=== PATIENT | male | born 1945 | race Caucasian/White ===

== ENCOUNTER → 2020-01-02 | Outpatient (CLI) | payer BC ==
[2016-06-13 18:33] VITALS: BP 171/88
[~2020-01-02] MED LIST: HYDR-3164 PO; OXYC1TAB19 PO; TAMS0.4C97 PO
== END | disposition home or self-care (01) ==
LOC: LAB 17:01
PROVIDERS: ATTEND Ophthalmology
DX: Z01.818 Encounter for other preprocedural examination (principal); Z11.59 Encounter for screening for other viral diseases
CPT/HCPCS: U0003-CS

== ENCOUNTER 2020-01-06 10:02 | Day surgery (SDC) | payer BC ==
[~2020-01-06] VITALS: Ht 177.8 cm; Wt 79.8 kg
[~2020-01-06 10:02] MED LIST changes: +HYDROmorphone 2 MG/ML VIAL IV PRN; +IV RINGERS,LACTATED 1000ML 1,000 ML IV SCH; +LIDOCAINE 1% PF 2 ML VIAL. ID PRN; +MORPHINE SULFATE 2 MG/ML VIAL. IV PRN; +ONDANSETRON PF 4 MG/2 ML VIAL. IV PRN; +PROCHLORPERAZINE 10 MG/2 ML VIAL. IV PRN; +fentaNYL PF VIAL 100 MCG/2 ML VIAL IV PRN
[2020-01-06] MEDS ORDERED: NEO/POLYMYX/DEXAMETH OPHTH OINTMENT 3.5GM TUBE. ONE (10:15)
[2020-01-06] MEDS ORDERED: CHONDROIT-SOD-HYALURONATE KIT. ONE (10:15)
[2020-01-06] MEDS ORDERED: CHONDROITIN-SOD-HYALURONATE 0.5 ML DISP.SYRIN. ONE (10:15)
[2020-01-06] MEDS ORDERED: LIDOCAINE 2% JELLY 6ML IN APPLICATOR. ONE (10:15)
[2020-01-06] MEDS ORDERED: LIDOCAINE 1%/PHENYLEPH 1.5% PF OPHTH 1 ML VIAL. ONE (10:16)
[2020-01-06] MEDS ORDERED: MIDAZOLAM HCL/PF 2 MG/2 ML VIAL. ONE (10:48)
[2020-01-06] MEDS: CYCLOPENTOLATE 1% OPHTH SOLUTION 2ML BOTTLE. OD SCH ×3 (11:00→11:10)
[2020-01-06] MEDS: PHENYLEPHRINE 10% OPHTH SOLUTION 5ML BOTTLE. OD SCH ×3 (11:00→11:10)
[2020-01-06] MEDS ORDERED: LIDOCAINE 2% JELLY 6ML IN APPLICATOR. OD ONE (12:00)
[2020-01-06] MEDS ORDERED: CIPROFLOXACIN 0.3% OPHTH SOLUTION 5ML BOTTLE. OD ONE (12:00)
[2020-01-06] MEDS ORDERED: PROPARACAINE 0.5% OPHTH SOLUTION 15ML BOTTLE. OD ONE (12:00)
[2020-01-06] MEDS ORDERED: BALANCED SALT IRRIG OPHTH SOLN 15 ML BOTTLE. IO ONE (12:25)
[2020-01-06 12:44] VITALS: BP 179/88
--- NOTE | 2020-01-06 12:55 | OP ---
DATE OF SURGERY: 01/06/2020 PREOPERATIVE DIAGNOSIS: Cataract of the right eye. PROCEDURE: Phacoemulsification with posterior chamber intraocular lens implantation of the right eye. SURGEON: Armida Hernandez MD ANESTHESIA: Topical with monitored anesthesia care. DESCRIPTION OF PROCEDURE: The right eye was prepped with Betadine in the usual sterile fashion and draped. A paracentesis was performed followed by instillation of preservative-free phenylephrine admixed with lidocaine. A temporal clear corneal incision was made followed by instillation of viscoelastic. A capsulorrhexis was performed followed by hydrodissection. The phacoemulsification handpiece was used to remove the nucleus in a modified stop and chop fashion. The I/A handpiece was used to remove the cortex. Viscoelastic was injected in the capsular bag and an [place] model [id number] with a power of 18.5 diopters was placed into the capsular bag. Balanced salt solution was used to hydrate the corneal wounds and the viscoelastic evacuated with the I/A handpiece. Once no leak was noted, Maxitrol was placed on the eye and the eye shielded and the patient is sent to the recovery room uneventfully. He was asked to follow the instructions given to him with the medications on a calendar and call the office for any questions or concerns. Otherwise, he was asked to follow up due to his work schedule the following week, on 01/11/2020, at 3:00 p.m. ARMIDA HERNANDEZ MD DR: EDIN/nts JOB#: [id number] / [id number]
== END 2020-01-06 13:36 | disposition home or self-care (01) ==
LOC: SURG 10:02
PROVIDERS: ATTEND Ophthalmology
DX: H26.8 Other specified cataract (principal)
CPT/HCPCS: 66984; C1780; J0171; J0690; J1580; J2250; J3490

== ENCOUNTER → 2020-01-24 | Outpatient (CLI) | payer BC ==
[2020-01-06 12:44] VITALS: BP 179/88
[~2020-01-24] MED LIST changes: -HYDROmorphone 2 MG/ML VIAL IV PRN; -IV RINGERS,LACTATED 1000ML 1,000 ML IV SCH; -LIDOCAINE 1% PF 2 ML VIAL. ID PRN; -MORPHINE SULFATE 2 MG/ML VIAL. IV PRN; -ONDANSETRON PF 4 MG/2 ML VIAL. IV PRN; -PROCHLORPERAZINE 10 MG/2 ML VIAL. IV PRN; -fentaNYL PF VIAL 100 MCG/2 ML VIAL IV PRN
== END | disposition home or self-care (01) ==
LOC: LAB 15:51
PROVIDERS: ATTEND Ophthalmology
DX: Z01.818 Encounter for other preprocedural examination (principal); Z11.59 Encounter for screening for other viral diseases
CPT/HCPCS: U0003-CS

== ENCOUNTER 2020-01-27 10:57 | Day surgery (SDC) | payer BC ==
[~2020-01-27] VITALS: Ht 177.8 cm; Wt 79.8 kg
[~2020-01-27 10:57] MED LIST changes: +CHONDROIT-SOD-HYALURONATE KIT. ONE; +CHONDROITIN-SOD-HYALURONATE 0.5 ML DISP.SYRIN. ONE; +HYDROmorphone 2 MG/ML VIAL IV PRN; +IV RINGERS,LACTATED 1000ML 1,000 ML IV SCH; +LIDOCAINE 1% PF 2 ML VIAL. ID PRN; +LIDOCAINE 1%/PHENYLEPH 1.5% PF OPHTH 1 ML VIAL. ONE; +LIDOCAINE 2% JELLY 6ML IN APPLICATOR. ONE; +MORPHINE SULFATE 2 MG/ML VIAL. IV PRN; +NEO/POLYMYX/DEXAMETH OPHTH OINTMENT 3.5GM TUBE. ONE; +ONDANSETRON PF 4 MG/2 ML VIAL. IV PRN; +PROCHLORPERAZINE 10 MG/2 ML VIAL. IV PRN; +fentaNYL PF VIAL 100 MCG/2 ML VIAL IV PRN
[2020-01-27] MEDS: PHENYLEPHRINE 10% OPHTH SOLUTION 5ML BOTTLE. OS SCH ×3 (11:27→11:40)
[2020-01-27] MEDS: CYCLOPENTOLATE 1% OPHTH SOLUTION 2ML BOTTLE. OS SCH ×3 (11:28→11:40)
[2020-01-27] MEDS ORDERED: PROPARACAINE 0.5% OPHTH SOLUTION 15ML BOTTLE. OS ONE (12:00)
[2020-01-27] MEDS ORDERED: LIDOCAINE 2% JELLY 6ML IN APPLICATOR. OS ONE (12:00)
[2020-01-27] MEDS ORDERED: CIPROFLOXACIN 0.3% OPHTH SOLUTION 5ML BOTTLE. OS ONE (12:00)
[2020-01-27] MEDS ORDERED: hydrALAZINE 20 MG/ML VIAL. ONE (12:23)
[2020-01-27] MEDS ORDERED: BALANCED SALT IRRIG OPHTH SOLN 15 ML BOTTLE. IO ONE (13:11)
--- NOTE | 2020-01-27 13:32 | OP ---
DATE OF SURGERY: 01/27/2020 PREOPERATIVE DIAGNOSIS: Cataract of the left eye. PROCEDURE: Phacoemulsification with posterior chamber intraocular lens implantation of the left eye. INDICATION: Painless progressive visual loss and visually significant cataract and difficulty reading. SURGEON: Armida Hernandez MD ANESTHESIA: Topical with monitored anesthesia care. DESCRIPTION OF PROCEDURE: The left eye was prepped with Betadine in the usual sterile fashion and draped. A paracentesis was performed followed by instillation of preservative-free phenylephrine and lidocaine. A temporal clear corneal incision was made followed by instillation of viscoelastic. A capsulorrhexis was performed followed by hydrodissection. The phacoemulsification handpiece was used to remove the nucleus in a modified stop and chop fashion followed by the I/A handpiece to remove the cortex. Viscoelastic was injected into the capsular bag and an [place], model [id number] with a power of 18.0 diopters was placed into the capsular bag. Balanced salt solution was used to hydrate the corneal wounds and the viscoelastic evacuated with the I/A handpiece. Once no leak was noted, Maxitrol was placed on the eye and the eye shielded and the patient was sent to the recovery room uneventfully. ARMIDA HERNANDEZ MD DR: EDIN/william JOB#: [id number] / [id number]
[2020-01-27] MEDS ORDERED: acetaZOLAMIDE 250 MG TABLET. PO ONE (14:00)
[2020-01-27 14:02] VITALS: BP 150/74
== END 2020-01-27 14:15 | disposition home or self-care (01) ==
LOC: SURG 10:57
PROVIDERS: ATTEND Ophthalmology
DX: H26.8 Other specified cataract (principal)
CPT/HCPCS: 66984; C1780; J0171; J0360; J0690; J1580; J3490

== ENCOUNTER 2021-10-09 16:03 | Inpatient (IN) | payer BC, MEDICARE ==
[~2021-10-09] VITALS: Ht 177.8 cm; Wt 96.9 kg
[~2021-10-09 16:03] MED LIST changes: -CHONDROIT-SOD-HYALURONATE KIT. ONE; -CHONDROITIN-SOD-HYALURONATE 0.5 ML DISP.SYRIN. ONE; -HYDROmorphone 2 MG/ML VIAL IV PRN; -IV RINGERS,LACTATED 1000ML 1,000 ML IV SCH; -LIDOCAINE 1% PF 2 ML VIAL. ID PRN; -LIDOCAINE 1%/PHENYLEPH 1.5% PF OPHTH 1 ML VIAL. ONE; -LIDOCAINE 2% JELLY 6ML IN APPLICATOR. ONE; -MORPHINE SULFATE 2 MG/ML VIAL. IV PRN; -NEO/POLYMYX/DEXAMETH OPHTH OINTMENT 3.5GM TUBE. ONE; -ONDANSETRON PF 4 MG/2 ML VIAL. IV PRN; -PROCHLORPERAZINE 10 MG/2 ML VIAL. IV PRN; -fentaNYL PF VIAL 100 MCG/2 ML VIAL IV PRN
--- NOTE | 2021-10-09 16:13 | PHYS DOC ---
Past Medical History Past Medical History: No Pertinent History Past Surgical History: Tonsillectomy, Other Additional Past Surgical Histo: VASECTOMY Smoking Status: Current Every Day Smoker Alcohol Use: Heavy Drug Use: None Adult General [facility] HPI Patient is a 76 year old male who presents with rapid heart rate. Mr. 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 He does not often seek health care and was last seen by PCP in 2019. He presented there today for routine surveillance as well as complaints of some lower extremity edema and dyspnea. He was noted to be in atrial fibrillation with RVR. Was referred to the emergency department for evaluation. Additional history is that patient has had chronic constipation. He had been seen previously by urologist and was told he had an irregular shaped and mildly enlarged prostate. He does have chronic difficulties with both bowel movements as well as voiding and endorses frequent urination and weak stream and difficulty beginning stream. He underwent occult stool screening in the PCP office earlier today and this test was positive. It is not reordered during the ER visit. His primary complaint today is that he has had shortness of breath over the last 3 weeks. During the same time, he has noted lower extremity edema that extends up into the abdomen. His dyspnea is not worse when he lays down to sleep. He normally lays on his side and does not have a problem. He does have dyspnea that is much worse with exertion and he reports activity intolerance which has been worsening. Denies chest pain or palpitations. Has not had nausea or vomiting. He has not perceived any bloody stools but he has noted some intermittent episodes of dark stool. He denies abdominal pain but complains of swelling over the abdomen for the last 3 weeks. Does not have a history of atrial fibrillation. Does not take anticoagulation medications. He does drink 1-3 Conner Dorantes drinks daily and has an extensive history of tobacco use. Review of Systems Review of Systems Constitutional: Denies fever or chills Eyes: Denies change in visual acuity, redness, or eye pain HENT: Denies nasal congestion or sore throat Respiratory: As documented in HPI Cardiovascular: New onset A. fib. No chest pain. GI: Diffuse abdominal swelling, chronic diarrhea : As documented in HPI. Has known prostate hypertrophy Musculoskeletal: Denies back pain or Integument: Denies rash Neurologic: Denies headache Endocrine: Denies All other systems were reviewed and found to be within normal limits, except as documented in this note. Current Medications Current Medications Current Medications Medications (Trade) Dose Ordered Sig/Alicja Start Time Stop Time Status Last Admin Dose Admin Ceftriaxone Sodium (Rocephin) 1 gm 1X ONCE 10/09/21 18:00 10/09/21 18:01 UNV Diltiazem HCl (Cardizem Iv Push) 10 mg 1X ONCE 10/09/21 16:30 10/09/21 16:31 DC 10/09/21 17:02 10 MG Allergies Allergies Allergies Coded Allergies Type Severity Reaction Last Updated Verified No Known Drug Allergies 01/24/20 No Physical Exam Physical Exam Constitutional: Well developed, well nourished, no acute distress, non-toxic appearance HENT: Moist mucous membranes, nares patent, ears grossly normal Eyes: PERRLA, EOMI, conjunctiva normal Neck: Normal range of motion, no JVD Cardiovascular: Irregular heart rate that is in the 130s. No murmur. Lungs & Thorax: Good air movement in all pritch[place]. Crackles in the bases bilaterally that are subtle. No increased work of breathing. Abdomen: Abdomen is mildly distended but nontender to palpate. Normal bowel sounds. Skin: Warm, dry, no petechiae Back: Normal appearing. Normal ROM Extremities: Equal pulses in all extremities. 2-3+ edema bilateral lower extremities. Neurologic: Alert and oriented X 3 Psychologic: Affect normal Guaiac stool documented by PCP in office prior to presentation to be positive but no gross blood. Current Patient Data Vital Signs Vital Signs Date Time Temp Pulse Resp B/P (MAP) Pulse Ox O2 Delivery O2 Flow Rate FiO2 10/09/21 17:02 132 162/83 10/09/21 16:10 98.1 20 94 Room Air 98.1 Lab Values Laboratory Tests Test 10/09/21 16:20 White Blood Count 4.7 x10^3/uL (4.0-11.0) Red Blood Count 4.37 x10^6/uL (4.30-5.70) Hemoglobin 14.3 g/dL (13.0-17.5) Hematocrit 43.0 % (39.0-53.0) Mean Corpuscular Volume 98 fL (79-100) Mean Corpuscular Hemoglobin 33 pg (25-35) Mean Corpuscular Hemoglobin Concent 33 g/dL (31-37) Red Cell Distribution Width 15.5 % (11.5-14.5) H Platelet Count 128 x10^3/uL (140-400) L Neutrophils (%) (Auto) 71 % (31-73) Lymphocytes (%) (Auto) 14 % (24-48) L Monocytes (%) (Auto) 13 % (0-9) H Eosinophils (%) (Auto) 1 % (0-3) Basophils (%) (Auto) 1 % (0-3) Neutrophils # (Auto) 3.4 x10^3/uL (1.8-7.7) Lymphocytes # (Auto) 0.7 x10^3/uL (1.0-4.8) L Monocytes # (Auto) 0.6 x10^3/uL (0.0-1.1) Eosinophils # (Auto) 0.0 x10^3/uL (0.0-0.7) Basophils # (Auto) 0.0 x10^3/uL (0.0-0.2) Prothrombin Time 15.2 SEC (11.7-14.0) H Prothrombin Time INR 1.2 (0.8-1.1) H Activated Partial Thromboplast Time 31 SEC (24-38) Laboratory Tests 10/09/21 16:20 EKG EKG 16:20: Atrial fibrillation with RVR. Rate of 133. Radiology/Procedures Radiology/Procedures [] Course & Med Decision Making Course & Med Decision Making Pertinent Labs and Imaging studies reviewed. (See chart for details) Mr. Marley is evaluated on arrival to room 13. Denies chest pain or shortness of breath but does have A. fib with RVR. Has findings on physical exam concerning for fluid overload although he has no acute distress and no hypoxia. Extensive work-up is ordered. Per his PCP has not had routine labs and these are also added to his ER work-up. We will give initially a bolus of Cardizem for his A. fib with RVR. Anticoagulation is initially held as he was reported to have positive guaiac for occult blood in stool. Does not report diana bleeding. Also has history of alcohol use daily and LFTs and coags are added to his work-up. 17:20: Reevaluated. Resting comfortably. Heart rate now 101 and continues to be in atrial fibrillation. Has few PVCs on the monitor. Blood pressure dropped to 94/54. Asymptomatic. Will observe and hold IV fluids until some labs are returned. 17:50: Discussed with Dr. Paez who is agreeable to admit the patient. Work-up still pending. Continues to be in A. fib. No chest pain. Imaging is pending. Noted to have findings on plain film chest x-ray which could represent pulmonary edema versus pneumonia. He does not give review of systems of cough or fever but he is empirically treated with Rocephin. Blood culture sent and procalcitonin is ordered. 18:00: Transfer of care to Dr. Tripathi. Please follow-up on imaging and labs and respond to any critical results. Otherwise, Dr. Paez is aware of the admission. Dragon Disclaimer Dragon Disclaimer This electronic medical record was generated, in whole or in part, using a voice recognition dictation system. Departure Departure Impression: Primary Impression: Atrial fibrillation with rapid ventricular response Disposition: ADMITTED INPATIENT Referrals: MARTÍN NICOLE (PCP) CAROLINA MON DO Oct 09, 2021 16:13
[2021-10-09 17:05] LABS: BASO % 1 % (0-3); EOS % 1 % (0-3); HEMOGLOBIN 14.3 g/dL (13.0-17.5); LYMPH # 0.7 x10^3/uL (1.0-4.8); LYMPH % 14 % (24-48); MEAN CORPUSCULAR HEMOGLOBIN 33 pg (25-35); MEAN CORPUSCULAR HGB CONC 33 g/dL (31-37); MEAN CORPUSCULAR VOLUME 98 fL (79-100); MONO # 0.6 x10^3/uL (0.0-1.1); MONO % 13 % (0-9); NEUT # 3.4 x10^3/uL (1.8-7.7); NEUT % 71 % (31-73); PLATELET COUNT 128 x10^3/uL (140-400); RED BLOOD COUNT 4.37 x10^6/uL (4.30-5.70); RED CELL DISTRIBUTION WIDTH 15.5 % (11.5-14.5); WHITE BLOOD COUNT 4.7 x10^3/uL (4.0-11.0)
[2021-10-09 17:13] LABS: PROTHROMBIN TIME PATIENT 15.2 SEC (11.7-14.0)
--- NOTE | 2021-10-09 17:24 | RAD ---
EXAMINATION: Chest radiograph. VIEWS: Single AP view of the chest COMPARISON: None INDICATION:76 years, Male, dyspnea, CHF. FINDINGS: Enlarged partially obscured cardiac silhouette. Increased central pulmonary vasculature patchy and co nfluent bilateral airspace opacities with complete opacification of the left perihilar and basilar re gion. No pneumothorax. No acute osseous process. IMPRESSION: Multifocal airspace disease with left perihilar and basilar confluent opacities. This could represent a moderate pleural effusion on the left. These findings could be from moderate interstitial pulmonar y edema and/or multifocal pneumonia. Electronically signed by: Nathanael Redding DO (10/09/2021 5:22 PM) [facility]
[2021-10-09 17:58] LABS: CALCIUM 8.8 mg/dL (8.5-10.1); CREATININE 1.4 mg/dL (0.7-1.3); GFR 49.4
[2021-10-09] MEDS ORDERED: ONDANSETRON PF 4 MG/2 ML VIAL. IVP PRN ×2 (18:00→20:00)
[2021-10-09] MEDS ORDERED: cefTRIAXone IV Push 1 GM VIAL. IVP ONE (18:00)
[2021-10-09 18:05] LABS: ALBUMIN 3.2 g/dL (3.4-5.0); DIRECT BILIRUBIN 0.9 mg/dL (0.0-0.2); TOTAL BILIRUBIN 1.6 mg/dL (0.2-1.0)
[2021-10-09] MEDS ORDERED: CONTRAST GIVEN. MC PRN (19:00)
[2021-10-09] MEDS ORDERED: IOHEXOL 300 MG/ML 100ML VIAL. IV ONE (19:00)
[2021-10-09 19:40] VITALS: BP 116/91
--- NOTE | 2021-10-09 19:46 | PDOC1 ---
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 Patient is a heavy smoker and drinker. He drinks about 1-3 Conner Dorantes daily. Patient was at his PCPs office earlier today and he was actually tested positive on occult stool screening. Patient came to the ED today for elevated heart rate from PCPs office.. He was found to be in A. fib RVR with heart rates in the 130s and was given Cardizem x1 and his heart rate improved to 100s. He remained in atrial fibrillation. Denies any history of atrial fibrillation or bloody stools. His primary complaint today is that he has had shortness of breath over the last 3 weeks. During the same time, he has noted lower extremity edema that extends up into the abdomen. His dyspnea is not worse when he lays down to sleep. He normally lays on his side and does not have a problem. He does have dyspnea that is much worse with exertion and he reports activity intolerance which has been worsening. Denies chest pain or palpitations. Has not had nausea or vomiting. He has not perceived any bloody stools but he has noted some intermittent episodes of dark stool. He denies abdominal pain but complains of swelling over the abdomen for the last 3 weeks. Past Medical/Surgical History: PMH/PSH: Past Medical History: No Pertinent History Past Surgical History: Tonsillectomy, VASECTOMY Allergies: Allergies: Coded Allergies: No Known Drug Allergies (Unverified , 01/24/20) Family History: Family History: Reviewed with no relative findings in the chart Social History: Social History: Smoking Status: Current Every Day Smoker Alcohol Use: Heavy Drug Use: None Current Medications: Current Medications Current Medications Diltiazem HCl (Cardizem Iv Push) 10 mg 1X ONCE IVP Last administered on 10/09/21at 17:02; Start 10/09/21 at 16:30; Stop 10/09/21 at 16:31; Status DC Ceftriaxone Sodium (Rocephin) 1 gm 1X ONCE IVP Last administered on 10/09/21at 18:28; Start 10/09/21 at 18:00; Stop 10/09/21 at 18:01; Status DC Ondansetron HCl (Zofran) 4 mg PRN Q8HRS PRN IVP NAUSEA/VOMITING; Start 10/09/21 at 18:00; Stop 10/10/21 at 17:59 Iohexol (Omnipaque 300 Mg/ml) 60 ml 1X ONCE IV Last administered on 10/09/21at 19:29; Start 10/09/21 at 19:00; Stop 10/09/21 at 19:01; Status DC Info (CONTRAST GIVEN -- Rx MONITORING) 1 each PRN DAILY PRN MC SEE COMMENTS; Start 10/09/21 at 19:00; Stop 10/11/21 at 18:59 Active Scripts Active Reported Flomax (Tamsulosin Hcl) 0.4 Mg Cap.er.24h 0.4 Mg PO DAILY ROS: Review of Systems Review of System REVIEW OF SYSTEMS: GENERAL: Denies weakness SKIN: No bruising, hair changes or rashes. EYES: No blurred, double or loss of vision. NOSE AND THROAT: No history of nosebleeds, hoarseness or sore throat. HEART: No history of palpitations, chest pain or shortness of breath on exertion. LUNGS: Positive shortness of breath GASTROINTESTINAL: Denies changes in appetite, nausea, vomiting, diarrhea or constipation. GENITOURINARY: No history of frequency, urgency, hesitancy or nocturia. NEUROLOGIC: Denies history of numbness, tingling, or tremor. PSYCHIATRIC: No history of panic, anxiety or depression. ENDOCRINE: No history of heat or cold intolerance, polyuria or polydipsia. EXTREMITIES: Denies joint pain, pain on walking or stiffness. Physical Exam: Vital Signs: Vital Signs Date Time Temp Pulse Resp B/P (MAP) Pulse Ox O2 Delivery O2 Flow Rate FiO2 10/09/21 18:28 102 18 99/81 (87) 95 Room Air 10/09/21 16:10 98.1 98.1 Physcial Exam: General: Well developed, well nourished, no acute distress, well appearing HEENT: Pupils equally round and reactive to light, EOMI, no discharge, normal conjunctiva Neck: Supple, no nuchal rigidity, no JVD, trachea midline, no tenderness Cardiac: Irregular irregular, no murmurs, no gallops, no rubs Chest/Lungs: Diminished to auscultation in the left lung field, no wheeze, no rhonchi, no crackles Abdomen: soft, non-distended, no guarding, no peritoneal signs, non-tender Back: No tenderness Extremities: no edema, pulses intact, non-tender,capillary refill <3 sec bilateral upper and lower extremities, Neuro: Alert and oriented x 4, no focal deficits, normal speech Labs: Labs: Laboratory Tests Test 10/09/21 16:20 White Blood Count 4.7 x10^3/uL (4.0-11.0) Red Blood Count 4.37 x10^6/uL (4.30-5.70) Hemoglobin 14.3 g/dL (13.0-17.5) Hematocrit 43.0 % (39.0-53.0) Mean Corpuscular Volume 98 fL (79-100) Mean Corpuscular Hemoglobin 33 pg (25-35) Mean Corpuscular Hemoglobin Concent 33 g/dL (31-37) Red Cell Distribution Width 15.5 % (11.5-14.5) Platelet Count 128 x10^3/uL (140-400) Neutrophils (%) (Auto) 71 % (31-73) Lymphocytes (%) (Auto) 14 % (24-48) Monocytes (%) (Auto) 13 % (0-9) Eosinophils (%) (Auto) 1 % (0-3) Basophils (%) (Auto) 1 % (0-3) Neutrophils # (Auto) 3.4 x10^3/uL (1.8-7.7) Lymphocytes # (Auto) 0.7 x10^3/uL (1.0-4.8) Monocytes # (Auto) 0.6 x10^3/uL (0.0-1.1) Eosinophils # (Auto) 0.0 x10^3/uL (0.0-0.7) Basophils # (Auto) 0.0 x10^3/uL (0.0-0.2) Prothrombin Time 15.2 SEC (11.7-14.0) Prothromb Time International Ratio 1.2 (0.8-1.1) Activated Partial Thromboplast Time 31 SEC (24-38) Sodium Level 138 mmol/L (136-145) Potassium Level 4.0 mmol/L (3.5-5.1) Chloride Level 99 mmol/L (98-107) Carbon Dioxide Level 25 mmol/L (21-32) Anion Gap 14 (6-14) Blood Urea Nitrogen 27 mg/dL (8-26) Creatinine 1.4 mg/dL (0.7-1.3) Estimated GFR (Cockcroft-Gault) 49.4 Glucose Level 103 mg/dL (70-99) Lactic Acid Level 1.7 mmol/L (0.4-2.0) Calcium Level 8.8 mg/dL (8.5-10.1) Magnesium Level 1.4 mg/dL (1.8-2.4) Total Bilirubin 1.6 mg/dL (0.2-1.0) Direct Bilirubin 0.9 mg/dL (0.0-0.2) Aspartate Amino Transf (AST/SGOT) 29 U/L (15-37) Alanine Aminotransferase (ALT/SGPT) 28 U/L (16-63) Alkaline Phosphatase 164 U/L (46-116) Troponin I High Sensitivity 36 ng/L (4-75) CA-Ahg-G-Type Natriuretic Peptide 7211 pg/mL (0-449) Total Protein 7.0 g/dL (6.4-8.2) Albumin 3.2 g/dL (3.4-5.0) Triglycerides Level 79 mg/dL (0-150) Cholesterol Level 127 mg/dL (0-200) LDL Cholesterol, Calculated 49 mg/dL (0-100) VLDL Cholesterol, Calculated 16 mg/dL (0-40) Non-HDL Cholesterol Calculated 65 mg/dL (0-129) HDL Cholesterol 62 mg/dL (40-60) Cholesterol/HDL Ratio 2.0 Prostate Specific Antigen 0.54 ng/mL (0.00-4.00) Thyroid Stimulating Hormone (TSH) 2.105 uIU/mL (0.358-3.74) Laboratory Tests Test 10/09/21 16:20 White Blood Count 4.7 x10^3/uL (4.0-11.0) Red Blood Count 4.37 x10^6/uL (4.30-5.70) Hemoglobin 14.3 g/dL (13.0-17.5) Hematocrit 43.0 % (39.0-53.0) Mean Corpuscular Volume 98 fL (79-100) Mean Corpuscular Hemoglobin 33 pg (25-35) Mean Corpuscular Hemoglobin Concent 33 g/dL (31-37) Red Cell Distribution Width 15.5 % (11.5-14.5) Platelet Count 128 x10^3/uL (140-400) Neutrophils (%) (Auto) 71 % (31-73) Lymphocytes (%) (Auto) 14 % (24-48) Monocytes (%) (Auto) 13 % (0-9) Eosinophils (%) (Auto) 1 % (0-3) Basophils (%) (Auto) 1 % (0-3) Neutrophils # (Auto) 3.4 x10^3/uL (1.8-7.7) Lymphocytes # (Auto) 0.7 x10^3/uL (1.0-4.8) Monocytes # (Auto) 0.6 x10^3/uL (0.0-1.1) Eosinophils # (Auto) 0.0 x10^3/uL (0.0-0.7) Basophils # (Auto) 0.0 x10^3/uL (0.0-0.2) Prothrombin Time 15.2 SEC (11.7-14.0) Prothromb Time International Ratio 1.2 (0.8-1.1) Activated Partial Thromboplast Time 31 SEC (24-38) Sodium Level 138 mmol/L (136-145) Potassium Level 4.0 mmol/L (3.5-5.1) Chloride Level 99 mmol/L (98-107) Carbon Dioxide Level 25 mmol/L (21-32) Anion Gap 14 (6-14) Blood Urea Nitrogen 27 mg/dL (8-26) Creatinine 1.4 mg/dL (0.7-1.3) Estimated GFR (Cockcroft-Gault) 49.4 Glucose Level 103 mg/dL (70-99) Lactic Acid Level 1.7 mmol/L (0.4-2.0) Calcium Level 8.8 mg/dL (8.5-10.1) Magnesium Level 1.4 mg/dL (1.8-2.4) Total Bilirubin 1.6 mg/dL (0.2-1.0) Direct Bilirubin 0.9 mg/dL (0.0-0.2) Aspartate Amino Transf (AST/SGOT) 29 U/L (15-37) Alanine Aminotransferase (ALT/SGPT) 28 U/L (16-63) Alkaline Phosphatase 164 U/L (46-116) Troponin I High Sensitivity 36 ng/L (4-75) CE-Qmh-X-Type Natriuretic Peptide 7211 pg/mL (0-449) Total Protein 7.0 g/dL (6.4-8.2) Albumin 3.2 g/dL (3.4-5.0) Triglycerides Level 79 mg/dL (0-150) Cholesterol Level 127 mg/dL (0-200) LDL Cholesterol, Calculated 49 mg/dL (0-100) VLDL Cholesterol, Calculated 16 mg/dL (0-40) Non-HDL Cholesterol Calculated 65 mg/dL (0-129) HDL Cholesterol 62 mg/dL (40-60) Cholesterol/HDL Ratio 2.0 Prostate Specific Antigen 0.54 ng/mL (0.00-4.00) Thyroid Stimulating Hormone (TSH) 2.105 uIU/mL (0.358-3.74) Images: Images PROCEDURE: CT ABD PELV W/ IV CONTRST ONLY CT OF THE ABDOMEN AND PELVIS WITH IV CONTRAST. History: Reason: abdomen distension, constipation : Comparison:None. Procedure: Contiguous axial images of the abdomen and pelvis were performed after the administration of 60 cc of Omnipaque 300 IV contrast. Oral contrast: No. Findings: The heart is moderately dilated. There is a large left effusion with consolidation of the left lower lobe. There is mild fluid around the liver and s pleen and fluid along the paracolic gutters and in the pelvis. There is diffuse soft tissue edema. Liver: Unremarkable Spleen: Unremarkable Pancreas: Unremarkable Adrenal Glands: Unremarkable Kidneys: Unremarkable There is no mass or lymphadenopathy. There is no free air. There is no free fluid. The urinary bladder is partially collapsed and not well evaluated. The appendix is normal. The gallbladder is normal.. Impression: 1. Dilated cardiomegaly. 2. Large left pleural effusion with consolidation of the left lower lobe. 3. Mild ascites. 4. Diffuse soft tissue edema. Could be sepsis or anasarca. Assessment/Plan Assessment/Plan A. fib RVR Large left pleural effusion MIGUEL due to vasomotor nephropathy, unknown baseline Elevated BNP suggestive of acute volume overload versus chronic hypoxia no history of COPD but chronic tobacco smoker Thrombocytopenia Hemoccult stool positive History of tobacco and alcohol misuse Obesity class I Admit to hospitalist service for further management Continue telemetry monitoring Cardiology consulted for atrial fibrillation management Pulmonology consulted for pleural effusion to consider possible thoracentesis GI consulted for FOBT positive Strict I's/O and monitor urine output Avoid nephrotoxic agents Pending TTE Heparin for DVT prophylaxis Protonix GI prophylaxis ADA diet CODE STATUS full Discussed with RN and SW Disposition inpatient management as above DPOA: Justifications for Admission Other Justification AARON HARDIN MD Oct 09, 2021 19:46
[2021-10-09] MEDS ORDERED: diphenhydrAMINE 50 MG/ML VIAL IVP PRN (20:00)
[2021-10-09] MEDS ORDERED: DEXTROSE 50% 25 GM / 50ML DISP.SYRIN. IV PRN (20:00)
[2021-10-09] MEDS ORDERED: diphenhydrAMINE HCL 25 MG CAPSULE PO PRN ×2 (20:00)
[2021-10-09] MEDS ORDERED: SENNOSIDES 8.6 MG TABLET PO PRN (20:00)
[2021-10-09] MEDS ORDERED: DOCUSATE SODIUM 100 MG CAPSULE. PO PRN (20:00)
[2021-10-09] MEDS ORDERED: ZOLPIDEM 5 MG TABLET. PO PRN (20:00)
[2021-10-09] MEDS ORDERED: ACETAMINOPHEN 325 MG TABLET. PO PRN (20:00)
[2021-10-09] MEDS ORDERED: LORazepam 0.5 MG TABLET PO PRN (20:00)
[2021-10-09] MEDS ORDERED: PROCHLORPERAZINE 10 MG/2 ML VIAL. IV PRN (20:00)
--- NOTE | 2021-10-09 20:00 | NUR ---
The patient, KEREN BARRAGAN, 76 y/o, M admitted by AARON HARDIN MD, was given written information regarding hospital policies, unit procedures and contact persons. Valuables were checked and documented will cont to monitor pt status and safety. pmrn .
--- NOTE | 2021-10-09 20:21 | RAD ---
CT OF THE ABDOMEN AND PELVIS WITH IV CONTRAST. History: Reason: abdomen distension, constipation : Comparison:None. Procedure: Contiguous axial images of the abdomen and pelvis were performed after the administration of 60 cc o f Omnipaque 300 IV contrast. Oral contrast: No. Findings: The heart is moderately dilated. There is a large left effusion with consolidation of the left lower lobe. There is mild fluid around the liver and spleen and fluid along the paracolic gutters and in th e pelvis. There is diffuse soft tissue edema. Liver: Unremarkable Spleen: Unremarkable Pancreas: Unremarkable Adrenal Glands: Unremarkable Kidneys: Unremarkable There is no mass or lymphadenopathy. There is no free air. There is no free fluid. The urinary bladder is partially collapsed and not well evaluated. The appendix is normal. The gallbladder is normal.. Impression: 1. Dilated cardiomegaly. 2. Large left pleural effusion with consolidation of the left lower lobe. 3. Mild ascites. 4. Diffuse soft tissue edema. Could be sepsis or anasarca. End Impression PQRS Compliance Statement: One or more of the following individualized dose reduction techniques were utilized for this examinat ion: 1. Automated exposure control 2. Adjustment of the mA and/or kV according to patient size 3. Use of iterative reconstruction technique Electronically signed by: Jayden Chopra III, MD (10/09/2021 8:18 PM) [facility]
[2021-10-09] MEDS ORDERED: MAGNESIUM SULFATE 2GM 50 ML IV ONE ×2 (21:00→21:30)
[2021-10-09] MEDS ORDERED: METOPROLOL IV PUSH 5 MG/5 ML VIAL. IVP PRN (21:15)
[2021-10-09] MEDS ORDERED: FUROSEMIDE 40 MG/4 ML VIAL. IVP ONE (21:30)
[2021-10-09] MEDS: DOXYCYCLINE HYCLATE 100 MG TABLET PO SCH ×2 (22:43→22:48)
[2021-10-09 23:00] VITALS: BP 99/88
[2021-10-10 02:10] LABS: HEMOGLOBIN A1C 5.7 % (4.8-5.6)
[2021-10-10 02:28] VITALS: BP 92/71
[2021-10-10 03:32] LABS: BASO # 0.1 x10^3/uL (0.0-0.2); BASO % 1 % (0-3); EOS # 0.1 x10^3/uL (0.0-0.7); EOS % 1 % (0-3); HEMATOCRIT 39.9 % (39.0-53.0); HEMOGLOBIN 13.2 g/dL (13.0-17.5); LYMPH # 0.9 x10^3/uL (1.0-4.8); LYMPH % 20 % (24-48); MEAN CORPUSCULAR HEMOGLOBIN 33 pg (25-35); MEAN CORPUSCULAR HGB CONC 33 g/dL (31-37); MEAN CORPUSCULAR VOLUME 99 fL (79-100); MONO # 0.7 x10^3/uL (0.0-1.1); MONO % 15 % (0-9); NEUT # 2.8 x10^3/uL (1.8-7.7); NEUT % 63 % (31-73); PLATELET COUNT 117 x10^3/uL (140-400); RED BLOOD COUNT 4.04 x10^6/uL (4.30-5.70); RED CELL DISTRIBUTION WIDTH 15.7 % (11.5-14.5); WHITE BLOOD COUNT 4.5 x10^3/uL (4.0-11.0)
[2021-10-10 03:48] LABS: CALCIUM 8.7 mg/dL (8.5-10.1); CREATININE 1.5 mg/dL (0.7-1.3); GFR 45.6; MAGNESIUM 1.5 mg/dL (1.8-2.4); PHOSPHORUS 4.1 mg/dL (2.6-4.7); POTASSIUM 3.7 mmol/L (3.5-5.1)
[2021-10-10] MEDS: MAGNESIUM SULFATE 2GM 50 ML IV SCH ×2 (05:51→10:33)
[2021-10-10 07:00] VITALS: BP 93/58
--- NOTE | 2021-10-10 08:21 | EKG ---
[facility] [address] [place] [address] Test Date: 2021-10-09 Test Time: 16:16:54 Pat Name: KEREN BARRAGAN Department: Room: [facility] Gender: M [employer]: : 1945 Requested By: CAROLINA MON Order Number: [id number] Reading MD: Joseph Dempsey Measurements Intervals [place] Rate: 133 P: AL: QRS: -24 QRSD: 84 T: 45 QT: 316 QTc: 472 Interpretive Statements ATRIAL FIBRILLATION VENTRICULAR PREMATURE COMPLEX(ES) LEFTWARD AXIS LOW LIMB LEAD VOLTAGE Q WAVE LEAD III Electronically Signed On 10-11-2021 18:20:53 CDT by Joseph Dempsey
[2021-10-10] MEDS ORDERED: PERFLUTREN PROTEIN-A MICROSPHR 0.22 MG/ML 3 ML VIAL. IVP ONE ×2 (08:43→09:00)
--- NOTE | 2021-10-10 09:29 | PDOC2 ---
GI CONSULT Date of Service: DATE: 10/10/21 TIME: 09:29 Reason For Consult: ascites, +FOBT HPI: HPI: 76 y/o male sent to ER from doctor's office for A Fib. Recently has noted weight gain of 1 pound per day along w/ LE swelling and abdominal distention. Additionally has had change in bowel habits for several weeks. No precipitating events. Previously had once formed stool daily in the morning after drinking coffee. Now has several watery/chunky stools throughout the day - occurs when urinating - sometimes has to strain. Associated w/ decreased appetite but ate well this morning. No chronic GI issues. Denies reflux/heartburn (does belch a little more than used to), dysphagia, n/v, abd pain, constipation, hematochezia, or melena. Hasn't had much of an appetite for several years - usually only eats dinner and follows low-carb diet. Used to take a prescription prostate medication but now takes something OTC (but stopped last week). No previous EGD or colonoscopy. No GB, liver, pancreas, or PUD history. PMH: PMH: BPH tonsillectomy, vasectomy, left wrist/shoulder/arm repair, cataract removal FH: Family History: No pertinent hx Social History: Smoke: 1 pack per day ALCOHOL: other (3-4 drinks daily) Drugs: None ROS: GEN: Denies fevers, chills, sweats HEENT: Denies blurred vision, sore throat CV: Denies chest pain RESP: +SOA GI: Per HPI : +urinary hesitancy ENDO: +weight gain NEURO: Denies confusion, dizziness MSK: +swelling SKIN: Denies jaundice, pruritus Vitals: Vitals: Vital Signs Date Time Temp Pulse Resp B/P (MAP) Pulse Ox O2 Delivery O2 Flow Rate FiO2 10/10/21 07:00 96.4 97 17 93/58 (70) 91 Room Air 96.4 Labs: Labs: Laboratory Tests Test 10/09/21 16:20 10/10/21 03:10 10/10/21 07:25 White Blood Count 4.7 x10^3/uL (4.0-11.0) 4.5 x10^3/uL (4.0-11.0) Red Blood Count 4.37 x10^6/uL (4.30-5.70) 4.04 x10^6/uL (4.30-5.70) Hemoglobin 14.3 g/dL (13.0-17.5) 13.2 g/dL (13.0-17.5) Hematocrit 43.0 % (39.0-53.0) 39.9 % (39.0-53.0) Mean Corpuscular Volume 98 fL (79-100) 99 fL (79-100) Mean Corpuscular Hemoglobin 33 pg (25-35) 33 pg (25-35) Mean Corpuscular Hemoglobin Concent 33 g/dL (31-37) 33 g/dL (31-37) Red Cell Distribution Width 15.5 % (11.5-14.5) 15.7 % (11.5-14.5) Platelet Count 128 x10^3/uL (140-400) 117 x10^3/uL (140-400) Neutrophils (%) (Auto) 71 % (31-73) 63 % (31-73) Lymphocytes (%) (Auto) 14 % (24-48) 20 % (24-48) Monocytes (%) (Auto) 13 % (0-9) 15 % (0-9) Eosinophils (%) (Auto) 1 % (0-3) 1 % (0-3) Basophils (%) (Auto) 1 % (0-3) 1 % (0-3) Neutrophils # (Auto) 3.4 x10^3/uL (1.8-7.7) 2.8 x10^3/uL (1.8-7.7) Lymphocytes # (Auto) 0.7 x10^3/uL (1.0-4.8) 0.9 x10^3/uL (1.0-4.8) Monocytes # (Auto) 0.6 x10^3/uL (0.0-1.1) 0.7 x10^3/uL (0.0-1.1) Eosinophils # (Auto) 0.0 x10^3/uL (0.0-0.7) 0.1 x10^3/uL (0.0-0.7) Basophils # (Auto) 0.0 x10^3/uL (0.0-0.2) 0.1 x10^3/uL (0.0-0.2) Prothrombin Time 15.2 SEC (11.7-14.0) Prothromb Time International Ratio 1.2 (0.8-1.1) Activated Partial Thromboplast Time 31 SEC (24-38) Sodium Level 138 mmol/L (136-145) 138 mmol/L (136-145) Potassium Level 4.0 mmol/L (3.5-5.1) 3.7 mmol/L (3.5-5.1) Chloride Level 99 mmol/L (98-107) 99 mmol/L (98-107) Carbon Dioxide Level 25 mmol/L (21-32) 29 mmol/L (21-32) Anion Gap 14 (6-14) 10 (6-14) Blood Urea Nitrogen 27 mg/dL (8-26) 27 mg/dL (8-26) Creatinine 1.4 mg/dL (0.7-1.3) 1.5 mg/dL (0.7-1.3) Estimated GFR (Cockcroft-Gault) 49.4 45.6 Glucose Level 103 mg/dL (70-99) 94 mg/dL (70-99) Hemoglobin A1c 5.7 % (4.8-5.6) Lactic Acid Level 1.7 mmol/L (0.4-2.0) Calcium Level 8.8 mg/dL (8.5-10.1) 8.7 mg/dL (8.5-10.1) Magnesium Level 1.4 mg/dL (1.8-2.4) 1.5 mg/dL (1.8-2.4) Total Bilirubin 1.6 mg/dL (0.2-1.0) Direct Bilirubin 0.9 mg/dL (0.0-0.2) Aspartate Amino Transf (AST/SGOT) 29 U/L (15-37) Alanine Aminotransferase (ALT/SGPT) 28 U/L (16-63) Alkaline Phosphatase 164 U/L (46-116) Troponin I High Sensitivity 36 ng/L (4-75) TO-Klu-S-Type Natriuretic Peptide 7211 pg/mL (0-449) Total Protein 7.0 g/dL (6.4-8.2) Albumin 3.2 g/dL (3.4-5.0) Triglycerides Level 79 mg/dL (0-150) Cholesterol Level 127 mg/dL (0-200) LDL Cholesterol, Calculated 49 mg/dL (0-100) VLDL Cholesterol, Calculated 16 mg/dL (0-40) Non-HDL Cholesterol Calculated 65 mg/dL (0-129) HDL Cholesterol 62 mg/dL (40-60) Cholesterol/HDL Ratio 2.0 Prostate Specific Antigen 0.54 ng/mL (0.00-4.00) Procalcitonin < 0.10 ng/mL (0.00-0.10) Thyroid Stimulating Hormone (TSH) 2.075 uIU/mL (0.358-3.74) Phosphorus Level 4.1 mg/dL (2.6-4.7) Glucose (Fingerstick) 91 mg/dL (70-99) Allergies: Coded Allergies: No Known Drug Allergies (Unverified , 01/24/20) Medications: Current Medications Medications (Trade) Dose Ordered Sig/Alicja Route PRN Reason Start Time Stop Time Status Last Admin Dose Admin Diltiazem HCl (Cardizem Iv Push) 10 mg 1X ONCE IVP 10/09/21 16:30 10/09/21 16:31 DC 10/09/21 17:02 Ceftriaxone Sodium (Rocephin) 1 gm 1X ONCE IVP 10/09/21 18:00 10/09/21 18:01 DC 10/09/21 18:28 Iohexol (Omnipaque 300 Mg/ml) 60 ml 1X ONCE IV 10/09/21 19:00 10/09/21 19:01 DC 10/09/21 19:29 Doxycycline Hyclate (Vibra-Tab) 100 mg BID PO 10/09/21 21:00 10/09/21 22:48 Magnesium Sulfate 50 ml @ 25 mls/hr 1X ONCE IV 10/09/21 21:00 10/09/21 22:59 DC 10/09/21 22:43 Furosemide (Lasix) 40 mg 1X ONCE IVP 10/09/21 21:30 10/09/21 21:31 DC 10/09/21 22:41 Magnesium Sulfate 50 ml @ 25 mls/hr Q24H IV 10/10/21 05:30 10/12/21 07:29 10/10/21 05:51 Imaging: Imaging: CT A/P Impression: 1. Dilated cardiomegaly. 2. Large left pleural effusion with consolidation of the left lower lobe. 3. Mild ascites. 4. Diffuse soft tissue edema. Could be sepsis or anasarca. CXR IMPRESSION: Multifocal airspace disease with left perihilar and basilar confluent opacities. This could represent a moderate pleural effusion on the left. These findings could be from moderate interstitial pulmonary edema and/or multifocal pneumonia. PE: GEN: NAD HEENT: Atraumatic, PERRL LUNGS: diminished anteriorly HEART: irregular ABD: NABS, distended, non-tender EXTREMITY: BLE edema SKIN: No rashes, no jaundice NEURO/PSYCH: A & O 3 A/P: A/P: A Fib, CHF, MIGUEL Thrombocytopenia, elevated bilirubin and Alk Phos, daily alcohol use - unremarkable liver on CT +hemoccult as outpt Abnormal CT - dilated cardiomegaly, large left pleural effusion, mild ascites, diffuse soft tissue edema Change in bowel habits, decreased appetite CRC screen - none -- Continue per cardiology and pulmonology. Echo pending. Not clear edema/anasarca related to liver disease - only mild ascites on CT - will review any additional inpatient testing recs w/ Dr. Taylor. Plan for outpt EGD and colonoscopy after cardiac issues addressed. Check iron profile for completeness. ?diarrhea - consider stool studies. Consider empiric acid-roll out manager. MICHAEL SPEAR Oct 10, 2021 09:29
[2021-10-10] MEDS ORDERED: METOPROLOL SUCC 24HR ER 25 MG TAB.ER.24H. PO ONE (09:45)
[2021-10-10] MEDS ORDERED: HEPARIN 25,000UTS/250ML PREMIX 250 ML IV PRN (09:45)
[2021-10-10] MEDS ORDERED: HEPARIN for IV BOLUS 10,000 UNIT/10 ML VIAL. IV PRN (09:45)
--- NOTE | 2021-10-10 09:58 | PDOC2 ---
JUSTEN CORNEJO [employer] 10/10/21 0958: CARDIAC CONSULT DATE OF CONSULT Date of Consult DATE: 10/10/21 TIME: 09:20 REASON FOR CONSULT Reason for Consult: AFIB RVR REFERRING PHYSICIAN Referring Physician: Ajay SOURCE Source: Chart review, Patient HISTORY OF PRESENT ILLNESS HISTORY OF PRESENT ILLNESS This is a 76 yo male admitted for complains of leg swelling and SOA. Reports that in the last 3 weeks he has gained at least 20 pounds. He went to his PCP yesterday due to multiple complains. Reported frequent urination mostly at night, constipation alteranating with loose stools but denies black or red stool s. Also SOA mainly with exertion and significnat leg swelling. No chest pain or palpitations. At his PCPs office he was noted with AFIB RVR. No known cardiac workup in the past. Presently he is not feeling SOA and no chest pain. He has AFIB and currently rate controlled. No known hx of CAD, VTE or arrhythmia or CVA. PAST MEDICAL HISTORY GI: Constipation Musculoskeletal: Other (dupuytrens contracture) ENT: Other (ceruminal impaction) Renal/: Benign prostatic enlarg. PAST SURGICAL HISTORY Past Surgical History: Tonsillectomy, Other (ORIF left wrist and left humerus; vasectomy) FAMILY HISTORY Family History noncontributory SOCIAL HISTORY Smoke: 1 pack per day (>60 yrs) ALCOHOL: heavy (4 glasses of litzy chester daily and with margaruita) Lives: with Family CURRENT MEDICATIONS CURRENT MEDICATIONS Current Medications Medications (Trade) Dose Ordered Sig/Alicja Route PRN Reason Start Time Stop Time Status Last Admin Dose Admin Diltiazem HCl (Cardizem Iv Push) 10 mg 1X ONCE IVP 10/09/21 16:30 10/09/21 16:31 DC 10/09/21 17:02 Ceftriaxone Sodium (Rocephin) 1 gm 1X ONCE IVP 10/09/21 18:00 10/09/21 18:01 DC 10/09/21 18:28 Iohexol (Omnipaque 300 Mg/ml) 60 ml 1X ONCE IV 10/09/21 19:00 10/09/21 19:01 DC 10/09/21 19:29 Doxycycline Hyclate (Vibra-Tab) 100 mg BID PO 10/09/21 21:00 10/09/21 22:48 Magnesium Sulfate 50 ml @ 25 mls/hr 1X ONCE IV 10/09/21 21:00 10/09/21 22:59 DC 10/09/21 22:43 Furosemide (Lasix) 40 mg 1X ONCE IVP 10/09/21 21:30 10/09/21 21:31 DC 10/09/21 22:41 Magnesium Sulfate 50 ml @ 25 mls/hr Q24H IV 10/10/21 05:30 10/12/21 07:29 10/10/21 05:51 ALLERGIES ALLERGIES: Coded Allergies: No Known Drug Allergies (Unverified , 01/24/20) ROS Review of System 14 point ROS evaluated with pertinent positives noted per HPI PHYSICAL EXAM General: Alert, Oriented X3, Cooperative, No acute distress HEENT: Atraumatic, Mucous membr. moist/pink Lungs: Other (basilar crackles) Heart: Other (AFIB, distnat heart sounds) Abdomen: Soft, Other (protuberant. Ascites per CT) Extremities: No cyanosis, Other (4+ bilateral LA pitting edema) Skin: No breakdown Neuro: Normal speech, Sensation intact Psych/Mental Status: Mental status NL, Mood NL MUSCULOSKELETAL: Osteoarthritic changes both hands VITALS/I&O VITALS/I&O: Vital Signs Date Time Temp Pulse Resp B/P (MAP) Pulse Ox O2 Delivery O2 Flow Rate FiO2 10/10/21 07:00 96.4 97 17 93/58 (70) 91 Room Air 96.4 l I & O 10/09/21 10/09/21 10/10/21 15:00 23:00 07:00 Intake Total 700 ml Output Total 550 ml Balance 150 ml LABS Lab: Laboratory Tests Test 10/09/21 16:20 10/10/21 03:10 10/10/21 07:25 White Blood Count 4.7 x10^3/uL (4.0-11.0) 4.5 x10^3/uL (4.0-11.0) Red Blood Count 4.37 x10^6/uL (4.30-5.70) 4.04 x10^6/uL (4.30-5.70) L Hemoglobin 14.3 g/dL (13.0-17.5) 13.2 g/dL (13.0-17.5) Hematocrit 43.0 % (39.0-53.0) 39.9 % (39.0-53.0) Mean Corpuscular Volume 98 fL (79-100) 99 fL (79-100) Mean Corpuscular Hemoglobin 33 pg (25-35) 33 pg (25-35) Mean Corpuscular Hemoglobin Concent 33 g/dL (31-37) 33 g/dL (31-37) Red Cell Distribution Width 15.5 % (11.5-14.5) H 15.7 % (11.5-14.5) H Platelet Count 128 x10^3/uL (140-400) L 117 x10^3/uL (140-400) L Neutrophils (%) (Auto) 71 % (31-73) 63 % (31-73) Lymphocytes (%) (Auto) 14 % (24-48) L 20 % (24-48) L Monocytes (%) (Auto) 13 % (0-9) H 15 % (0-9) H Eosinophils (%) (Auto) 1 % (0-3) 1 % (0-3) Basophils (%) (Auto) 1 % (0-3) 1 % (0-3) Neutrophils # (Auto) 3.4 x10^3/uL (1.8-7.7) 2.8 x10^3/uL (1.8-7.7) Lymphocytes # (Auto) 0.7 x10^3/uL (1.0-4.8) L 0.9 x10^3/uL (1.0-4.8) L Monocytes # (Auto) 0.6 x10^3/uL (0.0-1.1) 0.7 x10^3/uL (0.0-1.1) Eosinophils # (Auto) 0.0 x10^3/uL (0.0-0.7) 0.1 x10^3/uL (0.0-0.7) Basophils # (Auto) 0.0 x10^3/uL (0.0-0.2) 0.1 x10^3/uL (0.0-0.2) Prothrombin Time 15.2 SEC (11.7-14.0) H Prothrombin Time INR 1.2 (0.8-1.1) H Activated Partial Thromboplast Time 31 SEC (24-38) Sodium Level 138 mmol/L (136-145) 138 mmol/L (136-145) Potassium Level 4.0 mmol/L (3.5-5.1) 3.7 mmol/L (3.5-5.1) Chloride Level 99 mmol/L (98-107) 99 mmol/L (98-107) Carbon Dioxide Level 25 mmol/L (21-32) 29 mmol/L (21-32) Anion Gap 14 (6-14) 10 (6-14) Blood Urea Nitrogen 27 mg/dL (8-26) H 27 mg/dL (8-26) H Creatinine 1.4 mg/dL (0.7-1.3) H 1.5 mg/dL (0.7-1.3) H Estimated GFR (Cockcroft-Gault) 49.4 45.6 Glucose Level 103 mg/dL (70-99) H 94 mg/dL (70-99) Hemoglobin A1c 5.7 % (4.8-5.6) H Lactic Acid Level 1.7 mmol/L (0.4-2.0) Calcium Level 8.8 mg/dL (8.5-10.1) 8.7 mg/dL (8.5-10.1) Magnesium Level 1.4 mg/dL (1.8-2.4) L 1.5 mg/dL (1.8-2.4) L Total Bilirubin 1.6 mg/dL (0.2-1.0) H Direct Bilirubin 0.9 mg/dL (0.0-0.2) H Aspartate Amino Transferase (AST) 29 U/L (15-37) Alanine Aminotransferase (ALT) 28 U/L (16-63) Alkaline Phosphatase 164 U/L (46-116) H Troponin I High Sensitivity 36 ng/L (4-75) EP-Dqm-C-Type Natriuretic Peptide 7211 pg/mL (0-449) H Total Protein 7.0 g/dL (6.4-8.2) Albumin 3.2 g/dL (3.4-5.0) L Triglycerides Level 79 mg/dL (0-150) Cholesterol Level 127 mg/dL (0-200) LDL Cholesterol, Calculated 49 mg/dL (0-100) VLDL Cholesterol, Calculated 16 mg/dL (0-40) Non-HDL Cholesterol Calculated 65 mg/dL (0-129) HDL Cholesterol 62 mg/dL (40-60) H Cholesterol/HDL Ratio 2.0 Prostate Specific Antigen 0.54 ng/mL (0.00-4.00) Procalcitonin < 0.10 ng/mL (0.00-0.10) Thyroid Stimulating Hormone (TSH) 2.075 uIU/mL (0.358-3.74) Phosphorus Level 4.1 mg/dL (2.6-4.7) Glucose (Fingerstick) 91 mg/dL (70-99) Laboratory Tests 10/09/21 16:20 10/10/21 03:10 Laboratory Tests 10/09/21 16:20 10/10/21 03:10 ASSESSMENT/PLAN ASSESSMENT/PLAN 1. AFIB RVR: rate now controlled 2. Suspected cardiomyopathy 3. Acute CHF with possible systolic dysfunction 4. Left pleural effusion 5. Anasarca 6. MIGUEL 7. Hypomagnesemia 8. ETOH misuse: heavy consumption 9. Tobacco abuse with likely COPD 10. Possible urinary retention with BPH 11. Mild thrombocytopenia Recommendations 1. Obtain PVR, May need Quintero if he is retaining 2. Continue lasix therapy. Start on heparin drip for now then will consider for NOAC prior to DC. Replace Mg. 3. Toprol for rate control 4. Consult GI for ascites and +FOBT 5. CIWA protocol per PCP 6. TTE pending 7. He will need ischemic workup pending tests 8. Will consider for outpt CVN after sufficient anticoagulation ODALYS STRONG MD 10/10/21 2979: CARDIAC CONSULT ASSESSMENT/PLAN ASSESSMENT/PLAN Patient seen and examined. Agree with DOOR PULLER's assessment and plan. Atrial fibrillation rate better controlled. Continue heparin infusion for now and start Eliquis prior to DC Continue diuresis for acute on chronic systolic heart failure 2D echo showed severe left ventricular systolic dysfunction, LVEF 20 to 25% Plan outpatient cardioversion and possibly cardiac catheterization Thank you for your consultation JUSTEN CORNEJO [employer] Oct 10, 2021 09:58 ODALYS STRONG MD Oct 10, 2021 15:49
[2021-10-10] MEDS ORDERED: FUROSEMIDE 40 MG/4 ML VIAL. IVP ONE (10:00)
[2021-10-10] MEDS: METOPROLOL SUCC 24HR ER 25 MG TAB.ER.24H. PO SCH (10:33)
[2021-10-10 11:00] VITALS: BP 95/62
--- NOTE | 2021-10-10 11:29 | NUR ---
Report called to Marilyn BAXTER at [facility]. Addendum: 10/10/21 at 1602 by MARITZA MANCERA RN error Wrong patient
--- NOTE | 2021-10-10 12:00 | CONS ---
DATE OF CONSULTATION: 10/10/2021 ATTENDING PHYSICIAN: Dr. Paez. REASON FOR CONSULTATION: COPD, pleural effusion. HISTORY OF PRESENT ILLNESS: The patient is a 76-year-old male who has been a smoker for 60 years and continues to smoke cigarettes. He was brought into the hospital with complaint of bloating and abdominal distention. The patient denies any shortness of breath. Although in the ER and Cardiology note, it is reported to have some dyspnea. The patient was noted to be in atrial fibrillation with rapid ventricular response. The patient was seen by Cardiology. He also underwent occult stool screening by the PCP and was positive. The patient has a history of heavy alcoholism, 1 to 3 Conner Zion's drinks daily and has been smoking for 60 years. I have reviewed the patient's imaging study including CT abdomen and pelvis and a chest x-ray. The CT abdomen and pelvis shows a small to moderate left pleural effusion. There is some associated compressive atelectasis. A consultation requested for further evaluation and management. PAST MEDICAL HISTORY: Significant for history of suspected COPD, could be severe. History of heavy alcoholism. Constipation. BPH. PAST SURGICAL HISTORY: Tonsillectomy. SOCIAL HISTORY: Smoker for 60 years, 1 pack per day and history of heavy alcohol use, up to 2-4 glasses of Conner Zion's daily and omar. REVIEW OF SYSTEMS: Twelve-point review of system obtained. Pertinent positives discussed in my history of present illness, otherwise noncontributory. All systems that were negative were reviewed as well. ALLERGIES: None. CURRENT MEDICATIONS: Reviewed as listed in the MRAD including Lasix. He is also on empiric antibiotics and heparin. PHYSICAL EXAMINATION: VITAL SIGNS: Reviewed. Afebrile, pulse ox is 91% on room air. NECK: Supple. LUNGS: With slightly diminished breath sounds, left base. CARDIOVASCULAR: Within regular rate. ABDOMEN: Soft, distended. EXTREMITIES: With no pitting edema. LABORATORY DATA: Labs are reviewed. White cell count 4.5, hemoglobin 13.2 and platelets are 117. BUN 27, creatinine 1.5. INR is 1.2. IMPRESSION: 1. A 60 years of tobaccoism, likely underlying chronic obstructive pulmonary disease with ongoing tobaccoism. No desire to quit cigarettes. 2. Atrial fibrillation with rapid ventricular response. Being managed by Cardiology. 3. Abnormal CT abdomen and pelvis with mild to moderate left pleural effusion. Likely related to low oncotic pressure from hypoalbuminemia. He has chronic heavy alcoholism history. He should have further Gastroenterology evaluation regarding Hemoccult stool and bloating with constipation. Need to rule out any occult gastrointestinal malignancy. 4. Mild acute kidney injury. 5. Likely alcoholic liver disease. His bilirubin is mildly elevated. 6. Hypomagnesemia. RECOMMENDATIONS: 1. Discussed with RN and patient's daughter along with Cardiology. 2. We will continue to monitor his effusion. We will repeat chest x-ray in next 24 hours and assess the need for thoracentesis. 3. PFTs as an outpatient. 4. Follow GI recommendation. 5. Follow Cardiology recommendations. 6. Replace magnesium. 7. Watch for alcohol withdrawal. 8. We will follow along with you. GEORGETTE/JUAN CARLOS/PREETI DR: Kayode TID: [id number]
[2021-10-10 15:00] VITALS: BP 140/105
--- NOTE | 2021-10-10 15:16 | PDOC ---
[employer] PROGRESS NOTE Date of Service DOS: DATE: 10/10/21 TIME: 15:07 Chief Complaint Chief Complaint A. fib RVR Large left pleural effusion MIGUEL due to vasomotor nephropathy, unknown baseline Elevated BNP suggestive of acute volume overload versus chronic hypoxia no history of COPD but chronic tobacco smoker Thrombocytopenia Hemoccult stool positive History of tobacco and alcohol misuse Obesity class I History of Present Illness History of Present Illness 10/10: Patient seen and evaluated with at bedside. He denies any shortness of breath at rest or laying on his back, but does admit to some dyspnea on exertion. Answered and 's questions to the best of my abilities. Echocardiogram pending, and nurse initiating heparin drip. Will order abdominal ultrasound to evaluate likely cirrhosis. Will order CRP to rule out any pneumonia; if not elevated will discontinue empiric antibiotics. For his likely history of BPH we will initiate Flomax daily. Patient also concerned about bilateral earwax impaction. Will schedule daily Debrox in hopes that impacted earwax will express its way out. Discussed with RN. Vitals/I&O Vitals/I&O: Vital Signs Date Time Temp Pulse Resp B/P (MAP) Pulse Ox O2 Delivery O2 Flow Rate FiO2 10/10/21 11:00 97.8 102 17 95/62 (73) 93 Room Air 97.8 I & O 10/09/21 10/09/21 10/10/21 15:00 23:00 07:00 Intake Total 700 ml Output Total 550 ml Balance 150 ml Physical Exam General: Alert, Oriented X3, Cooperative, No acute distress Heart: Other (AFIB, distnat heart sounds) Lungs: Clear Abdomen: Soft, Other (Distended abdomen with +fluid wave) Extremities: No cyanosis, Other (4+ bilateral LA pitting edema) Skin: No breakdown Labs Labs: Laboratory Tests Test 10/09/21 16:20 10/10/21 03:10 10/10/21 07:25 10/10/21 11:34 White Blood Count 4.7 x10^3/uL (4.0-11.0) 4.5 x10^3/uL (4.0-11.0) Red Blood Count 4.37 x10^6/uL (4.30-5.70) 4.04 x10^6/uL (4.30-5.70) Hemoglobin 14.3 g/dL (13.0-17.5) 13.2 g/dL (13.0-17.5) Hematocrit 43.0 % (39.0-53.0) 39.9 % (39.0-53.0) Mean Corpuscular Volume 98 fL (79-100) 99 fL (79-100) Mean Corpuscular Hemoglobin 33 pg (25-35) 33 pg (25-35) Mean Corpuscular Hemoglobin Concent 33 g/dL (31-37) 33 g/dL (31-37) Red Cell Distribution Width 15.5 % (11.5-14.5) 15.7 % (11.5-14.5) Platelet Count 128 x10^3/uL (140-400) 117 x10^3/uL (140-400) Neutrophils (%) (Auto) 71 % (31-73) 63 % (31-73) Lymphocytes (%) (Auto) 14 % (24-48) 20 % (24-48) Monocytes (%) (Auto) 13 % (0-9) 15 % (0-9) Eosinophils (%) (Auto) 1 % (0-3) 1 % (0-3) Basophils (%) (Auto) 1 % (0-3) 1 % (0-3) Neutrophils # (Auto) 3.4 x10^3/uL (1.8-7.7) 2.8 x10^3/uL (1.8-7.7) Lymphocytes # (Auto) 0.7 x10^3/uL (1.0-4.8) 0.9 x10^3/uL (1.0-4.8) Monocytes # (Auto) 0.6 x10^3/uL (0.0-1.1) 0.7 x10^3/uL (0.0-1.1) Eosinophils # (Auto) 0.0 x10^3/uL (0.0-0.7) 0.1 x10^3/uL (0.0-0.7) Basophils # (Auto) 0.0 x10^3/uL (0.0-0.2) 0.1 x10^3/uL (0.0-0.2) Prothrombin Time 15.2 SEC (11.7-14.0) Prothromb Time International Ratio 1.2 (0.8-1.1) Activated Partial Thromboplast Time 31 SEC (24-38) Sodium Level 138 mmol/L (136-145) 138 mmol/L (136-145) Potassium Level 4.0 mmol/L (3.5-5.1) 3.7 mmol/L (3.5-5.1) Chloride Level 99 mmol/L (98-107) 99 mmol/L (98-107) Carbon Dioxide Level 25 mmol/L (21-32) 29 mmol/L (21-32) Anion Gap 14 (6-14) 10 (6-14) Blood Urea Nitrogen 27 mg/dL (8-26) 27 mg/dL (8-26) Creatinine 1.4 mg/dL (0.7-1.3) 1.5 mg/dL (0.7-1.3) Estimated GFR (Cockcroft-Gault) 49.4 45.6 Glucose Level 103 mg/dL (70-99) 94 mg/dL (70-99) Hemoglobin A1c 5.7 % (4.8-5.6) Lactic Acid Level 1.7 mmol/L (0.4-2.0) Calcium Level 8.8 mg/dL (8.5-10.1) 8.7 mg/dL (8.5-10.1) Magnesium Level 1.4 mg/dL (1.8-2.4) 1.5 mg/dL (1.8-2.4) Total Bilirubin 1.6 mg/dL (0.2-1.0) Direct Bilirubin 0.9 mg/dL (0.0-0.2) Aspartate Amino Transf (AST/SGOT) 29 U/L (15-37) Alanine Aminotransferase (ALT/SGPT) 28 U/L (16-63) Alkaline Phosphatase 164 U/L (46-116) Troponin I High Sensitivity 36 ng/L (4-75) 42 ng/L (4-75) IF-Pcu-U-Type Natriuretic Peptide 7211 pg/mL (0-449) Total Protein 7.0 g/dL (6.4-8.2) Albumin 3.2 g/dL (3.4-5.0) Triglycerides Level 79 mg/dL (0-150) Cholesterol Level 127 mg/dL (0-200) LDL Cholesterol, Calculated 49 mg/dL (0-100) VLDL Cholesterol, Calculated 16 mg/dL (0-40) Non-HDL Cholesterol Calculated 65 mg/dL (0-129) HDL Cholesterol 62 mg/dL (40-60) Cholesterol/HDL Ratio 2.0 Prostate Specific Antigen 0.54 ng/mL (0.00-4.00) Procalcitonin < 0.10 ng/mL (0.00-0.10) Thyroid Stimulating Hormone (TSH) 2.075 uIU/mL (0.358-3.74) Phosphorus Level 4.1 mg/dL (2.6-4.7) Iron Level 54 ug/dL (65-175) Total Iron Binding Capacity 222 ug/dL (250-450) Iron Saturation 24 % (15-34) Glucose (Fingerstick) 91 mg/dL (70-99) 134 mg/dL (70-99) Assessment and Plan Assessmemt and Plan Problems Medical Problems: (1) Atrial fibrillation with rapid ventricular response Status: Acute Comment Review of Relevant I have reviewed the following items ganesh (where applicable) has been applied. Medications: Current Medications Medications (Trade) Dose Ordered Sig/Alicja Route PRN Reason Start Time Stop Time Status Last Admin Dose Admin Diltiazem HCl (Cardizem Iv Push) 10 mg 1X ONCE IVP 10/09/21 16:30 10/09/21 16:31 DC 10/09/21 17:02 Ceftriaxone Sodium (Rocephin) 1 gm 1X ONCE IVP 10/09/21 18:00 10/09/21 18:01 DC 10/09/21 18:28 Iohexol (Omnipaque 300 Mg/ml) 60 ml 1X ONCE IV 10/09/21 19:00 10/09/21 19:01 DC 10/09/21 19:29 Doxycycline Hyclate (Vibra-Tab) 100 mg BID PO 10/09/21 21:00 10/09/21 22:48 Magnesium Sulfate 50 ml @ 25 mls/hr 1X ONCE IV 10/09/21 21:00 10/09/21 22:59 DC 10/09/21 22:43 Furosemide (Lasix) 40 mg 1X ONCE IVP 10/09/21 21:30 10/09/21 21:31 DC 10/09/21 22:41 Magnesium Sulfate 50 ml @ 25 mls/hr Q24H IV 10/10/21 05:30 10/12/21 07:29 10/10/21 10:33 Perflutren Protein Type A Microsphe (Optison) 0.66 mg 1X ONCE IVP 10/10/21 09:00 10/10/21 09:10 DC 10/10/21 09:41 Metoprolol Succinate (Toprol Xl) 25 mg DAILY PO 10/10/21 10:00 10/10/21 10:33 Furosemide (Lasix) 40 mg 1X ONCE IVP 10/10/21 10:00 10/10/21 10:01 DC 10/10/21 12:32 Justifications for Admission Other Justification Afib RVR ERON PRICE MD Oct 10, 2021 15:16
--- NOTE | 2021-10-10 15:48 | CARD ---
MR#: [id number] Date of Study: 10/10/2021 Ordering Physician: AARON HARDIN, Referring Physician: AARON HARDIN, Tech: Jo Sánchez [facility] APPROVED REPORT EXAM: Two-dimensional and M-mode echocardiogram with Doppler and color Doppler. Other Information Quality : Technically LimitedHR: 99bpm Rhythm : Atrial Fibrillation INDICATION Atrial Fibrillation Echo Enhancing Agent Indication: Endocardial border delineation Agent/Amount Used: [id number] RISK FACTORS Hypertension Obesity Hyperlipidemia Smoking 2D DIMENSIONS IVSd1.8 (0.7-1.1cm)Aortic Root(2D)3.7 (2.0-3.7cm) LVDd5.7 (3.9-5.9cm)LVOT Diameter2.3 (1.8-2.4cm) PWd1.5 (0.7-1.1cm)IVSs1.4 (0.8-1.2cm) LVDs4.8 (2.5-4.0cm)FS (%) 17.1 % PWs1.5 (0.8-1.2cm)SV57.5 ml LVEF(%)35.2 (>50%) Tricuspid Valve TR P. [id number] Peak Gr.31mmHg LEFT VENTRICLE The left ventricle is normal size. There is moderate concentric left ventricular hypertrophy. The lef t ventricular systolic function is severely impaired. Estimated ejection fraction 20-25%. There is g lobal hypokinesis of the left ventricle. RIGHT VENTRICLE The right ventricle is normal size. There is normal right ventricular wall thickness. Systolic functi on is moderately reduced. ATRIA The left atrium is mildly dilated. The right atrium size is normal. The interatrial septum is intact with no evidence for an atrial septal defect or patent foramen ovale as noted on 2-D or Doppler imagi ng. AORTIC VALVE The aortic valve is normal in structure and function. There is no significant aortic valvular stenosi s. There is no aortic valvular vegetation. MITRAL VALVE The mitral valve is normal in structure and function. There is no evidence of mitral valve prolapse. There is no mitral valve stenosis. Doppler and Color-flow revealed mild mitral regurgitation. TRICUSPID VALVE The tricuspid valve is normal in structure and function. Doppler and Color Flow revealed mild tricusp id regurgitation. Estimated PAP 40 mmHg. There is no tricuspid valve stenosis. GREAT VESSELS The aortic root is normal in size. The ascending aorta is normal in size. The IVC is dilated. The IVC collapses <50% with inspiration. PERICARDIAL EFFUSION There is no evidence of significant pericardial effusion. Critical Notification Critical Value: No <Conclusion> The left ventricular systolic function is severely impaired. Estimated ejection fraction 20-25%. Mild mitral regurgitation. Mild tricuspid regurgitation. Estimated PAP 40 mmHg. There is no evidence of significant pericardial effusion. Signed by : Tom Payton, Electronically Approved : 10/10/2021 15:47:44
--- NOTE | 2021-10-10 16:44 | NUR ---
SS following for discharge planning. SS reviewed pt chart and discussed with pt RN. Pt is from home with spouse and is currently on room air. GI and Pulmonology following. Pt on IV Rocephin and IV Lasix. SS will continue to follow for discharge planning.
--- NOTE | 2021-10-10 17:13 | RAD ---
US ABDOMEN LIMITED History: Reason: evaluate liver for signs of cirrhosis / Spl. Instructions: / History: Pain Comparison: CT October 09, 2021. Technique: Transabdominal ultrasound images are obtained of the right upper quadrant. Findings: Liver is increased in echogenicity. Right hepatic lobe measures 16.9 cm. Portal flow is hepatopedal. No cholelithiasis, gallbladder wall thickening or pericholecystic fluid. Common bile duct measures 3 mm in diameter. Visualized pancreas not well seen due to light structures. The right kidney measures 10.8 x 5.4 x 5.1 cm. No hydronephrosis. Aorta and IVC not well seen due to light structures. Minimal perihepatic ascites. IMPRESSION: 1. Increased hepatic echotexture, indicate chronic liver disease such as steatosis. 2. Minimal perihepatic ascites. Electronically signed by: Darryl Baeza DO (10/10/2021 5:11 PM) [id number]
[2021-10-10 19:00] VITALS: BP 92/79
[2021-10-10] MEDS ORDERED: cefTRIAXone IV Push 1 GM VIAL. IVP SCH (21:00)
[2021-10-10] MEDS: LACTOBACILLUS RHAMNOSUS GG 1 CAPSULE. PO SCH (22:20)
[2021-10-10] MEDS: DOXYCYCLINE HYCLATE 100 MG TABLET PO SCH (22:20)
[2021-10-10 22:35] VITALS: BP 95/69
[2021-10-11] VITALS (8 sets, daily range): BP systolic 78–132; BP diastolic 58–77
[2021-10-11 05:23] LABS: BASO % 1 % (0-3); EOS # 0.1 x10^3/uL (0.0-0.7); EOS % 2 % (0-3); HEMATOCRIT 40.9 % (39.0-53.0); HEMOGLOBIN 13.5 g/dL (13.0-17.5); LYMPH # 1.1 x10^3/uL (1.0-4.8); LYMPH % 24 % (24-48); MEAN CORPUSCULAR HEMOGLOBIN 33 pg (25-35); MEAN CORPUSCULAR HGB CONC 33 g/dL (31-37); MEAN CORPUSCULAR VOLUME 99 fL (79-100); MONO # 0.7 x10^3/uL (0.0-1.1); MONO % 15 % (0-9); NEUT # 2.6 x10^3/uL (1.8-7.7); NEUT % 58 % (31-73); PLATELET COUNT 122 x10^3/uL (140-400); RED BLOOD COUNT 4.14 x10^6/uL (4.30-5.70); RED CELL DISTRIBUTION WIDTH 15.9 % (11.5-14.5); WHITE BLOOD COUNT 4.4 x10^3/uL (4.0-11.0)
[2021-10-11 05:47] LABS: CALCIUM 8.7 mg/dL (8.5-10.1); CREATININE 1.4 mg/dL (0.7-1.3); GFR 49.4; MAGNESIUM 2.1 mg/dL (1.8-2.4); POTASSIUM 3.5 mmol/L (3.5-5.1)
[2021-10-11] MEDS: POLYETHYLENE GLYCOL 3350 17 GM PACKET. PO SCH (09:39)
[2021-10-11] MEDS: DOXYCYCLINE HYCLATE 100 MG TABLET PO SCH (09:40)
[2021-10-11] MEDS: METOPROLOL SUCC 24HR ER 25 MG TAB.ER.24H. PO SCH (09:40)
[2021-10-11] MEDS: TAMSULOSIN 0.4 MG CAP.ER.24H. PO SCH (09:40)
[2021-10-11] MEDS: LACTOBACILLUS RHAMNOSUS GG 1 CAPSULE. PO SCH ×2 (09:40→20:22)
[2021-10-11] MEDS: CARBAMIDE PEROXIDE 6.5% OTIC SOLUTION 15ML BOTTLE. AU SCH (10:25)
--- NOTE | 2021-10-11 10:32 | RAD ---
XR CHEST 1V History: Reason: pleural effusion / Spl. Instructions: / History: Comparison: October 09, 2021 Findings: Moderate left pleural effusion increased adjacent opacities. Chronic bilateral rib fractures. Enlarge d cardiac size, unchanged. No pneumothorax. Ill-defined right basilar opacities, increased. Postop ch anges left proximal humerus. Impression: 1. Moderate left pleural effusion, unchanged. 2. Increased patchy mid and bibasilar opacities, may represent atelectasis and/or consolidations. Electronically signed by: Darryl Baeza DO (10/11/2021 10:30 AM) [id number]
--- NOTE | 2021-10-11 10:45 | PDOC ---
PULMONARY PROGRESS NOTES DATE: 10/11/21 TIME: 10:43 Subjective Patient denies any shortness of breath. Remains on room air. Vitals Vital Signs Date Time Temp Pulse Resp B/P (MAP) Pulse Ox O2 Delivery O2 Flow Rate FiO2 10/11/21 09:40 92 95/60 10/11/21 07:00 97.5 17 94 Room Air 97.5 General: Alert, No acute distress Lungs: Clear Cardiovascular: S1 Abdomen: Soft Neuro Exam: Alert Extremities: No Edema Skin: Warm Labs Laboratory Tests Test 10/09/21 16:20 10/10/21 03:10 10/10/21 07:25 10/10/21 11:34 White Blood Count 4.7 x10^3/uL (4.0-11.0) 4.5 x10^3/uL (4.0-11.0) Red Blood Count 4.37 x10^6/uL (4.30-5.70) 4.04 x10^6/uL (4.30-5.70) Hemoglobin 14.3 g/dL (13.0-17.5) 13.2 g/dL (13.0-17.5) Hematocrit 43.0 % (39.0-53.0) 39.9 % (39.0-53.0) Mean Corpuscular Volume 98 fL (79-100) 99 fL (79-100) Mean Corpuscular Hemoglobin 33 pg (25-35) 33 pg (25-35) Mean Corpuscular Hemoglobin Concent 33 g/dL (31-37) 33 g/dL (31-37) Red Cell Distribution Width 15.5 % (11.5-14.5) 15.7 % (11.5-14.5) Platelet Count 128 x10^3/uL (140-400) 117 x10^3/uL (140-400) Neutrophils (%) (Auto) 71 % (31-73) 63 % (31-73) Lymphocytes (%) (Auto) 14 % (24-48) 20 % (24-48) Monocytes (%) (Auto) 13 % (0-9) 15 % (0-9) Eosinophils (%) (Auto) 1 % (0-3) 1 % (0-3) Basophils (%) (Auto) 1 % (0-3) 1 % (0-3) Neutrophils # (Auto) 3.4 x10^3/uL (1.8-7.7) 2.8 x10^3/uL (1.8-7.7) Lymphocytes # (Auto) 0.7 x10^3/uL (1.0-4.8) 0.9 x10^3/uL (1.0-4.8) Monocytes # (Auto) 0.6 x10^3/uL (0.0-1.1) 0.7 x10^3/uL (0.0-1.1) Eosinophils # (Auto) 0.0 x10^3/uL (0.0-0.7) 0.1 x10^3/uL (0.0-0.7) Basophils # (Auto) 0.0 x10^3/uL (0.0-0.2) 0.1 x10^3/uL (0.0-0.2) Prothrombin Time 15.2 SEC (11.7-14.0) Prothromb Time International Ratio 1.2 (0.8-1.1) Activated Partial Thromboplast Time 31 SEC (24-38) Sodium Level 138 mmol/L (136-145) 138 mmol/L (136-145) Potassium Level 4.0 mmol/L (3.5-5.1) 3.7 mmol/L (3.5-5.1) Chloride Level 99 mmol/L (98-107) 99 mmol/L (98-107) Carbon Dioxide Level 25 mmol/L (21-32) 29 mmol/L (21-32) Anion Gap 14 (6-14) 10 (6-14) Blood Urea Nitrogen 27 mg/dL (8-26) 27 mg/dL (8-26) Creatinine 1.4 mg/dL (0.7-1.3) 1.5 mg/dL (0.7-1.3) Estimated GFR (Cockcroft-Gault) 49.4 45.6 Glucose Level 103 mg/dL (70-99) 94 mg/dL (70-99) Hemoglobin A1c 5.7 % (4.8-5.6) Lactic Acid Level 1.7 mmol/L (0.4-2.0) Calcium Level 8.8 mg/dL (8.5-10.1) 8.7 mg/dL (8.5-10.1) Magnesium Level 1.4 mg/dL (1.8-2.4) 1.5 mg/dL (1.8-2.4) Total Bilirubin 1.6 mg/dL (0.2-1.0) Direct Bilirubin 0.9 mg/dL (0.0-0.2) Aspartate Amino Transf (AST/SGOT) 29 U/L (15-37) Alanine Aminotransferase (ALT/SGPT) 28 U/L (16-63) Alkaline Phosphatase 164 U/L (46-116) Troponin I High Sensitivity 36 ng/L (4-75) 42 ng/L (4-75) [id number] Natriuretic Peptide 7211 pg/mL (0-449) Total Protein 7.0 g/dL (6.4-8.2) Albumin 3.2 g/dL (3.4-5.0) Triglycerides Level 79 mg/dL (0-150) Cholesterol Level 127 mg/dL (0-200) LDL Cholesterol, Calculated 49 mg/dL (0-100) VLDL Cholesterol, Calculated 16 mg/dL (0-40) Non-HDL Cholesterol Calculated 65 mg/dL (0-129) HDL Cholesterol 62 mg/dL (40-60) Cholesterol/HDL Ratio 2.0 Prostate Specific Antigen 0.54 ng/mL (0.00-4.00) Procalcitonin < 0.10 ng/mL (0.00-0.10) Thyroid Stimulating Hormone (TSH) 2.075 uIU/mL (0.358-3.74) Phosphorus Level 4.1 mg/dL (2.6-4.7) Iron Level 54 ug/dL (65-175) Total Iron Binding Capacity 222 ug/dL (250-450) Iron Saturation 24 % (15-34) Glucose (Fingerstick) 91 mg/dL (70-99) 134 mg/dL (70-99) Test 10/10/21 16:28 10/10/21 21:23 10/10/21 23:00 10/11/21 05:10 Glucose (Fingerstick) 117 mg/dL (70-99) 113 mg/dL (70-99) Heparin Anti-Xa Act, Unfractionated 0.35 IU/mL (0.30-0.70) 0.43 IU/mL (0.30-0.70) White Blood Count 4.4 x10^3/uL (4.0-11.0) Red Blood Count 4.14 x10^6/uL (4.30-5.70) Hemoglobin 13.5 g/dL (13.0-17.5) Hematocrit 40.9 % (39.0-53.0) Mean Corpuscular Volume 99 fL (79-100) Mean Corpuscular Hemoglobin 33 pg (25-35) Mean Corpuscular Hemoglobin Concent 33 g/dL (31-37) Red Cell Distribution Width 15.9 % (11.5-14.5) Platelet Count 122 x10^3/uL (140-400) Neutrophils (%) (Auto) 58 % (31-73) Lymphocytes (%) (Auto) 24 % (24-48) Monocytes (%) (Auto) 15 % (0-9) Eosinophils (%) (Auto) 2 % (0-3) Basophils (%) (Auto) 1 % (0-3) Neutrophils # (Auto) 2.6 x10^3/uL (1.8-7.7) Lymphocytes # (Auto) 1.1 x10^3/uL (1.0-4.8) Monocytes # (Auto) 0.7 x10^3/uL (0.0-1.1) Eosinophils # (Auto) 0.1 x10^3/uL (0.0-0.7) Basophils # (Auto) 0.0 x10^3/uL (0.0-0.2) Sodium Level 137 mmol/L (136-145) Potassium Level 3.5 mmol/L (3.5-5.1) Chloride Level 97 mmol/L (98-107) Carbon Dioxide Level 29 mmol/L (21-32) Anion Gap 11 (6-14) Blood Urea Nitrogen 28 mg/dL (8-26) Creatinine 1.4 mg/dL (0.7-1.3) Estimated GFR (Cockcroft-Gault) 49.4 Glucose Level 104 mg/dL (70-99) Calcium Level 8.7 mg/dL (8.5-10.1) Magnesium Level 2.1 mg/dL (1.8-2.4) C-Reactive Protein, Quantitative 23.7 mg/L (0-3.3) Test 10/11/21 07:58 Glucose (Fingerstick) 106 mg/dL (70-99) Laboratory Tests Test 10/10/21 11:34 10/10/21 16:28 10/10/21 21:23 10/10/21 23:00 Glucose (Fingerstick) 134 mg/dL (70-99) 117 mg/dL (70-99) 113 mg/dL (70-99) Heparin Anti-Xa Act, Unfractionated 0.35 IU/mL (0.30-0.70) Test 10/11/21 05:10 10/11/21 07:58 White Blood Count 4.4 x10^3/uL (4.0-11.0) Red Blood Count 4.14 x10^6/uL (4.30-5.70) Hemoglobin 13.5 g/dL (13.0-17.5) Hematocrit 40.9 % (39.0-53.0) Mean Corpuscular Volume 99 fL (79-100) Mean Corpuscular Hemoglobin 33 pg (25-35) Mean Corpuscular Hemoglobin Concent 33 g/dL (31-37) Red Cell Distribution Width 15.9 % (11.5-14.5) Platelet Count 122 x10^3/uL (140-400) Neutrophils (%) (Auto) 58 % (31-73) Lymphocytes (%) (Auto) 24 % (24-48) Monocytes (%) (Auto) 15 % (0-9) Eosinophils (%) (Auto) 2 % (0-3) Basophils (%) (Auto) 1 % (0-3) Neutrophils # (Auto) 2.6 x10^3/uL (1.8-7.7) Lymphocytes # (Auto) 1.1 x10^3/uL (1.0-4.8) Monocytes # (Auto) 0.7 x10^3/uL (0.0-1.1) Eosinophils # (Auto) 0.1 x10^3/uL (0.0-0.7) Basophils # (Auto) 0.0 x10^3/uL (0.0-0.2) Heparin Anti-Xa Act, Unfractionated 0.43 IU/mL (0.30-0.70) Sodium Level 137 mmol/L (136-145) Potassium Level 3.5 mmol/L (3.5-5.1) Chloride Level 97 mmol/L (98-107) Carbon Dioxide Level 29 mmol/L (21-32) Anion Gap 11 (6-14) Blood Urea Nitrogen 28 mg/dL (8-26) Creatinine 1.4 mg/dL (0.7-1.3) Estimated GFR (Cockcroft-Gault) 49.4 Glucose Level 104 mg/dL (70-99) Calcium Level 8.7 mg/dL (8.5-10.1) Magnesium Level 2.1 mg/dL (1.8-2.4) C-Reactive Protein, Quantitative 23.7 mg/L (0-3.3) Glucose (Fingerstick) 106 mg/dL (70-99) Medications Active Scripts Medications Dose Route/Sig Max Daily Dose Days Date Category Flomax (Tamsulosin Hcl) 0.4 Mg Cap.er.24h 0.4 Mg PO DAILY 01/04/20 Reported Impression . 1. A 60 years of tobaccoism, likely underlying chronic obstructive pulmonary disease with ongoing tobaccoism. No desire to quit cigarettes. 2. Atrial fibrillation with rapid ventricular response. Being managed by Cardiology. 3. Abnormal CT abdomen and pelvis with mild to moderate left pleural effusion. Likely related to low oncotic pressure from hypoalbuminemia. He has chronic heavy alcoholism history. He should have further Gastroenterology evaluation regarding Hemoccult stool and bloating with constipation. Need to rule out any occult gastrointestinal malignancy. 4. Mild acute kidney injury. 5. Likely alcoholic liver disease. His bilirubin is mildly elevated. 6. Hypomagnesemia. 7. Cardiomyopathy with an EF of 20 to 25% and secondary pulmonary hypertension. 8. No change in chest x-ray today with moderate left pleural effusion Plan . RECOMMENDATIONS: 1. Discussed with RN and patient's daughter along with Cardiology. 2. We will proceed with thoracentesis today. Hold heparin an hour before the procedure. 3. PFTs as an outpatient. 4. Follow GI recommendation. 5. Follow Cardiology recommendations. May need cardiac cath. 6. Replace magnesium. 7. Watch for alcohol withdrawal. 8. We will follow along with you. GENARO RITTER MD Oct 11, 2021 10:45
[2021-10-11] MEDS: FUROSEMIDE 40 MG/4 ML VIAL. IVP SCH (11:12)
--- NOTE | 2021-10-11 12:03 | PDOC ---
Date of Service: DATE: 10/11/21 TIME: 11:57 Subjective: Subjective: present - no GI concerns. Objective: Vital Signs: Vital Signs Date Time Temp Pulse Resp B/P (MAP) Pulse Ox O2 Delivery O2 Flow Rate FiO2 10/11/21 09:40 92 95/60 10/11/21 07:00 97.5 17 94 Room Air 97.5 Labs: Laboratory Tests Test 10/10/21 16:28 10/10/21 21:23 10/10/21 23:00 10/11/21 05:10 Glucose (Fingerstick) 117 mg/dL 113 mg/dL Heparin Anti-Xa Act, Unfractionated 0.35 IU/mL 0.43 IU/mL White Blood Count 4.4 x10^3/uL Red Blood Count 4.14 x10^6/uL Hemoglobin 13.5 g/dL Hematocrit 40.9 % Mean Corpuscular Volume 99 fL Mean Corpuscular Hemoglobin 33 pg Mean Corpuscular Hemoglobin Concent 33 g/dL Red Cell Distribution Width 15.9 % Platelet Count 122 x10^3/uL Neutrophils (%) (Auto) 58 % Lymphocytes (%) (Auto) 24 % Monocytes (%) (Auto) 15 % Eosinophils (%) (Auto) 2 % Basophils (%) (Auto) 1 % Neutrophils # (Auto) 2.6 x10^3/uL Lymphocytes # (Auto) 1.1 x10^3/uL Monocytes # (Auto) 0.7 x10^3/uL Eosinophils # (Auto) 0.1 x10^3/uL Basophils # (Auto) 0.0 x10^3/uL Sodium Level 137 mmol/L Potassium Level 3.5 mmol/L Chloride Level 97 mmol/L Carbon Dioxide Level 29 mmol/L Anion Gap 11 Blood Urea Nitrogen 28 mg/dL Creatinine 1.4 mg/dL Estimated GFR (Cockcroft-Gault) 49.4 Glucose Level 104 mg/dL Calcium Level 8.7 mg/dL Magnesium Level 2.1 mg/dL C-Reactive Protein, Quantitative 23.7 mg/L Test 10/11/21 07:58 10/11/21 11:40 Glucose (Fingerstick) 106 mg/dL 143 mg/dL Imaging: Echo 10/10 <Conclusion> The left ventricular systolic function is severely impaired. Estimated ejection fraction 20-25%. Mild mitral regurgitation. Mild tricuspid regurgitation. Estimated PAP 40 mmHg. There is no evidence of significant pericardial effusion. Abd US 10/10 IMPRESSION: 1. Increased hepatic echotexture, indicate chronic liver disease such as steatosis. 2. Minimal perihepatic ascites. CXR 10/11 Impression: 1. Moderate left pleural effusion, unchanged. 2. Increased patchy mid and bibasilar opacities, may represent atelectasis and/or consolidations. PE: GEN: NAD LUNGS: room air HEART: irregular ABD: stable distention NEURO/PSYCH: sleeping, not disturbed A/P: A Fib, CHF, pleural effusion, anasarca, MIGUEL Thrombocytopenia, elevated bilirubin and Alk Phos, daily alcohol use, hepatic steatosis +hemoccult as outpt - not iron deficient, no previous 'scopes -- Plans for thoracentesis. Doppler PV for completeness. Justicifation of Admission Dx: Justifications for Admission: Justification of Admission Dx: Yes MICHAEL SPEAR Oct 11, 2021 12:03
[2021-10-11] MEDS ORDERED: METOPROLOL IV PUSH 5 MG/5 ML VIAL. IVP ONE (12:30)
[2021-10-11] MEDS ORDERED: DIGOXIN IV 500 MCG/2 ML AMPUL. IV ONE (12:30)
--- NOTE | 2021-10-11 12:31 | PDOC ---
JUSTEN CORNEJO RN HOUSE SUPERVISOR 10/11/21 1231: CARDIO Progress Notes Date and Time Date of Service 10/11/2021 Time of Evaluation 1205 Subjective Subjective: No Chest Pain, No shortness of breath, No Palpitations Vitals Vitals Vital Signs Date Time Temp Pulse Resp B/P (MAP) Pulse Ox O2 Delivery O2 Flow Rate FiO2 10/11/21 09:40 92 95/60 10/11/21 07:00 97.5 17 94 Room Air 97.5 Weight Weight [ ] Input and Output Intake and Output Intake and Output 10/11/21 07:00 Intake Total 1000 ml Output Total 1000 ml Balance 0 ml Intake Oral 1000 ml Output Urine Total 1000 ml Laboratory Labs Laboratory Tests Test 10/10/21 16:28 10/10/21 21:23 10/10/21 23:00 10/11/21 05:10 Glucose (Fingerstick) 117 mg/dL (70-99) 113 mg/dL (70-99) Heparin Anti-Xa Act, Unfractionated 0.35 IU/mL (0.30-0.70) 0.43 IU/mL (0.30-0.70) White Blood Count 4.4 x10^3/uL (4.0-11.0) Red Blood Count 4.14 x10^6/uL (4.30-5.70) Hemoglobin 13.5 g/dL (13.0-17.5) Hematocrit 40.9 % (39.0-53.0) Mean Corpuscular Volume 99 fL (79-100) Mean Corpuscular Hemoglobin 33 pg (25-35) Mean Corpuscular Hemoglobin Concent 33 g/dL (31-37) Red Cell Distribution Width 15.9 % (11.5-14.5) Platelet Count 122 x10^3/uL (140-400) Neutrophils (%) (Auto) 58 % (31-73) Lymphocytes (%) (Auto) 24 % (24-48) Monocytes (%) (Auto) 15 % (0-9) Eosinophils (%) (Auto) 2 % (0-3) Basophils (%) (Auto) 1 % (0-3) Neutrophils # (Auto) 2.6 x10^3/uL (1.8-7.7) Lymphocytes # (Auto) 1.1 x10^3/uL (1.0-4.8) Monocytes # (Auto) 0.7 x10^3/uL (0.0-1.1) Eosinophils # (Auto) 0.1 x10^3/uL (0.0-0.7) Basophils # (Auto) 0.0 x10^3/uL (0.0-0.2) Sodium Level 137 mmol/L (136-145) Potassium Level 3.5 mmol/L (3.5-5.1) Chloride Level 97 mmol/L (98-107) Carbon Dioxide Level 29 mmol/L (21-32) Anion Gap 11 (6-14) Blood Urea Nitrogen 28 mg/dL (8-26) Creatinine 1.4 mg/dL (0.7-1.3) Estimated GFR (Cockcroft-Gault) 49.4 Glucose Level 104 mg/dL (70-99) Calcium Level 8.7 mg/dL (8.5-10.1) Magnesium Level 2.1 mg/dL (1.8-2.4) C-Reactive Protein, Quantitative 23.7 mg/L (0-3.3) Test 10/11/21 07:58 10/11/21 11:40 Glucose (Fingerstick) 106 mg/dL (70-99) 143 mg/dL (70-99) Physical Exam HEENT: Neck Supple W Full Motion Chest: Symmetric LUNGS: Other (diminished bases) Heart: S1S2, irregularly irregular (AFIB RVR) Abdomen: Soft N/T Extremities: No Calf Tenderness Neurology: alert, oriented, follow commands Assessment Assessment 1. AFIB RVR: back to RVR 2. Severe cardiomyopathy: EF 20-25% 3. Acute CHF with HFrEF 4. Left pleural effusion: thoracentesis due today 5. Anasarca 6. MIGUEL 7. Hypomagnesemia 8. ETOH misuse: heavy consumption 9. Tobacco abuse with likely COPD 10. Possible urinary retention with BPH 11. Mild thrombocytopenia Recommendations 1. Eliquis to start tonight post thoracentesis.DC heparin. Discussed with MICHELLE ok to start NOAC 2. Continue lasix therapy 3. Toprol for rate control. Will titrate up if BP allows otherwise could add digoxin 4. Will plan for outpt CVN and LHC 5. CIWA protocol per PCP. Lifestyle modification 6. Optimize HF treatment per BP and renal trend. Will add aldactone, entresto once BP is consistently more adequate. Justicifation of Admission Dx: Justifications for Admission: Justification of Admission Dx: Yes ODALYS STRONG MD 10/12/21 0850: CARDIO Progress Notes Assessment Assessment Patient seen and examined. Agree with NEUROSURGERY PHYSICIAN's assessment and plan. Atrial fibrillation rate better controlled. Start Eliquis after thoracentesis Acute on chronic systolic heart failure better compensated 2D echo showed severe left ventricular systolic dysfunction, LVEF 20 to 25% Plan outpatient cardioversion and possibly cardiac catheterization JUSTEN CORNEJO RN HOUSE SUPERVISOR Oct 11, 2021 12:31 ODALYS STRONG MD Oct 12, 2021 08:50
--- NOTE | 2021-10-11 14:32 | RAD ---
Left Thoracentesis 10/11/2021 2:19 PM Clinical History: Left pleural effusion. Technique: Relative benefits risks and alternatives were discussed with the patient and/or their rep resentative. Written informed consent was obtained. The patient was placed in seated position. A ale eout procedure was performed. Sonographic assessment demonstrates a large pleural effusion. A site for skin entry was selected, and subsequently prepped and draped using sterile barrier technique. 1% lidocaine without epinepherine was administered for local anesthesia to the skin and subcutaenous tissues. A 5 Mont[place]gr[place] sheathed needle was passed into the pleural space. Clear yellow fluid was aspirated and t he catheter was connected to a vacuum. Approximately 1.3 liters of fluid were drained. The catheter w as removed and adequate hemostasis was obtained. A sterile dressing was applied. The patient tolerat ed the procedure well, without complications. Impression: Successful ultrasound guided thoracentesis with removal of1.3 liters of fluid. Electronically signed by: Alberto Norris MD (10/11/2021 2:29 PM) [id number]
--- NOTE | 2021-10-11 14:49 | PDOC ---
[facility] PROGRESS NOTE Date of Service DOS: DATE: 10/11/21 TIME: 14:47 Chief Complaint Chief Complaint A. fib RVR Large left pleural effusion MIGUEL due to vasomotor nephropathy, unknown baseline Elevated BNP suggestive of acute volume overload versus chronic hypoxia no history of COPD but chronic tobacco smoker Thrombocytopenia Hemoccult stool positive History of tobacco and alcohol misuse Obesity class I History of Present Illness History of Present Illness 10/11: Afebrile. CRP 23.7, procalcitonin 0.10. Will discontinue antibiotics. He is having a thoracentesis today. Lasix held this morning due to some hypotension. His echocardiogram showed EF 20-25%. Cardiology following. He was initiated on heart failure medications prior to discharge. 10/10: Patient seen and evaluated with at bedside. He denies any shortness of breath at rest or laying on his back, but does admit to some dyspnea on exertion. Answered and 's questions to the best of my abilities. Echocardiogram pending, and nurse initiating heparin drip. Will order abdominal ultrasound to evaluate likely cirrhosis. Will order CRP to rule out any pneumonia; if not elevated will discontinue empiric antibiotics. For his likely history of BPH we will initiate Flomax daily. Patient also concerned about bilateral earwax impaction. Will schedule daily Debrox in hopes that impacted earwax will express its way out. Discussed with RN. Vitals/I&O Vitals/I&O: Vital Signs Date Time Temp Pulse Resp B/P (MAP) Pulse Ox O2 Delivery O2 Flow Rate FiO2 10/11/21 14:21 54 112/72 (85) 93 10/11/21 11:00 97.4 17 Room Air 97.4 I & O 10/10/21 10/10/21 10/11/21 15:00 23:00 07:00 Intake Total 600 ml 400 ml Output Total 300 ml 450 ml 250 ml Balance 300 ml -50 ml -250 ml Physical Exam General: Alert, Oriented X3, Cooperative, No acute distress Heart: Other (AFIB, distnat heart sounds) Lungs: Clear Abdomen: Soft, Other (Distended abdomen with +fluid wave) Extremities: No cyanosis, Other (4+ bilateral LA pitting edema) Skin: No breakdown Labs Labs: Laboratory Tests Test 10/10/21 16:28 10/10/21 21:23 10/10/21 23:00 10/11/21 05:10 Glucose (Fingerstick) 117 mg/dL (70-99) 113 mg/dL (70-99) Heparin Anti-Xa Act, Unfractionated 0.35 IU/mL (0.30-0.70) 0.43 IU/mL (0.30-0.70) White Blood Count 4.4 x10^3/uL (4.0-11.0) Red Blood Count 4.14 x10^6/uL (4.30-5.70) Hemoglobin 13.5 g/dL (13.0-17.5) Hematocrit 40.9 % (39.0-53.0) Mean Corpuscular Volume 99 fL (79-100) Mean Corpuscular Hemoglobin 33 pg (25-35) Mean Corpuscular Hemoglobin Concent 33 g/dL (31-37) Red Cell Distribution Width 15.9 % (11.5-14.5) Platelet Count 122 x10^3/uL (140-400) Neutrophils (%) (Auto) 58 % (31-73) Lymphocytes (%) (Auto) 24 % (24-48) Monocytes (%) (Auto) 15 % (0-9) Eosinophils (%) (Auto) 2 % (0-3) Basophils (%) (Auto) 1 % (0-3) Neutrophils # (Auto) 2.6 x10^3/uL (1.8-7.7) Lymphocytes # (Auto) 1.1 x10^3/uL (1.0-4.8) Monocytes # (Auto) 0.7 x10^3/uL (0.0-1.1) Eosinophils # (Auto) 0.1 x10^3/uL (0.0-0.7) Basophils # (Auto) 0.0 x10^3/uL (0.0-0.2) Sodium Level 137 mmol/L (136-145) Potassium Level 3.5 mmol/L (3.5-5.1) Chloride Level 97 mmol/L (98-107) Carbon Dioxide Level 29 mmol/L (21-32) Anion Gap 11 (6-14) Blood Urea Nitrogen 28 mg/dL (8-26) Creatinine 1.4 mg/dL (0.7-1.3) Estimated GFR (Cockcroft-Gault) 49.4 Glucose Level 104 mg/dL (70-99) Calcium Level 8.7 mg/dL (8.5-10.1) Magnesium Level 2.1 mg/dL (1.8-2.4) C-Reactive Protein, Quantitative 23.7 mg/L (0-3.3) Test 10/11/21 07:58 10/11/21 11:40 10/11/21 12:50 Glucose (Fingerstick) 106 mg/dL (70-99) 143 mg/dL (70-99) SARS-CoV-2 Antigen (Rapid) Negative (NEGATIVE) Assessment and Plan Assessmemt and Plan Problems Medical Problems: (1) Atrial fibrillation with rapid ventricular response Status: Acute Comment Review of Relevant I have reviewed the following items ganesh (where applicable) has been applied. Medications: Current Medications Medications (Trade) Dose Ordered Sig/Alicja Route PRN Reason Start Time Stop Time Status Last Admin Dose Admin Ceftriaxone Sodium (Rocephin) 1 gm Q24H IVP 10/10/21 21:00 10/11/21 14:15 DC 10/10/21 22:20 Furosemide (Lasix) 40 mg DAILY IVP 10/11/21 09:00 10/11/21 11:12 Polyethylene Glycol (miraLAX PACKET) 17 gm DAILY PO 10/11/21 09:00 10/11/21 09:39 Carbamide Peroxide (Debrox) 5 drop DAILY AU 10/11/21 09:00 10/11/21 10:25 Tamsulosin HCl (Flomax) 0.4 mg DAILY PO 10/11/21 09:00 10/11/21 09:40 Lactobacillus Rhamnosus (Culturelle) 1 cap BID PO 10/10/21 21:00 10/11/21 09:40 Digoxin (Lanoxin) 500 mcg 1X ONCE IV 10/11/21 12:30 10/11/21 12:31 DC 10/11/21 12:51 Metoprolol Tartrate (Lopressor Vial) 5 mg 1X ONCE IVP 10/11/21 12:30 10/11/21 12:31 DC 10/11/21 13:00 Justifications for Admission Other Justification Afib RVR ERON PRICE MD Oct 11, 2021 14:49
[2021-10-11] MEDS: APIXABAN 5 MG TABLET. PO SCH (20:22)
[2021-10-12] VITALS (7 sets, daily range): BP systolic 83–101; BP diastolic 62–77
[2021-10-12 05:04] LABS: CALCIUM 8.6 mg/dL (8.5-10.1); CREATININE 1.5 mg/dL (0.7-1.3); GFR 45.6; MAGNESIUM 1.8 mg/dL (1.8-2.4); POTASSIUM 3.3 mmol/L (3.5-5.1)
[2021-10-12] MEDS: MAGNESIUM SULFATE 2GM 50 ML IV SCH (05:30)
[2021-10-12 05:51] LABS: BASO % 1 % (0-3); EOS % 1 % (0-3); HEMATOCRIT 39.9 % (39.0-53.0); HEMOGLOBIN 13.3 g/dL (13.0-17.5); LYMPH # 0.8 x10^3/uL (1.0-4.8); LYMPH % 20 % (24-48); MEAN CORPUSCULAR HEMOGLOBIN 33 pg (25-35); MEAN CORPUSCULAR HGB CONC 33 g/dL (31-37); MEAN CORPUSCULAR VOLUME 99 fL (79-100); MONO # 0.5 x10^3/uL (0.0-1.1); MONO % 13 % (0-9); NEUT # 2.6 x10^3/uL (1.8-7.7); NEUT % 65 % (31-73); PLATELET COUNT 113 x10^3/uL (140-400); RED BLOOD COUNT 4.04 x10^6/uL (4.30-5.70); RED CELL DISTRIBUTION WIDTH 15.7 % (11.5-14.5); WHITE BLOOD COUNT 4.1 x10^3/uL (4.0-11.0)
[2021-10-12] MEDS: FUROSEMIDE 40 MG/4 ML VIAL. IVP SCH (08:27)
[2021-10-12] MEDS: LACTOBACILLUS RHAMNOSUS GG 1 CAPSULE. PO SCH ×2 (08:27→20:16)
[2021-10-12] MEDS: TAMSULOSIN 0.4 MG CAP.ER.24H. PO SCH (08:28)
[2021-10-12] MEDS: APIXABAN 5 MG TABLET. PO SCH ×2 (08:28→20:16)
[2021-10-12] MEDS: CARBAMIDE PEROXIDE 6.5% OTIC SOLUTION 15ML BOTTLE. AU SCH (08:28)
[2021-10-12] MEDS: POLYETHYLENE GLYCOL 3350 17 GM PACKET. PO SCH (08:29)
--- NOTE | 2021-10-12 08:39 | PDOC ---
[facility] [facility] PROGRESS NOTE Date of Service DOS: DATE: 10/12/21 TIME: 08:30 Chief Complaint Chief Complaint A. fib RVR Large left pleural effusion MIGUEL due to vasomotor nephropathy, unknown baseline Elevated BNP suggestive of acute volume overload versus chronic hypoxia no history of COPD but chronic tobacco smoker Thrombocytopenia Hemoccult stool positive History of tobacco and alcohol misuse Obesity class I History of Present Illness History of Present Illness 10/12: Patient resting comfortably in bed, afebrile. Patient had successful ultrasound guided thoracentesis yesterday with removal of 1.3 liters of fluid. Heparin gtt has been stopped, initiated on Eliquis. Per cardiology, will add Aldactone and Entresto when blood pressure more adequate. Plans for outpatient left heart cath. Hemoglobin A1c 5.7, will stop blood checks. On CIWA protocol, has not required any IV Ativan. Hemoccult positive, GI is following. Will continue to follow cardiology and pulmonology recommendations. 10/11: Afebrile. CRP 23.7, procalcitonin 0.10. Will discontinue antibiotics. He is having a thoracentesis today. Lasix held this morning due to some hypotension. His echocardiogram showed EF 20-25%. Cardiology following. He was initiated on heart failure medications prior to discharge. 10/10: Patient seen and evaluated with at bedside. He denies any shortness of breath at rest or laying on his back, but does admit to some dyspnea on exertion. Answered and 's questions to the best of my abilities. Echocardiogram pending, and nurse initiating heparin drip. Will order abdominal ultrasound to evaluate likely cirrhosis. Will order CRP to rule out any pneumonia; if not elevated will discontinue empiric antibiotics. For his likely history of BPH we will initiate Flomax daily. Patient also concerned about bilateral earwax impaction. Will schedule daily Debrox in hopes that impacted earwax will express its way out. Discussed with RN. Vitals/I&O Vitals/I&O: Vital Signs Date Time Temp Pulse Resp B/P (MAP) Pulse Ox O2 Delivery O2 Flow Rate FiO2 10/12/21 03:00 97.6 82 17 96/68 (77) 92 Room Air 97.6 I & O 10/11/21 10/11/21 10/12/21 15:00 23:00 07:00 Intake Total 600 ml 200 ml Output Total 300 ml 600 ml 350 ml Balance 300 ml -400 ml -350 ml Physical Exam General: Alert, Oriented X3, Cooperative, No acute distress Heart: Other (AFIB, distnat heart sounds) Lungs: Clear Abdomen: Soft, Other (Distended abdomen with +fluid wave) Extremities: No cyanosis, Other (4+ bilateral LA pitting edema) Skin: No breakdown Labs Labs: Laboratory Tests Test 10/11/21 11:40 10/11/21 12:50 10/11/21 16:16 10/11/21 21:11 Glucose (Fingerstick) 143 mg/dL (70-99) 118 mg/dL (70-99) 129 mg/dL (70-99) SARS-CoV-2 Antigen (Rapid) Negative (NEGATIVE) Test 10/12/21 04:00 10/12/21 07:24 White Blood Count 4.1 x10^3/uL (4.0-11.0) Red Blood Count 4.04 x10^6/uL (4.30-5.70) Hemoglobin 13.3 g/dL (13.0-17.5) Hematocrit 39.9 % (39.0-53.0) Mean Corpuscular Volume 99 fL (79-100) Mean Corpuscular Hemoglobin 33 pg (25-35) Mean Corpuscular Hemoglobin Concent 33 g/dL (31-37) Red Cell Distribution Width 15.7 % (11.5-14.5) Platelet Count 113 x10^3/uL (140-400) Neutrophils (%) (Auto) 65 % (31-73) Lymphocytes (%) (Auto) 20 % (24-48) Monocytes (%) (Auto) 13 % (0-9) Eosinophils (%) (Auto) 1 % (0-3) Basophils (%) (Auto) 1 % (0-3) Neutrophils # (Auto) 2.6 x10^3/uL (1.8-7.7) Lymphocytes # (Auto) 0.8 x10^3/uL (1.0-4.8) Monocytes # (Auto) 0.5 x10^3/uL (0.0-1.1) Eosinophils # (Auto) 0.0 x10^3/uL (0.0-0.7) Basophils # (Auto) 0.0 x10^3/uL (0.0-0.2) Sodium Level 137 mmol/L (136-145) Potassium Level 3.3 mmol/L (3.5-5.1) Chloride Level 100 mmol/L (98-107) Carbon Dioxide Level 33 mmol/L (21-32) Anion Gap 4 (6-14) Blood Urea Nitrogen 29 mg/dL (8-26) Creatinine 1.5 mg/dL (0.7-1.3) Estimated GFR (Cockcroft-Gault) 45.6 Glucose Level 146 mg/dL (70-99) Calcium Level 8.6 mg/dL (8.5-10.1) Magnesium Level 1.8 mg/dL (1.8-2.4) Glucose (Fingerstick) 109 mg/dL (70-99) Assessment and Plan Assessmemt and Plan Problems Medical Problems: (1) Atrial fibrillation with rapid ventricular response Status: Acute Comment Review of Relevant I have reviewed the following items ganesh (where applicable) has been applied. Medications: Current Medications Medications (Trade) Dose Ordered Sig/Alicja Route PRN Reason Start Time Stop Time Status Last Admin Dose Admin Furosemide (Lasix) 40 mg DAILY IVP 10/11/21 09:00 10/11/21 11:12 Polyethylene Glycol (miraLAX PACKET) 17 gm DAILY PO 10/11/21 09:00 10/11/21 09:39 Carbamide Peroxide (Debrox) 5 drop DAILY AU 10/11/21 09:00 10/11/21 10:25 Tamsulosin HCl (Flomax) 0.4 mg DAILY PO 10/11/21 09:00 10/11/21 09:40 Digoxin (Lanoxin) 500 mcg 1X ONCE IV 10/11/21 12:30 10/11/21 12:31 DC 10/11/21 12:51 Metoprolol Tartrate (Lopressor Vial) 5 mg 1X ONCE IVP 10/11/21 12:30 10/11/21 12:31 DC 10/11/21 13:00 Apixaban (Eliquis) 5 mg BID PO 10/11/21 21:00 10/11/21 20:22 Justifications for Admission Other Justification Afib RVR ERON PRICE MD Oct 12, 2021 08:39
--- NOTE | 2021-10-12 09:46 | PDOC ---
PULMONARY PROGRESS NOTES DATE: 10/12/21 TIME: 09:44 Subjective Patient denies any shortness of breath. Remains on room air. Is status post left thoracentesis with 1.3 L of fluid removed on 10/11 Vitals Vital Signs Date Time Temp Pulse Resp B/P (MAP) Pulse Ox O2 Delivery O2 Flow Rate FiO2 10/12/21 09:26 81 83/73 (76) 10/12/21 07:00 97.6 17 90 Room Air 97.6 General: Alert, No acute distress Lungs: Clear Cardiovascular: S1 Abdomen: Soft Neuro Exam: Alert Extremities: No Edema Skin: Warm Labs Laboratory Tests Test 10/10/21 11:34 10/10/21 16:28 10/10/21 21:23 10/10/21 23:00 Glucose (Fingerstick) 134 mg/dL (70-99) 117 mg/dL (70-99) 113 mg/dL (70-99) Heparin Anti-Xa Act, Unfractionated 0.35 IU/mL (0.30-0.70) Test 10/11/21 05:10 10/11/21 07:58 10/11/21 11:40 10/11/21 12:50 White Blood Count 4.4 x10^3/uL (4.0-11.0) Red Blood Count 4.14 x10^6/uL (4.30-5.70) Hemoglobin 13.5 g/dL (13.0-17.5) Hematocrit 40.9 % (39.0-53.0) Mean Corpuscular Volume 99 fL (79-100) Mean Corpuscular Hemoglobin 33 pg (25-35) Mean Corpuscular Hemoglobin Concent 33 g/dL (31-37) Red Cell Distribution Width 15.9 % (11.5-14.5) Platelet Count 122 x10^3/uL (140-400) Neutrophils (%) (Auto) 58 % (31-73) Lymphocytes (%) (Auto) 24 % (24-48) Monocytes (%) (Auto) 15 % (0-9) Eosinophils (%) (Auto) 2 % (0-3) Basophils (%) (Auto) 1 % (0-3) Neutrophils # (Auto) 2.6 x10^3/uL (1.8-7.7) Lymphocytes # (Auto) 1.1 x10^3/uL (1.0-4.8) Monocytes # (Auto) 0.7 x10^3/uL (0.0-1.1) Eosinophils # (Auto) 0.1 x10^3/uL (0.0-0.7) Basophils # (Auto) 0.0 x10^3/uL (0.0-0.2) Heparin Anti-Xa Act, Unfractionated 0.43 IU/mL (0.30-0.70) Sodium Level 137 mmol/L (136-145) Potassium Level 3.5 mmol/L (3.5-5.1) Chloride Level 97 mmol/L (98-107) Carbon Dioxide Level 29 mmol/L (21-32) Anion Gap 11 (6-14) Blood Urea Nitrogen 28 mg/dL (8-26) Creatinine 1.4 mg/dL (0.7-1.3) Estimated GFR (Cockcroft-Gault) 49.4 Glucose Level 104 mg/dL (70-99) Calcium Level 8.7 mg/dL (8.5-10.1) Magnesium Level 2.1 mg/dL (1.8-2.4) C-Reactive Protein, Quantitative 23.7 mg/L (0-3.3) Glucose (Fingerstick) 106 mg/dL (70-99) 143 mg/dL (70-99) SARS-CoV-2 Antigen (Rapid) Negative (NEGATIVE) Test 10/11/21 16:16 10/11/21 21:11 10/12/21 04:00 10/12/21 07:24 Glucose (Fingerstick) 118 mg/dL (70-99) 129 mg/dL (70-99) 109 mg/dL (70-99) White Blood Count 4.1 x10^3/uL (4.0-11.0) Red Blood Count 4.04 x10^6/uL (4.30-5.70) Hemoglobin 13.3 g/dL (13.0-17.5) Hematocrit 39.9 % (39.0-53.0) Mean Corpuscular Volume 99 fL (79-100) Mean Corpuscular Hemoglobin 33 pg (25-35) Mean Corpuscular Hemoglobin Concent 33 g/dL (31-37) Red Cell Distribution Width 15.7 % (11.5-14.5) Platelet Count 113 x10^3/uL (140-400) Neutrophils (%) (Auto) 65 % (31-73) Lymphocytes (%) (Auto) 20 % (24-48) Monocytes (%) (Auto) 13 % (0-9) Eosinophils (%) (Auto) 1 % (0-3) Basophils (%) (Auto) 1 % (0-3) Neutrophils # (Auto) 2.6 x10^3/uL (1.8-7.7) Lymphocytes # (Auto) 0.8 x10^3/uL (1.0-4.8) Monocytes # (Auto) 0.5 x10^3/uL (0.0-1.1) Eosinophils # (Auto) 0.0 x10^3/uL (0.0-0.7) Basophils # (Auto) 0.0 x10^3/uL (0.0-0.2) Sodium Level 137 mmol/L (136-145) Potassium Level 3.3 mmol/L (3.5-5.1) Chloride Level 100 mmol/L (98-107) Carbon Dioxide Level 33 mmol/L (21-32) Anion Gap 4 (6-14) Blood Urea Nitrogen 29 mg/dL (8-26) Creatinine 1.5 mg/dL (0.7-1.3) Estimated GFR (Cockcroft-Gault) 45.6 Glucose Level 146 mg/dL (70-99) Calcium Level 8.6 mg/dL (8.5-10.1) Magnesium Level 1.8 mg/dL (1.8-2.4) Laboratory Tests Test 10/11/21 11:40 10/11/21 12:50 10/11/21 16:16 10/11/21 21:11 Glucose (Fingerstick) 143 mg/dL (70-99) 118 mg/dL (70-99) 129 mg/dL (70-99) SARS-CoV-2 Antigen (Rapid) Negative (NEGATIVE) Test 10/12/21 04:00 10/12/21 07:24 White Blood Count 4.1 x10^3/uL (4.0-11.0) Red Blood Count 4.04 x10^6/uL (4.30-5.70) Hemoglobin 13.3 g/dL (13.0-17.5) Hematocrit 39.9 % (39.0-53.0) Mean Corpuscular Volume 99 fL (79-100) Mean Corpuscular Hemoglobin 33 pg (25-35) Mean Corpuscular Hemoglobin Concent 33 g/dL (31-37) Red Cell Distribution Width 15.7 % (11.5-14.5) Platelet Count 113 x10^3/uL (140-400) Neutrophils (%) (Auto) 65 % (31-73) Lymphocytes (%) (Auto) 20 % (24-48) Monocytes (%) (Auto) 13 % (0-9) Eosinophils (%) (Auto) 1 % (0-3) Basophils (%) (Auto) 1 % (0-3) Neutrophils # (Auto) 2.6 x10^3/uL (1.8-7.7) Lymphocytes # (Auto) 0.8 x10^3/uL (1.0-4.8) Monocytes # (Auto) 0.5 x10^3/uL (0.0-1.1) Eosinophils # (Auto) 0.0 x10^3/uL (0.0-0.7) Basophils # (Auto) 0.0 x10^3/uL (0.0-0.2) Sodium Level 137 mmol/L (136-145) Potassium Level 3.3 mmol/L (3.5-5.1) Chloride Level 100 mmol/L (98-107) Carbon Dioxide Level 33 mmol/L (21-32) Anion Gap 4 (6-14) Blood Urea Nitrogen 29 mg/dL (8-26) Creatinine 1.5 mg/dL (0.7-1.3) Estimated GFR (Cockcroft-Gault) 45.6 Glucose Level 146 mg/dL (70-99) Calcium Level 8.6 mg/dL (8.5-10.1) Magnesium Level 1.8 mg/dL (1.8-2.4) Glucose (Fingerstick) 109 mg/dL (70-99) Medications Active Scripts Medications Dose Route/Sig Max Daily Dose Days Date Category Flomax (Tamsulosin Hcl) 0.4 Mg Cap.er.24h 0.4 Mg PO DAILY 01/04/20 Reported Impression . 1. A 60 years of tobaccoism, likely underlying chronic obstructive pulmonary disease with ongoing tobaccoism. 2. Atrial fibrillation with rapid ventricular response. Being managed by Cardiology. Now controlled. 3. Abnormal CT abdomen and pelvis with mild to moderate left pleural effusion. Likely related to low oncotic pressure from hypoalbuminemia. He has chronic heavy alcoholism history. He should have further Gastroenterology evaluation regarding Hemoccult stool and bloating with constipation. Need to rule out any occult gastrointestinal malignancy. 4. Mild acute kidney injury. 5. Likely alcoholic liver disease. His bilirubin is mildly elevated. 6. Hypomagnesemia. 7. Cardiomyopathy with an EF of 20 to 25% and secondary pulmonary hypertension. 8. No change in chest x-ray today with moderate left pleural effusion Plan . RECOMMENDATIONS: 1. Status post left thoracentesis. 1.3 L of fluid removed. 2. Follow the pleural fluid analysis. 3. PFTs as an outpatient. 4. Follow GI recommendation. 5. Follow Cardiology recommendations. Cardiac cath as an outpatient per cardiology recommendations. 6. Replace magnesium. As needed 7. Watch for alcohol withdrawal. 8. We will follow along with you. GENARO RITTER MD Oct 12, 2021 09:46
[2021-10-12] MEDS: METOPROLOL SUCC 24HR ER 25 MG TAB.ER.24H. PO SCH ×2 (11:30→17:14)
[2021-10-12] MEDS ORDERED: POTASSIUM CHLORIDE 20 MEQ TABLET.ER. PO ONE (12:30)
--- NOTE | 2021-10-12 12:38 | PDOC ---
CARDIOLOGY PROGRESS NOTE SUBJECTIVE: No new events. Denies any chest pain, light headedness. No syncope. OBJECTIVE: Vital Signs/I&O: Vital Signs Date Time Temp Pulse Resp B/P (MAP) Pulse Ox O2 Delivery O2 Flow Rate FiO2 10/12/21 11:00 97.7 94 17 83/70 (74) 94 Room Air 97.7 I & O 0 10/11/21 10/11/21 10/12/21 15:00 23:00 07:00 Intake Total 600 ml 200 ml Output Total 300 ml 600 ml 350 ml Balance 300 ml -400 ml -350 ml Objective: GEN.: No apparent distress. Alert and oriented. HEENT: Head is normocephalic, atraumatic NECK: Supple. LUNGS: Bilateral rales. HEART: Irr irr, S1, S2 present. Peripheral pulses intact ABDOMEN: Soft, nontender. Positive bowel sounds. EXTREMITIES: 2+ edema NEUROLOGIC: Normal speech, normal tone PSYCHIATRIC: Normal affect, normal mood. SKIN: No ulcerations CURRENT MEDICATIONS: Current Medications Medications (Trade) Dose Ordered Sig/Alicja Route PRN Reason Start Time Stop Time Status Last Admin Dose Admin Apixaban (Eliquis) 5 mg BID PO 10/11/21 21:00 10/12/21 08:28 DIAGNOSTIC TESTING: Labs reviewed. Labs: Laboratory Tests 10/12/21 04:00 Laboratory Tests Test 10/11/21 12:50 10/11/21 16:16 10/11/21 21:11 10/12/21 04:00 SARS-CoV-2 Antigen (Rapid) Negative (NEGATIVE) Glucose (Fingerstick) 118 mg/dL (70-99) H 129 mg/dL (70-99) H White Blood Count 4.1 x10^3/uL (4.0-11.0) Red Blood Count 4.04 x10^6/uL (4.30-5.70) L Hemoglobin 13.3 g/dL (13.0-17.5) Hematocrit 39.9 % (39.0-53.0) Mean Corpuscular Volume 99 fL (79-100) Mean Corpuscular Hemoglobin 33 pg (25-35) Mean Corpuscular Hemoglobin Concent 33 g/dL (31-37) Red Cell Distribution Width 15.7 % (11.5-14.5) H Platelet Count 113 x10^3/uL (140-400) L Neutrophils (%) (Auto) 65 % (31-73) Lymphocytes (%) (Auto) 20 % (24-48) L Monocytes (%) (Auto) 13 % (0-9) H Eosinophils (%) (Auto) 1 % (0-3) Basophils (%) (Auto) 1 % (0-3) Neutrophils # (Auto) 2.6 x10^3/uL (1.8-7.7) Lymphocytes # (Auto) 0.8 x10^3/uL (1.0-4.8) L Monocytes # (Auto) 0.5 x10^3/uL (0.0-1.1) Eosinophils # (Auto) 0.0 x10^3/uL (0.0-0.7) Basophils # (Auto) 0.0 x10^3/uL (0.0-0.2) Sodium Level 137 mmol/L (136-145) Potassium Level 3.3 mmol/L (3.5-5.1) L Chloride Level 100 mmol/L (98-107) Carbon Dioxide Level 33 mmol/L (21-32) H Anion Gap 4 (6-14) L Blood Urea Nitrogen 29 mg/dL (8-26) H Creatinine 1.5 mg/dL (0.7-1.3) H Estimated GFR (Cockcroft-Gault) 45.6 Glucose Level 146 mg/dL (70-99) H Calcium Level 8.6 mg/dL (8.5-10.1) Test 10/12/21 07:24 10/12/21 10:56 Glucose (Fingerstick) 109 mg/dL (70-99) H 134 mg/dL (70-99) H ASSESSMENT: 1. AFIB RVR: Improved 2. Severe cardiomyopathy: EF 20-25% 3. Acute CHF with HFrEF 4. Left pleural effusion: s/p thora 5. Anasarca 6. MIGUEL 7. Hypomagnesemia 8. ETOH misuse: heavy consumption 9. Tobacco abuse with likely COPD 10. Possible urinary retention with BPH 11. Mild thrombocytopenia PLAN: 1. Patient is struggling with hypotension. His HR is better controlled and he is mentating well. For now continue diuresis as BP allows, if BP is too low, may need ionotropic support to help with diuresis. Will consider Milrinone or Dopamine prn. Supportive care for now. Justicifation of Admission Dx: Justifications for Admission: Justification of Admission Dx: Yes HERNANDEZ WIN MD Oct 12, 2021 12:38
[2021-10-12 14:23] LABS: BF CLARITY CLEAR; BF COLOR YELLOW; BF MON % 92 %; BF PMN % 8 %; BF RBC COUNT 240 /cmm (Not Established); BF SOURCE PLEURAL; BF WBC COUNT 130 /cmm (Not Established)
--- NOTE | 2021-10-12 18:10 | NUR ---
RN was in patients room administering medications and asking for a urine sample. Patient stated she already told Violetta that she "smokes crack" but that she didn't smoke any yesterday before coming in that last time she had smoked was the day before, so . However, patient did say go head and take a sample. Also, patient refusing to be tested for COVID, pt stated "I rather get another shot then to have that stick up my nose." MD aware. RN informed patient she will remain in isolation until discharge. Patient stated that was okay. Patient also mentioned to this RN that yesterday morning she took 9 different medications with the intention of hurting herself. Patient stated she is depressed due to loosing her son and someone else in her family recently, she had also argued with her daughter and was tired of hurting. RN asked patient if she felt like hurting herself at this moment and patient stated no. RN asked if she were to go home would she hurt herself and she stated she couldn't tell me that. Suicide assessment redone. 1:[address] Paez. [employer] was notified. PAT team consulted.
[2021-10-13] VITALS (13 sets, daily range): BP systolic 73–99; BP diastolic 51–74
[2021-10-13 05:09] LABS: CALCIUM 8.8 mg/dL (8.5-10.1); CREATININE 1.5 mg/dL (0.7-1.3); GFR 45.6; POTASSIUM 3.8 mmol/L (3.5-5.1)
[2021-10-13] MEDS: LACTOBACILLUS RHAMNOSUS GG 1 CAPSULE. PO SCH ×2 (08:14→20:47)
[2021-10-13] MEDS: POLYETHYLENE GLYCOL 3350 17 GM PACKET. PO SCH (08:15)
[2021-10-13] MEDS: APIXABAN 5 MG TABLET. PO SCH ×2 (08:15→20:47)
[2021-10-13] MEDS: TAMSULOSIN 0.4 MG CAP.ER.24H. PO SCH (08:15)
[2021-10-13] MEDS: METOPROLOL SUCC 24HR ER 25 MG TAB.ER.24H. PO SCH (08:15)
[2021-10-13] MEDS: CARBAMIDE PEROXIDE 6.5% OTIC SOLUTION 15ML BOTTLE. AU SCH (08:16)
--- NOTE | 2021-10-13 09:24 | PDOC ---
PULMONARY PROGRESS NOTES DATE: 10/13/21 TIME: 09:23 Subjective Patient denies any shortness of breath. Remains on room air. status post left thoracentesis with 1.3 L of fluid removed on 10/11 Vitals Vital Signs Date Time Temp Pulse Resp B/P (MAP) Pulse Ox O2 Delivery O2 Flow Rate FiO2 10/13/21 08:15 84 101/60 10/13/21 07:00 97.5 18 92 Room Air 97.5 General: Alert, No acute distress Lungs: Clear Cardiovascular: S1 Abdomen: Soft Neuro Exam: Alert Extremities: No Edema Skin: Warm Labs Laboratory Tests Test 10/11/21 11:40 10/11/21 12:50 10/11/21 13:48 10/11/21 16:16 Glucose (Fingerstick) 143 mg/dL (70-99) 118 mg/dL (70-99) SARS-CoV-2 Antigen (Rapid) Negative (NEGATIVE) Body Fluid Source Pleural Body Fluid Color Yellow Body Fluid Clarity Clear Body Fluid pH 7.88 Body Fluid Nucleated Cells 130 /cmm (Not Established) Body Fluid Mononuclear WBCs (%) 92 % Body Fluid Polymorphonuclear Cells 8 % Body Fluid Total RBCs Counted 240 /cmm (Not Established) Test 10/11/21 21:11 10/12/21 04:00 10/12/21 07:24 10/12/21 10:56 Glucose (Fingerstick) 129 mg/dL (70-99) 109 mg/dL (70-99) 134 mg/dL (70-99) White Blood Count 4.1 x10^3/uL (4.0-11.0) Red Blood Count 4.04 x10^6/uL (4.30-5.70) Hemoglobin 13.3 g/dL (13.0-17.5) Hematocrit 39.9 % (39.0-53.0) Mean Corpuscular Volume 99 fL (79-100) Mean Corpuscular Hemoglobin 33 pg (25-35) Mean Corpuscular Hemoglobin Concent 33 g/dL (31-37) Red Cell Distribution Width 15.7 % (11.5-14.5) Platelet Count 113 x10^3/uL (140-400) Neutrophils (%) (Auto) 65 % (31-73) Lymphocytes (%) (Auto) 20 % (24-48) Monocytes (%) (Auto) 13 % (0-9) Eosinophils (%) (Auto) 1 % (0-3) Basophils (%) (Auto) 1 % (0-3) Neutrophils # (Auto) 2.6 x10^3/uL (1.8-7.7) Lymphocytes # (Auto) 0.8 x10^3/uL (1.0-4.8) Monocytes # (Auto) 0.5 x10^3/uL (0.0-1.1) Eosinophils # (Auto) 0.0 x10^3/uL (0.0-0.7) Basophils # (Auto) 0.0 x10^3/uL (0.0-0.2) Sodium Level 137 mmol/L (136-145) Potassium Level 3.3 mmol/L (3.5-5.1) Chloride Level 100 mmol/L (98-107) Carbon Dioxide Level 33 mmol/L (21-32) Anion Gap 4 (6-14) Blood Urea Nitrogen 29 mg/dL (8-26) Creatinine 1.5 mg/dL (0.7-1.3) Estimated GFR (Cockcroft-Gault) 45.6 Glucose Level 146 mg/dL (70-99) Calcium Level 8.6 mg/dL (8.5-10.1) Magnesium Level 1.8 mg/dL (1.8-2.4) Test 10/13/21 04:00 Sodium Level 138 mmol/L (136-145) Potassium Level 3.8 mmol/L (3.5-5.1) Chloride Level 98 mmol/L (98-107) Carbon Dioxide Level 33 mmol/L (21-32) Anion Gap 7 (6-14) Blood Urea Nitrogen 27 mg/dL (8-26) Creatinine 1.5 mg/dL (0.7-1.3) Estimated GFR (Cockcroft-Gault) 45.6 Glucose Level 101 mg/dL (70-99) Calcium Level 8.8 mg/dL (8.5-10.1) Laboratory Tests Test 10/12/21 10:56 10/13/21 04:00 Glucose (Fingerstick) 134 mg/dL (70-99) Sodium Level 138 mmol/L (136-145) Potassium Level 3.8 mmol/L (3.5-5.1) Chloride Level 98 mmol/L (98-107) Carbon Dioxide Level 33 mmol/L (21-32) Anion Gap 7 (6-14) Blood Urea Nitrogen 27 mg/dL (8-26) Creatinine 1.5 mg/dL (0.7-1.3) Estimated GFR (Cockcroft-Gault) 45.6 Glucose Level 101 mg/dL (70-99) Calcium Level 8.8 mg/dL (8.5-10.1) Medications Active Scripts Medications Dose Route/Sig Max Daily Dose Days Date Category Flomax (Tamsulosin Hcl) 0.4 Mg Cap.er.24h 0.4 Mg PO DAILY 01/04/20 Reported Impression . 1. A 60 years of tobaccoism, likely underlying chronic obstructive pulmonary disease with ongoing tobaccoism. 2. Atrial fibrillation with rapid ventricular response. Being managed by Cardiology. Now controlled. 3. Abnormal CT abdomen and pelvis with mild to moderate left pleural effusion. Likely related to low oncotic pressure from hypoalbuminemia. He has chronic heavy alcoholism history. He should have further Gastroenterology evaluation regarding Hemoccult stool and bloating with constipation. Need to rule out any occult gastrointestinal malignancy. 4. Mild acute kidney injury. 5. Likely alcoholic liver disease. His bilirubin is mildly elevated. 6. Hypomagnesemia. 7. Cardiomyopathy with an EF of 20 to 25% and secondary pulmonary hypertension. 8. No change in chest x-ray today with moderate left pleural effusion Plan . RECOMMENDATIONS: 1. Status post left thoracentesis. 1.3 L of fluid removed. 2. Follow the pleural fluid analysis. 3. PFTs as an outpatient. 4. Follow GI recommendation. 5. Follow Cardiology recommendations. Cardiac cath as an outpatient per cardiology recommendations. 6. Replace magnesium. As needed 7. Watch for alcohol withdrawal. 8. We will follow along with you. GENARO RITTER MD October 13, 2021 09:24
--- NOTE | 2021-10-13 09:46 | PDOC ---
[facility] PROGRESS NOTE Date of Service DOS: DATE: 10/13/21 TIME: 09:43 Chief Complaint Chief Complaint A. fib RVR Large left pleural effusion MIGUEL due to vasomotor nephropathy, unknown baseline Elevated BNP suggestive of acute volume overload versus chronic hypoxia no history of COPD but chronic tobacco smoker Thrombocytopenia Hemoccult stool positive History of tobacco and alcohol misuse Obesity class I History of Present Illness History of Present Illness 10/13: Afebrile, breathing on room air. Had left thoracentesis yesterday with 1.3 L off. Pleural fluid analysis pending. Lasix decreased to 20 IV daily due to soft blood pressure. We will continue diuresis as blood pressure allows. Kidney function still hovering around CKD 3a/3b. On milrinone gtt. Cardiology to consi surendra left heart cath tomorrow. States he had a bowel movement today finally. He is on Eliquis for new diagnosis of A. fib. 10/12: Patient resting comfortably in bed, afebrile. Patient had successful ultrasound guided thoracentesis yesterday with removal of 1.3 liters of fluid. Heparin gtt has been stopped, initiated on Eliquis. Per cardiology, will add Aldactone and Entresto when blood pressure more adequate. Plans for outpatient left heart cath. Hemoglobin A1c 5.7, will stop blood checks. On CIWA protocol, has not required any IV Ativan. Hemoccult positive, GI is following. Will continue to follow cardiology and pulmonology recommendations. 10/11: Afebrile. CRP 23.7, procalcitonin 0.10. Will discontinue antibiotics. He is having a thoracentesis today. Lasix held this morning due to some hypotension. His echocardiogram showed EF 20-25%. Cardiology following. He was initiated on heart failure medications prior to discharge. 10/10: Patient seen and evaluated with at bedside. He denies any shortness of breath at rest or laying on his back, but does admit to some dyspnea on exertion. Answered and 's questions to the best of my abilities. Echocardiogram pending, and nurse initiating heparin drip. Will order abdominal ultrasound to evaluate likely cirrhosis. Will order CRP to rule out any pneumonia; if not elevated will discontinue empiric antibiotics. For his likely history of BPH we will initiate Flomax daily. Patient also concerned about bilateral earwax impaction. Will schedule daily Debrox in hopes that impacted earwax will express its way out. Discussed with RN. Vitals/I&O Vitals/I&O: Vital Signs Date Time Temp Pulse Resp B/P (MAP) Pulse Ox O2 Delivery O2 Flow Rate FiO2 10/13/21 08:15 84 101/60 10/13/21 07:00 97.5 18 92 Room Air 97.5 I & O 10/12/21 10/12/21 10/13/21 15:00 23:00 07:00 Intake Total 540 ml 360 ml Output Total 630 ml 300 ml 200 ml Balance -90 ml -300 ml 160 ml Physical Exam General: Alert, Oriented X3, Cooperative, No acute distress Heart: Other (AFIB, distnat heart sounds) Lungs: Clear Abdomen: Soft, Other (Distended abdomen with +fluid wave) Extremities: No cyanosis, Other (4+ bilateral LA pitting edema) Skin: No breakdown Labs Labs: Laboratory Tests Test 10/12/21 10:56 10/13/21 04:00 Glucose (Fingerstick) 134 mg/dL (70-99) Sodium Level 138 mmol/L (136-145) Potassium Level 3.8 mmol/L (3.5-5.1) Chloride Level 98 mmol/L (98-107) Carbon Dioxide Level 33 mmol/L (21-32) Anion Gap 7 (6-14) Blood Urea Nitrogen 27 mg/dL (8-26) Creatinine 1.5 mg/dL (0.7-1.3) Estimated GFR (Cockcroft-Gault) 45.6 Glucose Level 101 mg/dL (70-99) Calcium Level 8.8 mg/dL (8.5-10.1) Assessment and Plan Assessmemt and Plan Problems Medical Problems: (1) Atrial fibrillation with rapid ventricular response Status: Acute Comment Review of Relevant I have reviewed the following items ganesh (where applicable) has been applied. Medications: Current Medications Medications (Trade) Dose Ordered Sig/Alicja Route PRN Reason Start Time Stop Time Status Last Admin Dose Admin Potassium Chloride (Klor-Con) 40 meq 1X ONCE PO 10/12/21 12:30 10/12/21 12:31 DC 10/12/21 12:50 Justifications for Admission Other Justification Afib RVR ERON PRICE MD October 13, 2021 09:46
[2021-10-13] MEDS: MILRINONE 20MG/100ML PREMIX 100 ML IV PRN (11:26)
[2021-10-13] MEDS: FUROSEMIDE 20 MG/2 ML VIAL. IVP SCH (12:30)
--- NOTE | 2021-10-13 12:57 | NUR ---
morning Lasix held again per instruction in eMAR, pt now on cardiac drip and blood pressure is 91 systolic, up from 73 systolic
--- NOTE | 2021-10-13 20:20 | PDOC ---
CARDIOLOGY PROGRESS NOTE SUBJECTIVE: No new events. Patient denies any chest pain. He continues to have significant LE edema. No new issues. OBJECTIVE: Vital Signs/I&O: Vital Signs Date Time Temp Pulse Resp B/P (MAP) Pulse Ox O2 Delivery O2 Flow Rate FiO2 10/13/21 19:20 Room Air 10/13/21 19:01 97.8 99 16 92/72 (79) 95 97.8 I & O 10/12/21 10/12/21 10/13/21 15:00 23:00 07:00 Intake Total 540 ml 360 ml Output Total 630 ml 300 ml 200 ml Balance -90 ml -300 ml 160 ml Objective: GEN.: No apparent distress. Alert and oriented. HEENT: Head is normocephalic, atraumatic NECK: Supple. LUNGS: Clear to auscultation. HEART: RRR, S1, S2 present. Peripheral pulses intact ABDOMEN: Soft, nontender. Positive bowel sounds. EXTREMITIES: Without any cyanosis. 2+ BE. NEUROLOGIC: Normal speech, normal tone PSYCHIATRIC: Normal affect, normal mood. SKIN: No ulcerations CURRENT MEDICATIONS: Current Medications Medications (Trade) Dose Ordered Sig/Alicja Route PRN Reason Start Time Stop Time Status Last Admin Dose Admin Milrinone Lactate/ Dextrose 100 ml @ 3.821 mls/ hr CONT PRN IV SEE I/O RECORD 10/13/21 11:00 10/13/21 11:26 DIAGNOSTIC TESTING: Labs reviewed. Labs: Laboratory Tests 10/13/21 04:00 Laboratory Tests Test 10/13/21 04:00 Sodium Level 138 mmol/L (136-145) Potassium Level 3.8 mmol/L (3.5-5.1) Chloride Level 98 mmol/L (98-107) Carbon Dioxide Level 33 mmol/L (21-32) H Anion Gap 7 (6-14) Blood Urea Nitrogen 27 mg/dL (8-26) H Creatinine 1.5 mg/dL (0.7-1.3) H Estimated GFR (Cockcroft-Gault) 45.6 Glucose Level 101 mg/dL (70-99) H Calcium Level 8.8 mg/dL (8.5-10.1) ASSESSMENT: 1. AFIB RVR: Improved 2. Severe cardiomyopathy: EF 20-25% 3. Acute CHF with HFrEF 4. Left pleural effusion: s/p thora 5. Anasarca 6. MIGUEL 7. Hypomagnesemia 8. ETOH misuse: heavy consumption 9. Tobacco abuse with likely COPD 10. Possible urinary retention with BPH 11. Mild thrombocytopenia PLAN: 1. Will start milrinone and continue lasix. Still needs fluid off. Discussed with and family. Supportive care. Justicifation of Admission Dx: Justifications for Admission: Justification of Admission Dx: Yes HERNANDEZ WIN MD October 13, 2021 20:20
[2021-10-14 02:36] VITALS: BP 102/67
[2021-10-14 05:13] LABS: CALCIUM 8.7 mg/dL (8.5-10.1); CREATININE 1.2 mg/dL (0.7-1.3); POTASSIUM 3.8 mmol/L (3.5-5.1)
[2021-10-14 07:00] VITALS: BP 101/76
[2021-10-14] MEDS: POLYETHYLENE GLYCOL 3350 17 GM PACKET. PO SCH (09:00)
[2021-10-14] MEDS: TAMSULOSIN 0.4 MG CAP.ER.24H. PO SCH (09:13)
[2021-10-14] MEDS: METOPROLOL SUCC 24HR ER 25 MG TAB.ER.24H. PO SCH (09:13)
[2021-10-14] MEDS: LACTOBACILLUS RHAMNOSUS GG 1 CAPSULE. PO SCH ×2 (09:13→20:54)
[2021-10-14] MEDS: APIXABAN 5 MG TABLET. PO SCH (09:13)
[2021-10-14] MEDS: FUROSEMIDE 20 MG/2 ML VIAL. IVP SCH (09:14)
[2021-10-14] MEDS: CARBAMIDE PEROXIDE 6.5% OTIC SOLUTION 15ML BOTTLE. AU SCH (09:20)
[2021-10-14] MEDS: MILRINONE 20MG/100ML PREMIX 100 ML IV PRN (09:21)
--- NOTE | 2021-10-14 10:02 | PDOC ---
MERISSA SOTO GARAGE DOOR SERVICE TECHNICIAN 10/14/21 1002: CARDIO Progress Notes Date and Time Date of Service 10/14/21 Time of Evaluation 1000 Subjective Subjective: No Chest Pain, No shortness of breath, No Palpitations, Other (LE edema persists) Vitals Vitals Vital Signs Date Time Temp Pulse Resp B/P (MAP) Pulse Ox O2 Delivery O2 Flow Rate FiO2 10/14/21 09:13 75 101/76 10/14/21 07:00 97.3 18 89 Room Air 97.3 Weight Weight [ ] Input and Output Intake and Output Intake and Output 10/14/21 07:00 Intake Total 760 ml Output Total 540 ml Balance 220 ml Intake Oral 760 ml Output Urine Total 540 ml Laboratory Labs Laboratory Tests Test 10/14/21 03:05 Sodium Level 138 mmol/L (136-145) Potassium Level 3.8 mmol/L (3.5-5.1) Chloride Level 99 mmol/L (98-107) Carbon Dioxide Level 32 mmol/L (21-32) Anion Gap 7 (6-14) Blood Urea Nitrogen 22 mg/dL (8-26) Creatinine 1.2 mg/dL (0.7-1.3) Estimated GFR (Cockcroft-Gault) 59.0 Glucose Level 92 mg/dL (70-99) Calcium Level 8.7 mg/dL (8.5-10.1) Microbiology Micro Microbiology 10/11/21 Gram Stain - Final, Resulted 10/11/21 Aerobic and Anaerobic Culture - Preliminary, Resulted Physical Exam HEENT: Neck Supple W Full Motion Chest: Symmetric LUNGS: Other (diminished bases) Heart: S1S2, irregularly irregular (AFIB- rate controlled ) Abdomen: Soft N/T Extremities: No Calf Tenderness, Other (2+ bilateral LE edema) Neurology: alert, oriented, follow commands Assessment Assessment 1. AFIB RVR: rate now controlled 2. Severe cardiomyopathy: Limited echo with LVEF 20-25%. 3. Acute CHF with HFrEF; on milrinone, Lasix therapy. no significant UOP 4. Left pleural effusion: s/p thoracentesis with 1.3L off 5. Anasarca 6. MIGUEL; Cr down to 1.2 7. ETOH misuse: heavy consumption 8. Tobacco abuse with likely COPD 9. Possible urinary retention with BPH 10. Mild thrombocytopenia Recommendations HF optimization Continue milrinone gtt and IV Lasix. monitor renal function Metoprolol for rate control NPO p MN Will plan for right and left heart catheterization given new finding of severe cardiomyopathy Hold Eliquis Justicifation of Admission Dx: Justifications for Admission: Justification of Admission Dx: Yes ODALYS STRONG MD 10/14/21 1350: CARDIO Progress Notes Assessment Assessment Patient seen and examined. Agree with ENDOSCOPY TECHNICIAN's assessment and plan. Acute on chronic systolic heart failure better compensated Patient diuresing better after starting inotropic support with milrinone Atrial fibrillation rate controlled Plan for right and left heart catheterization tomorrow MERISSA SOTO APRN October 14, 2021 10:02 ODALYS STRONG MD October 14, 2021 13:50
[2021-10-14 10:19] VITALS: BP 119/51
--- NOTE | 2021-10-14 10:22 | PDOC ---
PULMONARY PROGRESS NOTES DATE: 10/14/21 TIME: 10:21 Subjective Patient denies any shortness of breath. Remains on room air. status post left thoracentesis with 1.3 L of fluid removed on 10/11 Vitals Vital Signs Date Time Temp Pulse Resp B/P (MAP) Pulse Ox O2 Delivery O2 Flow Rate FiO2 10/14/21 10:19 97.4 92 18 119/51 (73) 94 Nasal Cannula 2.0 97.4 General: Alert, No acute distress Lungs: Clear Cardiovascular: S1 Abdomen: Soft Neuro Exam: Alert Extremities: No Edema Skin: Warm Labs Laboratory Tests Test 10/12/21 10:56 10/13/21 04:00 10/14/21 03:05 Glucose (Fingerstick) 134 mg/dL (70-99) Sodium Level 138 mmol/L (136-145) 138 mmol/L (136-145) Potassium Level 3.8 mmol/L (3.5-5.1) 3.8 mmol/L (3.5-5.1) Chloride Level 98 mmol/L (98-107) 99 mmol/L (98-107) Carbon Dioxide Level 33 mmol/L (21-32) 32 mmol/L (21-32) Anion Gap 7 (6-14) 7 (6-14) Blood Urea Nitrogen 27 mg/dL (8-26) 22 mg/dL (8-26) Creatinine 1.5 mg/dL (0.7-1.3) 1.2 mg/dL (0.7-1.3) Estimated GFR (Cockcroft-Gault) 45.6 59.0 Glucose Level 101 mg/dL (70-99) 92 mg/dL (70-99) Calcium Level 8.8 mg/dL (8.5-10.1) 8.7 mg/dL (8.5-10.1) Laboratory Tests Test 10/14/21 03:05 Sodium Level 138 mmol/L (136-145) Potassium Level 3.8 mmol/L (3.5-5.1) Chloride Level 99 mmol/L (98-107) Carbon Dioxide Level 32 mmol/L (21-32) Anion Gap 7 (6-14) Blood Urea Nitrogen 22 mg/dL (8-26) Creatinine 1.2 mg/dL (0.7-1.3) Estimated GFR (Cockcroft-Gault) 59.0 Glucose Level 92 mg/dL (70-99) Calcium Level 8.7 mg/dL (8.5-10.1) Medications Active Scripts Medications Dose Route/Sig Max Daily Dose Days Date Category Flomax (Tamsulosin Hcl) 0.4 Mg Cap.er.24h 0.4 Mg PO DAILY 01/04/20 Reported Impression . 1. A 60 years of tobaccoism, likely underlying chronic obstructive pulmonary disease with ongoing tobaccoism. 2. Atrial fibrillation with rapid ventricular response. Being managed by Cardiology. Now controlled. 3. Abnormal CT abdomen and pelvis with mild to moderate left pleural effusion. Likely related to low oncotic pressure from hypoalbuminemia. He has chronic heavy alcoholism history. 4. Mild acute kidney injury. 5. Likely alcoholic liver disease. His bilirubin is mildly elevated. 6. Hypomagnesemia. 7. Cardiomyopathy with an EF of 20 to 25% and secondary pulmonary hypertension. Plan . RECOMMENDATIONS: 1. Status post left thoracentesis. 1.3 L of fluid removed. 2. Follow the pleural fluid analysis. It is a transudate. Awaiting cytology. 3. PFTs as an outpatient. 4. Follow GI recommendation. 5. Follow Cardiology recommendations. Cardiac cath per cardiology recommendations. 6. Replace magnesium. As needed 7. Watch for alcohol withdrawal. 8. We will follow along with you. GENARO RITTER MD October 14, 2021 10:22
--- NOTE | 2021-10-14 11:54 | PDOC ---
Date of Service: DATE: 10/14/21 TIME: 11:48 Subjective: Subjective: Says he's waiting for cardiac cath. Abdomen softer, legs with less swelling. Stooling w/ Miralax. Objective: Objective: Doppler cancelled per radiology - note from them that "portal vein seen on abd sono." Vital Signs: Vital Signs Date Time Temp Pulse Resp B/P (MAP) Pulse Ox O2 Delivery O2 Flow Rate FiO2 10/14/21 10:19 97.4 92 18 119/51 (73) 94 Nasal Cannula 2.0 97.4 Labs: Laboratory Tests Test 10/14/21 03:05 Sodium Level 138 mmol/L Potassium Level 3.8 mmol/L Chloride Level 99 mmol/L Carbon Dioxide Level 32 mmol/L Anion Gap 7 Blood Urea Nitrogen 22 mg/dL Creatinine 1.2 mg/dL Estimated GFR (Cockcroft-Gault) 59.0 Glucose Level 92 mg/dL Calcium Level 8.7 mg/dL GRAM STAIN-AER DOMINIQUE Final PMNS (WBCS): RARE SQUAMOUS EPI CELL: NOT APPLICABLE NO ORGANISMS SEEN . CULTURE ANAEROBIC/AEROBIC Preliminary NO GROWTH ON 10/13/21 at 0913 NO GROWTH ON 10/14/21 at 0951 Testing performed by [address] [id number] director pediatric: Tia Goodman MD PE: GEN: NAD LUNGS: clear HEART: irregular ABD: distended EXTREMITY: BLE edema NEURO/PSYCH: A & O 3 A/P: A Fib, CHF, cardiomyopathy Pleural effusion s/p thoracentesis, MIUGEL (resolved), anasarca (better) Thrombocytopenia, elevated bilirubin and Alk Phos (checked last week) - h/o daily alcohol, hepatic steatosis +hemoccult as outpt - not iron deficient, no previous 'scopes -- Supportive care GI-weaver. Justicifation of Admission Dx: Justifications for Admission: Justification of Admission Dx: Yes MICHAEL SPEAR October 14, 2021 11:54
--- NOTE | 2021-10-14 12:08 | PDOC ---
[facility] PROGRESS NOTE Date of Service DOS: DATE: 10/14/21 TIME: 12:07 Chief Complaint Chief Complaint A. fib RVR Large left pleural effusion MIGUEL due to vasomotor nephropathy, unknown baseline Elevated BNP suggestive of acute volume overload versus chronic hypoxia no history of COPD but chronic tobacco smoker Thrombocytopenia Hemoccult stool positive History of tobacco and alcohol misuse Obesity class I History of Present Illness History of Present Illness 10/14: Patient notes some improvement in his bilateral leg swelling. Denies any shortness of breath. Remains on milrinone gtt and IV Lasix. Cardiology has plan for heart cath tomorrow. 10/13: Afebrile, breathing on room air. Had left thoracentesis yesterday with 1.3 L off. Pleural fluid analysis pending. Lasix decreased to 20 IV daily due to soft blood pressure. We will continue diuresis as blood pressure allows. Kidney function still hovering around CKD 3a/3b. On milrinone gtt. Cardiology to consider left heart cath tomorrow. States he had a bowel movement today f inally. He is on Eliquis for new diagnosis of A. fib. 10/12: Patient resting comfortably in bed, afebrile. Patient had successful ultrasound guided thoracentesis yesterday with removal of 1.3 liters of fluid. Heparin gtt has been stopped, initiated on Eliquis. Per cardiology, will add Aldactone and Entresto when blood pressure more adequate. Plans for outpatient left heart cath. Hemoglobin A1c 5.7, will stop blood checks. On CIWA protocol, has not required any IV Ativan. Hemoccult positive, GI is following. Will continue to follow cardiology and pulmonology recommendations. 10/11: Afebrile. CRP 23.7, procalcitonin 0.10. Will discontinue antibiotics. He is having a thoracentesis today. Lasix held this morning due to some hypotension. His echocardiogram showed EF 20-25%. Cardiology following. He was initiated on heart failure medications prior to discharge. 10/10: Patient seen and evaluated with at bedside. He denies any shortness of breath at rest or laying on his back, but does admit to some dyspnea on exertion. Answered and 's questions to the best of my abilities. Echocardiogram pending, and nurse initiating heparin drip. Will order abdominal ultrasound to evaluate likely cirrhosis. Will order CRP to rule out any pneumonia; if not elevated will discontinue empiric antibiotics. For his likely history of BPH we will initiate Flomax daily. Patient also concerned about bilateral earwax impaction. Will schedule daily Debrox in hopes that impacted earwax will express its way out. Discussed with RN. Vitals/I&O Vitals/I&O: Vital Signs Date Time Temp Pulse Resp B/P (MAP) Pulse Ox O2 Delivery O2 Flow Rate FiO2 10/14/21 10:19 97.4 92 18 119/51 (73) 94 Nasal Cannula 2.0 97.4 I & O 10/13/21 10/13/21 10/14/21 14:59 22:59 06:59 Intake Total 760 ml 0 ml 0 ml Output Total 100 ml 190 ml 250 ml Balance 660 ml -190 ml -250 ml Physical Exam General: Alert, Oriented X3, Cooperative, No acute distress Heart: Other (AFIB, distnat heart sounds) Lungs: Clear Abdomen: Soft, Other (Distended abdomen with +fluid wave) Extremities: No cyanosis, Other (4+ bilateral LA pitting edema) Skin: No breakdown Labs Labs: Laboratory Tests Test 10/14/21 03:05 Sodium Level 138 mmol/L (136-145) Potassium Level 3.8 mmol/L (3.5-5.1) Chloride Level 99 mmol/L (98-107) Carbon Dioxide Level 32 mmol/L (21-32) Anion Gap 7 (6-14) Blood Urea Nitrogen 22 mg/dL (8-26) Creatinine 1.2 mg/dL (0.7-1.3) Estimated GFR (Cockcroft-Gault) 59.0 Glucose Level 92 mg/dL (70-99) Calcium Level 8.7 mg/dL (8.5-10.1) Assessment and Plan Assessmemt and Plan Problems Medical Problems: (1) Atrial fibrillation with rapid ventricular response Status: Acute Comment Review of Relevant I have reviewed the following items ganesh (where applicable) has been applied. Justifications for Admission Other Justification Afib RVR ERON PRICE MD October 14, 2021 12:08
[2021-10-14 14:50] VITALS: BP 100/70
--- NOTE | 2021-10-14 16:21 | NUR ---
SS following up with discharge planning. SS reviewed pt chart and discussed with pt RN. Pt is currently requiring oxygen at two liters nasal canula. COVID19 negative. Pt on IV Lasix and Milrinone drip. Pt having heart cath on 10/15/2021. SS will continue to follow for discharge planning.
[2021-10-14 19:50] VITALS: BP 95/61
[2021-10-14 22:30] VITALS: BP 100/76
[2021-10-15] VITALS (13 sets, daily range): BP systolic 83–112; BP diastolic 54–78
[2021-10-15 05:06] LABS: CALCIUM 8.5 mg/dL (8.5-10.1); CREATININE 1.3 mg/dL (0.7-1.3); GFR 53.8; POTASSIUM 3.8 mmol/L (3.5-5.1)
[2021-10-15] MEDS: FUROSEMIDE 20 MG/2 ML VIAL. IVP SCH ×2 (09:00→09:24)
[2021-10-15] MEDS: TAMSULOSIN 0.4 MG CAP.ER.24H. PO SCH (09:24)
[2021-10-15] MEDS: POLYETHYLENE GLYCOL 3350 17 GM PACKET. PO SCH (09:24)
[2021-10-15] MEDS: LACTOBACILLUS RHAMNOSUS GG 1 CAPSULE. PO SCH ×2 (09:24→20:28)
[2021-10-15] MEDS: METOPROLOL SUCC 24HR ER 25 MG TAB.ER.24H. PO SCH (09:24)
[2021-10-15] MEDS: CARBAMIDE PEROXIDE 6.5% OTIC SOLUTION 15ML BOTTLE. AU SCH (09:25)
--- NOTE | 2021-10-15 09:55 | PDOC ---
Date of Service: DATE: 10/15/21 TIME: 09:52 Subjective: Subjective: Waiting for cath. Seems like legs are less swollen but feet are more swollen. No GI complaints. Objective: Objective: D/w nurse - no GI concerns. Vital Signs: Vital Signs Date Time Temp Pulse Resp B/P (MAP) Pulse Ox O2 Delivery O2 Flow Rate FiO2 10/15/21 09:24 83 105/78 10/15/21 07:00 97.3 18 97 Nasal Cannula 2.0 97.3 Labs: Laboratory Tests Test 10/15/21 03:30 Sodium Level 139 mmol/L Potassium Level 3.8 mmol/L Chloride Level 99 mmol/L Carbon Dioxide Level 33 mmol/L Anion Gap 7 Blood Urea Nitrogen 21 mg/dL Creatinine 1.3 mg/dL Estimated GFR (Cockcroft-Gault) 53.8 Glucose Level 94 mg/dL Calcium Level 8.5 mg/dL PE: GEN: NAD LUNGS: CTAB HEART: irregular ABD: soft, some distention EXTREMITY: BLE/pedal edema NEURO/PSYCH: A & O 3 A/P: A Fib, CHF, cardiomyopathy, pleural effusion s/p thoracentesis Thrombocytopenia, elevated bilirubin and Alk Phos - h/o daily alcohol, hepatic steatosis H/o +hemoccult - not iron deficient, no previous 'scopes -- Await cardiac cath. Observe from GI standpoint. Will recheck LFTs, etc. Plan for outpt scopes. Justicifation of Admission Dx: Justifications for Admission: Justification of Admission Dx: Yes MICHEAL SPEAR October 15, 2021 09:55
--- NOTE | 2021-10-15 10:42 | PDOC ---
[employer] PROGRESS NOTE Date of Service DOS: DATE: 10/15/21 TIME: 10:41 Chief Complaint Chief Complaint A. fib RVR Large left pleural effusion MIGUEL due to vasomotor nephropathy, unknown baseline Elevated BNP suggestive of acute volume overload versus chronic hypoxia no history of COPD but chronic tobacco smoker Thrombocytopenia Hemoccult stool positive History of tobacco and alcohol misuse Obesity class I History of Present Illness History of Present Illness 10/15: Patient seen and evaluated. He denies chest pain. Breathing comfortably on 2 L. He is scheduled for heart cath today at 1 PM. 10/14: Patient notes some improvement in his bilateral leg swelling. Denies any shortness of breath. Remains on milrinone gtt and IV Lasix. Cardiology has plan for heart cath tomorrow. 10/13: Afebrile, breathing on room air. Had left thoracentesis yesterday with 1.3 L off. Pleural fluid analysis pending. Lasix decreased to 20 IV daily due to soft blood pressure. We will continue diuresis as blood pressure allows. Kidney function still hovering around CKD 3a/3b. On milrinone gtt. Cardiology to consider left heart cath tomorrow. States he had a bowel movement today finally. He is on Eliquis for new diagnosis of A. fib. 10/12: Patient resting comfortably in bed, afebrile. Patient had successful ultrasound guided thoracentesis yesterday with removal of 1.3 liters of fluid. Heparin gtt has been stopped, initiated on Eliquis. Per cardiology, will add Aldactone and Entresto when blood pressure more adequate. Plans for outpatient left heart cath. Hemoglobin A1c 5.7, will stop blood checks. On CIWA protocol, has not required any IV Ativan. Hemoccult positive, GI is following. Will continue to follow cardiology and pulmonology recommendations. 10/11: Afebrile. CRP 23.7, procalcitonin 0.10. Will discontinue antibiotics. He is having a thoracentesis today. Lasix held this morning due to some hypotension. His echocardiogram showed EF 20-25%. Cardiology following. He was initiated on heart failure medications prior to discharge. 10/10: Patient seen and evaluated with at bedside. He denies any shortness of breath at rest or laying on his back, but does admit to some dyspnea on exertion. Answered and 's questions to the best of my abilities. Echocardiogram pending, and nurse initiating heparin drip. Will order abdominal ultrasound to evaluate likely cirrhosis. Will order CRP to rule out any p neumonia; if not elevated will discontinue empiric antibiotics. For his likely history of BPH we will initiate Flomax daily. Patient also concerned about bilateral earwax impaction. Will schedule daily Debrox in hopes that impacted earwax will express its way out. Discussed with RN. Vitals/I&O Vitals/I&O: Vital Signs Date Time Temp Pulse Resp B/P (MAP) Pulse Ox O2 Delivery O2 Flow Rate FiO2 10/15/21 09:24 83 105/78 10/15/21 08:00 Nasal Cannula 2.0 10/15/21 07:00 97.3 18 97 97.3 I & O 10/14/21 10/14/21 10/15/21 15:00 23:00 07:00 Intake Total 280 ml 500 ml Output Total 1300 ml 400 ml Balance 280 ml -800 ml -400 ml Physical Exam General: Alert, Oriented X3, Cooperative, No acute distress Heart: Other (AFIB, distnat heart sounds) Lungs: Clear Abdomen: Soft, Other (Distended abdomen with +fluid wave) Extremities: No cyanosis, Other (4+ bilateral LA pitting edema) Skin: No breakdown Labs Labs: Laboratory Tests Test 10/15/21 03:30 Sodium Level 139 mmol/L (136-145) Potassium Level 3.8 mmol/L (3.5-5.1) Chloride Level 99 mmol/L (98-107) Carbon Dioxide Level 33 mmol/L (21-32) Anion Gap 7 (6-14) Blood Urea Nitrogen 21 mg/dL (8-26) Creatinine 1.3 mg/dL (0.7-1.3) Estimated GFR (Cockcroft-Gault) 53.8 Glucose Level 94 mg/dL (70-99) Calcium Level 8.5 mg/dL (8.5-10.1) Assessment and Plan Assessmemt and Plan Problems Medical Problems: (1) Atrial fibrillation with rapid ventricular response Status: Acute Comment Review of Relevant I have reviewed the following items ganesh (where applicable) has been applied. Justifications for Admission Other Justification Afib RVR ERON PRICE MD October 15, 2021 10:41
--- NOTE | 2021-10-15 10:46 | PDOC ---
PULMONARY PROGRESS NOTES DATE: 10/15/21 TIME: 10:45 Subjective Patient not more short of air status post left thoracentesis with 1.3 L of fluid removed on 10/11 Vitals Vital Signs Date Time Temp Pulse Resp B/P (MAP) Pulse Ox O2 Delivery O2 Flow Rate FiO2 10/15/21 09:24 83 105/78 10/15/21 08:00 Nasal Cannula 2.0 10/15/21 07:00 97.3 18 97 97.3 ROS: No Nausea, No Chest Pain, No Abdominal Pain, No Increase Cough General: Alert, No acute distress Lungs: Clear Cardiovascular: S1 Abdomen: Soft Neuro Exam: Alert Extremities: No Edema Skin: Warm Labs Laboratory Tests Test 10/14/21 03:05 10/15/21 03:30 Sodium Level 138 mmol/L (136-145) 139 mmol/L (136-145) Potassium Level 3.8 mmol/L (3.5-5.1) 3.8 mmol/L (3.5-5.1) Chloride Level 99 mmol/L (98-107) 99 mmol/L (98-107) Carbon Dioxide Level 32 mmol/L (21-32) 33 mmol/L (21-32) Anion Gap 7 (6-14) 7 (6-14) Blood Urea Nitrogen 22 mg/dL (8-26) 21 mg/dL (8-26) Creatinine 1.2 mg/dL (0.7-1.3) 1.3 mg/dL (0.7-1.3) Estimated GFR (Cockcroft-Gault) 59.0 53.8 Glucose Level 92 mg/dL (70-99) 94 mg/dL (70-99) Calcium Level 8.7 mg/dL (8.5-10.1) 8.5 mg/dL (8.5-10.1) Laboratory Tests Test 10/15/21 03:30 Sodium Level 139 mmol/L (136-145) Potassium Level 3.8 mmol/L (3.5-5.1) Chloride Level 99 mmol/L (98-107) Carbon Dioxide Level 33 mmol/L (21-32) Anion Gap 7 (6-14) Blood Urea Nitrogen 21 mg/dL (8-26) Creatinine 1.3 mg/dL (0.7-1.3) Estimated GFR (Cockcroft-Gault) 53.8 Glucose Level 94 mg/dL (70-99) Calcium Level 8.5 mg/dL (8.5-10.1) Medications Active Scripts Medications Dose Route/Sig Max Daily Dose Days Date Category Flomax (Tamsulosin Hcl) 0.4 Mg Cap.er.24h 0.4 Mg PO DAILY 01/04/20 Reported Impression . 1. A 60 years of tobaccoism, likely underlying chronic obstructive pulmonary disease with ongoing tobaccoism. 2. Atrial fibrillation with rapid ventricular response. Being managed by Cardiology. Now controlled. 3. Abnormal CT abdomen and pelvis with mild to moderate left pleural effusion. Likely related to low oncotic pressure from hypoalbuminemia. He has chronic heavy alcoholism history. 4. Mild acute kidney injury. 5. Likely alcoholic liver disease. His bilirubin is mildly elevated. 6. Hypomagnesemia. 7. Cardiomyopathy with an EF of 20 to 25% and secondary pulmonary hypertension. Plan . Updated 10/15 Patient to undergo left heart catheterization Cytology on pleural fluid pending Discussed with at bedside Continue current support 6-minute walk prior to discharge 1. Status post left thoracentesis. 1.3 L of fluid removed. 2. Follow the pleural fluid analysis. It is a transudate. Awaiting cytology. 3. PFTs as an outpatient. 4. Follow GI recommendation. 5. Follow Cardiology recommendations. Cardiac cath per cardiology recommendations. 6. Replace magnesium. As needed 7. Watch for alcohol withdrawal. 8. We will follow along with you. TOLU GASTELUM MD October 15, 2021 10:46
[2021-10-15] MEDS: MILRINONE 20MG/100ML PREMIX 100 ML IV PRN (12:10)
[2021-10-15] MEDS ORDERED: IODIXANOL 320 MG/ML 100 ML VIAL. ONE (13:46)
[2021-10-15] MEDS ORDERED: LIDOCAINE 1% Multi-Dose 20 ML VIAL. ONE (13:46)
[2021-10-15] MEDS ORDERED: MIDAZOLAM HCL/PF 2 MG/2 ML VIAL. ONE (14:31)
[2021-10-15] MEDS ORDERED: fentaNYL PF VIAL 100 MCG/2 ML VIAL ONE (14:31)
[2021-10-15] MEDS ORDERED: CONTRAST GIVEN. MC PRN (15:15)
[2021-10-15] MEDS ORDERED: LIDOCAINE 1% Multi-Dose 20 ML VIAL. INJ ONE (15:15)
[2021-10-15] MEDS ORDERED: IODIXANOL 320 MG/ML 100 ML VIAL. IART ONE (15:15)
[2021-10-15] MEDS ORDERED: MIDAZOLAM HCL/PF 2 MG/2 ML VIAL. IV ONE (15:15)
[2021-10-15] MEDS ORDERED: fentaNYL PF VIAL 100 MCG/2 ML VIAL IV ONE (15:15)
--- NOTE | 2021-10-15 15:41 | PDOC ---
MODERATE SEDATION ASSESSMENT RISKS/ALTERNATIVES Risks/Alternatives Risks and alternatives of this type of sedation and procedure discussed with: RISK/ALTERNATIVES: Patient H & P ON CHART H & P H & P on chart and reviewed for co-morbid conditions and appropriate labs. H&P ON CHART: Yes STATUS PREG STATUS ASSESSED: N/A MEDS/ALLERGIES REVIEWED Meds/Allergies Reviewed Medications and Allergies including time and route of recently administered narcotics and sedatives. MEDS/ALLERGIES REVIEWED: Yes ASA RATING ASA RATING: III AIRWAY ASSESSMENT Airway Assessment Airway patency, oral function limitations, presence of caps, crowns, dentures, partials, and ability to extend neck assessed. AIRWAY ASSESSMENT: Yes MALLAMPATI SCORE MALLAMPATI SCORE: II PRE-SEDATION ASSESSMENT PRE-SEDATION ASSESSMENT: Yes ODALYS STRONG MD October 15, 2021 15:41
[2021-10-15] MEDS ORDERED: IV 1/2 NORMAL SALINE 1,000 ML IV SCH (15:45)
--- NOTE | 2021-10-15 15:53 | CARD ---
MR#: [id number] Date of Study: 10/15/2021 Ordering Physician: MERISSA SOTO, Referring Physician: MERISSA SOTO, Tech: Hattie Ng APPROVED REPORT Technologist: Hattie Ng Nurse: Dexter Hassan Procedure(s) performed: Right and left heart catheterization, selective coronary angiography Heart Failure Class 4 fl time: 5.1 min dose: 78 gycm2 contrast: 104 ml moderate sedation: 36 min INDICATION The indication(s) include : Acute on chronic systolic heart failure, cardiomyopathy. CS Clinical Frailty Scale [facility] Clinical Frailty Scale: Mildly Frail Heart Failure Heart Failure: Yes If Yes, Newly Diagnosed: Yes If Yes, HF Type: Systolic CASE TECHNIQUE IV conscious sedation was used throughout procedure with appropriate monitoring and was performed in the presence of a registered nurse who was an independent trained observer other than the physician p erforming the procedure. During this case, Fluoroscopy and low osmolar contrast were used for imaging . Specimen(s) Removed: No Estimated Blood loss: 15 cc's. PROCEDURE NARRATIVE After explaining the risk, benefits and alternative options, informed consent was obtained for patien t. Patient was brought to the cardiac Inside Sales Territory Manager and his right groin was prepped and draped in the usu al fashion. 20 cc of 2% lidocaine was infiltrated into the skin and subcutaneous tissues for local a nesthesia. Arterial and venous accesses were obtained in the right common femoral artery and vein re spectively and 6 and 8 Tristanian sheaths inserted. A 7.5 Tristanian [place]Bam catheter was advanced under f luoroscopic guidance and intracardiac pressures, oxygen saturations and cardiac output by Faustino method measured. 6 Tristanian JL 4 and 6 Tristanian JR4 catheters were used to perform selective angiography of th e left and right coronary arteries. LVEDP and transaortic gradients were measured. Left ventriculog janette was not performed since recent 2D echo showed EF 20 to 25%. Patient tolerated the procedure we ll. Hemostasis was achieved using Angio-Seal and manual compression. There were no immediate compli cations. FINDINGS A. RIGHT HEART CATHETERIZATION 1. Intracardiac pressures: Mean right atrial pressure 18 mmHg, right ventricular pressure 60/10 mmHg , pulmonary artery pressure 59/31 mmHg, mean pulmonary artery pressure 42 mmHg, mean pulmonary capill anahi wedge pressure 31 mmHg. Elevated right and left-sided filling pressures consistent with acute on chronic systolic heart failure. 2. Oxygen saturations: Right atrium 62.5%, pulmonary artery 63.8%, femoral arterial sheath 90.7%. N o evidence of intracardiac shunt. 3. Cardiac output by Faustino method 5.5 L/min. B. LEFT HEART CATHETERIZATION 1. Hemodynamics: Elevated left ventricular end-diastolic pressure of 22 mmHg. No pullback gradient across aortic valve. 2. Coronary angiography: a. The left main coronary artery arose from the left sinus of Valsalva, gave rise to the left anteri or descending and left circumflex arteries and did not show any significant stenosis. b. The left anterior descending artery showed 40% stenosis in the proximal segment and a long heavil y calcified 70 to 80% stenosis in the midsegment. c. The left circumflex artery showed 30% stenosis in the proximal segment. The first obtuse margina l branch showed a long and heavily calcified 80 to 90% stenosis in the proximal to mid segment. d. The right coronary artery was a large and dominant vessel arising from the right sinus of Valsalv a that showed 30% stenosis in the midsegment. Conclusion 1. Two-vessel coronary artery disease, heavily calcified and long stenosis involving the left anteri or descending and OM/LCx as described above 2. Elevated right and left-sided filling pressures consistent with acute on chronic systolic heart f ailure 3. No evidence of intracardiac shunt Recommendations Optimization of medical therapy for acute on chronic systolic heart failure. Due to heavy calcified stenoses, we will consider orbital atherectomy/PCI/stent placement to LAD and OM/LCx as an outpatient once better compensated. Cardiovascular is factor modification. Signed by : Tom Payton, Electronically Approved : 10/15/2021 15:52:38
--- NOTE | 2021-10-15 18:07 | PATHOLOGY ---
Note [facility] Accession Number: [id number] TESTS RESULT FLAG UNITS REF RANGE LAB Clinician Provided Cytology Information No. of containers..01 Other (Miscellaneous) Source: LEFT PLEURAL DIAGNOSIS: LEFT PLEURAL NEGATIVE FOR MALIGNANT CELLS. FEW REACTIVE MESOTHELIAL CELLS PRESENT. THIS EVALUATION INCLUDES EXAMINATION OF A CELL BLOCK. Signed out by: Anil Cochran MD, Pathologist NPI- [id number] Performed by: Heri Ramirez, Chronometer Repairer ([facility]) Gross description: 01 35ML, YELLOW, CLEAR /LCS 10/14/2021 1734 Local FLAG LEGEND: L-Low Normal,H-High Normal,LL-Alert Low,HH-Alert High <-Panic Low,>-Panic High,A-Abnormal,AA-Critical Abnormal Performed at: [facility] [address] [place] [address] Roger Oliva MD, [address] [facility] [address] [place] [address] Anil Cochran MD, Specimen Comment: A courtesy copy of this report has been sent to [phone], [phone] Specimen Comment: [id number], , Specimen Comment: Report sent to Specimen Comment: Report sent to , DR RITTER, DR OROSCO / DR HARIDN Performed at: [address], [place], [place] [id number] MD Roger Oliva MD Phone: [phone]
[2021-10-16] VITALS (7 sets, daily range): BP systolic 83–107; BP diastolic 61–82
[2021-10-16 06:53] LABS: HEMATOCRIT 39.1 % (39.0-53.0); HEMOGLOBIN 13.1 g/dL (13.0-17.5); RED BLOOD COUNT 3.98 x10^6/uL (4.30-5.70); RED CELL DISTRIBUTION WIDTH 15.8 % (11.5-14.5); WHITE BLOOD COUNT 4.2 x10^3/uL (4.0-11.0)
[2021-10-16 07:15] LABS: ALBUMIN 2.5 g/dL (3.4-5.0); CALCIUM 8.6 mg/dL (8.5-10.1); CREATININE 1.1 mg/dL (0.7-1.3); DIRECT BILIRUBIN 0.5 mg/dL (0.0-0.2); GFR 65.3; POTASSIUM 3.9 mmol/L (3.5-5.1); TOTAL BILIRUBIN 0.9 mg/dL (0.2-1.0); TOTAL PROTEIN 6.2 g/dL (6.4-8.2)
--- NOTE | 2021-10-16 09:27 | PDOC ---
G I PROGRESS NOTE Subjective Sleeping, did not awaken. Objective Cath results noted. Physical Exam No PE. Review of Relevant I have reviewed the following items ganesh (where applicable) has been applied. Labs Laboratory Tests Test 10/15/21 03:30 10/16/21 05:50 Sodium Level 139 mmol/L (136-145) 137 mmol/L (136-145) Potassium Level 3.8 mmol/L (3.5-5.1) 3.9 mmol/L (3.5-5.1) Chloride Level 99 mmol/L (98-107) 98 mmol/L (98-107) Carbon Dioxide Level 33 mmol/L (21-32) 33 mmol/L (21-32) Anion Gap 7 (6-14) 6 (6-14) Blood Urea Nitrogen 21 mg/dL (8-26) 16 mg/dL (8-26) Creatinine 1.3 mg/dL (0.7-1.3) 1.1 mg/dL (0.7-1.3) Estimated GFR (Cockcroft-Gault) 53.8 65.3 Glucose Level 94 mg/dL (70-99) 96 mg/dL (70-99) Calcium Level 8.5 mg/dL (8.5-10.1) 8.6 mg/dL (8.5-10.1) White Blood Count 4.2 x10^3/uL (4.0-11.0) Red Blood Count 3.98 x10^6/uL (4.30-5.70) Hemoglobin 13.1 g/dL (13.0-17.5) Hematocrit 39.1 % (39.0-53.0) Mean Corpuscular Volume 98 fL (79-100) Mean Corpuscular Hemoglobin 33 pg (25-35) Mean Corpuscular Hemoglobin Concent 33 g/dL (31-37) Red Cell Distribution Width 15.8 % (11.5-14.5) Platelet Count 114 x10^3/uL (140-400) Total Bilirubin 0.9 mg/dL (0.2-1.0) Direct Bilirubin 0.5 mg/dL (0.0-0.2) Aspartate Amino Transf (AST/SGOT) 21 U/L (15-37) Alanine Aminotransferase (ALT/SGPT) 19 U/L (16-63) Alkaline Phosphatase 112 U/L (46-116) Total Protein 6.2 g/dL (6.4-8.2) Albumin 2.5 g/dL (3.4-5.0) Laboratory Tests Test 10/16/21 05:50 White Blood Count 4.2 x10^3/uL (4.0-11.0) Red Blood Count 3.98 x10^6/uL (4.30-5.70) Hemoglobin 13.1 g/dL (13.0-17.5) Hematocrit 39.1 % (39.0-53.0) Mean Corpuscular Volume 98 fL (79-100) Mean Corpuscular Hemoglobin 33 pg (25-35) Mean Corpuscular Hemoglobin Concent 33 g/dL (31-37) Red Cell Distribution Width 15.8 % (11.5-14.5) Platelet Count 114 x10^3/uL (140-400) Sodium Level 137 mmol/L (136-145) Potassium Level 3.9 mmol/L (3.5-5.1) Chloride Level 98 mmol/L (98-107) Carbon Dioxide Level 33 mmol/L (21-32) Anion Gap 6 (6-14) Blood Urea Nitrogen 16 mg/dL (8-26) Creatinine 1.1 mg/dL (0.7-1.3) Estimated GFR (Cockcroft-Gault) 65.3 Glucose Level 96 mg/dL (70-99) Calcium Level 8.6 mg/dL (8.5-10.1) Total Bilirubin 0.9 mg/dL (0.2-1.0) Direct Bilirubin 0.5 mg/dL (0.0-0.2) Aspartate Amino Transf (AST/SGOT) 21 U/L (15-37) Alanine Aminotransferase (ALT/SGPT) 19 U/L (16-63) Alkaline Phosphatase 112 U/L (46-116) Total Protein 6.2 g/dL (6.4-8.2) Albumin 2.5 g/dL (3.4-5.0) Microbiology 10/11/21 Gram Stain - Final, Resulted 10/11/21 Aerobic and Anaerobic Culture - Preliminary, Resulted Platelets remain low, but stable. Vitals/I & O Vital Sign - Last 24 Hours 10/15/21 10/15/21 10/15/21 10/15/21 10:53 14:45 15:23 15:37 Temp 97.5 97.5 Pulse 77 72 88 Resp 18 15 17 B/P (MAP) 98/78 (85) 109/76 (87) Pulse Ox 96 96 94 96 O2 Delivery Nasal Cannula Room Air Nasal Cannula Nasal Cannula O2 Flow Rate 2.0 2.0 2.0 10/15/21 10/15/21 10/15/21 10/15/21 15:52 16:07 16:52 17:27 Pulse 87 88 93 116 B/P (MAP) 95/62 (73) 83/71 (75) 109/71 (84) 87/61 (70) O2 Delivery Nasal Cannula Nasal Cannula Nasal Cannula Nasal Cannula O2 Flow Rate 2.0 2.0 2.0 2.0 10/15/21 10/15/21 10/15/21 10/15/21 17:52 18:52 19:33 20:00 Temp 97.6 97.6 Pulse 96 96 87 Resp 20 B/P (MAP) 112/75 (87) 91/60 (70) 90/54 (66) Pulse Ox 88 O2 Delivery Nasal Cannula Nasal Cannula Room Air Room Air O2 Flow Rate 2.0 2.0 10/15/21 10/16/21 10/16/21 23:16 03:22 07:00 Temp 98.3 97.9 97.6 98.3 97.9 97.6 Pulse 82 92 86 Resp 20 18 20 B/P (MAP) 100/74 (83) 107/68 (81) 97/72 (80) Pulse Ox 96 96 93 O2 Delivery Nasal Cannula Nasal Cannula Nasal Cannula O2 Flow Rate 2.0 2.0 2.0 Intake and Output 10/15/21 10/15/21 10/16/21 15:00 23:00 07:00 Intake Total 100 ml 480 ml 240 ml Output Total 1400 ml 250 ml 200 ml Balance -1300 ml 230 ml 40 ml Problem List Problems Medical Problems: (1) Atrial fibrillation with rapid ventricular response Status: Acute Assessment Heme positive stool historically, evaluation on hold. CAD Cardiomyopathy. Plan of Care Note Continue cardiac eval/treatment. At some point, w/u for ;the positive hemoccult; not emergent. Justicifation of Admission Dx: Justifications for Admission: Justification of Admission Dx: Yes DERRICK FLEMING MD October 16, 2021 09:27
--- NOTE | 2021-10-16 09:42 | PDOC ---
MERISSA SOTO FLIGHT LINE MECHANIC 10/16/21 0942: CARDIO Progress Notes Date and Time Date of Service 10/16/21 Time of Evaluation 1145 Subjective Subjective: No Chest Pain, No shortness of breath, No Palpitations, Other (LE edema better ) Vitals Vitals Vital Signs Date Time Temp Pulse Resp B/P (MAP) Pulse Ox O2 Delivery O2 Flow Rate FiO2 10/16/21 07:00 97.6 86 20 97/72 (80) 93 Nasal Cannula 2.0 97.6 Weight Weight [ ] Input and Output Intake and Output Intake and Output 10/16/21 07:00 Intake Total 820 ml Output Total 1850 ml Balance -1030 ml Intake Oral 720 ml IV Total 100 ml Output Urine Total 1850 ml Laboratory Labs Laboratory Tests Test 10/16/21 05:50 White Blood Count 4.2 x10^3/uL (4.0-11.0) Red Blood Count 3.98 x10^6/uL (4.30-5.70) Hemoglobin 13.1 g/dL (13.0-17.5) Hematocrit 39.1 % (39.0-53.0) Mean Corpuscular Volume 98 fL (79-100) Mean Corpuscular Hemoglobin 33 pg (25-35) Mean Corpuscular Hemoglobin Concent 33 g/dL (31-37) Red Cell Distribution Width 15.8 % (11.5-14.5) Platelet Count 114 x10^3/uL (140-400) Sodium Level 137 mmol/L (136-145) Potassium Level 3.9 mmol/L (3.5-5.1) Chloride Level 98 mmol/L (98-107) Carbon Dioxide Level 33 mmol/L (21-32) Anion Gap 6 (6-14) Blood Urea Nitrogen 16 mg/dL (8-26) Creatinine 1.1 mg/dL (0.7-1.3) Estimated GFR (Cockcroft-Gault) 65.3 Glucose Level 96 mg/dL (70-99) Calcium Level 8.6 mg/dL (8.5-10.1) Total Bilirubin 0.9 mg/dL (0.2-1.0) Direct Bilirubin 0.5 mg/dL (0.0-0.2) Aspartate Amino Transf (AST/SGOT) 21 U/L (15-37) Alanine Aminotransferase (ALT/SGPT) 19 U/L (16-63) Alkaline Phosphatase 112 U/L (46-116) Total Protein 6.2 g/dL (6.4-8.2) Albumin 2.5 g/dL (3.4-5.0) Microbiology Micro Microbiology 10/11/21 Gram Stain - Final, Resulted 10/11/21 Aerobic and Anaerobic Culture - Preliminary, Resulted Physical Exam HEENT: Neck Supple W Full Motion Chest: Symmetric LUNGS: Other (diminished bases) Heart: S1S2, irregularly irregular (AFIB- rate controlled ) Abdomen: Soft N/T Extremities: No Calf Tenderness, Other (1-2+ bilateral LE edema) Neurology: alert, oriented, follow commands Assessment Assessment 1. AFIB RVR: rate now controlled 2. Severe cardiomyopathy: Limited echo with LVEF 20-25%. 3. Acute on chronic systolic; on milrinone, Lasix therapy. RHC with elevated pressure 4. Left pleural effusion: s/p thoracentesis with 1.3L off 5. CAD; LHC with two vessel with heavily calcified, long stenosis involving the LAD and OM/LCx 6. MIGUEL; Cr improved 7. ETOH misuse: heavy consumption 8. Tobacco abuse with likely COPD 9. Possible urinary retention with BPH 10. Mild thrombocytopenia Recommendations HF optimization Needs further fluid offloading- Continue milrinone gtt and IV Lasix. Will increase Lasix to 40mg BID Monitor renal function Add spironolactone if renal function remains stable BP will likely not tolerate Entresto or ACEi/ARB at this time Metoprolol for rate control Resume Eliquis for stroke prophylaxis Add statin, ASA Will consider orbital atherectomy/PCI/stent placement to LAD and OM/LCx as an outpatient once better compensated. Consider outpatient CV Supportive care Justicifation of Admission Dx: Justifications for Admission: Justification of Admission Dx: Yes ODALYS STRONG MD 10/16/21 1614: CARDIO Progress Notes Assessment Assessment Patient seen and examined. Agree with FITNESS STUDIES TEACHER's assessment and plan. Right heart catheterization showed elevated filling pressures Agree with increasing Lasix dose and continuing inotropic support with milrinone Left heart catheterization showed significant calcified stenosis involving left anterior descending artery and OM/LCx Plan for orbital atherectomy/PCI/stents placement once better compensated, possibly as an outpatient Persistent atrial fibrillation rate controlled Agree with starting Eliquis for stroke prophylaxis and plan outpatient cardioversion CHARLES,MERISSA FLIGHT LINE MECHANIC October 16, 2021 09:42 ODALYS STRONG MD October 16, 2021 16:14
[2021-10-16] MEDS: LACTOBACILLUS RHAMNOSUS GG 1 CAPSULE. PO SCH ×2 (09:46→21:11)
[2021-10-16] MEDS: POLYETHYLENE GLYCOL 3350 17 GM PACKET. PO SCH (09:46)
[2021-10-16] MEDS: METOPROLOL SUCC 24HR ER 25 MG TAB.ER.24H. PO SCH (09:47)
[2021-10-16] MEDS: TAMSULOSIN 0.4 MG CAP.ER.24H. PO SCH (09:47)
[2021-10-16] MEDS: CARBAMIDE PEROXIDE 6.5% OTIC SOLUTION 15ML BOTTLE. AU SCH (09:54)
--- NOTE | 2021-10-16 11:02 | PDOC ---
PULMONARY PROGRESS NOTES DATE: 10/16/21 TIME: 11:02 Subjective Patient feels slightly better continues to be short of breath with minimal exertion status post left thoracentesis with 1.3 L of fluid removed on 10/11 Vitals Vital Signs Date Time Temp Pulse Resp B/P (MAP) Pulse Ox O2 Delivery O2 Flow Rate FiO2 10/16/21 09:47 86 97/72 10/16/21 07:00 97.6 20 93 Nasal Cannula 2.0 97.6 ROS: No Nausea, No Chest Pain, No Abdominal Pain, No Increase Cough General: Alert, No acute distress Lungs: Clear Cardiovascular: S1 Abdomen: Soft Neuro Exam: Alert Extremities: No Edema Skin: Warm Labs Laboratory Tests Test 10/15/21 03:30 10/16/21 05:50 Sodium Level 139 mmol/L (136-145) 137 mmol/L (136-145) Potassium Level 3.8 mmol/L (3.5-5.1) 3.9 mmol/L (3.5-5.1) Chloride Level 99 mmol/L (98-107) 98 mmol/L (98-107) Carbon Dioxide Level 33 mmol/L (21-32) 33 mmol/L (21-32) Anion Gap 7 (6-14) 6 (6-14) Blood Urea Nitrogen 21 mg/dL (8-26) 16 mg/dL (8-26) Creatinine 1.3 mg/dL (0.7-1.3) 1.1 mg/dL (0.7-1.3) Estimated GFR (Cockcroft-Gault) 53.8 65.3 Glucose Level 94 mg/dL (70-99) 96 mg/dL (70-99) Calcium Level 8.5 mg/dL (8.5-10.1) 8.6 mg/dL (8.5-10.1) White Blood Count 4.2 x10^3/uL (4.0-11.0) Red Blood Count 3.98 x10^6/uL (4.30-5.70) Hemoglobin 13.1 g/dL (13.0-17.5) Hematocrit 39.1 % (39.0-53.0) Mean Corpuscular Volume 98 fL (79-100) Mean Corpuscular Hemoglobin 33 pg (25-35) Mean Corpuscular Hemoglobin Concent 33 g/dL (31-37) Red Cell Distribution Width 15.8 % (11.5-14.5) Platelet Count 114 x10^3/uL (140-400) Total Bilirubin 0.9 mg/dL (0.2-1.0) Direct Bilirubin 0.5 mg/dL (0.0-0.2) Aspartate Amino Transf (AST/SGOT) 21 U/L (15-37) Alanine Aminotransferase (ALT/SGPT) 19 U/L (16-63) Alkaline Phosphatase 112 U/L (46-116) Total Protein 6.2 g/dL (6.4-8.2) Albumin 2.5 g/dL (3.4-5.0) Laboratory Tests Test 10/16/21 05:50 White Blood Count 4.2 x10^3/uL (4.0-11.0) Red Blood Count 3.98 x10^6/uL (4.30-5.70) Hemoglobin 13.1 g/dL (13.0-17.5) Hematocrit 39.1 % (39.0-53.0) Mean Corpuscular Volume 98 fL (79-100) Mean Corpuscular Hemoglobin 33 pg (25-35) Mean Corpuscular Hemoglobin Concent 33 g/dL (31-37) Red Cell Distribution Width 15.8 % (11.5-14.5) Platelet Count 114 x10^3/uL (140-400) Sodium Level 137 mmol/L (136-145) Potassium Level 3.9 mmol/L (3.5-5.1) Chloride Level 98 mmol/L (98-107) Carbon Dioxide Level 33 mmol/L (21-32) Anion Gap 6 (6-14) Blood Urea Nitrogen 16 mg/dL (8-26) Creatinine 1.1 mg/dL (0.7-1.3) Estimated GFR (Cockcroft-Gault) 65.3 Glucose Level 96 mg/dL (70-99) Calcium Level 8.6 mg/dL (8.5-10.1) Total Bilirubin 0.9 mg/dL (0.2-1.0) Direct Bilirubin 0.5 mg/dL (0.0-0.2) Aspartate Amino Transf (AST/SGOT) 21 U/L (15-37) Alanine Aminotransferase (ALT/SGPT) 19 U/L (16-63) Alkaline Phosphatase 112 U/L (46-116) Total Protein 6.2 g/dL (6.4-8.2) Albumin 2.5 g/dL (3.4-5.0) Medications Active Scripts Medications Dose Route/Sig Max Daily Dose Days Date Category Flomax (Tamsulosin Hcl) 0.4 Mg Cap.er.24h 0.4 Mg PO DAILY 01/04/20 Reported Impression . 1. Acute respiratory failure multifactorial secondary to heart failure, COPD 2. Atrial fibrillation with rapid ventricular response. 3. Abnormal CT abdomen and pelvis with mild to moderate left pleural effusion. Transudative 4. Mild acute kidney injury. 5. Likely alcoholic liver disease. 6. Hypomagnesemia. 7. Cardiomyopathy with an EF of 20 to 25% and secondary pulmonary hypertension. 8. Coronary artery disease 9. COPD Conclusion 1. Two-vessel coronary artery disease, heavily calcified and long stenosis involving the left anterior descending and OM/LCx as described above 2. Elevated right and left-sided filling pressures consistent with acute on chronic systolic heart failure 3. No evidence of intracardiac shunt Recommendations Optimization of medical therapy for acute on chronic systolic heart failure. Due to heavy calcified stenoses, we will consider orbital atherectomy/PCI/stent placement to LAD and OM/LCx as an outpatient once better compensated. Cardiovascular is factor modification. Source: 01 LEFT PLEURAL DIAGNOSIS: 02 LEFT PLEURAL NEGATIVE FOR MALIGNANT CELLS. FEW REACTIVE MESOTHELIAL CELLS PRESENT. THIS EVALUATION INCLUDES EXAMINATION OF A CELL BLOCK. Signed out by: Maira Plan . Updated 10/16 Continue optimization of cardiac function Continues to diurese Pleural fluid related to heart failure 6-minute walk prior to discharge Outpatient PFTs Updated 10/15 Patient to undergo left heart catheterization Cytology on pleural fluid pending Discussed with at bedside Continue current support 6-minute walk prior to discharge TOLU GASTELUM MD October 16, 2021 11:02
[2021-10-16] MEDS: FUROSEMIDE 20 MG/2 ML VIAL. IVP SCH (11:18)
--- NOTE | 2021-10-16 12:01 | PDOC ---
[facility] PROGRESS NOTE Date of Service DOS: DATE: 10/16/21 TIME: 11:57 Chief Complaint Chief Complaint A. fib RVR Large left pleural effusion MIGUEL due to vasomotor nephropathy, unknown baseline Elevated BNP suggestive of acute volume overload versus chronic hypoxia no history of COPD but chronic tobacco smoker Thrombocytopenia Hemoccult stool positive History of tobacco and alcohol misuse Obesity class I History of Present Illness History of Present Illness 10/16: Patient evaluated bedside. Denies chest pain. Left heart cath yesterday showed two-vessel coronary artery disease, and elevated right and left-sided filling pressures consistent with acute on chronic systolic heart failure. He was recommended optimization of medical therapy for acute on chronic systolic heart failure. Continue milrinone gtt and Lasix. 10/15: Patient seen and evaluated. He denies chest pain. Breathing comfortably on 2 L. He is scheduled for heart cath today at 1 PM. 10/14: Patient notes some improvement in his bilateral leg swelling. Denies any shortness of breath. Remains on milrinone gtt and IV Lasix. Cardiology has plan for heart cath tomorrow. 10/13: Afebrile, breathing on room air. Had left thoracentesis yesterday with 1.3 L off. Pleural fluid analysis pending. Lasix decreased to 20 IV daily due to soft blood pressure. We will continue diuresis as blood pressure allows. Kidney function still hovering around CKD 3a/3b. On milrinone gtt. Cardiology to consider left heart cath tomorrow. States he had a bowel movement today finally. He is on Eliquis for new diagnosis of A. fib. 10/12: Patient resting comfortably in bed, afebrile. Patient had successful ultrasound guided thoracentesis yesterday with removal of 1.3 liters of fluid. Heparin gtt has been stopped, initiated on Eliquis. Per cardiology, will add Aldactone and Entresto when blood pressure more adequate. Plans for outpatient left heart cath. Hemoglobin A1c 5.7, will stop blood checks. On CIWA protocol, has not required any IV Ativan. Hemoccult positive, GI is following. Will continue to follow cardiology and pulmonology recommendations. 10/11: Afebrile. CRP 23.7, procalcitonin 0.10. Will discontinue antibiotics. He is having a thoracentesis today. Lasix held this morning due to some hypotension. His echocardiogram showed EF 20-25%. Cardiology following. He was initiated on heart failure medications prior to discharge. 10/10: Patient seen and evaluated with at bedside. He denies any shortness of breath at rest or laying on his back, but does admit to some dyspnea on exertion. Answered and 's questions to the best of my abilities. Echocardiogram pending, and nurse initiating heparin drip. Will order abdominal ultrasound to evaluate likely cirrhosis. Will order CRP to rule out any pneumonia; if not elevated will discontinue empiric antibiotics. For his likely history of BPH we will initiate Flomax daily. Patient also concerned about bilateral earwax impaction. Will schedule daily Debrox in hopes that impacted earwax will express its way out. Discussed with RN. Vitals/I&O Vitals/I&O: Vital Signs Date Time Temp Pulse Resp B/P (MAP) Pulse Ox O2 Delivery O2 Flow Rate FiO2 10/16/21 11:00 98.0 85 20 93/70 (78) 95 Nasal Cannula 2.0 98.0 I & O 10/15/21 10/15/21 10/16/21 15:00 23:00 07:00 Intake Total 100 ml 480 ml 240 ml Output Total 1400 ml 250 ml 200 ml Balance -1300 ml 230 ml 40 ml Physical Exam General: Alert, Oriented X3, Cooperative, No acute distress Heart: Other (AFIB, distnat heart sounds) Lungs: Clear Abdomen: Soft, Other (Distended abdomen with +fluid wave) Extremities: No cyanosis, Other (4+ bilateral LA pitting edema) Skin: No breakdown Labs Labs: Laboratory Tests Test 10/16/21 05:50 White Blood Count 4.2 x10^3/uL (4.0-11.0) Red Blood Count 3.98 x10^6/uL (4.30-5.70) Hemoglobin 13.1 g/dL (13.0-17.5) Hematocrit 39.1 % (39.0-53.0) Mean Corpuscular Volume 98 fL (79-100) Mean Corpuscular Hemoglobin 33 pg (25-35) Mean Corpuscular Hemoglobin Concent 33 g/dL (31-37) Red Cell Distribution Width 15.8 % (11.5-14.5) Platelet Count 114 x10^3/uL (140-400) Sodium Level 137 mmol/L (136-145) Potassium Level 3.9 mmol/L (3.5-5.1) Chloride Level 98 mmol/L (98-107) Carbon Dioxide Level 33 mmol/L (21-32) Anion Gap 6 (6-14) Blood Urea Nitrogen 16 mg/dL (8-26) Creatinine 1.1 mg/dL (0.7-1.3) Estimated GFR (Cockcroft-Gault) 65.3 Glucose Level 96 mg/dL (70-99) Calcium Level 8.6 mg/dL (8.5-10.1) Total Bilirubin 0.9 mg/dL (0.2-1.0) Direct Bilirubin 0.5 mg/dL (0.0-0.2) Aspartate Amino Transf (AST/SGOT) 21 U/L (15-37) Alanine Aminotransferase (ALT/SGPT) 19 U/L (16-63) Alkaline Phosphatase 112 U/L (46-116) Total Protein 6.2 g/dL (6.4-8.2) Albumin 2.5 g/dL (3.4-5.0) Assessment and Plan Assessmemt and Plan Problems Medical Problems: (1) Atrial fibrillation with rapid ventricular response Status: Acute Comment Review of Relevant I have reviewed the following items ganesh (where applicable) has been applied. Medications: Current Medications Medications (Trade) Dose Ordered Sig/Alicja Route PRN Reason Start Time Stop Time Status Last Admin Dose Admin Heparin Sodium/ Sodium Chloride (HEPARIN for ARTERIAL LINE FLUSH) 1,000 unit 1X ONCE IART 10/15/21 15:15 10/15/21 15:16 DC 10/15/21 15:08 Midazolam HCl (Versed) 2 mg 1X ONCE IV 10/15/21 15:15 10/15/21 15:16 DC 10/15/21 14:45 Fentanyl Citrate (Fentanyl 2ml Vial) 100 mcg 1X ONCE IV 10/15/21 15:15 10/15/21 15:16 DC 10/15/21 14:45 Iodixanol (Visipaque 320) 100 ml 1X ONCE IART 10/15/21 15:15 10/15/21 15:16 DC 10/15/21 15:13 Lidocaine HCl (Lidocaine 1% 20ml Vial) 20 ml 1X ONCE INJ 10/15/21 15:15 10/15/21 15:16 DC 10/15/21 14:46 Justifications for Admission Other Justification Afib RVR ERON PRICE MD October 16, 2021 12:01
[2021-10-16] MEDS: APIXABAN 5 MG TABLET. PO SCH ×2 (14:00→21:11)
[2021-10-16] MEDS: FUROSEMIDE 40 MG/4 ML VIAL. IVP SCH (14:00)
[2021-10-16] MEDS: POTASSIUM CHLORIDE 10 MEQ TABLET.ER. PO SCH (14:01)
--- NOTE | 2021-10-16 15:53 | NUR ---
SS following up with discharge planning. SS reviewed pt chart and discussed with pt RN. Pt is currently requiring oxygen at two liters nasal canula. COVID19 negative. Pt on IV Lasix and Milrinone drip. SS will continue to follow for discharge planning.
[2021-10-16] MEDS: MILRINONE 20MG/100ML PREMIX 100 ML IV PRN (16:04)
[2021-10-16] MEDS: ATORVASTATIN CALCIUM 40 MG TABLET. PO SCH (21:11)
[2021-10-17] VITALS (8 sets, daily range): BP systolic 77–103; BP diastolic 58–95
[2021-10-17 04:23] LABS: CALCIUM 8.6 mg/dL (8.5-10.1); CREATININE 1.3 mg/dL (0.7-1.3); GFR 53.8; MAGNESIUM 1.4 mg/dL (1.8-2.4)
[2021-10-17] MEDS: MAGNESIUM OXIDE 400 MG TABLET PO SCH ×2 (04:53→21:44)
--- NOTE | 2021-10-17 08:30 | PDOC ---
MERISSA SOTO AD TAKER 10/17/21 0829: CARDIO Progress Notes Date and Time Date of Service 10/17/21 Time of Evaluation 1145 Subjective Subjective: No Chest Pain, No shortness of breath, No Palpitations, Other (LE edema better, but still feels swollen ) Vitals Vitals Vital Signs Date Time Temp Pulse Resp B/P (MAP) Pulse Ox O2 Delivery O2 Flow Rate FiO2 10/17/21 03:12 97.9 80 16 77/58 (64) 95 Nasal Cannula 1.0 97.9 Weight Weight [ ] Input and Output Intake and Output Intake and Output 10/17/21 07:00 Intake Total 960 ml Output Total 2975 ml Balance -2014 ml Intake Oral 960 ml Output Urine Total 2975 ml Laboratory Labs Laboratory Tests Test 10/17/21 03:15 Sodium Level 136 mmol/L (136-145) Potassium Level 4.0 mmol/L (3.5-5.1) Chloride Level 96 mmol/L (98-107) Carbon Dioxide Level 36 mmol/L (21-32) Anion Gap 4 (6-14) Blood Urea Nitrogen 20 mg/dL (8-26) Creatinine 1.3 mg/dL (0.7-1.3) Estimated GFR (Cockcroft-Gault) 53.8 Glucose Level 95 mg/dL (70-99) Calcium Level 8.6 mg/dL (8.5-10.1) Magnesium Level 1.4 mg/dL (1.8-2.4) Microbiology Micro Microbiology 10/11/21 Gram Stain - Final, Resulted 10/11/21 Aerobic and Anaerobic Culture - Preliminary, Resulted Physical Exam HEENT: Neck Supple W Full Motion Chest: Symmetric LUNGS: Other (diminished bases) Heart: S1S2, irregularly irregular (AFIB- rate controlled ) Abdomen: Soft N/T Extremities: No Calf Tenderness, Other (1+ bilateral LE edema) Neurology: alert, oriented, follow commands Assessment Assessment 1. AFIB RVR: rate now controlled 2. Severe cardiomyopathy: Limited echo with LVEF 20-25%. 3. Acute on chronic systolic; on milrinone, Lasix therapy. RHC with elevated pressure, Good UOP with ^ Lasix 4. Left pleural effusion: s/p thoracentesis with 1.3L off 5. CAD; LHC with two vessel with heavily calcified, long stenosis involving the LAD and OM/LCx 6. MIGUEL; Cr improved 7. ETOH misuse: heavy consumption 8. Tobacco abuse with likely COPD 9. Mild thrombocytopenia Recommendations HF optimization Continue IV Lasix, milrinone today. Will plan to transition to oral Lasix tomorrow Monitor renal function Add spironolactone if renal function remains stable BP will likely not tolerate Entresto or ACEi/ARB at this time Metoprolol for rate control Eliquis for stroke prophylaxis ASA, statin therapy Will consider orbital atherectomy/PCI/stent placement to LAD and OM/LCx as an outpatient once better compensated. Outpatient CV Supportive care Justicifation of Admission Dx: Justifications for Admission: Justification of Admission Dx: Yes ODALYS STRONG MD 10/17/21 1628: CARDIO Progress Notes Assessment Assessment Patient seen and examined. Agree with SENIOR CLIMATE ADVISOR's assessment and plan. Right heart catheterization showed elevated filling pressures Patient diuresing better with increased dose of Lasix. Continue inotropic support with milrinone Left heart catheterization showed significant calcified stenosis involving left anterior descending artery and OM/LCx Plan for orbital atherectomy/PCI/stents placement once better compensated, possibly as an outpatient Persistent atrial fibrillation rate controlled Continue starting Eliquis for stroke prophylaxis and plan outpatient cardioversion MERISSA SOTO APRN October 17, 2021 08:29 ODALYS STRONG MD October 17, 2021 16:28
[2021-10-17] MEDS: POTASSIUM CHLORIDE 10 MEQ TABLET.ER. PO SCH (09:18)
[2021-10-17] MEDS: ASPIRIN ENTERIC COATED 81 MG TABLET.DR. PO SCH (09:18)
[2021-10-17] MEDS: FUROSEMIDE 40 MG/4 ML VIAL. IVP SCH ×2 (09:18→14:17)
[2021-10-17] MEDS: POLYETHYLENE GLYCOL 3350 17 GM PACKET. PO SCH (09:18)
[2021-10-17] MEDS: CARBAMIDE PEROXIDE 6.5% OTIC SOLUTION 15ML BOTTLE. AU SCH (09:18)
[2021-10-17] MEDS: LACTOBACILLUS RHAMNOSUS GG 1 CAPSULE. PO SCH ×2 (09:18→21:44)
[2021-10-17] MEDS: APIXABAN 5 MG TABLET. PO SCH ×2 (09:19→21:43)
[2021-10-17] MEDS: METOPROLOL SUCC 24HR ER 25 MG TAB.ER.24H. PO SCH (09:22)
[2021-10-17] MEDS: TAMSULOSIN 0.4 MG CAP.ER.24H. PO SCH (09:22)
--- NOTE | 2021-10-17 10:05 | PDOC ---
[facility] PROGRESS NOTE Date of Service DOS: DATE: 10/17/21 TIME: 10:04 Chief Complaint Chief Complaint A. fib RVR Large left pleural effusion MIGUEL due to vasomotor nephropathy, unknown baseline Elevated BNP suggestive of acute volume overload versus chronic hypoxia no history of COPD but chronic tobacco smoker Thrombocytopenia Hemoccult stool positive History of tobacco and alcohol misuse Obesity class I History of Present Illness History of Present Illness 10/17: Afebrile. Patient currently breathing on 1 L nasal cannula. His Lasix has been increased to 40 twice daily and he continues on milrinone gtt. Will have patient work with PT/OT. Recommend elevation of his legs to help offload fluid, "toes above nose". 10/16: Patient evaluated bedside. Denies chest pain. Left heart cath yesterday showed two-vessel coronary artery disease, and elevated right and left-sided filling pressures consistent with acute on chronic systolic heart failure. He was recommended optimization of medical therapy for acute on chronic systolic heart failure. Continue milrinone gtt and Lasix. 10/15: Patient seen and evaluated. He denies chest pain. Breathing comfortably on 2 L. He is scheduled for heart cath today at 1 PM. 10/14: Patient notes some improvement in his bilateral leg swelling. Denies any shortness of breath. Remains on milrinone gtt and IV Lasix. Cardiology has plan for heart cath tomorrow. 10/13: Afebrile, breathing on room air. Had left thoracentesis yesterday with 1.3 L off. Pleural fluid analysis pending. Lasix decreased to 20 IV daily due to soft blood pressure. We will continue diuresis as blood pressure allows. Kidney function still hovering around CKD 3a/3b. On milrinone gtt. Cardiology to consider left heart cath tomorrow. States he had a bowel movement today finally. He is on Eliquis for new diagnosis of A. fib. 10/12: Patient resting comfortably in bed, afebrile. Patient had successful ultrasound guided thoracentesis yesterday with removal of 1.3 liters of fluid. Heparin gtt has been stopped, initiated on Eliquis. Per cardiology, will add Aldactone and Entresto when blood pressure more adequate. Plans for outpatient left heart cath. Hemoglobin A1c 5.7, will stop blood checks. On CIWA protocol, has not required any IV Ativan. Hemoccult positive, GI is following. Will continue to follow cardiology and pulmonology recommendations. 10/11: Afebrile. CRP 23.7, procalcitonin 0.10. Will discontinue antibiotics. He is having a thoracentesis today. Lasix held this morning due to some hypotension. His echocardiogram showed EF 20-25%. Cardiology following. He was initiated on heart failure medications prior to discharge. 10/10: Patient seen and evaluated with at bedside. He denies any shortness of breath at rest or laying on his back, but does admit to some dyspnea on exertion. Answered and 's questions to the best of my abilities. Echocardiogram pending, and nurse initiating heparin drip. Will order abdominal ultrasound to evaluate likely cirrhosis. Will order CRP to rule out any pneumonia; if not elevated will discontinue empiric antibiotics. For his likely history of BPH we will initiate Flomax daily. Patient also concerned about bilateral earwax impaction. Will schedule daily Debrox in hopes that impacted earwax will express its way out. Discussed with RN. Vitals/I&O Vitals/I&O: Vital Signs Date Time Temp Pulse Resp B/P (MAP) Pulse Ox O2 Delivery O2 Flow Rate FiO2 10/17/21 09:22 83 102/59 10/17/21 03:12 97.9 16 95 Nasal Cannula 1.0 97.9 I & O 10/16/21 10/16/21 10/17/21 15:00 23:00 07:00 Intake Total 480 ml 480 ml Output Total 800 ml 1625 ml 550 ml Balance -320 ml -1145 ml -550 ml Physical Exam General: Alert, Oriented X3, Cooperative, No acute distress Heart: Other (AFIB, distnat heart sounds) Lungs: Clear Abdomen: Soft, Other (Distended abdomen with +fluid wave) Extremities: No cyanosis, Other (4+ bilateral LA pitting edema) Skin: No breakdown Labs Labs: Laboratory Tests Test 10/17/21 03:15 Sodium Level 136 mmol/L (136-145) Potassium Level 4.0 mmol/L (3.5-5.1) Chloride Level 96 mmol/L (98-107) Carbon Dioxide Level 36 mmol/L (21-32) Anion Gap 4 (6-14) Blood Urea Nitrogen 20 mg/dL (8-26) Creatinine 1.3 mg/dL (0.7-1.3) Estimated GFR (Cockcroft-Gault) 53.8 Glucose Level 95 mg/dL (70-99) Calcium Level 8.6 mg/dL (8.5-10.1) Magnesium Level 1.4 mg/dL (1.8-2.4) Assessment and Plan Assessmemt and Plan Problems Medical Problems: (1) Atrial fibrillation with rapid ventricular response Status: Acute Comment Review of Relevant I have reviewed the following items ganesh (where applicable) has been applied. Medications: Current Medications Medications (Trade) Dose Ordered Sig/Alicja Route PRN Reason Start Time Stop Time Status Last Admin Dose Admin Furosemide (Lasix) 40 mg [id number] IVP 10/16/21 14:00 10/17/21 09:18 Potassium Chloride (Klor-Con) 10 meq [id number] PO 10/16/21 14:00 10/17/21 09:18 Apixaban (Eliquis) 5 mg BID PO 10/16/21 12:00 10/17/21 09:19 Atorvastatin Calcium (Lipitor) 40 mg QHS PO 10/16/21 21:00 10/16/21 21:11 Aspirin (Ecotrin) 81 mg [id number] PO 10/17/21 08:00 10/17/21 09:18 Magnesium Oxide (Magnesium Oxide) 400 mg BID PO 10/17/21 05:00 10/18/21 21:01 10/17/21 04:53 Justifications for Admission Other Justification Afib RVR ERON PRICE MD October 17, 2021 10:05
--- NOTE | 2021-10-17 10:40 | PDOC ---
PULMONARY PROGRESS NOTES DATE: 10/17/21 TIME: 10:39 Subjective Patient feels slightly better continues to be short of breath with minimal exertion status post left thoracentesis with 1.3 L of fluid removed on 10/11 Vitals Vital Signs Date Time Temp Pulse Resp B/P (MAP) Pulse Ox O2 Delivery O2 Flow Rate FiO2 10/17/21 09:22 83 102/59 10/17/21 08:00 Nasal Cannula 1.0 10/17/21 03:12 97.9 16 95 97.9 ROS: No Nausea, No Chest Pain, No Abdominal Pain, No Increase Cough General: Alert, No acute distress Lungs: Clear Cardiovascular: S1 Abdomen: Soft Neuro Exam: Alert Extremities: No Edema Skin: Warm Labs Laboratory Tests Test 10/16/21 05:50 10/17/21 03:15 White Blood Count 4.2 x10^3/uL (4.0-11.0) Red Blood Count 3.98 x10^6/uL (4.30-5.70) Hemoglobin 13.1 g/dL (13.0-17.5) Hematocrit 39.1 % (39.0-53.0) Mean Corpuscular Volume 98 fL (79-100) Mean Corpuscular Hemoglobin 33 pg (25-35) Mean Corpuscular Hemoglobin Concent 33 g/dL (31-37) Red Cell Distribution Width 15.8 % (11.5-14.5) Platelet Count 114 x10^3/uL (140-400) Sodium Level 137 mmol/L (136-145) 136 mmol/L (136-145) Potassium Level 3.9 mmol/L (3.5-5.1) 4.0 mmol/L (3.5-5.1) Chloride Level 98 mmol/L (98-107) 96 mmol/L (98-107) Carbon Dioxide Level 33 mmol/L (21-32) 36 mmol/L (21-32) Anion Gap 6 (6-14) 4 (6-14) Blood Urea Nitrogen 16 mg/dL (8-26) 20 mg/dL (8-26) Creatinine 1.1 mg/dL (0.7-1.3) 1.3 mg/dL (0.7-1.3) Estimated GFR (Cockcroft-Gault) 65.3 53.8 Glucose Level 96 mg/dL (70-99) 95 mg/dL (70-99) Calcium Level 8.6 mg/dL (8.5-10.1) 8.6 mg/dL (8.5-10.1) Total Bilirubin 0.9 mg/dL (0.2-1.0) Direct Bilirubin 0.5 mg/dL (0.0-0.2) Aspartate Amino Transf (AST/SGOT) 21 U/L (15-37) Alanine Aminotransferase (ALT/SGPT) 19 U/L (16-63) Alkaline Phosphatase 112 U/L (46-116) Total Protein 6.2 g/dL (6.4-8.2) Albumin 2.5 g/dL (3.4-5.0) Magnesium Level 1.4 mg/dL (1.8-2.4) Laboratory Tests Test 10/17/21 03:15 Sodium Level 136 mmol/L (136-145) Potassium Level 4.0 mmol/L (3.5-5.1) Chloride Level 96 mmol/L (98-107) Carbon Dioxide Level 36 mmol/L (21-32) Anion Gap 4 (6-14) Blood Urea Nitrogen 20 mg/dL (8-26) Creatinine 1.3 mg/dL (0.7-1.3) Estimated GFR (Cockcroft-Gault) 53.8 Glucose Level 95 mg/dL (70-99) Calcium Level 8.6 mg/dL (8.5-10.1) Magnesium Level 1.4 mg/dL (1.8-2.4) Medications Active Scripts Medications Dose Route/Sig Max Daily Dose Days Date Category Flomax (Tamsulosin Hcl) 0.4 Mg Cap.er.24h 0.4 Mg PO DAILY 01/04/20 Reported Impression . 1. Acute respiratory failure multifactorial secondary to heart failure, COPD 2. Atrial fibrillation with rapid ventricular response. 3. Abnormal CT abdomen and pelvis with mild to moderate left pleural effusion. Transudative 4. Mild acute kidney injury. 5. Likely alcoholic liver disease. 6. Hypomagnesemia. 7. Cardiomyopathy with an EF of 20 to 25% and secondary pulmonary hypertension. 8. Coronary artery disease 9. COPD Conclusion 1. Two-vessel coronary artery disease, heavily calcified and long stenosis involving the left anterior descending and OM/LCx as described above 2. Elevated right and left-sided filling pressures consistent with acute on chronic systolic heart failure 3. No evidence of intracardiac shunt Recommendations Optimization of medical therapy for acute on chronic systolic heart failure. Due to heavy calcified stenoses, we will consider orbital atherectomy/PCI/stent placement to LAD and OM/LCx as an outpatient once better compensated. Cardiovascular is factor modification. Source: 01 LEFT PLEURAL DIAGNOSIS: 02 LEFT PLEURAL NEGATIVE FOR MALIGNANT CELLS. FEW REACTIVE MESOTHELIAL CELLS PRESENT. THIS EVALUATION INCLUDES EXAMINATION OF A CELL BLOCK. Signed out by: Maira Plan . Updated 10/17 Continue optimization of cardiac function Continues to diurese Pleural fluid related to heart failure 6-minute walk prior to discharge Outpatient PFTs Updated 10/16 Continue optimization of cardiac function Continues to diurese Pleural fluid related to heart failure 6-minute walk prior to discharge Outpatient PFTs Updated 10/15 Patient to undergo left heart catheterization Cytology on pleural fluid pending Discussed with at bedside Continue current support 6-minute walk prior to discharge GENARO RITTER MD October 17, 2021 10:40
--- NOTE | 2021-10-17 15:31 | PDOC ---
G I PROGRESS NOTE Subjective Has no complaints for me. Says eating OK. Objective No reports of any GI issues. Physical Exam Lungs clear anteriorly. IRRR Abdomen soft, not distended. Some LE edema. Review of Relevant I have reviewed the following items ganesh (where applicable) has been applied. Labs Laboratory Tests Test 10/16/21 05:50 10/17/21 03:15 White Blood Count 4.2 x10^3/uL (4.0-11.0) Red Blood Count 3.98 x10^6/uL (4.30-5.70) Hemoglobin 13.1 g/dL (13.0-17.5) Hematocrit 39.1 % (39.0-53.0) Mean Corpuscular Volume 98 fL (79-100) Mean Corpuscular Hemoglobin 33 pg (25-35) Mean Corpuscular Hemoglobin Concent 33 g/dL (31-37) Red Cell Distribution Width 15.8 % (11.5-14.5) Platelet Count 114 x10^3/uL (140-400) Sodium Level 137 mmol/L (136-145) 136 mmol/L (136-145) Potassium Level 3.9 mmol/L (3.5-5.1) 4.0 mmol/L (3.5-5.1) Chloride Level 98 mmol/L (98-107) 96 mmol/L (98-107) Carbon Dioxide Level 33 mmol/L (21-32) 36 mmol/L (21-32) Anion Gap 6 (6-14) 4 (6-14) Blood Urea Nitrogen 16 mg/dL (8-26) 20 mg/dL (8-26) Creatinine 1.1 mg/dL (0.7-1.3) 1.3 mg/dL (0.7-1.3) Estimated GFR (Cockcroft-Gault) 65.3 53.8 Glucose Level 96 mg/dL (70-99) 95 mg/dL (70-99) Calcium Level 8.6 mg/dL (8.5-10.1) 8.6 mg/dL (8.5-10.1) Total Bilirubin 0.9 mg/dL (0.2-1.0) Direct Bilirubin 0.5 mg/dL (0.0-0.2) Aspartate Amino Transf (AST/SGOT) 21 U/L (15-37) Alanine Aminotransferase (ALT/SGPT) 19 U/L (16-63) Alkaline Phosphatase 112 U/L (46-116) Total Protein 6.2 g/dL (6.4-8.2) Albumin 2.5 g/dL (3.4-5.0) Magnesium Level 1.4 mg/dL (1.8-2.4) Laboratory Tests Test 10/17/21 03:15 Sodium Level 136 mmol/L (136-145) Potassium Level 4.0 mmol/L (3.5-5.1) Chloride Level 96 mmol/L (98-107) Carbon Dioxide Level 36 mmol/L (21-32) Anion Gap 4 (6-14) Blood Urea Nitrogen 20 mg/dL (8-26) Creatinine 1.3 mg/dL (0.7-1.3) Estimated GFR (Cockcroft-Gault) 53.8 Glucose Level 95 mg/dL (70-99) Calcium Level 8.6 mg/dL (8.5-10.1) Magnesium Level 1.4 mg/dL (1.8-2.4) Microbiology 10/11/21 Gram Stain - Final, Complete 10/11/21 Aerobic and Anaerobic Culture - Final, Complete Medications Vitals/I & O Vital Sign - Last 24 Hours 10/16/21 10/16/21 10/16/21 10/17/21 19:31 20:00 23:13 03:12 Temp 98.1 98.0 97.9 98.1 98.0 97.9 Pulse 88 84 80 Resp 18 16 16 B/P (MAP) 87/61 (70) 83/61 (68) 77/58 (64) Pulse Ox 97 98 95 O2 Delivery Nasal Cannula Nasal Cannula Nasal Cannula Nasal Cannula O2 Flow Rate 1.0 2.0 1.0 1.0 10/17/21 10/17/21 10/17/21 10/17/21 07:00 08:00 09:22 11:00 Temp 98.0 97.7 98.0 97.7 Pulse 90 83 86 Resp 18 18 B/P (MAP) 102/95 (97) 102/59 102/95 (97) Pulse Ox 96 97 O2 Delivery Nasal Cannula Nasal Cannula Nasal Cannula O2 Flow Rate 1.0 1.0 1.0 10/17/21 10/17/21 14:17 15:00 Temp 97.6 97.6 Pulse 93 90 Resp 16 B/P (MAP) 98/67 (77) 98/67 (77) Pulse Ox 94 98 O2 Delivery Nasal Cannula O2 Flow Rate 1.0 Intake and Output 10/16/21 10/16/21 10/17/21 14:59 22:59 06:59 Intake Total 480 ml 480 ml Output Total 800 ml 1625 ml 550 ml Balance -320 ml -1145 ml -550 ml Problem List Problems Medical Problems: (1) Atrial fibrillation with rapid ventricular response Status: Acute Assessment Heme positive stool. W/u deferred with cardiac issues. Ascites likely of cardiac origin. Plan of Care: Continue current Tx, Mgmt Justicifation of Admission Dx: Justifications for Admission: Justification of Admission Dx: Yes DERRICK FLEMING MD October 17, 2021 15:31
--- NOTE | 2021-10-17 16:01 | NUR ---
SS following up with discharge planning. SS reviewed pt chart and discussed with pt RN. Pt is currently requiring oxygen at one liter nasal canula. COVID19 negative. Pt on IV Lasix and Milrinone drip. Cardiology following. PT/OT ordered. SS will continue to follow for discharge planning.
[2021-10-17] MEDS: MILRINONE 20MG/100ML PREMIX 100 ML IV PRN (16:46)
[2021-10-17] MEDS: ATORVASTATIN CALCIUM 40 MG TABLET. PO SCH (21:44)
[2021-10-18] VITALS (7 sets, daily range): BP systolic 73–137; BP diastolic 52–81
[2021-10-18 05:17] LABS: CALCIUM 9.2 mg/dL (8.5-10.1); CREATININE 1.4 mg/dL (0.7-1.3); GFR 49.4; MAGNESIUM 1.6 mg/dL (1.8-2.4); POTASSIUM 3.8 mmol/L (3.5-5.1)
[2021-10-18] MEDS: POTASSIUM CHLORIDE 10 MEQ TABLET.ER. PO SCH (09:40)
[2021-10-18] MEDS: MAGNESIUM OXIDE 400 MG TABLET PO SCH ×2 (09:40→21:38)
[2021-10-18] MEDS: LACTOBACILLUS RHAMNOSUS GG 1 CAPSULE. PO SCH ×2 (09:40→21:39)
[2021-10-18] MEDS: TAMSULOSIN 0.4 MG CAP.ER.24H. PO SCH (09:40)
[2021-10-18] MEDS: APIXABAN 5 MG TABLET. PO SCH ×2 (09:40→21:39)
[2021-10-18] MEDS: POLYETHYLENE GLYCOL 3350 17 GM PACKET. PO SCH (09:41)
[2021-10-18] MEDS: METOPROLOL SUCC 24HR ER 25 MG TAB.ER.24H. PO SCH (09:41)
[2021-10-18] MEDS: ASPIRIN ENTERIC COATED 81 MG TABLET.DR. PO SCH (09:41)
--- NOTE | 2021-10-18 09:44 | PDOC ---
JUSTEN CORNEJO PAYING TELLER 10/18/21 0944: CARDIO Progress Notes Date and Time Date of Service 10/18/2021 Time of Evaluation 09 Subjective Subjective: No Chest Pain, No shortness of breath, No Palpitations Vitals Vitals Vital Signs Date Time Temp Pulse Resp B/P (MAP) Pulse Ox O2 Delivery O2 Flow Rate FiO2 10/18/21 07:00 97.9 88 17 73/52 (59) 94 Nasal Cannula 1.0 97.9 Weight Weight [ ] Input and Output Intake and Output Intake and Output 10/18/21 07:00 Intake Total 640 ml Output Total 5025 ml Balance -4385 ml Intake Oral 640 ml Output Urine Total 5025 ml Laboratory Labs Laboratory Tests Test 10/18/21 04:00 Sodium Level 136 mmol/L (136-145) Potassium Level 3.8 mmol/L (3.5-5.1) Chloride Level 94 mmol/L (98-107) Carbon Dioxide Level 37 mmol/L (21-32) Anion Gap 5 (6-14) Blood Urea Nitrogen 23 mg/dL (8-26) Creatinine 1.4 mg/dL (0.7-1.3) Estimated GFR (Cockcroft-Gault) 49.4 Glucose Level 88 mg/dL (70-99) Calcium Level 9.2 mg/dL (8.5-10.1) Magnesium Level 1.6 mg/dL (1.8-2.4) Microbiology Micro Microbiology 10/11/21 Gram Stain - Final, Complete 10/11/21 Aerobic and Anaerobic Culture - Final, Complete Physical Exam HEENT: Neck Supple W Full Motion Chest: Symmetric LUNGS: Other (diminished bases) Heart: S1S2, irregularly irregular (AFIB- rate controlled ) Abdomen: Soft N/T Extremities: No Calf Tenderness, Other (2+ bilateral LE edema) Neurology: alert, oriented, follow commands Assessment Assessment 1. AFIB RVR: rate controlled 2. Severe cardiomyopathy: Suspec combined NICM/ICM. Limited echo with LVEF 20- 25%. 3. Acute on chronic HFrEF: better compnesated 4. Left pleural effusion: s/p thoracentesis with 1.3L off 5. CAD; LHC with two vessel with heavily calcified, long stenosis involving the LAD and OM/LCx 6. MIGUEL; Cr improved 7. ETOH misuse: heavy consumption 8. Tobacco abuse with likely COPD 9. Mild thrombocytopenia Recommendations Continue lasix therapy. Replace Mg. Stop milrinone BP remains marginal. If BP trend is better then will consider starting aldactone and/or lisinopril. Will consider entresto as an outpt Metoprolol for rate control H/H nml, Eliquis for stroke prophylaxis ASA, statin therapy Will consider orbital atherectomy/PCI/stent placement to LAD and OM/LCx as an outpatient Outpatient CVN Consider for lifevest Anticipate DC tomorrow. Arrange for home health Justicifation of Admission Dx: Justifications for Admission: Justification of Admission Dx: Yes ODALYS STRONG MD 10/18/21 1540: CARDIO Progress Notes Assessment Assessment Patient seen and examined. Agree with RN PROGRESSIVE CARE's assessment and plan. Acute on chronic systolic heart failure much better compensated after diuresing with inotropic support Stop milrinone infusion and start Entresto to optimize therapy Left heart catheterization showed significant calcified stenosis involving left anterior descending artery and OM/LCx Plan for orbital atherectomy/PCI/stents placement once better compensated, possibly as an outpatient Persistent atrial fibrillation rate controlled Continue starting Eliquis for stroke prophylaxis and plan outpatient cardioversion Anticipate DC home tomorrow with [facility] JUSTEN CORNEJO APRN October 18, 2021 09:44 ODALYS STRONG MD October 18, 2021 15:40
[2021-10-18] MEDS ORDERED: MAGNESIUM SULFATE 2GM 50 ML IV ONE (10:00)
--- NOTE | 2021-10-18 10:03 | PDOC ---
PULMONARY PROGRESS NOTES DATE: 10/18/21 TIME: 10:01 Subjective Patient denies any shortness of breath at rest. status post left thoracentesis with 1.3 L of fluid removed on 10/11 Vitals Vital Signs Date Time Temp Pulse Resp B/P (MAP) Pulse Ox O2 Delivery O2 Flow Rate FiO2 10/18/21 09:41 92 102/52 10/18/21 07:00 97.9 17 94 Nasal Cannula 1.0 97.9 ROS: No Nausea, No Chest Pain, No Abdominal Pain, No Increase Cough General: Alert, No acute distress Lungs: Clear Cardiovascular: S1 Abdomen: Soft Neuro Exam: Alert Extremities: No Edema Skin: Warm Labs Laboratory Tests Test 10/17/21 03:15 10/18/21 04:00 Sodium Level 136 mmol/L (136-145) 136 mmol/L (136-145) Potassium Level 4.0 mmol/L (3.5-5.1) 3.8 mmol/L (3.5-5.1) Chloride Level 96 mmol/L (98-107) 94 mmol/L (98-107) Carbon Dioxide Level 36 mmol/L (21-32) 37 mmol/L (21-32) Anion Gap 4 (6-14) 5 (6-14) Blood Urea Nitrogen 20 mg/dL (8-26) 23 mg/dL (8-26) Creatinine 1.3 mg/dL (0.7-1.3) 1.4 mg/dL (0.7-1.3) Estimated GFR (Cockcroft-Gault) 53.8 49.4 Glucose Level 95 mg/dL (70-99) 88 mg/dL (70-99) Calcium Level 8.6 mg/dL (8.5-10.1) 9.2 mg/dL (8.5-10.1) Magnesium Level 1.4 mg/dL (1.8-2.4) 1.6 mg/dL (1.8-2.4) Laboratory Tests Test 10/18/21 04:00 Sodium Level 136 mmol/L (136-145) Potassium Level 3.8 mmol/L (3.5-5.1) Chloride Level 94 mmol/L (98-107) Carbon Dioxide Level 37 mmol/L (21-32) Anion Gap 5 (6-14) Blood Urea Nitrogen 23 mg/dL (8-26) Creatinine 1.4 mg/dL (0.7-1.3) Estimated GFR (Cockcroft-Gault) 49.4 Glucose Level 88 mg/dL (70-99) Calcium Level 9.2 mg/dL (8.5-10.1) Magnesium Level 1.6 mg/dL (1.8-2.4) Medications Active Scripts Medications Dose Route/Sig Max Daily Dose Days Date Category Flomax (Tamsulosin Hcl) 0.4 Mg Cap.er.24h 0.4 Mg PO DAILY 01/04/20 Reported Impression . 1. Acute respiratory failure multifactorial secondary to heart failure, COPD 2. Atrial fibrillation with rapid ventricular response. 3. Abnormal CT abdomen and pelvis with mild to moderate left pleural effusion. Transudative. Status post thoracentesis. 4. Mild acute kidney injury. 5. Likely alcoholic liver disease. 6. Hypomagnesemia. 7. Cardiomyopathy with an EF of 20 to 25% and secondary pulmonary hypertension. 8. Coronary artery disease 9. COPD Conclusion 1. Two-vessel coronary artery disease, heavily calcified and long stenosis involving the left anterior descending and OM/LCx as described above 2. Elevated right and left-sided filling pressures consistent with acute on chronic systolic heart failure 3. No evidence of intracardiac shunt Recommendations Optimization of medical therapy for acute on chronic systolic heart failure. Due to heavy calcified stenoses, we will consider orbital atherectomy/PCI/stent placement to LAD and OM/LCx as an outpatient once better compensated. Cardiovascular is factor modification. Source: 01 LEFT PLEURAL DIAGNOSIS: 02 LEFT PLEURAL NEGATIVE FOR MALIGNANT CELLS. FEW REACTIVE MESOTHELIAL CELLS PRESENT. THIS EVALUATION INCLUDES EXAMINATION OF A CELL BLOCK. Signed out by: Maira Plan . Updated 10/18 Continue optimization of cardiac function Continues to diurese Pleural fluid related to heart failure 6-minute walk prior to discharge Outpatient PFTs Per cardiology, orbital atherectomy/PCI/stent placement to LAD and OM/LCx as an outpatient GENARO RITTER MD October 18, 2021 10:03
[2021-10-18] MEDS: CARBAMIDE PEROXIDE 6.5% OTIC SOLUTION 15ML BOTTLE. AU SCH (10:51)
[2021-10-18] MEDS: FUROSEMIDE 40 MG/4 ML VIAL. IVP SCH (10:54)
--- NOTE | 2021-10-18 10:56 | NUR ---
SS following up with discharge planning. SS reviewed pt chart and discussed with pt RN. Pt is currently requiring oxygen at one liter nasal canula. Pt on IV Lasix. Milrinone discontinued. Script received for [facility]. Script and referral sent to [id number], ; fax [phone]. Pt wanting to return to home at discharge. SS discussed home healthcare with pt and pt agreeable with no preference of company. [facility], ; fax [phone]. SS will continue to follow for discharge planning. Addendum: 10/18/21 at 1421 by KYAW WHEELER [facility].
--- NOTE | 2021-10-18 13:08 | PDOC ---
[facility] [facility] PROGRESS NOTE Date of Service DOS: DATE: 10/18/21 TIME: 13:06 Chief Complaint Chief Complaint A. fib RVR Large left pleural effusion MIGUEL due to vasomotor nephropathy, unknown baseline Elevated BNP suggestive of acute volume overload versus chronic hypoxia no history of COPD but chronic tobacco smoker Thrombocytopenia Hemoccult stool positive History of tobacco and alcohol misuse Obesity class I History of Present Illness History of Present Illness 10/18: Afebrile, breathing on room air. Blood pressure marginal. Off milrinone gtt. work with PT/OT. Monitor blood pressure overnight and will discharge tomorrow home with home health. 10/17: Afebrile. Patient currently breathing on 1 L nasal cannula. His Lasix has been increased to 40 twice daily and he continues on milrinone gtt. Will have patient work with PT/OT. Recommend elevation of his legs to help offload fluid, "toes above nose". 10/16: Patient evaluated bedside. Denies chest pain. Left heart cath yesterday showed two-vessel coronary artery disease, and elevated right and left-sided filling pressures consistent with acute on chronic systolic heart failure. He was recommended optimization of medical therapy for acute on chronic systolic heart failure. Continue milrinone gtt and Lasix. 10/15: Patient seen and evaluated. He denies chest pain. Breathing comfortably on 2 L. He is scheduled for heart cath today at 1 PM. 10/14: Patient notes some improvement in his bilateral leg swelling. Denies any shortness of breath. Remains on milrinone gtt and IV Lasix. Cardiology has plan for heart cath tomorrow. 10/13: Afebrile, breathing on room air. Had left thoracentesis yesterday with 1.3 L off. Pleural fluid analysis pending. Lasix decreased to 20 IV daily due to soft blood pressure. We will continue diuresis as blood pressure allows. Kidney function still hovering around CKD 3a/3b. On milrinone gtt. Cardiology to consider left heart cath tomorrow. States he had a bowel movement today finally. He is on Eliquis for new diagnosis of A. fib. 10/12: Patient resting comfortably in bed, afebrile. Patient had successful ultrasound guided thoracentesis yesterday with removal of 1.3 liters of fluid. Heparin gtt has been stopped, initiated on Eliquis. Per cardiology, will add Aldactone and Entresto when blood pressure more adequate. Plans for outpatient left heart cath. Hemoglobin A1c 5.7, will stop blood checks. On CIWA protocol, has not required any IV Ativan. Hemoccult positive, GI is following. Will continue to follow cardiology and pulmonology recommendations. 10/11: Afebrile. CRP 23.7, procalcitonin 0.10. Will discontinue antibiotics. He is having a thoracentesis today. Lasix held this morning due to some hypotension. His echocardiogram showed EF 20-25%. Cardiology following. He was initiated on heart failure medications prior to discharge. 10/10: Patient seen and evaluated with at bedside. He denies any shortness of breath at rest or laying on his back, but does admit to some dyspnea on exertion. Answered and 's questions to the best of my abilities. Echocardiogram pending, and nurse initiating heparin drip. Will order abdominal ultrasound to evaluate likely cirrhosis. Will order CRP to rule out any pneumonia; if not elevated will discontinue empiric antibiotics. For his likely history of BPH we will initiate Flomax daily. Patient also concerned about bilateral earwax impaction. Will schedule daily Debrox in hopes that impacted earwax will express its way out. Discussed with RN. Vitals/I&O Vitals/I&O: Vital Signs Date Time Temp Pulse Resp B/P (MAP) Pulse Ox O2 Delivery O2 Flow Rate FiO2 10/18/21 11:00 97.5 82 17 100/69 (79) 92 Nasal Cannula 1.0 97.5 I & O 10/17/21 10/17/21 10/18/21 15:00 23:00 07:00 Intake Total 200 ml 200 ml 240 ml Output Total 1625 ml 2775 ml 625 ml Balance -1425 ml -2575 ml -385 ml Physical Exam General: Alert, Oriented X3, Cooperative, No acute distress Heart: Other (AFIB, distnat heart sounds) Lungs: Clear Abdomen: Soft, Other (Distended abdomen with +fluid wave) Extremities: No cyanosis, Other (4+ bilateral LA pitting edema) Skin: No breakdown Labs Labs: Laboratory Tests Test 10/18/21 04:00 Sodium Level 136 mmol/L (136-145) Potassium Level 3.8 mmol/L (3.5-5.1) Chloride Level 94 mmol/L (98-107) Carbon Dioxide Level 37 mmol/L (21-32) Anion Gap 5 (6-14) Blood Urea Nitrogen 23 mg/dL (8-26) Creatinine 1.4 mg/dL (0.7-1.3) Estimated GFR (Cockcroft-Gault) 49.4 Glucose Level 88 mg/dL (70-99) Calcium Level 9.2 mg/dL (8.5-10.1) Magnesium Level 1.6 mg/dL (1.8-2.4) Assessment and Plan Assessmemt and Plan Problems Medical Problems: (1) Atrial fibrillation with rapid ventricular response Status: Acute Comment Review of Relevant I have reviewed the following items ganesh (where applicable) has been applied. Medications: Current Medications Medications (Trade) Dose Ordered Sig/Alicja Route PRN Reason Start Time Stop Time Status Last Admin Dose Admin Magnesium Sulfate 50 ml @ 25 mls/hr 1X ONCE IV 10/18/21 10:00 10/18/21 11:59 DC 10/18/21 10:53 Furosemide (Lasix) 40 mg DAILY IVP 10/18/21 10:30 10/18/21 10:54 Justifications for Admission Other Justification Afib RVR ERON PRICE MD October 18, 2021 13:08
--- NOTE | 2021-10-18 14:54 | PDOC ---
G I PROGRESS NOTE Subjective Sleeping, did not awaken. Objective Others' notes reviewed. Physical Exam No PE. Review of Relevant I have reviewed the following items ganesh (where applicable) has been applied. Labs Laboratory Tests Test 10/17/21 03:15 10/18/21 04:00 Sodium Level 136 mmol/L (136-145) 136 mmol/L (136-145) Potassium Level 4.0 mmol/L (3.5-5.1) 3.8 mmol/L (3.5-5.1) Chloride Level 96 mmol/L (98-107) 94 mmol/L (98-107) Carbon Dioxide Level 36 mmol/L (21-32) 37 mmol/L (21-32) Anion Gap 4 (6-14) 5 (6-14) Blood Urea Nitrogen 20 mg/dL (8-26) 23 mg/dL (8-26) Creatinine 1.3 mg/dL (0.7-1.3) 1.4 mg/dL (0.7-1.3) Estimated GFR (Cockcroft-Gault) 53.8 49.4 Glucose Level 95 mg/dL (70-99) 88 mg/dL (70-99) Calcium Level 8.6 mg/dL (8.5-10.1) 9.2 mg/dL (8.5-10.1) Magnesium Level 1.4 mg/dL (1.8-2.4) 1.6 mg/dL (1.8-2.4) Laboratory Tests Test 10/18/21 04:00 Sodium Level 136 mmol/L (136-145) Potassium Level 3.8 mmol/L (3.5-5.1) Chloride Level 94 mmol/L (98-107) Carbon Dioxide Level 37 mmol/L (21-32) Anion Gap 5 (6-14) Blood Urea Nitrogen 23 mg/dL (8-26) Creatinine 1.4 mg/dL (0.7-1.3) Estimated GFR (Cockcroft-Gault) 49.4 Glucose Level 88 mg/dL (70-99) Calcium Level 9.2 mg/dL (8.5-10.1) Magnesium Level 1.6 mg/dL (1.8-2.4) Microbiology 10/11/21 Gram Stain - Final, Complete 10/11/21 Aerobic and Anaerobic Culture - Final, Complete Vitals/I & O Vital Sign - Last 24 Hours 10/17/21 10/17/21 10/17/21 10/17/21 15:00 19:20 20:04 22:06 Temp 97.6 98.0 97.6 98.0 Pulse 90 89 Resp 16 16 B/P (MAP) 98/67 (77) 77/64 (68) 103/59 (74) Pulse Ox 98 92 O2 Delivery Nasal Cannula Nasal Cannula Nasal Cannula Nasal Cannula O2 Flow Rate 1.0 1.0 1.0 1.0 10/17/21 10/18/21 10/18/21 10/18/21 22:28 03:33 07:00 09:41 Temp 97.6 97.6 97.9 97.6 97.6 97.9 Pulse 88 77 88 92 Resp 16 16 17 B/P (MAP) 82/58 (66) 88/70 (76) 73/52 (59) 102/52 Pulse Ox 95 92 94 O2 Delivery Nasal Cannula Nasal Cannula Nasal Cannula O2 Flow Rate 1.0 1.0 1.0 10/18/21 10/18/21 10/18/21 11:00 12:00 13:23 Temp 97.5 97.5 Pulse 82 Resp 17 B/P (MAP) 100/69 (79) 137/76 (96) Pulse Ox 92 O2 Delivery Nasal Cannula Nasal Cannula O2 Flow Rate 1.0 1.0 Intake and Output 10/17/21 10/17/21 10/18/21 15:00 23:00 07:00 Intake Total 200 ml 200 ml 240 ml Output Total 1625 ml 2775 ml 625 ml Balance -1425 ml -2575 ml -385 ml Problem List Problems Medical Problems: (1) Atrial fibrillation with rapid ventricular response Status: Acute Assessment Heme positive stool; non-specific. Evaluation of this can wait until cardiac status stable. Plan of Care Note Note plans for possible discharge; have no objections. Justicifation of Admission Dx: Justifications for Admission: Justification of Admission Dx: Yes DERRICK FLEMING MD October 18, 2021 14:54
[2021-10-18] MEDS: SACUBITRIL/VALSARTAN 24/26MG TABLET. PO SCH (21:38)
[2021-10-18] MEDS: ATORVASTATIN CALCIUM 40 MG TABLET. PO SCH (21:39)
[2021-10-19] VITALS (9 sets, daily range): BP systolic 38–134; BP diastolic 47–74
[2021-10-19 04:39] LABS: CALCIUM 8.8 mg/dL (8.5-10.1); CREATININE 1.4 mg/dL (0.7-1.3); GFR 49.4; POTASSIUM 3.8 mmol/L (3.5-5.1)
--- NOTE | 2021-10-19 08:40 | PDOC ---
PULMONARY PROGRESS NOTES DATE: 10/19/21 TIME: 08:39 Subjective Patient denies any shortness of breath at rest. status post left thoracentesis with 1.3 L of fluid removed on 10/11 Vitals Vital Signs Date Time Temp Pulse Resp B/P (MAP) Pulse Ox O2 Delivery O2 Flow Rate FiO2 10/19/21 07:00 97.7 75 18 38/62 (54) 94 Nasal Cannula 1.0 97.7 ROS: No Nausea, No Chest Pain, No Abdominal Pain, No Increase Cough General: Alert, No acute distress Lungs: Clear Cardiovascular: S1 Abdomen: Soft Neuro Exam: Alert Extremities: No Edema Skin: Warm Labs Laboratory Tests Test 10/18/21 04:00 10/19/21 04:00 Sodium Level 136 mmol/L (136-145) 138 mmol/L (136-145) Potassium Level 3.8 mmol/L (3.5-5.1) 3.8 mmol/L (3.5-5.1) Chloride Level 94 mmol/L (98-107) 95 mmol/L (98-107) Carbon Dioxide Level 37 mmol/L (21-32) 34 mmol/L (21-32) Anion Gap 5 (6-14) 9 (6-14) Blood Urea Nitrogen 23 mg/dL (8-26) 26 mg/dL (8-26) Creatinine 1.4 mg/dL (0.7-1.3) 1.4 mg/dL (0.7-1.3) Estimated GFR (Cockcroft-Gault) 49.4 49.4 Glucose Level 88 mg/dL (70-99) 112 mg/dL (70-99) Calcium Level 9.2 mg/dL (8.5-10.1) 8.8 mg/dL (8.5-10.1) Magnesium Level 1.6 mg/dL (1.8-2.4) Laboratory Tests Test 10/19/21 04:00 Sodium Level 138 mmol/L (136-145) Potassium Level 3.8 mmol/L (3.5-5.1) Chloride Level 95 mmol/L (98-107) Carbon Dioxide Level 34 mmol/L (21-32) Anion Gap 9 (6-14) Blood Urea Nitrogen 26 mg/dL (8-26) Creatinine 1.4 mg/dL (0.7-1.3) Estimated GFR (Cockcroft-Gault) 49.4 Glucose Level 112 mg/dL (70-99) Calcium Level 8.8 mg/dL (8.5-10.1) Medications Active Scripts Medications Dose Route/Sig Max Daily Dose Days Date Category Flomax (Tamsulosin Hcl) 0.4 Mg Cap.er.24h 0.4 Mg PO DAILY 01/04/20 Reported Impression . 1. Acute respiratory failure multifactorial secondary to heart failure, COPD 2. Atrial fibrillation with rapid ventricular response. 3. Abnormal CT abdomen and pelvis with mild to moderate left pleural effusion. Transudative. Status post thoracentesis. 4. Mild acute kidney injury. 5. Likely alcoholic liver disease. 6. Hypomagnesemia. 7. Cardiomyopathy with an EF of 20 to 25% and secondary pulmonary hypertension. 8. Coronary artery disease 9. COPD Conclusion 1. Two-vessel coronary artery disease, heavily calcified and long stenosis involving the left anterior descending and OM/LCx as described above 2. Elevated right and left-sided filling pressures consistent with acute on chronic systolic heart failure 3. No evidence of intracardiac shunt Recommendations Optimization of medical therapy for acute on chronic systolic heart failure. Due to heavy calcified stenoses, we will consider orbital atherectomy/PCI/stent placement to LAD and OM/LCx as an outpatient once better compensated. Cardiovascular is factor modification. Source: 01 LEFT PLEURAL DIAGNOSIS: 02 LEFT PLEURAL NEGATIVE FOR MALIGNANT CELLS. FEW REACTIVE MESOTHELIAL CELLS PRESENT. THIS EVALUATION INCLUDES EXAMINATION OF A CELL BLOCK. Signed out by: 02 Plan . Continue optimization of cardiac function Continues to diurese Pleural fluid related to heart failure 6-minute walk prior to discharge, patient reports he did not qualify for oxygen. Outpatient PFTs Per cardiology, orbital atherectomy/PCI/stent placement to LAD and OM/LCx as an outpatient Okay for discharge from a pulmonary standpoint. GENARO RITTER MD October 19, 2021 08:39
[2021-10-19] MEDS: LACTOBACILLUS RHAMNOSUS GG 1 CAPSULE. PO SCH ×2 (08:44→20:23)
[2021-10-19] MEDS: POLYETHYLENE GLYCOL 3350 17 GM PACKET. PO SCH (08:45)
[2021-10-19] MEDS: POTASSIUM CHLORIDE 10 MEQ TABLET.ER. PO SCH (08:45)
[2021-10-19] MEDS: TAMSULOSIN 0.4 MG CAP.ER.24H. PO SCH (08:48)
[2021-10-19] MEDS: ASPIRIN ENTERIC COATED 81 MG TABLET.DR. PO SCH (08:48)
[2021-10-19] MEDS: APIXABAN 5 MG TABLET. PO SCH ×2 (08:48→20:23)
[2021-10-19] MEDS: CARBAMIDE PEROXIDE 6.5% OTIC SOLUTION 15ML BOTTLE. AU SCH (08:56)
[2021-10-19] MEDS ORDERED: FUROSEMIDE 40 MG/4 ML VIAL. IVP SCH (09:00)
[2021-10-19] MEDS: FUROSEMIDE 40 MG/4 ML VIAL. IVP SCH (09:00)
[2021-10-19] MEDS: SACUBITRIL/VALSARTAN 24/26MG TABLET. PO SCH ×2 (10:48→20:23)
[2021-10-19] MEDS: METOPROLOL SUCC 24HR ER 25 MG TAB.ER.24H. PO SCH (10:48)
--- NOTE | 2021-10-19 12:37 | PDOC ---
G I PROGRESS NOTE Subjective No GI complaints. Says going home tomorrow. Physical Exam Lungs clear anteriorly. IRRR Abdomen soft, not tender nor distended. Bilateral ankle edema. Review of Relevant I have reviewed the following items ganesh (where applicable) has been applied. Labs Laboratory Tests Test 10/18/21 04:00 10/19/21 04:00 Sodium Level 136 mmol/L (136-145) 138 mmol/L (136-145) Potassium Level 3.8 mmol/L (3.5-5.1) 3.8 mmol/L (3.5-5.1) Chloride Level 94 mmol/L (98-107) 95 mmol/L (98-107) Carbon Dioxide Level 37 mmol/L (21-32) 34 mmol/L (21-32) Anion Gap 5 (6-14) 9 (6-14) Blood Urea Nitrogen 23 mg/dL (8-26) 26 mg/dL (8-26) Creatinine 1.4 mg/dL (0.7-1.3) 1.4 mg/dL (0.7-1.3) Estimated GFR (Cockcroft-Gault) 49.4 49.4 Glucose Level 88 mg/dL (70-99) 112 mg/dL (70-99) Calcium Level 9.2 mg/dL (8.5-10.1) 8.8 mg/dL (8.5-10.1) Magnesium Level 1.6 mg/dL (1.8-2.4) Laboratory Tests Test 10/19/21 04:00 Sodium Level 138 mmol/L (136-145) Potassium Level 3.8 mmol/L (3.5-5.1) Chloride Level 95 mmol/L (98-107) Carbon Dioxide Level 34 mmol/L (21-32) Anion Gap 9 (6-14) Blood Urea Nitrogen 26 mg/dL (8-26) Creatinine 1.4 mg/dL (0.7-1.3) Estimated GFR (Cockcroft-Gault) 49.4 Glucose Level 112 mg/dL (70-99) Calcium Level 8.8 mg/dL (8.5-10.1) Microbiology 10/11/21 Gram Stain - Final, Complete 10/11/21 Aerobic and Anaerobic Culture - Final, Complete Medications Current Medications Diltiazem HCl (Cardizem Iv Push) 10 mg 1X ONCE IVP Last administered on 10/09/21at 17:02; Start 10/09/21 at 16:30; Stop 10/09/21 at 16:31; Status DC Ceftriaxone Sodium (Rocephin) 1 gm 1X ONCE IVP Last administered on 10/09/21at 18:28; Start 10/09/21 at 18:00; Stop 10/09/21 at 18:01; Status DC Ondansetron HCl (Zofran) 4 mg PRN Q8HRS PRN IVP NAUSEA/VOMITING; Start 10/09/21 at 18:00; Stop 10/10/21 at 17:59; Status DC Iohexol (Omnipaque 300 Mg/ml) 60 ml 1X ONCE IV Last administered on 10/09/21at 19:29; Start 10/09/21 at 19:00; Stop 10/09/21 at 19:01; Status DC Info (CONTRAST GIVEN -- Rx MONITORING) 1 each PRN DAILY PRN MC SEE COMMENTS; Start 10/09/21 at 19:00; Stop 10/11/21 at 18:59; Status DC Doxycycline Hyclate (Vibra-Tab) 100 mg BID PO Last administered on 10/11/21at 09:40; Start 10/09/21 at 21:00; Stop 10/11/21 at 14:15; Status DC Ceftriaxone Sodium (Rocephin) 1 gm Q24H IVP Last administered on 10/10/21at 22:20; Start 10/10/21 at 21:00; Stop 10/11/21 at 14:15; Status DC Sennosides (Senna) 17.2 mg PRN BID PRN PO CONSTIPATION; Start 10/09/21 at 20:00 Docusate Sodium (Colace) 100 mg PRN DAILY PRN PO HARD STOOLS; Start 10/09/21 at 20:00 Ondansetron HCl (Zofran) 4 mg PRN Q6HRS PRN IVP NAUSEA/VOMITING, 1st CHOICE; Start 10/09/21 at 20:00 Dextrose (Dextrose 50%-Water Syringe) 12.5 gm PRN Q15MIN PRN IV SEE COMMENTS; Start 10/09/21 at 20:00 Acetaminophen (Tylenol) 650 mg PRN Q4HRS PRN PO TEMP OVER 100.4F OR MILD PAIN; Start 10/09/21 at 20:00 Lorazepam (Ativan) 0.5 mg PRN Q6HRS PRN PO ANXIETY / AGITATION; Start 10/09/21 at 20:00 Lorazepam (Ativan Inj) 0.25 mg PRN Q4HRS PRN IV ANXIETY / AGITATION; Start 10/09/21 at 20:00 Prochlorperazine Edisylate (Compazine) 10 mg PRN Q6HRS PRN IV NAUSEA/VOMITING, 2nd CHOICE; Start 10/09/21 at 20:00 Diphenhydramine HCl (Benadryl) 25 mg PRN Q6HRS PRN IVP ITCHING Last administe red on 10/11/21at 20:23; Start 10/09/21 at 20:00 Diphenhydramine HCl (Benadryl) 25 mg PRN Q6HRS PRN PO ITCHING; Start 10/09/21 a t 20:00 Diphenhydramine HCl (Benadryl) 25 mg PRN QHS PRN PO INSOMNIA, 1st CHOICE; Start 10/09/21 at 20:00 Zolpidem Tartrate (Ambien) 2.5 mg PRN QHS PRN PO INSOMNIA, 2nd CHOICE; Start 10/09/21 at 20:00 Magnesium Sulfate 50 ml @ 25 mls/hr 1X ONCE IV Last administered on 10/09/21at 22:43; Start 10/09/21 at 21:00; Stop 10/09/21 at 22:59; Status DC Metoprolol Tartrate (Lopressor Vial) 5 mg PRN Q2HRS PRN IVP TACHYCARDIA; Start 10/09/21 at 21:15 Furosemide (Lasix) 40 mg 1X ONCE IVP Last administered on 10/09/21at 22:41; Start 10/09/21 at 21:30; Stop 10/09/21 at 21:31; Status DC Magnesium Sulfate 50 ml @ 25 mls/hr 1X ONCE IV ; Start 10/09/21 at 21:30; Stop 10/09/21 at 23:48; Status DC Magnesium Sulfate 50 ml @ 25 mls/hr Q24H IV Last administered on 10/12/21at 05:30; Start 10/10/21 at 05:30; Stop 10/12/21 at 07:29; Status DC Perflutren Protein Type A Microsphe (Optison) 0.66 mg 1X ONCE IVP Last administered on 10/10/21at 09:41; Start 10/10/21 at 09:00; Stop 10/10/21 at 09:10; Status DC Heparin Sodium/ Dextrose 250 ml @ 10 mls/hr CONT PRN IV PER PROTOCOL Last administered on 10/10/21at 17:13; Start 10/10/21 at 09:45; Stop 10/11/21 at 21:00; Status DC Heparin Sodium (Porcine) (Heparin Sodium) 2,550 unit PRN Q6HRS PRN IV FOR UFH LEVEL LESS THAN 0.2 Last administered on 10/10/21at 15:38; Start 10/10/21 at 09:45; Stop 10/11/21 at 16:10; Status DC Metoprolol Succinate (Toprol Xl) 25 mg DAILY PO Last administered on 10/19/21at 10:48; Start 10/10/21 at 10:00 Metoprolol Succinate (Toprol Xl) 25 mg 1X ONCE PO ; Start 10/10/21 at 09:45; Stop 10/10/21 at 10:00; Status DC Furosemide (Lasix) 40 mg 1X ONCE IVP Last administered on 10/10/21at 12:32; Start 10/10/21 at 10:00; Stop 10/10/21 at 10:01; Status DC Furosemide (Lasix) 40 mg DAILY IVP Last administered on 10/12/21at 08:27; Start 10/11/21 at 09:00; Stop 10/12/21 at 11:38; Status DC Polyethylene Glycol (miraLAX PACKET) 17 gm DAILY PO Last administered on 10/19/21at 08:45; Start 10/11/21 at 09:00 Carbamide Peroxide (Debrox) 5 drop DAILY AU Last administered on 10/19/21 08:56; Start 10/11/21 at 09:00 Tamsulosin HCl (Flomax) 0.4 mg DAILY PO Last administered on 10/19/21at 08:48; Start 10/11/21 at 09:00 Lactobacillus Rhamnosus (Culturelle) 1 cap BID PO Last administered on 10/19/21at 08:44; Start 10/10/21 at 21:00 Perflutren Protein Type A Microsphe (Optison) 0.66 mg STK-MED ONCE IVP ; Start 10/10/21 at 08:43; Stop 10/10/21 at 15:47; Status DC Digoxin (Lanoxin) 500 mcg 1X ONCE IV Last administered on 10/11/21at 12:51; Start 10/11/21 at 12:30; Stop 10/11/21 at 12:31; Status DC Metoprolol Tartrate (Lopressor Vial) 5 mg 1X ONCE IVP Last administered on 10/11/21at 13:00; Start 10/11/21 at 12:30; Stop 10/11/21 at 12:31; Status DC Apixaban (Eliquis) 5 mg BID PO Last administered on 10/14/21at 09:13; Start 10/11/21 at 21:00; Stop 10/14/21 at 15:33; Status DC Furosemide (Lasix) 20 mg DAILY IVP Last administered on 10/16/21at 11:18; Start 10/13/21 at 09:00; Stop 10/16/21 at 11:42; Status DC Potassium Chloride (Klor-Con) 40 meq 1X ONCE PO Last administered on 10/12/21at 12:50; Start 10/12/21 at 12:30; Stop 10/12/21 at 12:31; Status DC Milrinone Lactate/ Dextrose 100 ml @ 3.821 mls/ hr CONT PRN IV SEE I/O RECORD Last administered on 10/17/21 16:46; Start 10/13/21 at 11:00; Stop 10/18/21 at 10:22; Status DC Heparin Sodium/ Sodium Chloride (HEPARIN for ARTERIAL LINE FLUSH) 1,000 unit 1X ONCE IART Last administered on 10/15/21 15:08; Start 10/15/21 at 15:15; Stop 10/15/21 at 15:16; Status DC Midazolam HCl (Versed) 2 mg 1X ONCE IV Last administered on 10/15/21 14:45; Start 10/15/21 at 15:15; Stop 10/15/21 at 15:16; Status DC Fentanyl Citrate (Fentanyl 2ml Vial) 100 mcg 1X ONCE IV Last administered on 10/15/21 14:45; Start 10/15/21 at 15:15; Stop 10/15/21 at 15:16; Status DC Iodixanol (Visipaque 320) 100 ml 1X ONCE IART Last administered on 10/15/21at 15:13; Start 10/15/21 at 15:15; Stop 10/15/21 at 15:16; Status DC Lidocaine HCl (Lidocaine 1% 20ml Vial) 20 ml 1X ONCE INJ Last administered on 10/15/21at 14:46; Start 10/15/21 at 15:15; Stop 10/15/21 at 15:16; Status DC Info (CONTRAST GIVEN -- Rx MONITORING) 1 each PRN DAILY PRN MC SEE COMMENTS; Start 10/15/21 at 15:15; Stop 10/17/21 at 15:14; Status DC Sodium Chloride 1,000 ml @ 60 mls/hr [id number] IV ; Start 10/15/21 at 15:45; Stop 10/16/21 at 11:47; Status DC Furosemide (Lasix) 40 mg [id number] IVP Last administered on 10/17/21at 14:17; Start 10/16/21 at 14:00; Stop 10/18/21 at 09:37; Status DC Potassium Chloride (Klor-Con) 10 meq [id number] PO Last administered on 10/19/21at 08:45; Start 10/16/21 at 14:00 Apixaban (Eliquis) 5 mg BID PO Last administered on 10/19/21at 08:48; Start 10/16/21 at 12:00 Atorvastatin Calcium (Lipitor) 40 mg QHS PO Last administered on 10/18/21at 21:3 9; Start 10/16/21 at 21:00 Aspirin (Ecotrin) 81 mg [id number] PO Last administered on 10/19/21at 08:48; Start 10/17/21 at 08:00 Magnesium Oxide (Magnesium Oxide) 400 mg BID PO Last administered on 10/18/21at 21:38; Start 10/17/21 at 05:00; Stop 10/18/21 at 21:01; Status DC Iodixanol (Visipaque 320) 100 ml STK-MED ONCE .ROUTE ; Start 10/15/21 at 13:46; Stop 10/17/21 at 09:26; Status DC Lidocaine HCl (Lidocaine 1% 20ml Vial) 20 ml STK-MED ONCE .ROUTE ; Start 10/15/21 at 13:46; Stop 10/17/21 at 09:26; Status DC Heparin Sodium/ Sodium Chloride 500 ml @ As Directed STK-MED ONCE .ROUTE ; Start 10/15/21 at 13:46; Stop 10/17/21 at 09:26; Status DC Fentanyl Citrate (Fentanyl 2ml Vial) 100 mcg STK-MED ONCE .ROUTE ; Start 10/15/21 at 14:31; Stop 10/17/21 at 09:27; Status DC Midazolam HCl (Versed) 2 mg STK-MED ONCE .ROUTE ; Start 10/15/21 at 14:31; Stop 10/17/21 at 09:27; Status DC Magnesium Sulfate 50 ml @ 25 mls/hr 1X ONCE IV Last administered on 10/18/21at 10:53; Start 10/18/21 at 10:00; Stop 10/18/21 at 11:59; Status DC Furosemide (Lasix) 40 mg DAILY IVP ; Start 10/19/21 at 09:00; Stop 10/18/21 at 10:06; Status DC Furosemide (Lasix) 40 mg DAILY IVP Last administered on 10/18/21at 10:54; Start 10/18/21 at 10:30 Sacubitril/ Valsartan (Entresto 24 Mg-26 Mg) 1 tab BID PO Last administered on 10/19/21at 10:48; Start 10/18/21 at 21:00 Active Scripts Active Reported Flomax (Tamsulosin Hcl) 0.4 Mg Cap.er.24h 0.4 Mg PO DAILY Vitals/I & O Vital Sign - Last 24 Hours 10/18/21 10/18/21 10/18/21 10/18/21 13:23 15:00 19:24 20:40 Temp 97.6 97.8 97.6 97.8 Pulse 85 98 Resp 18 18 B/P (MAP) 137/76 (96) 137/76 (96) 116/81 (93) Pulse Ox 91 92 O2 Delivery Nasal Cannula Nasal Cannula Nasal Cannula O2 Flow Rate 1.0 1.0 10/18/21 10/18/21 10/19/21 10/19/21 21:38 22:40 02:42 07:00 Temp 97.2 97.2 97.7 97.2 97.2 97.7 Pulse 98 89 70 75 Resp 18 16 18 B/P (MAP) 116/81 85/53 (64) 134/74 (94) 83/62 (69) Pulse Ox 95 98 94 O2 Delivery Nasal Cannula Nasal Cannula Nasal Cannula O2 Flow Rate 1.0 1.0 1.0 10/19/21 10/19/21 10/19/21 10/19/21 08:00 08:57 10:37 10:48 Temp 97.7 97.7 Pulse 77 77 Resp 17 B/P (MAP) 82/47 (59) 107/63 (78) 107/63 Pulse Ox 97 O2 Delivery Nasal Cannula Nasal Cannula O2 Flow Rate 1.0 1.0 10/19/21 10:48 Pulse 77 B/P (MAP) 107/63 Intake and Output 10/18/21 10/18/21 10/19/21 15:00 23:00 07:00 Intake Total 600 ml 540 ml 0 ml Output Total 2350 ml 250 ml Balance 600 ml -1810 ml -250 ml Problem List Problems Medical Problems: (1) Atrial fibrillation with rapid ventricular response Status: Acute Assessment CAD/cardiomyopathy. Heme positive stool, work-up deferred for now. Plan of Care Note Continue as now. Once cardiac issues addressed and stable, consider endoscopy. Justicifation of Admission Dx: Justifications for Admission: Justification of Admission Dx: Yes DERRICK FLEMING MD October 19, 2021 12:37
--- NOTE | 2021-10-19 12:37 | PDOC ---
[facility] PROGRESS NOTE Date of Service DOS: DATE: 10/19/21 TIME: 12:35 Chief Complaint Chief Complaint A. fib RVR Large left pleural effusion MIGUEL due to vasomotor nephropathy, unknown baseline Elevated BNP suggestive of acute volume overload versus chronic hypoxia no history of COPD but chronic tobacco smoker Thrombocytopenia Hemoccult stool positive History of tobacco and alcohol misuse Obesity class I History of Present Illness History of Present Illness 10/19: Patient seen resting comfortably at bedside. He is currently requiring low-dose oxygen, 1 L nasal cannula. He is to have LifeVest placed today, will likely discharge home tomorrow with home health. He remains inpatient for further monitoring of his blood pressure respiration, with hopes to wean oxygen altogether. 10/18: Afebrile, breathing on room air. Blood pressure marginal. Off milrinone gtt. work with PT/OT. Monitor blood pressure overnight and will discharge tomorrow home with home health. 10/17: Afebrile. Patient currently breathing on 1 L nasal cannula. His Lasix has been increased to 40 twice daily and he continues on milrinone gtt. Will have patient work with PT/OT. Recommend elevation of his legs to help offload fluid, "toes above nose". 10/16: Patient evaluated bedside. Denies chest pain. Left heart cath yesterday showed two-vessel coronary artery disease, and elevated right and left-sided filling pressures consistent with acute on chronic systolic heart failure. He was recommended optimization of medical therapy for acute on chronic systolic heart failure. Continue milrinone gtt and Lasix. 10/15: Patient seen and evaluated. He denies chest pain. Breathing comfortably on 2 L. He is scheduled for heart cath today at 1 PM. 10/14: Patient notes some improvement in his bilateral leg swelling. Denies any shortness of breath. Remains on milrinone gtt and IV Lasix. Cardiology has plan for heart cath tomorrow. 10/13: Afebrile, breathing on room air. Had left thoracentesis yesterday with 1.3 L off. Pleural fluid analysis pending. Lasix decreased to 20 IV daily due to soft blood pressure. We will continue diuresis as blood pressure allows. Kidney function still hovering around CKD 3a/3b. On milrinone gtt. Cardiology to consider left heart cath tomorrow. States he had a bowel movement today finally. He is on Eliquis for new diagnosis of A. fib. 10/12: Patient resting comfortably in bed, afebrile. Patient had successful ultrasound guided thoracentesis yesterday with removal of 1.3 liters of fluid. Heparin gtt has been stopped, initiated on Eliquis. Per cardiology, will add Aldactone and Entresto when blood pressure more adequate. Plans for outpatient left heart cath. Hemoglobin A1c 5.7, will stop blood checks. On CIWA protocol, has not required any IV Ativan. Hemoccult positive, GI is following. Will continue to follow cardiology and pulmonology recommendations. 10/11: Afebrile. CRP 23.7, procalcitonin 0.10. Will discontinue antibiotics. He is having a thoracentesis today. Lasix held this morning due to some hypotension. His echocardiogram showed EF 20-25%. Cardiology following. He was initiated on heart failure medications prior to discharge. 10/10: Patient seen and evaluated with at bedside. He denies any shortness of breath at rest or laying on his back, but does admit to some dyspnea on exertion. Answered and 's questions to the best of my abilities. Echocardiogram pending, and nurse initiating heparin drip. Will order abdominal ultrasound to evaluate likely cirrhosis. Will order CRP to rule out any pneumonia; if not elevated will discontinue empiric antibiotics. For his likely history of BPH we will initiate Flomax daily. Patient also concerned about bilateral earwax impaction. Will schedule daily Debrox in hopes that impacted earwax will express its way out. Discussed with RN. Vitals/I&O Vitals/I&O: Vital Signs Date Time Temp Pulse Resp B/P (MAP) Pulse Ox O2 Delivery O2 Flow Rate FiO2 10/19/21 10:48 77 107/63 10/19/21 10:37 97.7 17 97 Nasal Cannula 1.0 97.7 I & O 10/18/21 10/18/21 10/19/21 15:00 23:00 07:00 Intake Total 600 ml 540 ml 0 ml Output Total 2350 ml 250 ml Balance 600 ml -1810 ml -250 ml Physical Exam General: Alert, Oriented X3, Cooperative, No acute distress Heart: Other (AFIB, distnat heart sounds) Lungs: Clear Abdomen: Soft, Other (Distended abdomen with +fluid wave) Extremities: No cyanosis, Other (4+ bilateral LA pitting edema) Skin: No breakdown Labs Labs: Laboratory Tests Test 10/19/21 04:00 Sodium Level 138 mmol/L (136-145) Potassium Level 3.8 mmol/L (3.5-5.1) Chloride Level 95 mmol/L (98-107) Carbon Dioxide Level 34 mmol/L (21-32) Anion Gap 9 (6-14) Blood Urea Nitrogen 26 mg/dL (8-26) Creatinine 1.4 mg/dL (0.7-1.3) Estimated GFR (Cockcroft-Gault) 49.4 Glucose Level 112 mg/dL (70-99) Calcium Level 8.8 mg/dL (8.5-10.1) Assessment and Plan Assessmemt and Plan Problems Medical Problems: (1) Atrial fibrillation with rapid ventricular response Status: Acute Comment Review of Relevant I have reviewed the following items ganesh (where applicable) has been applied. Medications: Current Medications Medications (Trade) Dose Ordered Sig/Alicja Route PRN Reason Start Time Stop Time Status Last Admin Dose Admin Sacubitril/ Valsartan (Entresto 24 Mg-26 Mg) 1 tab BID PO 10/18/21 21:00 10/19/21 10:48 Justifications for Admission Other Justification Afib RVR ERON PRICE MD October 19, 2021 12:37
--- NOTE | 2021-10-19 13:09 | PDOC ---
PROGRESS NOTES Date of Service DATE: 10/19/21 TIME: 13:06 Subjective Subjective Patient seen and examined He reports feeling better today. Objective Objective Vital Signs Date Time Temp Pulse Resp B/P (MAP) Pulse Ox O2 Delivery O2 Flow Rate FiO2 10/19/21 12:43 82/55 (64) 10/19/21 10:48 77 10/19/21 10:37 97.7 17 97 Nasal Cannula 1.0 97.7 Intake and Output 10/19/21 07:00 Intake Total 1140 ml Output Total 2600 ml Balance -1460 ml Intake Oral 1140 ml Output Urine Total 2600 ml Physical Exam Abdomen: Normal bowel sounds Heart: Regular rate General: mild distress Lungs: Other (Mildly decreased breath sounds) Assessment Assessment Problems Medical Problems: (1) Atrial fibrillation with rapid ventricular response Status: Acute AFIB RVR: rate controlled Severe cardiomyopathy: Suspec combined NICM/ICM. Limited echo with LVEF 20-25%. LifeVest to be placed later this afternoon. Anticipate probable discharge tomorrow. Off milrinone yesterday. Acute on chronic HFrEF: better compnesated Left pleural effusion: s/p thoracentesis with 1.3L off CAD; LHC with two vessel with heavily calcified, long stenosis involving the LAD and OM/LCx MIGUEL; Cr improved ETOH misuse Tobacco abuse with likely COPD Comment Review of Relevant I have reviewed the following items ganesh (where applicable) has been applied. Labs Laboratory Tests Test 10/18/21 04:00 10/19/21 04:00 Sodium Level 136 mmol/L (136-145) 138 mmol/L (136-145) Potassium Level 3.8 mmol/L (3.5-5.1) 3.8 mmol/L (3.5-5.1) Chloride Level 94 mmol/L (98-107) 95 mmol/L (98-107) Carbon Dioxide Level 37 mmol/L (21-32) 34 mmol/L (21-32) Anion Gap 5 (6-14) 9 (6-14) Blood Urea Nitrogen 23 mg/dL (8-26) 26 mg/dL (8-26) Creatinine 1.4 mg/dL (0.7-1.3) 1.4 mg/dL (0.7-1.3) Estimated GFR (Cockcroft-Gault) 49.4 49.4 Glucose Level 88 mg/dL (70-99) 112 mg/dL (70-99) Calcium Level 9.2 mg/dL (8.5-10.1) 8.8 mg/dL (8.5-10.1) Magnesium Level 1.6 mg/dL (1.8-2.4) Laboratory Tests Test 10/19/21 04:00 Sodium Level 138 mmol/L (136-145) Potassium Level 3.8 mmol/L (3.5-5.1) Chloride Level 95 mmol/L (98-107) Carbon Dioxide Level 34 mmol/L (21-32) Anion Gap 9 (6-14) Blood Urea Nitrogen 26 mg/dL (8-26) Creatinine 1.4 mg/dL (0.7-1.3) Estimated GFR (Cockcroft-Gault) 49.4 Glucose Level 112 mg/dL (70-99) Calcium Level 8.8 mg/dL (8.5-10.1) Microbiology 10/11/21 Gram Stain - Final, Complete 10/11/21 Aerobic and Anaerobic Culture - Final, Complete Medications Current Medications Diltiazem HCl (Cardizem Iv Push) 10 mg 1X ONCE IVP Last administered on at 17:02; Start 10/09/21 at 16:30; Stop 10/09/21 at 16:31; Status DC Ceftriaxone Sodium (Rocephin) 1 gm 1X ONCE IVP Last administered on 10/09/21at 18:28; Start 10/09/21 at 18:00; Stop 10/09/21 at 18:01; Status DC Ondansetron HCl (Zofran) 4 mg PRN Q8HRS PRN IVP NAUSEA/VOMITING; Start 10/09/21 at 18:00; Stop 10/10/21 at 17:59; Status DC Iohexol (Omnipaque 300 Mg/ml) 60 ml 1X ONCE IV Last administered on 10/09/21at 19:29; Start 10/09/21 at 19:00; Stop 10/09/21 at 19:01; Status DC Info (CONTRAST GIVEN -- Rx MONITORING) 1 each PRN DAILY PRN MC SEE COMMENTS; Start 10/09/21 at 19:00; Stop 10/11/21 at 18:59; Status DC Doxycycline Hyclate (Vibra-Tab) 100 mg BID PO Last administered on 10/11/21at 09:40; Start 10/09/21 at 21:00; Stop 10/11/21 at 14:15; Status DC Ceftriaxone Sodium (Rocephin) 1 gm Q24H IVP Last administered on 10/10/21at 22:20; Start 10/10/21 at 21:00; Stop 10/11/21 at 14:15; Status DC Sennosides (Senna) 17.2 mg PRN BID PRN PO CONSTIPATION; Start 10/09/21 at 20:00 Docusate Sodium (Colace) 100 mg PRN DAILY PRN PO HARD STOOLS; Start 10/09/21 at 20:00 Ondansetron HCl (Zofran) 4 mg PRN Q6HRS PRN IVP NAUSEA/VOMITING, 1st CHOICE; Start 10/09/21 at 20:00 Dextrose (Dextrose 50%-Water Syringe) 12.5 gm PRN Q15MIN PRN IV SEE COMMENTS; Start 10/09/21 at 20:00 Acetaminophen (Tylenol) 650 mg PRN Q4HRS PRN PO TEMP OVER 100.4F OR MILD PAIN; Start 10/09/21 at 20:00 Lorazepam (Ativan) 0.5 mg PRN Q6HRS PRN PO ANXIETY / AGITATION; Start 10/09/21 at 20:00 Lorazepam (Ativan Inj) 0.25 mg PRN Q4HRS PRN IV ANXIETY / AGITATION; Start 10/09/21 at 20:00 Prochlorperazine Edisylate (Compazine) 10 mg PRN Q6HRS PRN IV NAUSEA/VOMITING, 2nd CHOICE; Start 10/09/21 at 20:00 Diphenhydramine HCl (Benadryl) 25 mg PRN Q6HRS PRN IVP ITCHING Last administered on 10/11/21at 20:23; Start 10/09/21 at 20:00 Diphenhydramine HCl (Benadryl) 25 mg PRN Q6HRS PRN PO ITCHING; Start 10/09/21 at 20:00 Diphenhydramine HCl (Benadryl) 25 mg PRN QHS PRN PO INSOMNIA, 1st CHOICE; Start 10/09/21 at 20:00 Zolpidem Tartrate (Ambien) 2.5 mg PRN QHS PRN PO INSOMNIA, 2nd CHOICE; Start 10/09/21 at 20:00 Magnesium Sulfate 50 ml @ 25 mls/hr 1X ONCE IV Last administered on 10/09/21at 22:43; Start 10/09/21 at 21:00; Stop 10/09/21 at 22:59; Status DC Metoprolol Tartrate (Lopressor Vial) 5 mg PRN Q2HRS PRN IVP TACHYCARDIA; Start 10/09/21 at 21:15 Furosemide (Lasix) 40 mg 1X ONCE IVP Last administered on 10/09/21at 22:41; Start 10/09/21 at 21:30; Stop 10/09/21 at 21:31; Status DC Magnesium Sulfate 50 ml @ 25 mls/hr 1X ONCE IV ; Start 10/09/21 at 21:30; Stop 10/09/21 at 23:48; Status DC Magnesium Sulfate 50 ml @ 25 mls/hr Q24H IV Last administered on 10/12/21at 05:30; Start 10/10/21 at 05:30; Stop 10/12/21 at 07:29; Status DC Perflutren Protein Type A Microsphe (Optison) 0.66 mg 1X ONCE IVP Last admin istered on 10/10/21at 09:41; Start 10/10/21 at 09:00; Stop 10/10/21 at 09:10; Status DC Heparin Sodium/ Dextrose 250 ml @ 10 mls/hr CONT PRN IV PER PROTOCOL Last administered on 10/10/21at 17:13; Start 10/10/21 at 09:45; Stop 10/11/21 at 21:00; Status DC Heparin Sodium (Porcine) (Heparin Sodium) 2,550 unit PRN Q6HRS PRN IV FOR UFH LEVEL LESS THAN 0.2 Last administered on 10/10/21at 15:38; Start 10/10/21 at 09:45; Stop 10/11/21 at 16:10; Status DC Metoprolol Succinate (Toprol Xl) 25 mg DAILY PO Last administered on 10/19/21at 10:48; Start 10/10/21 at 10:00 Metoprolol Succinate (Toprol Xl) 25 mg 1X ONCE PO ; Start 10/10/21 at 09:45; Stop 10/10/21 at 10:00; Status DC Furosemide (Lasix) 40 mg 1X ONCE IVP Last administered on 10/10/21 12:32; Start 10/10/21 at 10:00; Stop 10/10/21 at 10:01; Status DC Furosemide (Lasix) 40 mg DAILY IVP Last administered on 10/12/21 08:27; Start 10/11/21 at 09:00; Stop 10/12/21 at 11:38; Status DC Polyethylene Glycol (miraLAX PACKET) 17 gm DAILY PO Last administered on 08:45; Start 10/11/21 at 09:00 Carbamide Peroxide (Debrox) 5 drop DAILY AU Last administered on 10/19/21 08:56; Start 10/11/21 at 09:00 Tamsulosin HCl (Flomax) 0.4 mg DAILY PO Last administered on 10/19/21 08:48; Start 10/11/21 at 09:00 Lactobacillus Rhamnosus (Culturelle) 1 cap BID PO Last administered on 10/19/21 08:44; Start 10/10/21 at 21:00 Perflutren Protein Type A Microsphe (Optison) 0.66 mg STK-MED ONCE IVP ; Start 10/10/21 at 08:43; Stop 10/10/21 at 15:47; Status DC Digoxin (Lanoxin) 500 mcg 1X ONCE IV Last administered on 10/11/21 12:51; Start 10/11/21 at 12:30; Stop 10/11/21 at 12:31; Status DC Metoprolol Tartrate (Lopressor Vial) 5 mg 1X ONCE IVP Last administered on 10/11/21 13:00; Start 10/11/21 at 12:30; Stop 10/11/21 at 12:31; Status DC Apixaban (Eliquis) 5 mg BID PO Last administered on 10/14/21 09:13; Start 10/11/21 at 21:00; Stop 10/14/21 at 15:33; Status DC Furosemide (Lasix) 20 mg DAILY IVP Last administered on 10/16/21 11:18; Start 10/13/21 at 09:00; Stop 10/16/21 at 11:42; Status DC Potassium Chloride (Klor-Con) 40 meq 1X ONCE PO Last administered on 10/12/21at 12:50; Start 10/12/21 at 12:30; Stop 10/12/21 at 12:31; Status DC Milrinone Lactate/ Dextrose 100 ml @ 3.821 mls/ hr CONT PRN IV SEE I/O RECORD Last administered on 10/17/21at 16:46; Start 10/13/21 at 11:00; Stop 10/18/21 at 10:22; Status DC Heparin Sodium/ Sodium Chloride (HEPARIN for ARTERIAL LINE FLUSH) 1,000 unit 1X ONCE IART Last administered on 10/15/21at 15:08; Start 10/15/21 at 15:15; Stop 10/15/21 at 15:16; Status DC Midazolam HCl (Versed) 2 mg 1X ONCE IV Last administered on 10/15/21at 14:45; Start 10/15/21 at 15:15; Stop 10/15/21 at 15:16; Status DC Fentanyl Citrate (Fentanyl 2ml Vial) 100 mcg 1X ONCE IV Last administered on 10/15/21at 14:45; Start 10/15/21 at 15:15; Stop 10/15/21 at 15:16; Status DC Iodixanol (Visipaque 320) 100 ml 1X ONCE IART Last administered on 10/15/21at 15 :13; Start 10/15/21 at 15:15; Stop 10/15/21 at 15:16; Status DC Lidocaine HCl (Lidocaine 1% 20ml Vial) 20 ml 1X ONCE INJ Last administered on 10/15/21at 14:46; Start 10/15/21 at 15:15; Stop 10/15/21 at 15:16; Status DC Info (CONTRAST GIVEN -- Rx MONITORING) 1 each PRN DAILY PRN MC SEE COMMENTS; Start 10/15/21 at 15:15; Stop 10/17/21 at 15:14; Status DC Sodium Chloride 1,000 ml @ 60 mls/hr [id number] IV ; Start 10/15/21 at 15:45; Stop 10/16/21 at 11:47; Status DC Furosemide (Lasix) 40 mg [id number] IVP Last administered on 10/17/21at 14:17; Start 10/16/21 at 14:00; Stop 10/18/21 at 09:37; Status DC Potassium Chloride (Klor-Con) 10 meq [id number] PO Last administered on 10/19/21at 08:45; Start 10/16/21 at 14:00 Apixaban (Eliquis) 5 mg BID PO Last administered on 10/19/21at 08:48; Start 10/16/21 at 12:00 Atorvastatin Calcium (Lipitor) 40 mg QHS PO Last administered on 10/18/21at 21:39; Start 10/16/21 at 21:00 Aspirin (Ecotrin) 81 mg [id number] PO Last administered on 10/19/21at 08:48; Start 10/17/21 at 08:00 Magnesium Oxide (Magnesium Oxide) 400 mg BID PO Last administered on 10/18/21 21:38; Start 10/17/21 at 05:00; Stop 10/18/21 at 21:01; Status DC Iodixanol (Visipaque 320) 100 ml STK-MED ONCE .ROUTE ; Start 10/15/21 at 13:46; Stop 10/17/21 at 09:26; Status DC Lidocaine HCl (Lidocaine 1% 20ml Vial) 20 ml STK-MED ONCE .ROUTE ; Start 10/15/21 at 13:46; Stop 10/17/21 at 09:26; Status DC Heparin Sodium/ Sodium Chloride 500 ml @ As Directed STK-MED ONCE .ROUTE ; Start 10/15/21 at 13:46; Stop 10/17/21 at 09:26; Status DC Fentanyl Citrate (Fentanyl 2ml Vial) 100 mcg STK-MED ONCE .ROUTE ; Start 10/15/21 at 14:31; Stop 10/17/21 at 09:27; Status DC Midazolam HCl (Versed) 2 mg STK-MED ONCE .ROUTE ; Start 10/15/21 at 14:31; Stop 10/17/21 at 09:27; Status DC Magnesium Sulfate 50 ml @ 25 mls/hr 1X ONCE IV Last administered on 10/18/21at 10:53; Start 10/18/21 at 10:00; Stop 10/18/21 at 11:59; Status DC Furosemide (Lasix) 40 mg DAILY IVP ; Start 10/19/21 at 09:00; Stop 10/18/21 at 10:06; Status DC Furosemide (Lasix) 40 mg DAILY IVP Last administered on 10/18/21at 10:54; Start 10/18/21 at 10:30 Sacubitril/ Valsartan (Entresto 24 Mg-26 Mg) 1 tab BID PO Last administered on 10/19/21at 10:48; Start 10/18/21 at 21:00 Active Scripts Active Reported Flomax (Tamsulosin Hcl) 0.4 Mg Cap.er.24h 0.4 Mg PO DAILY Vitals/I & O Vital Sign - Last 24 Hours 10/18/21 10/18/21 10/18/21 10/18/21 13:23 15:00 19:24 20:40 Temp 97.6 97.8 97.6 97.8 Pulse 85 98 Resp 18 18 B/P (MAP) 137/76 (96) 137/76 (96) 116/81 (93) Pulse Ox 91 92 O2 Delivery Nasal Cannula Nasal Cannula Nasal Cannula O2 Flow Rate 1.0 1.0 10/18/21 10/18/21 10/19/21 10/19/21 21:38 22:40 02:42 07:00 Temp 97.2 97.2 97.7 97.2 97.2 97.7 Pulse 98 89 70 75 Resp 18 16 18 B/P (MAP) 116/81 85/53 (64) 134/74 (94) 83/62 (69) Pulse Ox 95 98 94 O2 Delivery Nasal Cannula Nasal Cannula Nasal Cannula O2 Flow Rate 1.0 1.0 1.0 10/19/21 10/19/21 10/19/21 10/19/21 08:00 08:57 10:37 10:48 Temp 97.7 97.7 Pulse 77 77 Resp 17 B/P (MAP) 82/47 (59) 107/63 (78) 107/63 Pulse Ox 97 O2 Delivery Nasal Cannula Nasal Cannula O2 Flow Rate 1.0 1.0 10/19/21 10/19/21 10:48 12:43 Pulse 77 B/P (MAP) 107/63 82/55 (64) Intake and Output 10/18/21 10/18/21 10/19/21 15:00 23:00 07:00 Intake Total 600 ml 540 ml 0 ml Output Total 2350 ml 250 ml Balance 600 ml -1810 ml -250 ml Justifications for Admission Other Justification Afib RVR CARLTON RAHMAN MD October 19, 2021 13:09
[2021-10-19] MEDS: ATORVASTATIN CALCIUM 40 MG TABLET. PO SCH (20:23)
--- NOTE | 2021-10-19 23:01 | NUR ---
PT BP 71/56, RECHECK 70/52, DR RAHMAN NOTIFIED, NEW ORDERS TO GIVE 200CC NS BOLUS, THE N START NS AT 70CC/HR, WILL EVALUATE IN AM. WILL CONT TO MONITOR PT STATUS AND SAFETY PMRN
--- NOTE | 2021-10-19 23:01 | NUR ---
ADDENDUM: PT ASYMPTOMATIC WITH LOW BP WILL MONITOR. PMRN
[2021-10-19] MEDS ORDERED: IV NORMAL SALINE 500ML BAG 200 ML IV ONE (23:15)
[2021-10-20] VITALS (12 sets, daily range): BP systolic 67–106; BP diastolic 54–81
[2021-10-20] MEDS: IV NORMAL SALINE 1000ML BAG 1,000 ML IV SCH ×2 (00:29→10:27)
--- NOTE | 2021-10-20 06:48 | NUR ---
PT BP CONT IN MID TO HIGH 80'S AWARE, 1 LITER OXYGEN APPLIED D/T PT OXYGEN SATURATION IN LOW 80'S THROUGHOUT NIGHT. WILL CONT TO MONITOR PT STATUS AND SAFETY. PMRN
[2021-10-20] MEDS: METOPROLOL SUCC 24HR ER 25 MG TAB.ER.24H. PO SCH (09:00)
[2021-10-20] MEDS: FUROSEMIDE 40 MG/4 ML VIAL. IVP SCH (09:00)
[2021-10-20] MEDS: CARBAMIDE PEROXIDE 6.5% OTIC SOLUTION 15ML BOTTLE. AU SCH (09:00)
[2021-10-20] MEDS: POLYETHYLENE GLYCOL 3350 17 GM PACKET. PO SCH (09:03)
[2021-10-20] MEDS: LACTOBACILLUS RHAMNOSUS GG 1 CAPSULE. PO SCH ×2 (09:03→20:12)
[2021-10-20] MEDS: TAMSULOSIN 0.4 MG CAP.ER.24H. PO SCH (09:03)
[2021-10-20] MEDS: ASPIRIN ENTERIC COATED 81 MG TABLET.DR. PO SCH (09:04)
[2021-10-20] MEDS: POTASSIUM CHLORIDE 10 MEQ TABLET.ER. PO SCH (09:04)
[2021-10-20] MEDS: APIXABAN 5 MG TABLET. PO SCH ×2 (09:04→20:12)
--- NOTE | 2021-10-20 12:24 | PDOC ---
G I PROGRESS NOTE Subjective No GI complaints. Going home today reportedly. Physical Exam Lungs clear anteriorly. IRRR Abdomen soft. Review of Relevant I have reviewed the following items ganesh (where applicable) has been applied. Labs Laboratory Tests Test 10/19/21 04:00 Sodium Level 138 mmol/L (136-145) Potassium Level 3.8 mmol/L (3.5-5.1) Chloride Level 95 mmol/L (98-107) Carbon Dioxide Level 34 mmol/L (21-32) Anion Gap 9 (6-14) Blood Urea Nitrogen 26 mg/dL (8-26) Creatinine 1.4 mg/dL (0.7-1.3) Estimated GFR (Cockcroft-Gault) 49.4 Glucose Level 112 mg/dL (70-99) Calcium Level 8.8 mg/dL (8.5-10.1) Microbiology 10/11/21 Gram Stain - Final, Complete 10/11/21 Aerobic and Anaerobic Culture - Final, Complete Vitals/I & O Vital Sign - Last 24 Hours 10/19/21 10/19/21 10/19/21 10/19/21 12:43 14:07 19:02 19:10 Temp 97.7 97.6 97.7 97.6 Pulse 74 83 Resp 17 20 B/P (MAP) 82/55 (64) 94/65 (75) 94/70 (78) Pulse Ox 96 97 O2 Delivery Nasal Cannula Nasal Cannula Nasal Cannula O2 Flow Rate 1.0 1.0 1.0 10/19/21 10/19/21 10/19/21 10/20/21 20:23 22:53 23:16 01:10 Pulse 87 85 88 B/P (MAP) 68/56 71/56 (61) 70/52 (58) 84/59 (67) Pulse Ox 94 10/20/21 10/20/21 10/20/21 10/20/21 02:58 04:15 07:00 08:00 Temp 97.6 97.6 Pulse 77 77 91 B/P (MAP) 86/61 (69) 106/81 (89) Pulse Ox 94 92 O2 Delivery Nasal Cannula O2 Flow Rate 1.0 1.0 1.0 10/20/21 10:49 Temp 97.1 97.1 Pulse 82 B/P (MAP) 80/60 (67) Pulse Ox 93 O2 Flow Rate 1.0 Intake and Output 10/19/21 10/19/21 10/20/21 15:00 23:00 07:00 Intake Total 300 ml 400 ml 750 ml Output Total 675 ml 200 ml 1100 ml Balance -375 ml 200 ml -350 ml Problem List Problems Medical Problems: (1) Atrial fibrillation with rapid ventricular response Status: Acute Assessment Heme positive stool. Anemia of chronic disease. Plan of Care Note OK to dismiss from GI standpoint. Has card to call re: setting up colonoscopy once cardiac issues stable. Justicifation of Admission Dx: Justifications for Admission: Justification of Admission Dx: Yes DERRICK FLEMING MD October 20, 2021 12:24
--- NOTE | 2021-10-20 13:08 | PDOC ---
[facility] PROGRESS NOTE Date of Service DOS: DATE: 10/20/21 TIME: 13:04 Chief Complaint Chief Complaint A. fib RVR Large left pleural effusion MIGUEL due to vasomotor nephropathy, unknown baseline Elevated BNP suggestive of acute volume overload versus chronic hypoxia no history of COPD but chronic tobacco smoker Thrombocytopenia Hemoccult stool positive History of tobacco and alcohol misuse Obesity class I History of Present Illness History of Present Illness 10/20: Patient seen and evaluated. Some significant hypotension today, BP 80/60 mmHg. Rate controlled A. fib with occasional PVCs on telemetry. He denies chest pain or dizziness, but he is resting comfortably in bed. Will decrease Entresto to daily and continue to monitor blood pressure overnight. Still breathing on 1 L nasal cannula. Had 6-minute walk today and requires 1 L at rest and 3 L with exertion. 10/19: Patient seen resting comfortably at bedside. He is currently requiring low-dose oxygen, 1 L nasal cannula. He is to have LifeVest placed today, will likely discharge home tomorrow with home health. He remains inpatient for further monitoring of his blood pressure respiration, with hopes to wean oxygen altogether. 10/18: Afebrile, breathing on room air. Blood pressure marginal. Off milrinone gtt. work with PT/OT. Monitor blood pressure overnight and will discharge tomorrow home with home health. 10/17: Afebrile. Patient currently breathing on 1 L nasal cannula. His Lasix has been increased to 40 twice daily and he continues on milrinone gtt. Will have patient work with PT/OT. Recommend elevation of his legs to help offload fluid, "toes above nose". 10/16: Patient evaluated bedside. Denies chest pain. Left heart cath yesterday showed two-vessel coronary artery disease, and elevated right and left-sided filling pressures consistent with acute on chronic systolic heart failure. He was recommended optimization of medical therapy for acute on chronic systolic heart failure. Continue milrinone gtt and Lasix. 10/15: Patient seen and evaluated. He denies chest pain. Breathing comfortably on 2 L. He is scheduled for heart cath today at 1 PM. 10/14: Patient notes some improvement in his bilateral leg swelling. Denies any shortness of breath. Remains on milrinone gtt and IV Lasix. Cardiology has plan for heart cath tomorrow. 10/13: Afebrile, breathing on room air. Had left thoracentesis yesterday with 1.3 L off. Pleural fluid analysis pending. Lasix decreased to 20 IV daily due to soft blood pressure. We will continue diuresis as blood pressure allows. Kidney function still hovering around CKD 3a/3b. On milrinone gtt. Cardiology to consider left heart cath tomorrow. States he had a bowel movement today finally. He is on Eliquis for new diagnosis of A. fib. 10/12: Patient resting comfortably in bed, afebrile. Patient had successful ultrasound guided thoracentesis yesterday with removal of 1.3 liters of fluid. Heparin gtt has been stopped, initiated on Eliquis. Per cardiology, will add Aldactone and Entresto when blood pressure more adequate. Plans for outpatient left heart cath. Hemoglobin A1c 5.7, will stop blood checks. On CIWA protocol, has not required any IV Ativan. Hemoccult positive, GI is following. Will continue to follow cardiology and pulmonology recommendations. 10/11: Afebrile. CRP 23.7, procalcitonin 0.10. Will discontinue antibiotics. He is having a thoracentesis today. Lasix held this morning due to some hypotension. His echocardiogram showed EF 20-25%. Cardiology following. He was initiated on heart failure medications prior to discharge. 10/10: Patient seen and evaluated with at bedside. He denies any shortness of breath at rest or laying on his back, but does admit to some dyspnea on exertion. Answered and 's questions to the best of my abilities. Echocardiogram pending, and nurse initiating heparin drip. Will order abdominal ultrasound to evaluate likely cirrhosis. Will order CRP to rule out any pneumonia; if not elevated will discontinue empiric antibiotics. For his likely history of BPH we will initiate Flomax daily. Patient also concerned about bilateral earwax impaction. Will schedule daily Debrox in hopes that impacted earwax will express its way out. Discussed with RN. Vitals/I&O Vitals/I&O: Vital Signs Date Time Temp Pulse Resp B/P (MAP) Pulse Ox O2 Delivery O2 Flow Rate FiO2 10/20/21 10:49 97.1 82 80/60 (67) 93 1.0 97.1 10/20/21 08:00 Nasal Cannula 10/19/21 19:10 20 I & O 10/19/21 10/19/21 10/20/21 15:00 23:00 07:00 Intake Total 300 ml 400 ml 750 ml Output Total 675 ml 200 ml 1100 ml Balance -375 ml 200 ml -350 ml Physical Exam General: Alert, No acute distress Heart: Regular rate Lungs: Clear Abdomen: Normal bowel sounds Extremities: No cyanosis, Other (4+ bilateral LA pitting edema) Skin: No breakdown Assessment and Plan Assessmemt and Plan Problems Medical Problems: (1) Atrial fibrillation with rapid ventricular response Status: Acute Comment Review of Relevant I have reviewed the following items ganesh (where applicable) has been applied. Medications: Current Medications Medications (Trade) Dose Ordered Sig/Alicja Route PRN Reason Start Time Stop Time Status Last Admin Dose Admin Sodium Chloride 200 ml @ 200 mls/hr 1X ONCE IV 10/19/21 23:15 10/20/21 00:14 DC 10/19/21 23:15 Sodium Chloride 1,000 ml @ 70 mls/hr [id number] IV 10/20/21 00:15 10/20/21 12:03 DC 10/20/21 10:27 Justifications for Admission Other Justification Afib RVERON SCHULTZ MD October 20, 2021 13:08
--- NOTE | 2021-10-20 13:57 | PDOC ---
PROGRESS NOTES Date of Service DATE: 10/20/21 TIME: 13:55 Subjective Subjective Patient seen and examined Objective Objective Vital Signs Date Time Temp Pulse Resp B/P (MAP) Pulse Ox O2 Delivery O2 Flow Rate FiO2 10/20/21 10:49 97.1 82 80/60 (67) 93 1.0 97.1 10/20/21 08:00 Nasal Cannula 10/19/21 19:10 20 Intake and Output 10/20/21 07:00 Intake Total 1450 ml Output Total 1975 ml Balance -525 ml Intake Oral 940 ml IV Total 510 ml Output Urine Total 1975 ml # Bowel Movements 1 Physical Exam Abdomen: Normal bowel sounds Heart: Other (Irregular irregular) General: No acute distress Lungs: Other (Mildly decreased breath sounds) Assessment Assessment Problems Medical Problems: (1) Atrial fibrillation with rapid ventricular response Status: Acute AFIB RVR: rate controlled. Continue present treatment. Severe cardiomyopathy: Suspec combined NICM/ICM. Limited echo with LVEF 20-25%. LifeVest placed yesterday. Episodes of significant hypotension overnight. IV fluids given and medications decreased. We will continue to monitor. Off milrinone for 3 days. Acute on chronic HFrEF: better compnesated Left pleural effusion: s/p thoracentesis with 1.3L off. Has felt better since that time. CAD; LHC with two vessel with heavily calcified, long stenosis involving the LAD and OM/LCx MIGUEL; Cr improved ETOH misuse Tobacco abuse with likely COPD Comment Review of Relevant I have reviewed the following items ganesh (where applicable) has been applied. Labs Laboratory Tests Test 10/19/21 04:00 Sodium Level 138 mmol/L (136-145) Potassium Level 3.8 mmol/L (3.5-5.1) Chloride Level 95 mmol/L (98-107) Carbon Dioxide Level 34 mmol/L (21-32) Anion Gap 9 (6-14) Blood Urea Nitrogen 26 mg/dL (8-26) Creatinine 1.4 mg/dL (0.7-1.3) Estimated GFR (Cockcroft-Gault) 49.4 Glucose Level 112 mg/dL (70-99) Calcium Level 8.8 mg/dL (8.5-10.1) Microbiology 10/11/21 Gram Stain - Final, Complete 10/11/21 Aerobic and Anaerobic Culture - Final, Complete Medications Current Medications Diltiazem HCl (Cardizem Iv Push) 10 mg 1X ONCE IVP Last administered on 10/09/21at 17:02; Start 10/09/21 at 16:30; Stop 10/09/21 at 16:31; Status DC Ceftriaxone Sodium (Rocephin) 1 gm 1X ONCE IVP Last administered on 10/09/21at 18:28; Start 10/09/21 at 18:00; Stop 10/09/21 at 18:01; Status DC Ondansetron HCl (Zofran) 4 mg PRN Q8HRS PRN IVP NAUSEA/VOMITING; Start 10/09/21 at 18:00; Stop 10/10/21 at 17:59; Status DC Iohexol (Omnipaque 300 Mg/ml) 60 ml 1X ONCE IV Last administered on 10/09/21at 19:29; Start 10/09/21 at 19:00; Stop 10/09/21 at 19:01; Status DC Info (CONTRAST GIVEN -- Rx MONITORING) 1 each PRN DAILY PRN MC SEE COMMENTS; Start 10/09/21 at 19:00; Stop 10/11/21 at 18:59; Status DC Doxycycline Hyclate (Vibra-Tab) 100 mg BID PO Last administered on 10/11/21at 09:40; Start 10/09/21 at 21:00; Stop 10/11/21 at 14:15; Status DC Ceftriaxone Sodium (Rocephin) 1 gm Q24H IVP Last administered on 10/10/21at 22:20; Start 10/10/21 at 21:00; Stop 10/11/21 at 14:15; Status DC Sennosides (Senna) 17.2 mg PRN BID PRN PO CONSTIPATION; Start 10/09/21 at 20:00 Docusate Sodium (Colace) 100 mg PRN DAILY PRN PO HARD STOOLS; Start 10/09/21 at 20:00 Ondansetron HCl (Zofran) 4 mg PRN Q6HRS PRN IVP NAUSEA/VOMITING, 1st CHOICE; Start 10/09/21 at 20:00 Dextrose (Dextrose 50%-Water Syringe) 12.5 gm PRN Q15MIN PRN IV SEE COMMENTS; Start 10/09/21 at 20:00 Acetaminophen (Tylenol) 650 mg PRN Q4HRS PRN PO TEMP OVER 100.4F OR MILD PAIN; Start 10/09/21 at 20:00 Lorazepam (Ativan) 0.5 mg PRN Q6HRS PRN PO ANXIETY / AGITATION; Start 10/09/21 at 20:00 Lorazepam (Ativan Inj) 0.25 mg PRN Q4HRS PRN IV ANXIETY / AGITATION; Start 10/09/21 at 20:00 Prochlorperazine Edisylate (Compazine) 10 mg PRN Q6HRS PRN IV NAUSEA/VOMITING, 2nd CHOICE; Start 10/09/21 at 20:00 Diphenhydramine HCl (Benadryl) 25 mg PRN Q6HRS PRN IVP ITCHING Last administered on 10/11/21at 20:23; Start 10/09/21 at 20:00 Diphenhydramine HCl (Benadryl) 25 mg PRN Q6HRS PRN PO ITCHING; Start 10/09/21 at 20:00 Diphenhydramine HCl (Benadryl) 25 mg PRN QHS PRN PO INSOMNIA, 1st CHOICE; Start 10/09/21 at 20:00 Zolpidem Tartrate (Ambien) 2.5 mg PRN QHS PRN PO INSOMNIA, 2nd CHOICE; Start 10/09/21 at 20:00 Magnesium Sulfate 50 ml @ 25 mls/hr 1X ONCE IV Last administered on 10/09/21at 22:43; Start 10/09/21 at 21:00; Stop 10/09/21 at 22:59; Status DC Metoprolol Tartrate (Lopressor Vial) 5 mg PRN Q2HRS PRN IVP TACHYCARDIA; Start 10/09/21 at 21:15 Furosemide (Lasix) 40 mg 1X ONCE IVP Last administered on 10/09/21at 22:41; Start 10/09/21 at 21:30; Stop 10/09/21 at 21:31; Status DC Magnesium Sulfate 50 ml @ 25 mls/hr 1X ONCE IV ; Start 10/09/21 at 21:30; Stop 10/09/21 at 23:48; Status DC Magnesium Sulfate 50 ml @ 25 mls/hr Q24H IV Last administered on 10/12/21at 05:30; Start 10/10/21 at 05:30; Stop 10/12/21 at 07:29; Status DC Perflutren Protein Type A Microsphe (Optison) 0.66 mg 1X ONCE IVP Last administered on 10/10/21at 09:41; Start 10/10/21 at 09:00; Stop 10/10/21 at 09:10; Status DC Heparin Sodium/ Dextrose 250 ml @ 10 mls/hr CONT PRN IV PER PROTOCOL Last administered on 10/10/21at 17:13; Start 10/10/21 at 09:45; Stop 10/11/21 at 21:00; Status DC Heparin Sodium (Porcine) (Heparin Sodium) 2,550 unit PRN Q6HRS PRN IV FOR UFH LEVEL LESS THAN 0.2 Last administered on 10/10/21at 15:38; Start 10/10/21 at 09:45; Stop 10/11/21 at 16:10; Status DC Metoprolol Succinate (Toprol Xl) 25 mg DAILY PO Last administered on 10/19/21at 10:48; Start 10/10/21 at 10:00 Metoprolol Succinate (Toprol Xl) 25 mg 1X ONCE PO ; Start 10/10/21 at 09:45; Stop 10/10/21 at 10:00; Status DC Furosemide (Lasix) 40 mg 1X ONCE IVP Last administered on 10/10/21at 12:32; Start 10/10/21 at 10:00; Stop 10/10/21 at 10:01; Status DC Furosemide (Lasix) 40 mg DAILY IVP Last administered on 10/12/21at 08:27; Start 10/11/21 at 09:00; Stop 10/12/21 at 11:38; Status DC Polyethylene Glycol (miraLAX PACKET) 17 gm DAILY PO Last administered on 10/20/21 09:03; Start 10/11/21 at 09:00 Carbamide Peroxide (Debrox) 5 drop DAILY AU Last administered on 10/19/21at 08:56; Start 10/11/21 at 09:00 Tamsulosin HCl (Flomax) 0.4 mg DAILY PO Last administered on 10/20/21 09:03; Start 10/11/21 at 09:00 Lactobacillus Rhamnosus (Culturelle) 1 cap BID PO Last administered on 10/20/21 09:03; Start 10/10/21 at 21:00 Perflutren Protein Type A Microsphe (Optison) 0.66 mg STK-MED ONCE IVP ; Start 10/10/21 at 08:43; Stop 10/10/21 at 15:47; Status DC Digoxin (Lanoxin) 500 mcg 1X ONCE IV Last administered on 10/11/21at 12:51; Start 10/11/21 at 12:30; Stop 10/11/21 at 12:31; Status DC Metoprolol Tartrate (Lopressor Vial) 5 mg 1X ONCE IVP Last administered on 10/11/21at 13:00; Start 10/11/21 at 12:30; Stop 10/11/21 at 12:31; Status DC Apixaban (Eliquis) 5 mg BID PO Last administered on 10/14/21at 09:13; Start 10/11/21 at 21:00; Stop 10/14/21 at 15:33; Status DC Furosemide (Lasix) 20 mg DAILY IVP Last administered on 10/16/21at 11:18; Start 10/13/21 at 09:00; Stop 10/16/21 at 11:42; Status DC Potassium Chloride (Klor-Con) 40 meq 1X ONCE PO Last administered on 10/12/21at 12:50; Start 10/12/21 at 12:30; Stop 10/12/21 at 12:31; Status DC Milrinone Lactate/ Dextrose 100 ml @ 3.821 mls/ hr CONT PRN IV SEE I/O RECORD Last administered on 10/17/21at 16:46; Start 10/13/21 at 11:00; Stop 10/18/21 at 10:22; Status DC Heparin Sodium/ Sodium Chloride (HEPARIN for ARTERIAL LINE FLUSH) 1,000 unit 1X ONCE IART Last administered on 10/15/21 15:08; Start 10/15/21 at 15:15; Stop 10/15/21 at 15:16; Status DC Midazolam HCl (Versed) 2 mg 1X ONCE IV Last administered on 10/15/21 14:45; Start 10/15/21 at 15:15; Stop 10/15/21 at 15:16; Status DC Fentanyl Citrate (Fentanyl 2ml Vial) 100 mcg 1X ONCE IV Last administered on 10/15/21at 14:45; Start 10/15/21 at 15:15; Stop 10/15/21 at 15:16; Status DC Iodixanol (Visipaque 320) 100 ml 1X ONCE IART Last administered on 10/15/21at 15:13; Start 10/15/21 at 15:15; Stop 10/15/21 at 15:16; Status DC Lidocaine HCl (Lidocaine 1% 20ml Vial) 20 ml 1X ONCE INJ Last administered on 10/15/21at 14:46; Start 10/15/21 at 15:15; Stop 10/15/21 at 15:16; Status DC Info (CONTRAST GIVEN -- Rx MONITORING) 1 each PRN DAILY PRN MC SEE COMMENTS; Start 10/15/21 at 15:15; Stop 10/17/21 at 15:14; Status DC Sodium Chloride 1,000 ml @ 60 mls/hr [id number] IV ; Start 10/15/21 at 15:45; Stop 10/16/21 at 11:47; Status DC Furosemide (Lasix) 40 mg [id number] IVP Last administered on 10/17/21at 14:17; Start 10/16/21 at 14:00; Stop 10/18/21 at 09:37; Status DC Potassium Chloride (Klor-Con) 10 meq [id number] PO Last administered on 10/20/21at 09:04; Start 10/16/21 at 14:00 Apixaban (Eliquis) 5 mg BID PO Last administered on 10/20/21at 09:04; Start 10/16/21 at 12:00 Atorvastatin Calcium (Lipitor) 40 mg QHS PO Last administered on 10/19/21at 20:23; Start 10/16/21 at 21:00 Aspirin (Ecotrin) 81 mg DAILYWBKFT PO Last administered on 10/20/21at 09:04; Start 10/17/21 at 08:00 Magnesium Oxide (Magnesium Oxide) 400 mg BID PO Last administered on 10/18/21at 21:38; Start 10/17/21 at 05:00; Stop 10/18/21 at 21:01; Status DC Iodixanol (Visipaque 320) 100 ml STK-MED ONCE .ROUTE ; Start 10/15/21 at 13:46; Stop 10/17/21 at 09:26; Status DC Lidocaine HCl (Lidocaine 1% 20ml Vial) 20 ml STK-MED ONCE .ROUTE ; Start 10/15/21 at 13:46; Stop 10/17/21 at 09:26; Status DC Heparin Sodium/ Sodium Chloride 500 ml @ As Directed STK-MED ONCE .ROUTE ; Start 10/15/21 at 13:46; Stop 10/17/21 at 09:26; Status DC Fentanyl Citrate (Fentanyl 2ml Vial) 100 mcg STK-MED ONCE .ROUTE ; Start 10/15/21 at 14:31; Stop 10/17/21 at 09:27; Status DC Midazolam HCl (Versed) 2 mg STK-MED ONCE .ROUTE ; Start 10/15/21 at 14:31; Stop 10/17/21 at 09:27; Status DC Magnesium Sulfate 50 ml @ 25 mls/hr 1X ONCE IV Last administered on 10/18/21at 10:53; Start 10/18/21 at 10:00; Stop 10/18/21 at 11:59; Status DC Furosemide (Lasix) 40 mg DAILY IVP ; Start 10/19/21 at 09:00; Stop 10/18/21 at 10:06; Status DC Furosemide (Lasix) 40 mg DAILY IVP Last administered on 10/18/21at 10:54; Start 10/18/21 at 10:30 Sacubitril/ Valsartan (Entresto 24 Mg-26 Mg) 1 tab BID PO Last administered on 10/19/21at 10:48; Start 10/18/21 at 21:00; Stop 10/20/21 at 13:09; Status DC Sodium Chloride 200 ml @ 200 mls/hr 1X ONCE IV Last administered on 10/19/21at 23:15; Start 10/19/21 at 23:15; Stop 10/20/21 at 00:14; Status DC Sodium Chloride 1,000 ml @ 70 mls/hr [id number] IV Last administered on 10/20/21at 10:27; Start 10/20/21 at 00:15; Stop 10/20/21 at 12:03; Status DC Sacubitril/ Valsartan (Entresto 24 Mg-26 Mg) 1 tab DAILY PO ; Start 10/21/21 at 09:00 Active Scripts Active Reported Flomax (Tamsulosin Hcl) 0.4 Mg Cap.er.24h 0.4 Mg PO DAILY Vitals/I & O Vital Sign - Last 24 Hours 10/19/21 10/19/21 10/19/21 10/19/21 14:07 19:02 19:10 20:23 Temp 97.7 97.6 97.7 97.6 Pulse 74 83 87 Resp 17 20 B/P (MAP) 94/65 (75) 94/70 (78) 68/56 Pulse Ox 96 97 O2 Delivery Nasal Cannula Nasal Cannula Nasal Cannula O2 Flow Rate 1.0 1.0 1.0 10/19/21 10/19/21 10/20/21 10/20/21 22:53 23:16 01:10 02:58 Pulse 85 88 77 B/P (MAP) 71/56 (61) 70/52 (58) 84/59 (67) Pulse Ox 94 10/20/21 10/20/21 10/20/21 10/20/21 04:15 07:00 08:00 10:49 Temp 97.6 97.1 97.6 97.1 Pulse 77 91 82 B/P (MAP) 86/61 (69) 106/81 (89) 80/60 (67) Pulse Ox 94 92 93 O2 Delivery Nasal Cannula O2 Flow Rate 1.0 1.0 1.0 1.0 Intake and Output 10/19/21 10/19/21 10/20/21 15:00 23:00 07:00 Intake Total 300 ml 400 ml 750 ml Output Total 675 ml 200 ml 1100 ml Balance -375 ml 200 ml -350 ml Justifications for Admission Other Justification Afib RVR CARLTON RAHMAN MD October 20, 2021 13:57
[2021-10-20] MEDS ORDERED: ALBUMIN HUMAN 5% 250 ML IV ONE (16:00)
[2021-10-20] MEDS ORDERED: ALBUMIN HUMAN 5% 250 ML IV PRN (16:00)
--- NOTE | 2021-10-20 16:45 | NUR ---
Patient continues to be hypotensive. Dr. Peña notified. Albumin ordered & currently infusing. Last BP at 1600 79/63. Will continue to monitor.
[2021-10-20] MEDS: ATORVASTATIN CALCIUM 40 MG TABLET. PO SCH (20:12)
[2021-10-20] MEDS ORDERED: IV NORMAL SALINE 500ML BAG 200 ML IV ONE (21:30)
[2021-10-21] VITALS (8 sets, daily range): BP systolic 65–106; BP diastolic 48–77
[2021-10-21 05:40] LABS: CALCIUM 8.7 mg/dL (8.5-10.1); CREATININE 1.2 mg/dL (0.7-1.3); POTASSIUM 4.3 mmol/L (3.5-5.1)
[2021-10-21] MEDS: METOPROLOL SUCC 24HR ER 25 MG TAB.ER.24H. PO SCH (08:50)
[2021-10-21] MEDS: TAMSULOSIN 0.4 MG CAP.ER.24H. PO SCH (08:50)
[2021-10-21] MEDS: LACTOBACILLUS RHAMNOSUS GG 1 CAPSULE. PO SCH ×2 (08:50→20:22)
[2021-10-21] MEDS: POTASSIUM CHLORIDE 10 MEQ TABLET.ER. PO SCH (08:50)
[2021-10-21] MEDS: APIXABAN 5 MG TABLET. PO SCH ×2 (08:50→20:22)
[2021-10-21] MEDS: ASPIRIN ENTERIC COATED 81 MG TABLET.DR. PO SCH (08:50)
[2021-10-21] MEDS: POLYETHYLENE GLYCOL 3350 17 GM PACKET. PO SCH (08:51)
[2021-10-21] MEDS: FUROSEMIDE 40 MG/4 ML VIAL. IVP SCH (08:51)
[2021-10-21] MEDS: CARBAMIDE PEROXIDE 6.5% OTIC SOLUTION 15ML BOTTLE. AU SCH (08:57)
[2021-10-21] MEDS ORDERED: SACUBITRIL/VALSARTAN 24/26MG TABLET. PO SCH (09:00)
--- NOTE | 2021-10-21 09:44 | PDOC ---
Date of Service: DATE: 10/21/21 TIME: 09:39 Subjective: Subjective: No GI complaints. Wants to go home. Objective: Vital Signs: Vital Signs Date Time Temp Pulse Resp B/P (MAP) Pulse Ox O2 Delivery O2 Flow Rate FiO2 10/21/21 08:50 75 106/77 10/21/21 07:00 97.5 18 93 Nasal Cannula 1.0 97.5 Labs: Laboratory Tests Test 10/21/21 04:20 Sodium Level 138 mmol/L Potassium Level 4.3 mmol/L Chloride Level 100 mmol/L Carbon Dioxide Level 31 mmol/L Anion Gap 7 Blood Urea Nitrogen 23 mg/dL Creatinine 1.2 mg/dL Estimated GFR (Cockcroft-Gault) 59.0 Glucose Level 88 mg/dL Calcium Level 8.7 mg/dL GRAM STAIN-AER DOMINIQUE Final PMNS (WBCS): RARE SQUAMOUS EPI CELL: NOT APPLICABLE NO ORGANISMS SEEN . CULTURE ANAEROBIC/AEROBIC Final NO GROWTH ON 10/13/21 at 0913 NO GROWTH ON 10/14/21 at 0951 NO GROWTH ON 10/17/21 at 0843 Testing performed by [address] [address] director of vocational training: Tia Goodman MD Source: LEFT PLEURAL DIAGNOSIS: LEFT PLEURAL NEGATIVE FOR MALIGNANT CELLS. FEW REACTIVE MESOTHELIAL CELLS PRESENT. THIS EVALUATION INCLUDES EXAMINATION OF A CELL BLOCK. Imaging: Cardiac Cath Conclusion 1. Two-vessel coronary artery disease, heavily calcified and long stenosis involving the left anterior descending and OM/LCx as described above 2. Elevated right and left-sided filling pressures consistent with acute on chronic systolic heart failure 3. No evidence of intracardiac shunt Recommendations Optimization of medical therapy for acute on chronic systolic heart failure. Due to heavy calcified stenoses, we will consider orbital atherectomy/PCI/stent placement to LAD and OM/LCx as an outpatient once better compensated. Cardiovascular is factor modification. PE: GEN: NAD - sitting on edge of bed with breakfast tray, nurse present for meds LUNGS: diminished, room air HEART: RR ABD: S/ND/NT NEURO/PSYCH: A & O 3 A/P: Hypotension, A Fib, CHF, cardiomyopathy, CAD Peural effusion s/p thoracentesis ACD, thrombocytopenia +hemoccult (as outpt) - no previous 'scopes Hepatic steatosis, alcohol history -- Stable GI-weaver. Outpt scopes when feasible. Justicifation of Admission Dx: Justifications for Admission: Justification of Admission Dx: Yes MICHAEL SPEAR October 21, 2021 09:44
--- NOTE | 2021-10-21 11:05 | PDOC ---
PULMONARY PROGRESS NOTES DATE: 10/21/21 TIME: 11:04 Subjective Patient denies any shortness of breath at rest. status post left thoracentesis with 1.3 L of fluid removed on 10/11 Vitals Vital Signs Date Time Temp Pulse Resp B/P (MAP) Pulse Ox O2 Delivery O2 Flow Rate FiO2 10/21/21 10:52 96.5 90 18 100/61 (74) 91 Nasal Cannula 1.0 96.5 ROS: No Nausea, No Chest Pain, No Abdominal Pain, No Increase Cough General: Alert, No acute distress Lungs: Clear Cardiovascular: S1 Abdomen: Soft Neuro Exam: Alert Extremities: Other (1+ edema.) Skin: Warm Labs Laboratory Tests Test 10/21/21 04:20 Sodium Level 138 mmol/L (136-145) Potassium Level 4.3 mmol/L (3.5-5.1) Chloride Level 100 mmol/L (98-107) Carbon Dioxide Level 31 mmol/L (21-32) Anion Gap 7 (6-14) Blood Urea Nitrogen 23 mg/dL (8-26) Creatinine 1.2 mg/dL (0.7-1.3) Estimated GFR (Cockcroft-Gault) 59.0 Glucose Level 88 mg/dL (70-99) Calcium Level 8.7 mg/dL (8.5-10.1) Laboratory Tests Test 10/21/21 04:20 Sodium Level 138 mmol/L (136-145) Potassium Level 4.3 mmol/L (3.5-5.1) Chloride Level 100 mmol/L (98-107) Carbon Dioxide Level 31 mmol/L (21-32) Anion Gap 7 (6-14) Blood Urea Nitrogen 23 mg/dL (8-26) Creatinine 1.2 mg/dL (0.7-1.3) Estimated GFR (Cockcroft-Gault) 59.0 Glucose Level 88 mg/dL (70-99) Calcium Level 8.7 mg/dL (8.5-10.1) Medications Active Scripts Medications Dose Route/Sig Max Daily Dose Days Date Category Flomax (Tamsulosin Hcl) 0.4 Mg Cap.er.24h 0.4 Mg PO DAILY 01/04/20 Reported Impression . 1. Acute respiratory failure multifactorial secondary to heart failure, COPD 2. Atrial fibrillation with rapid ventricular response. 3. Abnormal CT abdomen and pelvis with mild to moderate left pleural effusion. Transudative. Status post thoracentesis. 4. Mild acute kidney injury. 5. Likely alcoholic liver disease. 6. Hypomagnesemia. 7. Cardiomyopathy with an EF of 20 to 25% and secondary pulmonary hypertension. 8. Coronary artery disease 9. COPD Conclusion 1. Two-vessel coronary artery disease, heavily calcified and long stenosis involving the left anterior descending and OM/LCx as described above 2. Elevated right and left-sided filling pressures consistent with acute on chronic systolic heart failure 3. No evidence of intracardiac shunt Recommendations Optimization of medical therapy for acute on chronic systolic heart failure. Due to heavy calcified stenoses, we will consider orbital atherectomy/PCI/stent placement to LAD and OM/LCx as an outpatient once better compensated. Cardiovascular is factor modification. Source: LEFT PLEURAL DIAGNOSIS: 02 LEFT PLEURAL NEGATIVE FOR MALIGNANT CELLS. FEW REACTIVE MESOTHELIAL CELLS PRESENT. THIS EVALUATION INCLUDES EXAMINATION OF A CELL BLOCK. Signed out by: 02 Plan . Continue optimization of cardiac function Continues to diurese Pleural fluid related to heart failure Patient had a 6-minute walk test on Thursday. Requires oxygen. Outpatient PFTs Per cardiology, orbital atherectomy/PCI/stent placement to LAD and OM/LCx as an outpatient Okay for discharge from a pulmonary standpoint. GENARO RITTER MD October 21, 2021 11:05
--- NOTE | 2021-10-21 11:18 | PDOC ---
[facility] PROGRESS NOTE Date of Service DOS: DATE: 10/21/21 TIME: 11:14 Chief Complaint Chief Complaint A. 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 LifeVest in place. Off milrinone for 3 days. Acute on chronic combined CHF - off milrinone, still receiving IV lasix CAD - [facility] on 10/14/2021 with two vessel with heavily calcified, long stenosis involving the LAD and OM/LCx ETOH misuse Tobacco abuse with likely COPD Acute respiratory failure with hypoxia - cor pulmonale from CHF, needs 1L/min at rest and 3L/min with exertion FEN - Cardiac diet PPX - Eliquis FULL CODE Dispo - inpatient History of Present Illness History of Present Illness 10/21: Seen on 1 L/min nasal cannula at rest. Systolic blood pressure in the low 100s after holding Entresto for the last day. Still rate controlled atrial fibrillation in the 60s. 10/20: Patient seen and evaluated. Some significant hypotension today, BP 80/60 mmHg. Rate controlled A. fib with occasional PVCs on telemetry. He denies chest pain or dizziness, but he is resting comfortably in bed. Will decrease Entresto to daily and continue to monitor blood pressure overnight. Still breathing on 1 L nasal cannula. Had 6-minute walk today and requires 1 L at rest and 3 L with exertion. 10/19: Patient seen resting comfortably at bedside. He is currently requiring low-dose oxygen, 1 L nasal cannula. He is to have LifeVest placed today, will likely discharge home tomorrow with home health. He remains inpatient for further monitoring of his blood pressure respiration, with hopes to wean oxygen altogether. 10/18: Afebrile, breathing on room air. Blood pressure marginal. Off milrinone gtt. work with PT/OT. Monitor blood pressure overnight and will discharge tomorrow home with home health. 10/17: Afebrile. Patient currently breathing on 1 L nasal cannula. His Lasix has been increased to 40 twice daily and he continues on milrinone gtt. Will have patient work with PT/OT. Recommend elevation of his legs to help offload fluid, "toes above nose". 10/16: Patient evaluated bedside. Denies chest pain. Left heart cath yesterday showed two-vessel coronary artery disease, and elevated right and left-sided filling pressures consistent with acute on chronic systolic heart failure. He was recommended optimization of medical therapy for acute on chronic systolic heart failure. Continue milrinone gtt and Lasix. 10/15: Patient seen and evaluated. He denies chest pain. Breathing comfortably on 2 L. He is scheduled for heart cath today at 1 PM. 10/14: Patient notes some improvement in his bilateral leg swelling. Denies any shortness of breath. Remains on milrinone gtt and IV Lasix. Cardiology has plan for heart cath tomorrow. 10/13: Afebrile, breathing on room air. Had left thoracentesis yesterday with 1.3 L off. Pleural fluid analysis pending. Lasix decreased to 20 IV daily due to soft blood pressure. We will continue diuresis as blood pressure allows. Kidney function still hovering around CKD 3a/3b. On milrinone gtt. Cardiology to consider left heart cath tomorrow. States he had a bowel movement today finally. He is on Eliquis for new diagnosis of A. fib. 10/12: Patient resting comfortably in bed, afebrile. Patient had successful ultrasound guided thoracentesis yesterday with removal of 1.3 liters of fluid. Heparin gtt has been stopped, initiated on Eliquis. Per cardiology, will add Aldactone and Entresto when blood pressure more adequate. Plans for outpatient left heart cath. Hemoglobin A1c 5.7, will stop blood checks. On CIWA protocol, has not required any IV Ativan. Hemoccult positive, GI is following. Will continue to follow cardiology and pulmonology recommendations. 10/11: Afebrile. CRP 23.7, procalcitonin 0.10. Will discontinue antibiotics. He is having a thoracentesis today. Lasix held this morning due to some hypotension. His echocardiogram showed EF 20-25%. Cardiology following. He was initiated on heart failure medications prior to discharge. 10/10: Patient seen and evaluated with at bedside. He denies any shortness of breath at rest or laying on his back, but does admit to some dyspnea on exertion. Answered and 's questions to the best of my abilities. Echocardiogram pending, and nurse initiating heparin drip. Will order abdominal ultrasound to evaluate likely cirrhosis. Will order CRP to rule out any pneumonia; if not elevated will discontinue empiric antibiotics. For his likely history of BPH we will initiate Flomax daily. Patient also concerned about bilateral earwax impaction. Will schedule daily Debrox in hopes that impacted earwax will express its way out. Discussed with RN. Vitals/I&O Vitals/I&O: Vital Signs Date Time Temp Pulse Resp B/P (MAP) Pulse Ox O2 Delivery O2 Flow Rate FiO2 10/21/21 10:52 96.5 90 18 100/61 (74) 91 Nasal Cannula 1.0 96.5 I & O 10/20/21 10/20/21 10/21/21 15:00 23:00 07:00 Intake Total 1100 ml 450 ml 200 ml Output Total 301 ml 350 ml Balance 799 ml 100 ml 200 ml Physical Exam General: No acute distress Heart: Other (Irregular irregular) Lungs: Clear Abdomen: Normal bowel sounds Extremities: No cyanosis, Other (4+ bilateral LA pitting edema) Skin: No breakdown Labs Labs: Laboratory Tests Test 10/21/21 04:20 Sodium Level 138 mmol/L (136-145) Potassium Level 4.3 mmol/L (3.5-5.1) Chloride Level 100 mmol/L (98-107) Carbon Dioxide Level 31 mmol/L (21-32) Anion Gap 7 (6-14) Blood Urea Nitrogen 23 mg/dL (8-26) Creatinine 1.2 mg/dL (0.7-1.3) Estimated GFR (Cockcroft-Gault) 59.0 Glucose Level 88 mg/dL (70-99) Calcium Level 8.7 mg/dL (8.5-10.1) Assessment and Plan Assessmemt and Plan Problems Medical Problems: (1) Atrial fibrillation with rapid ventricular response Status: Acute Comment Review of Relevant I have reviewed the following items ganesh (where applicable) has been applied. Medications: Current Medications Medications (Trade) Dose Ordered Sig/Alicja Route PRN Reason Start Time Stop Time Status Last Admin Dose Admin Sacubitril/ Valsartan (Entresto 24 Mg-26 Mg) 1 tab DAILY PO 10/21/21 09:00 10/21/21 09:21 DC 10/21/21 08:49 Albumin Human 250 ml @ 62.5 mls/hr 1X ONCE IV 10/20/21 16:00 10/20/21 19:59 DC 10/20/21 15:54 Sodium Chloride 200 ml @ 200 mls/hr 1X ONCE IV 10/20/21 21:30 10/20/21 22:29 DC 10/20/21 21:30 Justifications for Admission Other Justification Afib RVR MARIANO SHAW MD October 21, 2021 11:18
--- NOTE | 2021-10-21 11:18 | PDOC ---
MERISSA SOTO CLINICAL SERVICES CONSULTANT 10/21/21 1118: CARDIO Progress Notes Date and Time Date of Service 10/21/21 Time of Evaluation 1115 Subjective Subjective: No Chest Pain, No shortness of breath, No Palpitations, Other (LE edema improved ) Vitals Vitals Vital Signs Date Time Temp Pulse Resp B/P (MAP) Pulse Ox O2 Delivery O2 Flow Rate FiO2 10/21/21 10:52 96.5 90 18 100/61 (74) 91 Nasal Cannula 1.0 96.5 Weight Weight [ ] Input and Output Intake and Output Intake and Output 10/21/21 07:00 Intake Total 1750 ml Output Total 651 ml Balance 1099 ml Intake Oral 1100 ml IV Total 650 ml Output Urine Total 650 ml Stool Total 1 ml Laboratory Labs Laboratory Tests Test 10/21/21 04:20 Sodium Level 138 mmol/L (136-145) Potassium Level 4.3 mmol/L (3.5-5.1) Chloride Level 100 mmol/L (98-107) Carbon Dioxide Level 31 mmol/L (21-32) Anion Gap 7 (6-14) Blood Urea Nitrogen 23 mg/dL (8-26) Creatinine 1.2 mg/dL (0.7-1.3) Estimated GFR (Cockcroft-Gault) 59.0 Glucose Level 88 mg/dL (70-99) Calcium Level 8.7 mg/dL (8.5-10.1) Microbiology Micro Microbiology 10/11/21 Gram Stain - Final, Complete 10/11/21 Aerobic and Anaerobic Culture - Final, Complete Physical Exam HEENT: Neck Supple W Full Motion Chest: Symmetric LUNGS: Other (diminished bases) Heart: S1S2, irregularly irregular (AFIB- rate controlled ) Abdomen: Soft N/T Extremities: No Edema, No Calf Tenderness Neurology: alert, oriented, follow commands Assessment Assessment 1. AFIB RVR: rate now controlled 2. Severe cardiomyopathy: Limited echo with LVEF 20-25%. 3. Acute on chronic systolic; . RHC with elevated pressure. off milrinone. Entr esto added- has been hypotensive over the weekend. 4. Left pleural effusion: s/p thoracentesis with 1.3L off 5. CAD; LHC with two vessel with heavily calcified, long stenosis involving the LAD and OM/LCx 6. MIGUEL; Cr improved 7. ETOH misuse: heavy consumption 8. Tobacco abuse with likely COPD 9. Mild thrombocytopenia; stable Recommendations HF optimization Transition to oral Lasix Discontinue Entresto due to persistent hypotension Consider addition of Aldactone, Jardiance on an outpatient basis Metoprolol for rate control as BP allows Eliquis for stroke prophylaxis ASA, statin therapy Outpatient orbital atherectomy/PCI/stent placement to LAD and OM/LCx. Our office will arrange Outpatient CV Supportive care Justicifation of Admission Dx: Justifications for Admission: Justification of Admission Dx: Yes ODALYS STRONG MD 10/21/211811: CARDIO Progress Notes Assessment Assessment Patient seen and examined. Agree with CROWN AND BRIDGE TECHNICIAN's assessment and plan. Acute on chr systolic HF compensated CAD clinically stable Agree with stopping entresto for now due to hypotension AF rate controlled Continue eliquis for stroke prophylaxis Plan for outpatient cardioversion and PCI MERISSA SOTO APRN October 21, 2021 11:18 ODALYS STRONG MD October 21, 2021 18:12
[2021-10-21] MEDS ORDERED: POTA10TA12 PO (11:27)
[2021-10-21] MEDS ORDERED: METO-239 PO (11:27)
[2021-10-21] MEDS ORDERED: APIX5TAB PO (11:27)
[2021-10-21] MEDS ORDERED: FURO40TA4 PO (11:27)
[2021-10-21] MEDS ORDERED: ASPI-886 PO (11:27)
[2021-10-21] MEDS ORDERED: ATOR40TA59 PO (11:27)
--- NOTE | 2021-10-21 11:30 | SNU/HH DC ---
DISCHARGE WITH HOME HEALTH DISCHARGE INFORMATION: Discharge Date: October 24, 2021 Final Diagnosis: Problems Medical Problems: (1) Atrial fibrillation with rapid ventricular response Status: Acute Condition on Discharge: Stable CODE STATUS: Code Status: Full HOME HEALTH: Face to Face: I certify this patient is under my care and that I, or a nurse practitioner or physician's broker assistant working with me, had a face to face encounter that meets the physician face to face encounter requirements with this patient on 10/21/2021. Medical Complications: CHF RN For Eval/Treatment: Yes Physical Therapy For: Evalulation/Treatment Occupational Therapy For: Evaluation/Treatment Pt Meets Homebound Status: Limited distance walking POST DISCHARGE ORDERS: Activity Instructions for Disc: Resume previous activity, Other, see below Weight Bearing Status after Di: Full weight bearing, Non weight bearing DIET AFTER DISCHARGE: Cardiac Wound/Incision Care: Ice to area for comfort, Change dressing CHECKS AFTER DISCHARGE: Checks after discharge: Check blood press - daily FOLLOW-UP: Additional Instructions: Call to follow up with cardiology [address] [facility], [address] [place] [address] TREATMENT/EQUIPMENT ORDERS: Discharge Respiratory Equipmen: Oxygen (1 L/min at rest 3 L/min on exertion) CERTIFICATION STATEMENT: Certification Statement: Certification Statement: Based on the above finding, I certify that this patient is confined to the home and needs intermittent alf care, physical therapy and/or speech therapy, or continues to need occupational therapy.~ This patient is under my care, and I have initiated the establishment of the plan of care.~ This patient will be followed by myself or a community physician who will periodically review the plan of care. Home Meds Active Scripts Empagliflozin (Jardiance) 10 Mg Tablet, 10 MG PO DAILY for CHF for 30 Days, #30 TAB 5 Refills Prov:MARIANO SHAW MD 10/24/21 Furosemide (FUROSEMIDE) 40 Mg Tablet, 0.5 TAB PO DAILY for CHF for 30 Days, #15 TAB 2 Refills Prov:MARIANO SHAW MD 10/24/21 Metoprolol Succinate (METOPROLOL SUCCINATE ( XL )) 25 Mg Tab.er.24h, 12.5 MG PO DAILY for CHF/Afib for 30 Days, #15 TAB.SR 5 Refills Prov:MARIANO SHAW MD 10/24/21 Potassium Chloride (KLOR-CON 10) 10 Meq Tablet.er, 10 MEQ PO DAILYWBKFT for CHF for 30 Days, #30 TAB.SR 2 Refills Prov:MARIANO SHAW MD 10/21/21 Aspirin (ASPIRIN EC) 81 Mg Tablet.dr, 81 MG PO DAILYWBKFT for CHF for 30 Days, #30 TAB.SR 11 Refills Prov:MARIANO SHAW MD 10/21/21 Atorvastatin Calcium (ATORVASTATIN CALCIUM) 40 Mg Tablet, 40 MG PO QHS for CHF for 30 Days, #30 TAB 5 Refills Prov:MARIANO SHAW MD 10/21/21 Apixaban (ELIQUIS) 5 Mg Tablet, 5 MG PO BID for Atrial fibrillation for 30 Days, #60 TAB 5 Refills Prov:MARIANO SHAW MD 10/21/21 Reported Medications Tamsulosin Hcl (FLOMAX) 0.4 Mg Cap.er.24h, 0.4 MG PO DAILY for prostate, TAB 01/04/20 MARIANO SHAW MD October 21, 2021 11:30
--- NOTE | 2021-10-21 15:31 | NUR ---
SS following up with discharge planning. SS reviewed pt chart and discussed with pt RN. Pt is currently requiring oxygen at one liter nasal canula. Pt on IV Lasix. Life Vest in place. Pt wanting to return to home at discharge. Pt accepted on services with [facility], ; fax [phone]. SS will continue to follow for discharge planning.
[2021-10-21] MEDS: ATORVASTATIN CALCIUM 40 MG TABLET. PO SCH (20:22)
[2021-10-22 02:34] VITALS: BP 76/55
[2021-10-22 07:00] VITALS: BP 137/70
--- NOTE | 2021-10-22 08:44 | PDOC ---
MERISSA SOTO FINANCIAL INSTITUTION TREASURER 10/22/21 0844: CARDIO Progress Notes Date and Time Date of Service 10/22/21 Time of Evaluation 1315 Subjective Subjective: No Chest Pain, No shortness of breath, No Palpitations, Other (LE edema improved ) Vitals Vitals Vital Signs Date Time Temp Pulse Resp B/P (MAP) Pulse Ox O2 Delivery O2 Flow Rate FiO2 10/22/21 07:00 97.5 70 17 137/70 (92) 97 Nasal Cannula 1.0 97.5 Weight Weight [ ] Input and Output Intake and Output Intake and Output 10/22/21 07:00 Intake Total 540 ml Output Total 2050 ml Balance -1510 ml Intake Oral 540 ml Output Urine Total 2050 ml Microbiology Micro Microbiology 10/11/21 Gram Stain - Final, Complete 10/11/21 Aerobic and Anaerobic Culture - Final, Complete Physical Exam HEENT: Neck Supple W Full Motion Chest: Symmetric LUNGS: Other (diminished bases) Heart: S1S2, irregularly irregular (AFIB- rate controlled ) Abdomen: Soft N/T Extremities: No Edema, No Calf Tenderness Neurology: alert, oriented, follow commands Assessment Assessment 1. AFIB RVR: rate now controlled 2. Severe cardiomyopathy: Limited echo with LVEF 20-25%. 3. Acute on chronic systolic; . RHC with elevated pressure. off milrinone. Entresto discontinued due to hypotension 4. Left pleural effusion: s/p thoracentesis with 1.3L off 5. CAD; LHC with two vessel with heavily calcified, long stenosis involving the LAD and OM/LCx 6. MIGUEL; Cr improved 7. ETOH misuse: heavy consumption 8. Tobacco abuse with likely COPD 9. Mild thrombocytopenia; stable 10. Hypotension; BP remains low end Recommendations HF optimization Oral Lasix No ILIA/ARB, Entresto due to persistent hypotension Metoprolol for rate control as BP allows Eliquis for stroke prophylaxis ASA, statin therapy Outpatient orbital atherectomy/PCI/stent placement to LAD and OM/LCx. Our office will arrange Outpatient CV Supportive care Justicifation of Admission Dx: Justifications for Admission: Justification of Admission Dx: Yes ODALYS STRONG MD 10/22/21 2524: CARDIO Progress Notes Assessment Assessment Patient seen and examined. Agree with CARD CUTTER HELPER's assessment and plan. Acute on chr systolic HF compensated CAD clinically stable No ACEI/ARB/entresto for now due to hypotension AF rate controlled Continue eliquis for stroke prophylaxis Plan for outpatient cardioversion and PCI MERISSA SOTO APRN October 22, 2021 08:44 ODALYS STRONG MD October 22, 2021 14:43
[2021-10-22] MEDS: LACTOBACILLUS RHAMNOSUS GG 1 CAPSULE. PO SCH ×2 (08:52→20:20)
[2021-10-22] MEDS: ASPIRIN ENTERIC COATED 81 MG TABLET.DR. PO SCH (08:52)
[2021-10-22] MEDS: POTASSIUM CHLORIDE 10 MEQ TABLET.ER. PO SCH (08:52)
[2021-10-22] MEDS: APIXABAN 5 MG TABLET. PO SCH ×2 (08:52→20:20)
[2021-10-22] MEDS: TAMSULOSIN 0.4 MG CAP.ER.24H. PO SCH (08:52)
[2021-10-22] MEDS: FUROSEMIDE 40 MG TABLET. PO SCH (08:53)
[2021-10-22] MEDS: POLYETHYLENE GLYCOL 3350 17 GM PACKET. PO SCH (09:00)
[2021-10-22] MEDS: METOPROLOL SUCC 24HR ER 25 MG TAB.ER.24H. PO SCH (09:00)
[2021-10-22 11:00] VITALS: BP 85/68
--- NOTE | 2021-10-22 11:00 | NUR ---
SS following up with discharge planning. SS reviewed pt chart and discussed with pt RN. Pt is currently requiring oxygen at one liters nasal canula. COVID19 negative. PT/OT recommended acute rehabilitation. Pt requesting to discharge to home. Pt accepted on services with [facility], ; fax [phone]. Life Vest in place. Six minute walk completed. Script received for oxygen and sent with clinical to [facility], ; fax [phone]. Oxygen tank provided for home. SS will continue to follow for discharge planning.
--- NOTE | 2021-10-22 11:01 | PDOC ---
Date of Service: DATE: 10/22/21 TIME: 10:59 Subjective: Subjective: No GI complaints - did have a question for use but can't remember now. Objective: Vital Signs: Vital Signs Date Time Temp Pulse Resp B/P (MAP) Pulse Ox O2 Delivery O2 Flow Rate FiO2 10/22/21 08:00 Nasal Cannula 1.0 10/22/21 07:00 97.5 70 17 137/70 (92) 97 97.5 PE: GEN: NAD - up in recliner watching tv LUNGS: CTAB, NC 1L HEART: RRR ABD: S/ND/NT NEURO/PSYCH: A & O 3 A/P: Hypotension, A Fib, CHF, cardiomyopathy, CAD ACD, thrombocytopenia - last checked 10/16/21 +hemoccult (as outpt) - no previous 'scopes -- Stable GI-weaver, planning for outpt scopes. Justicifation of Admission Dx: Justifications for Admission: Justification of Admission Dx: Yes MICHAEL SPEAR October 22, 2021 11:01
--- NOTE | 2021-10-22 11:09 | PDOC ---
PULMONARY PROGRESS NOTES DATE: 10/22/21 TIME: 11:09 Subjective Patient denies any shortness of breath at rest. status post left thoracentesis with 1.3 L of fluid removed on 10/11 Vitals Vital Signs Date Time Temp Pulse Resp B/P (MAP) Pulse Ox O2 Delivery O2 Flow Rate FiO2 10/22/21 08:00 Nasal Cannula 1.0 10/22/21 07:00 97.5 70 17 137/70 (92) 97 97.5 ROS: No Nausea, No Chest Pain, No Abdominal Pain, No Increase Cough General: Alert, No acute distress Lungs: Clear Cardiovascular: S1 Abdomen: Soft Neuro Exam: Alert Extremities: Other (1+ edema.) Skin: Warm Labs Laboratory Tests Test 10/21/21 04:20 Sodium Level 138 mmol/L (136-145) Potassium Level 4.3 mmol/L (3.5-5.1) Chloride Level 100 mmol/L (98-107) Carbon Dioxide Level 31 mmol/L (21-32) Anion Gap 7 (6-14) Blood Urea Nitrogen 23 mg/dL (8-26) Creatinine 1.2 mg/dL (0.7-1.3) Estimated GFR (Cockcroft-Gault) 59.0 Glucose Level 88 mg/dL (70-99) Calcium Level 8.7 mg/dL (8.5-10.1) Medications Active Scripts Medications Dose Route/Sig Max Daily Dose Days Date Category Flomax (Tamsulosin Hcl) 0.4 Mg Cap.er.24h 0.4 Mg PO DAILY 01/04/20 Reported Impression . 1. Acute respiratory failure multifactorial secondary to heart failure, COPD 2. Atrial fibrillation with rapid ventricular response. 3. Abnormal CT abdomen and pelvis with mild to moderate left pleural effusion. Transudative. Status post thoracentesis. 4. Mild acute kidney injury. 5. Likely alcoholic liver disease. 6. Hypomagnesemia. 7. Cardiomyopathy with an EF of 20 to 25% and secondary pulmonary hypertension. 8. Coronary artery disease 9. COPD Conclusion 1. Two-vessel coronary artery disease, heavily calcified and long stenosis involving the left anterior descending and OM/LCx as described above 2. Elevated right and left-sided filling pressures consistent with acute on chronic systolic heart failure 3. No evidence of intracardiac shunt Recommendations Optimization of medical therapy for acute on chronic systolic heart failure. Due to heavy calcified stenoses, we will consider orbital atherectomy/PCI/stent placement to LAD and OM/LCx as an outpatient once better compensated. Cardiovascular is factor modification. Source: LEFT PLEURAL DIAGNOSIS: 02 LEFT PLEURAL NEGATIVE FOR MALIGNANT CELLS. FEW REACTIVE MESOTHELIAL CELLS PRESENT. THIS EVALUATION INCLUDES EXAMINATION OF A CELL BLOCK. Signed out by: 02 Plan . Continue optimization of cardiac function Continues to diurese Pleural fluid related to heart failure Patient had a 6-minute walk test on Thursday. Requires oxygen. Outpatient PFTs Per cardiology, orbital atherectomy/PCI/stent placement to LAD and OM/LCx as an outpatient Okay for discharge from a pulmonary standpoint. GENARO RITTER MD October 22, 2021 11:09
--- NOTE | 2021-10-22 13:00 | PDOC ---
[facility] PROGRESS NOTE Date of Service DOS: DATE: 10/22/21 TIME: 12:58 Chief Complaint Chief Complaint A. 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 LifeVest in place. Off milrinone for 3 days. Acute on chronic combined CHF - off milrinone, still receiving IV lasix CAD - [facility] on 10/14/2021 with two vessel with heavily calcified, long stenosis involving the LAD and OM/LCx ETOH misuse Tobacco abuse with likely COPD Acute respiratory failure with hypoxia - cor pulmonale from CHF, needs 1L/min at rest and 3L/min with exertion FEN - Cardiac diet PPX - Eliquis FULL CODE Dispo - inpatient History of Present Illness History of Present Illness 10/22: Seen on 2-1/2 L nasal cannula oxygen at rest. Transition to p.o. Lasix from IV Lasix. Has a slight dry cough today is intermittent blood pressure still low systolic 71 diastolic 51. On telemetry is in rate controlled A. fib in the 70s. He is asking for home oxygen concentrator. 10/21: Seen on 1 L/min nasal cannula at rest. Systolic blood pressure in the low 100s after holding Entresto for the last day. Still rate controlled atrial fibrillation in the 60s. 10/20: Patient seen and evaluated. Some significant hypotension today, BP 80/60 mmHg. Rate controlled A. fib with occasional PVCs on telemetry. He denies chest pain or dizziness, but he is resting comfortably in bed. Will decrease Entresto to daily and continue to monitor blood pressure overnight. Still breathing on 1 L nasal cannula. Had 6-minute walk today and requires 1 L at rest and 3 L with exertion. 10/19: Patient seen resting comfortably at bedside. He is currently requiring low-dose oxygen, 1 L nasal cannula. He is to have LifeVest placed today, will likely discharge home tomorrow with home health. He remains inpatient for further monitoring of his blood pressure respiration, with hopes to wean oxygen altogether. 10/18: Afebrile, breathing on room air. Blood pressure marginal. Off milrinone gtt. work with PT/OT. Monitor blood pressure overnight and will discharge tomorrow home with home health. 10/17: Afebrile. Patient currently breathing on 1 L nasal cannula. His Lasix has been increased to 40 twice daily and he continues on milrinone gtt. Will have patient work with PT/OT. Recommend elevation of his legs to help offload fluid, "toes above nose". 10/16: Patient evaluated bedside. Denies chest pain. Left heart cath yesterday showed two-vessel coronary artery disease, and elevated right and left-sided filling pressures consistent with acute on chronic systolic heart failure. He was recommended optimization of medical therapy for acute on chronic systolic heart failure. Continue milrinone gtt and Lasix. 10/15: Patient seen and evaluated. He denies chest pain. Breathing comfortably on 2 L. He is scheduled for heart cath today at 1 PM. 10/14: Patient notes some improvement in his bilateral leg swelling. Denies any shortness of breath. Remains on milrinone gtt and IV Lasix. Cardiology has plan for heart cath tomorrow. 10/13: Afebrile, breathing on room air. Had left thoracentesis yesterday with 1.3 L off. Pleural fluid analysis pending. Lasix decreased to 20 IV daily due to soft blood pressure. We will continue diuresis as blood pressure allows. Kidney function still hovering around CKD 3a/3b. On milrinone gtt. Cardiology to consider left heart cath tomorrow. States he had a bowel movement today finally. He is on Eliquis for new diagnosis of A. fib. 10/12: Patient resting comfortably in bed, afebrile. Patient had successful ultrasound guided thoracentesis yesterday with removal of 1.3 liters of fluid. Heparin gtt has been stopped, initiated on Eliquis. Per cardiology, will add Aldactone and Entresto when blood pressure more adequate. Plans for outpatient left heart cath. Hemoglobin A1c 5.7, will stop blood checks. On CIWA protocol, has not required any IV Ativan. Hemoccult positive, GI is following. Will continue to follow cardiology and pulmonology recommendations. 10/11: Afebrile. CRP 23.7, procalcitonin 0.10. Will discontinue antibiotics. He is having a thoracentesis today. Lasix held this morning due to some hypotension. His echocardiogram showed EF 20-25%. Cardiology following. He was initiated on heart failure medications prior to discharge. 10/10: Patient seen and evaluated with at bedside. He denies any shortness of breath at rest or laying on his back, but does admit to some dyspnea on exertion. Answered and 's questions to the best of my abilities. Echocardiogram pending, and nurse initiating heparin drip. Will order abdominal ultrasound to evaluate likely cirrhosis. Will order CRP to rule out any pneumonia; if not elevated will discontinue empiric antibiotics. For his likely history of BPH we will initiate Flomax daily. Patient also concerned about bilateral earwax impaction. Will schedule daily Debrox in hopes that impacted earwax will express its way out. Discussed with RN. Vitals/I&O Vitals/I&O: Vital Signs Date Time Temp Pulse Resp B/P (MAP) Pulse Ox O2 Delivery O2 Flow Rate FiO2 10/22/21 11:00 97.3 67 17 85/68 (74) 99 Nasal Cannula 1.0 97.3 I & O 10/21/21 10/21/21 10/22/21 15:00 23:00 07:00 Intake Total 180 ml 360 ml 0 ml Output Total 1750 ml 300 ml Balance -1570 ml 60 ml 0 ml Physical Exam General: No acute distress Heart: Other (Irregular irregular) Lungs: Clear Abdomen: Normal bowel sounds Extremities: No cyanosis, Other (4+ bilateral LA pitting edema) Skin: No breakdown Assessment and Plan Assessmemt and Plan Problems Medical Problems: (1) Atrial fibrillation with rapid ventricular response Status: Acute Comment Review of Relevant I have reviewed the following items ganesh (where applicable) has been applied. Medications: Current Medications Medications (Trade) Dose Ordered Sig/Alicja Route PRN Reason Start Time Stop Time Status Last Admin Dose Admin Furosemide (Lasix) 40 mg DAILY PO 10/22/21 09:00 10/22/21 08:53 Justifications for Admission Other Justification Afib RVMARIANO CAMERON MD October 22, 2021 13:00
[2021-10-22 15:00] VITALS: BP 74/52
[2021-10-22 19:09] VITALS: BP 87/61
[2021-10-22] MEDS: ATORVASTATIN CALCIUM 40 MG TABLET. PO SCH (20:20)
[2021-10-22 22:27] VITALS: BP 84/64
[2021-10-23 02:35] VITALS: BP 97/65
[2021-10-23 07:00] VITALS: BP 76/53
[2021-10-23] MEDS: FUROSEMIDE 40 MG TABLET. PO SCH (09:00)
[2021-10-23] MEDS: POLYETHYLENE GLYCOL 3350 17 GM PACKET. PO SCH (09:00)
[2021-10-23] MEDS: POTASSIUM CHLORIDE 10 MEQ TABLET.ER. PO SCH (09:07)
[2021-10-23] MEDS: TAMSULOSIN 0.4 MG CAP.ER.24H. PO SCH (09:07)
[2021-10-23] MEDS: APIXABAN 5 MG TABLET. PO SCH ×2 (09:07→20:51)
[2021-10-23] MEDS: ASPIRIN ENTERIC COATED 81 MG TABLET.DR. PO SCH (09:07)
[2021-10-23] MEDS: LACTOBACILLUS RHAMNOSUS GG 1 CAPSULE. PO SCH ×2 (09:07→20:51)
--- NOTE | 2021-10-23 09:29 | PDOC ---
Date of Service: DATE: 10/23/21 TIME: 09:27 Objective: Objective: DC held for hypotension. Vital Signs: Vital Signs Date Time Temp Pulse Resp B/P (MAP) Pulse Ox O2 Delivery O2 Flow Rate FiO2 10/23/21 07:00 97.5 74 17 76/53 (61) 94 Nasal Cannula 1.0 97.5 PE: GEN: NAD LUNGS: CTAB HEART: RRR ABD: non-distended NEURO/PSYCH: sleeping, not awakened A/P: Hypotension, A Fib, CHF +hemoccult (as outpt) - no previous 'scopes -- Outpt 'scopes later on when cardiac issues stable. Justicifation of Admission Dx: Justifications for Admission: Justification of Admission Dx: Yes MICHAEL SPEAR October 23, 2021 09:29
[2021-10-23] MEDS ORDERED: POLYETHYLENE GLYCOL 3350 17 GM PACKET. PO PRN (09:45)
--- NOTE | 2021-10-23 10:35 | PDOC ---
PULMONARY PROGRESS NOTES DATE: 10/23/21 TIME: 10:33 Subjective Patient denies any shortness of breath at rest. status post left thoracentesis with 1.3 L of fluid removed on 10/11 Blood pressure remains low but he is asymptomatic. Vitals Vital Signs Date Time Temp Pulse Resp B/P (MAP) Pulse Ox O2 Delivery O2 Flow Rate FiO2 10/23/21 08:00 Nasal Cannula 1.0 10/23/21 07:00 97.5 74 17 76/53 (61) 94 97.5 ROS: No Nausea, No Chest Pain, No Abdominal Pain, No Increase Cough General: Alert, No acute distress Lungs: Clear Cardiovascular: S1 Abdomen: Soft Neuro Exam: Alert Extremities: Other (1+ edema.) Skin: Warm Medications Active Scripts Medications Dose Route/Sig Max Daily Dose Days Date Category Flomax (Tamsulosin Hcl) 0.4 Mg Cap.er.24h 0.4 Mg PO DAILY 01/04/20 Reported Impression . 1. Acute respiratory failure multifactorial secondary to heart failure, COPD 2. Atrial fibrillation with rapid ventricular response. 3. Abnormal CT abdomen and pelvis with mild to moderate left pleural effusion. Transudative. Status post thoracentesis. 4. Mild acute kidney injury. 5. Likely alcoholic liver disease. 6. Hypomagnesemia. 7. Cardiomyopathy with an EF of 20 to 25% and secondary pulmonary hypertension. 8. Coronary artery disease 9. COPD 10. Hypotension Conclusion 1. Two-vessel coronary artery disease, heavily calcified and long stenosis involving the left anterior descending and OM/LCx as described above 2. Elevated right and left-sided filling pressures consistent with acute on chronic systolic heart failure 3. No evidence of intracardiac shunt Recommendations Optimization of medical therapy for acute on chronic systolic heart failure. Due to heavy calcified stenoses, we will consider orbital atherectomy/PCI/stent placement to LAD and OM/LCx as an outpatient once better compensated. Cardiovascular is factor modification. Source: LEFT PLEURAL DIAGNOSIS: 02 LEFT PLEURAL NEGATIVE FOR MALIGNANT CELLS. FEW REACTIVE MESOTHELIAL CELLS PRESENT. THIS EVALUATION INCLUDES EXAMINATION OF A CELL BLOCK. Signed out by: 02 Plan . Continue optimization of cardiac function. Blood pressure remains low but he has been totally asymptomatic. Metoprolol dose has been adjusted per cardiology. Diuresis per cardiology. Pleural fluid related to heart failure. Transudate Patient had a 6-minute walk test on Thursday. Requires oxygen. Outpatient PFTs Per cardiology, orbital atherectomy/PCI/stent placement to LAD and OM/LCx as an outpatient GENARO RITTER MD October 23, 2021 10:35
[2021-10-23 11:00] VITALS: BP 78/54
--- NOTE | 2021-10-23 12:14 | PDOC ---
[facility] PROGRESS NOTE Date of Service DOS: DATE: 10/23/21 TIME: 12:13 Chief Complaint Chief Complaint A. 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 LifeVest in place. Off milrinone for 3 days. Acute on chronic combined CHF - off milrinone, still receiving IV lasix CAD - LHC on 10/14/2021 with two vessel with heavily calcified, long stenosis involving the LAD and OM/LCx ETOH misuse Tobacco abuse with likely COPD Acute respiratory failure with hypoxia - cor pulmonale from CHF, needs 1L/min at rest and 3L/min with exertion FEN - Cardiac diet PPX - Eliquis FULL CODE Dispo - inpatient History of Present Illness History of Present Illness 10/23: Seen sitting in chair 2 L nasal cannula still was low blood pressures but is asymptomatic able to ambulate. Discussed with cardiology his Toprol-XL was cut in half still on furosemide. Not able to tolerate Entresto due to his low blood pressure. Plan was for discharge with home health was already approved for home oxygen will discuss with cardiology given his low blood pressure though asymptomatic he may be able to safely discharge and return to the hospital for selective angiography for LAD lesion. 10/22: Seen on 2-1/2 L nasal cannula oxygen at rest. Transition to p.o. Lasix from IV Lasix. Has a slight dry cough today is intermittent blood pressure still low systolic 71 diastolic 51. On telemetry is in rate controlled A. fib in the 70s. He is asking for home oxygen concentrator. 10/21: Seen on 1 L/min nasal cannula at rest. Systolic blood pressure in the low 100s after holding Entresto for the last day. Still rate controlled atrial fibrillation in the 60s. 10/20: Patient seen and evaluated. Some significant hypotension today, BP 80/60 mmHg. Rate controlled A. fib with occasional PVCs on telemetry. He denies chest pain or dizziness, but he is resting comfortably in bed. Will decrease Entresto to daily and continue to monitor blood pressure overnight. Still breathing on 1 L nasal cannula. Had 6-minute walk today and requires 1 L at rest and 3 L with exertion. 10/19: Patient seen resting comfortably at bedside. He is currently requiring low-dose oxygen, 1 L nasal cannula. He is to have LifeVest placed today, will likely discharge home tomorrow with home health. He remains inpatient for further monitoring of his blood pressure respiration, with hopes to wean oxygen altogether. 10/18: Afebrile, breathing on room air. Blood pressure marginal. Off milrinone gtt. work with PT/OT. Monitor blood pressure overnight and will discharge tomorrow home with home health. 10/17: Afebrile. Patient currently breathing on 1 L nasal cannula. His Lasix has been increased to 40 twice daily and he continues on milrinone gtt. Will have lavell cr work with PT/OT. Recommend elevation of his legs to help offload fluid, "toes above nose". 10/16: Patient evaluated bedside. Denies chest pain. Left heart cath yesterday showed two-vessel coronary artery disease, and elevated right and left-sided fi lling pressures consistent with acute on chronic systolic heart failure. He was recommended optimization of medical therapy for acute on chronic systolic heart failure. Continue milrinone gtt and Lasix. 10/15: Patient seen and evaluated. He denies chest pain. Breathing comfortably on 2 L. He is scheduled for heart cath today at 1 PM. 10/14: Patient notes some improvement in his bilateral leg swelling. Denies any shortness of breath. Remains on milrinone gtt and IV Lasix. Cardiology has plan for heart cath tomorrow. 10/13: Afebrile, breathing on room air. Had left thoracentesis yesterday with 1.3 L off. Pleural fluid analysis pending. Lasix decreased to 20 IV daily due to soft blood pressure. We will continue diuresis as blood pressure allows. Kidney function still hovering around CKD 3a/3b. On milrinone gtt. Cardiology to consider left heart cath tomorrow. States he had a bowel movement today finally. He is on Eliquis for new diagnosis of A. fib. 10/12: Patient resting comfortably in bed, afebrile. Patient had successful ultrasound guided thoracentesis yesterday with removal of 1.3 liters of fluid. Heparin gtt has been stopped, initiated on Eliquis. Per cardiology, will add Aldactone and Entresto when blood pressure more adequate. Plans for outpatient left heart cath. Hemoglobin A1c 5.7, will stop blood checks. On CIWA protocol, has not required any IV Ativan. Hemoccult positive, GI is following. Will continue to follow cardiology and pulmonology recommendations. 10/11: Afebrile. CRP 23.7, procalcitonin 0.10. Will discontinue antibiotics. He is having a thoracentesis today. Lasix held this morning due to some hypotension. His echocardiogram showed EF 20-25%. Cardiology following. He was initiated on heart failure medications prior to discharge. 10/10: Patient seen and evaluated with at bedside. He denies any shortness of breath at rest or laying on his back, but does admit to some dyspnea on exertion. Answered and 's questions to the best of my abilities. Echocardiogram pending, and nurse initiating heparin drip. Will order abdominal ultrasound to evaluate likely cirrhosis. Will order CRP to rule out any pneumonia; if not elevated will discontinue empiric antibiotics. For his likely history of BPH we will initiate Flomax daily. Patient also concerned about bilateral earwax impaction. Will schedule daily Debrox in hopes that impacted earwax will express its way out. Discussed with RN. Vitals/I&O Vitals/I&O: Vital Signs Date Time Temp Pulse Resp B/P (MAP) Pulse Ox O2 Delivery O2 Flow Rate FiO2 10/23/21 11:00 95.3 76 17 78/54 (62) 93 Nasal Cannula 1.0 95.3 I & O 10/22/21 10/22/21 10/23/21 15:00 23:00 07:00 Intake Total 540 ml 410 ml Output Total 1000 ml 1000 ml 800 ml Balance -460 ml -590 ml -800 ml Physical Exam General: No acute distress Heart: Other (Irregular irregular) Lungs: Clear Abdomen: Normal bowel sounds Extremities: No cyanosis, Other (4+ bilateral LA pitting edema) Skin: No breakdown Assessment and Plan Assessmemt and Plan Problems Medical Problems: (1) Atrial fibrillation with rapid ventricular response Status: Acute Comment Review of Relevant I have reviewed the following items ganesh (where applicable) has been applied. Justifications for Admission Other Justification Afib RVR MARIANO SHAW MD October 23, 2021 12:14
--- NOTE | 2021-10-23 13:54 | PDOC ---
MERISSA SOTO CREAM GATHERER 10/23/21 1354: CARDIO Progress Notes Date and Time Date of Service 10/23/21 Time of Evaluation 1210 Subjective Subjective: No Chest Pain, No shortness of breath, No Palpitations, No Dizziness Vitals Vitals Vital Signs Date Time Temp Pulse Resp B/P (MAP) Pulse Ox O2 Delivery O2 Flow Rate FiO2 10/23/21 11:00 95.3 76 17 78/54 (62) 93 Nasal Cannula 1.0 95.3 Weight Weight [ ] Input and Output Intake and Output Intake and Output 10/23/21 07:00 Intake Total 950 ml Output Total 2800 ml Balance -1850 ml Intake Oral 950 ml Output Urine Total 2800 ml Microbiology Micro Microbiology 10/11/21 Gram Stain - Final, Complete 10/11/21 Aerobic and Anaerobic Culture - Final, Complete Physical Exam HEENT: Neck Supple W Full Motion Chest: Symmetric LUNGS: Other (diminished bases) Heart: S1S2, irregularly irregular (AFIB- rate controlled ) Abdomen: Soft N/T Extremities: No Edema, No Calf Tenderness Neurology: alert, oriented, follow commands Assessment Assessment 1. AFIB RVR: rate now controlled 2. Severe cardiomyopathy: Limited echo with LVEF 20-25%. 3. Acute on chronic systolic; . RHC with elevated pressure. off milrinone. Entresto discontinued due to hypotension 4. Left pleural effusion: s/p thoracentesis with 1.3L off 5. CAD; LHC with two vessel with heavily calcified, long stenosis involving the LAD and OM/LCx 6. MIGUEL; Cr improved 7. ETOH misuse: heavy consumption 8. Tobacco abuse with likely COPD 9. Mild thrombocytopenia; stable 10. Hypotension; BP remains low end. asymptomatic Recommendations HF optimization as able No ILIA/ARB, Entresto due to persistent hypotension Decrease Toprol to 12.5mg Hold Lasix today then decrease to 20mg daily BP Rt arm- 81/50 and Lt arm- 75/46 D/w Dr. Payton; will challenge with 500cc fluid bolus. Eliquis for stroke prophylaxis ASA, statin therapy Outpatient orbital atherectomy/PCI/stent placement to LAD and OM/LCx. Our office will arrange Outpatient CV Supportive care Justicifation of Admission Dx: Justifications for Admission: Justification of Admission Dx: Yes ODALYS PAYTON MD 10/23/21 3496: CARDIO Progress Notes Assessment Assessment Patient seen and examined. Agree with ORGANIZATIONAL PSYCHOLOGIST's assessment and plan. Acute on chr systolic HF compensated CAD clinically stable No ACEI/ARB/entresto for now due to hypotension Decrease beta-halima and diuretic doses as stated above and give fluid challenge of 500 cc normal saline AF rate controlled Continue eliquis for stroke prophylaxis Plan for outpatient cardioversion and PCI MERISSA SOTO APRN October 23, 2021 13:54 ODALYS PAYTON MD October 23, 2021 16:29
[2021-10-23] MEDS ORDERED: IV NORMAL SALINE 500ML BAG 500 ML IV ONE (14:00)
--- NOTE | 2021-10-23 14:14 | NUR ---
SS following up with discharge planning. SS reviewed pt chart and discussed with pt RN. Pt is currently requiring oxygen at one liter nasal canula. COVID19 negative. PT/OT recommending home with assistance. Pt accepted on services with [facility], ; fax [phone]. Life Vest in place. Oxygen arranged through [facility], ; fax [phone]. Oxygen tank provided for home. SS will continue to follow for discharge planning.
[2021-10-23 15:00] VITALS: BP 81/50
[2021-10-23] MEDS ORDERED: ALBUMIN HUMAN 5% 500 ML IV PRN (16:45)
[2021-10-23] MEDS ORDERED: ALBUMIN HUMAN 5% 500 ML IV ONE (18:15)
[2021-10-23 19:00] VITALS: BP 98/60
[2021-10-23] MEDS: ATORVASTATIN CALCIUM 40 MG TABLET. PO SCH (20:51)
[2021-10-23 22:51] VITALS: BP 93/75
[2021-10-24 02:38] VITALS: BP 103/72
[2021-10-24 06:22] LABS: HEMOGLOBIN 11.6 g/dL (13.0-17.5); RED BLOOD COUNT 3.57 x10^6/uL (4.30-5.70); RED CELL DISTRIBUTION WIDTH 15.1 % (11.5-14.5); WHITE BLOOD COUNT 4.7 x10^3/uL (4.0-11.0)
[2021-10-24 06:35] LABS: CALCIUM 8.5 mg/dL (8.5-10.1); CREATININE 1.2 mg/dL (0.7-1.3); MAGNESIUM 1.8 mg/dL (1.8-2.4); POTASSIUM 4.5 mmol/L (3.5-5.1)
[2021-10-24 07:00] VITALS: BP_SYST 106; BP_SYST 130; BP_DIAS 69; BP_DIAS 75
[2021-10-24] MEDS: TAMSULOSIN 0.4 MG CAP.ER.24H. PO SCH (07:54)
[2021-10-24] MEDS: ASPIRIN ENTERIC COATED 81 MG TABLET.DR. PO SCH (07:54)
[2021-10-24] MEDS: LACTOBACILLUS RHAMNOSUS GG 1 CAPSULE. PO SCH (07:54)
[2021-10-24] MEDS: POTASSIUM CHLORIDE 10 MEQ TABLET.ER. PO SCH (07:54)
[2021-10-24 07:55] VITALS: BP 103/72
[2021-10-24] MEDS: APIXABAN 5 MG TABLET. PO SCH (07:55)
[2021-10-24] MEDS ORDERED: FUROSEMIDE 20 MG TABLET PO SCH (09:00)
[2021-10-24] MEDS ORDERED: METOPROLOL SUCC 24HR ER 25 MG TAB.ER.24H. PO SCH (09:00)
--- NOTE | 2021-10-24 09:46 | PDOC ---
PULMONARY PROGRESS NOTES DATE: 10/24/21 TIME: 09:46 Subjective Patient denies any shortness of breath at rest. status post left thoracentesis with 1.3 L of fluid removed on 10/11 Blood pressure remains low but he is asymptomatic. Vitals Vital Signs Date Time Temp Pulse Resp B/P (MAP) Pulse Ox O2 Delivery O2 Flow Rate FiO2 10/24/21 08:00 Nasal Cannula 1.0 10/24/21 07:55 90 103/72 10/24/21 07:00 98.2 17 99 98.2 ROS: No Nausea, No Chest Pain, No Abdominal Pain, No Increase Cough General: Alert, No acute distress Lungs: Clear Cardiovascular: S1 Abdomen: Soft Neuro Exam: Alert Extremities: Other (1+ edema.) Skin: Warm Labs Laboratory Tests Test 10/24/21 04:30 White Blood Count 4.7 x10^3/uL (4.0-11.0) Red Blood Count 3.57 x10^6/uL (4.30-5.70) Hemoglobin 11.6 g/dL (13.0-17.5) Hematocrit 35.0 % (39.0-53.0) Mean Corpuscular Volume 98 fL (79-100) Mean Corpuscular Hemoglobin 32 pg (25-35) Mean Corpuscular Hemoglobin Concent 33 g/dL (31-37) Red Cell Distribution Width 15.1 % (11.5-14.5) Platelet Count 126 x10^3/uL (140-400) Sodium Level 139 mmol/L (136-145) Potassium Level 4.5 mmol/L (3.5-5.1) Chloride Level 101 mmol/L (98-107) Carbon Dioxide Level 31 mmol/L (21-32) Anion Gap 7 (6-14) Blood Urea Nitrogen 26 mg/dL (8-26) Creatinine 1.2 mg/dL (0.7-1.3) Estimated GFR (Cockcroft-Gault) 59.0 Glucose Level 92 mg/dL (70-99) Calcium Level 8.5 mg/dL (8.5-10.1) Magnesium Level 1.8 mg/dL (1.8-2.4) Laboratory Tests Test 10/24/21 04:30 White Blood Count 4.7 x10^3/uL (4.0-11.0) Red Blood Count 3.57 x10^6/uL (4.30-5.70) Hemoglobin 11.6 g/dL (13.0-17.5) Hematocrit 35.0 % (39.0-53.0) Mean Corpuscular Volume 98 fL (79-100) Mean Corpuscular Hemoglobin 32 pg (25-35) Mean Corpuscular Hemoglobin Concent 33 g/dL (31-37) Red Cell Distribution Width 15.1 % (11.5-14.5) Platelet Count 126 x10^3/uL (140-400) Sodium Level 139 mmol/L (136-145) Potassium Level 4.5 mmol/L (3.5-5.1) Chloride Level 101 mmol/L (98-107) Carbon Dioxide Level 31 mmol/L (21-32) Anion Gap 7 (6-14) Blood Urea Nitrogen 26 mg/dL (8-26) Creatinine 1.2 mg/dL (0.7-1.3) Estimated GFR (Cockcroft-Gault) 59.0 Glucose Level 92 mg/dL (70-99) Calcium Level 8.5 mg/dL (8.5-10.1) Magnesium Level 1.8 mg/dL (1.8-2.4) Medications Active Scripts Medications Dose Route/Sig Max Daily Dose Days Date Category Flomax (Tamsulosin Hcl) 0.4 Mg Cap.er.24h 0.4 Mg PO DAILY 01/04/20 Reported Impression . 1. Acute respiratory failure multifactorial secondary to heart failure, COPD 2. Atrial fibrillation with rapid ventricular response. 3. Abnormal CT abdomen and pelvis with mild to moderate left pleural effusion. Transudative. Status post thoracentesis. 4. Mild acute kidney injury. 5. Likely alcoholic liver disease. 6. Hypomagnesemia. 7. Cardiomyopathy with an EF of 20 to 25% and secondary pulmonary hypertension. 8. Coronary artery disease 9. COPD 10. Hypotension Conclusion 1. Two-vessel coronary artery disease, heavily calcified and long stenosis invo lving the left anterior descending and OM/LCx as described above 2. Elevated right and left-sided filling pressures consistent with acute on chronic systolic heart failure 3. No evidence of intracardiac shunt Recommendations Optimization of medical therapy for acute on chronic systolic heart failure. Due to heavy calcified stenoses, we will consider orbital atherectomy/PCI/stent placement to LAD and OM/LCx as an outpatient once better compensated. Cardiovascular is factor modification. Source: 01 LEFT PLEURAL DIAGNOSIS: 02 LEFT PLEURAL NEGATIVE FOR MALIGNANT CELLS. FEW REACTIVE MESOTHELIAL CELLS PRESENT. THIS EVALUATION INCLUDES EXAMINATION OF A CELL BLOCK. Signed out by: 02 Plan . Continue optimization of cardiac function. Blood pressure remains low but he has been totally asymptomatic. Metoprolol dose has been adjusted per cardiology. Diuresis per cardiology. Pleural fluid related to heart failure. Transudate Patient had a 6-minute walk test on Thursday. Requires oxygen. Outpatient PFTs Per cardiology, orbital atherectomy/PCI/stent placement to LAD and OM/LCx as an outpatient TOLU GASTELUM MD October 24, 2021 09:46
--- NOTE | 2021-10-24 09:54 | PDOC ---
MERISSA SOTO BOTTOM PRESSER 10/24/21 0954: CARDIO Progress Notes Date and Time Date of Service 10/24/21 Time of Evaluation 0969 Subjective Subjective: No Chest Pain, No shortness of breath, No Palpitations, No Dizziness Vitals Vitals Vital Signs Date Time Temp Pulse Resp B/P (MAP) Pulse Ox O2 Delivery O2 Flow Rate FiO2 10/24/21 08:00 Nasal Cannula 1.0 10/24/21 07:55 90 103/72 10/24/21 07:00 98.2 17 99 98.2 Weight Weight [ ] Input and Output Intake and Output Intake and Output 10/24/21 07:00 Intake Total 700 ml Output Total 2100 ml Balance -1400 ml Intake Oral 700 ml Output Urine Total 2100 ml Laboratory Labs Laboratory Tests Test 10/24/21 04:30 White Blood Count 4.7 x10^3/uL (4.0-11.0) Red Blood Count 3.57 x10^6/uL (4.30-5.70) Hemoglobin 11.6 g/dL (13.0-17.5) Hematocrit 35.0 % (39.0-53.0) Mean Corpuscular Volume 98 fL (79-100) Mean Corpuscular Hemoglobin 32 pg (25-35) Mean Corpuscular Hemoglobin Concent 33 g/dL (31-37) Red Cell Distribution Width 15.1 % (11.5-14.5) Platelet Count 126 x10^3/uL (140-400) Sodium Level 139 mmol/L (136-145) Potassium Level 4.5 mmol/L (3.5-5.1) Chloride Level 101 mmol/L (98-107) Carbon Dioxide Level 31 mmol/L (21-32) Anion Gap 7 (6-14) Blood Urea Nitrogen 26 mg/dL (8-26) Creatinine 1.2 mg/dL (0.7-1.3) Estimated GFR (Cockcroft-Gault) 59.0 Glucose Level 92 mg/dL (70-99) Calcium Level 8.5 mg/dL (8.5-10.1) Magnesium Level 1.8 mg/dL (1.8-2.4) Microbiology Micro Microbiology 10/11/21 Gram Stain - Final, Complete 10/11/21 Aerobic and Anaerobic Culture - Final, Complete Physical Exam HEENT: Neck Supple W Full Motion Chest: Symmetric LUNGS: Other (diminished bases) Heart: S1S2, irregularly irregular (AFIB- rate controlled ) Abdomen: Soft N/T Extremities: No Edema, No Calf Tenderness Neurology: alert, oriented, follow commands Assessment Assessment 1. AFIB RVR: rate now controlled 2. Severe cardiomyopathy: Limited echo with LVEF 20-25%. 3. Acute on chronic systolic; . RHC with elevated pressure. off milrinone. Entresto discontinued due to hypotension 4. Left pleural effusion: s/p thoracentesis with 1.3L off 5. CAD; LHC with two vessel with heavily calcified, long stenosis involving the LAD and OM/LCx 6. MIGUEL; Cr improved 7. ETOH misuse: heavy consumption 8. Tobacco abuse with likely COPD 9. Mild thrombocytopenia; stable 10. Hypotension; asymptomatic. Improved s/p fluid bolus Recommendations HF optimization as able No ILIA/ARB, Entresto due to persistent hypotension Continue Toprol to 12.5mg Add Jardiance Low dose Lasix Eliquis for stroke prophylaxis ASA, statin therapy Outpatient orbital atherectomy/PCI/stent placement to LAD and OM/LCx. Our office will arrange Outpatient CV Supportive care Justicifation of Admission Dx: Justifications for Admission: Justification of Admission Dx: Yes ODALYS STRONG MD 10/25/21 1002: CARDIO Progress Notes Assessment Assessment Patient seen and examined 11/01/2021. Agree with OUTBOARD MOTORS EXPERIMENTAL MECHANIC's assessment and plan. Acute on chr systolic HF compensated CAD clinically stable No ACEI/ARB/entresto for now due to hypotension Blood pressure improved after fluid challenge and decreasing beta-halima dose Start Jardiance to optimize therapy AF rate controlled Continue eliquis for stroke prophylaxis Plan for outpatient cardioversion and PCI MERISSA SOTO APRN October 24, 2021 09:54 ODALYS STRONG MD October 25, 2021 10:02
[2021-10-24] MEDS ORDERED: EMPAGLIFLOZIN 10 MG TABLET. PO SCH (10:00)
[2021-10-24] MEDS ORDERED: METO-239 PO (10:18)
[2021-10-24] MEDS ORDERED: FURO40TA4 PO (10:19)
--- NOTE | 2021-10-24 10:25 | PDOC ---
Date of Service: DATE: 10/24/21 TIME: 10:23 Objective: Objective: D/w nurse - no GI concerns, possible DC today. Vital Signs: Vital Signs Date Time Temp Pulse Resp B/P (MAP) Pulse Ox O2 Delivery O2 Flow Rate FiO2 10/24/21 08:00 Nasal Cannula 1.0 10/24/21 07:55 90 103/72 10/24/21 07:00 98.2 17 99 98.2 Labs: Laboratory Tests Test 10/24/21 04:30 White Blood Count 4.7 x10^3/uL Red Blood Count 3.57 x10^6/uL Hemoglobin 11.6 g/dL Hematocrit 35.0 % Mean Corpuscular Volume 98 fL Mean Corpuscular Hemoglobin 32 pg Mean Corpuscular Hemoglobin Concent 33 g/dL Red Cell Distribution Width 15.1 % Platelet Count 126 x10^3/uL Sodium Level 139 mmol/L Potassium Level 4.5 mmol/L Chloride Level 101 mmol/L Carbon Dioxide Level 31 mmol/L Anion Gap 7 Blood Urea Nitrogen 26 mg/dL Creatinine 1.2 mg/dL Estimated GFR (Cockcroft-Gault) 59.0 Glucose Level 92 mg/dL Calcium Level 8.5 mg/dL Magnesium Level 1.8 mg/dL PE: GEN: NAD NEURO/PSYCH: sleeping, did not disturb A/P: A Fib, CHF, hypotension +hemoccult (as outpt) - no previous 'scopes, not iron deficient -- Awaiting DC. Outpt 'scopes. Justicifation of Admission Dx: Justifications for Admission: Justification of Admission Dx: Yes MICHAEL SPEAR October 24, 2021 10:25
[2021-10-24] MEDS ORDERED: EMPA10TA3 PO (10:34)
--- NOTE | 2021-10-24 10:36 | PDOC ---
[facility] [facility] PROGRESS NOTE Date of Service DOS: DATE: 10/24/21 TIME: 10:20 Chief Complaint Chief Complaint A. 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 LifeVest in place. Off milrinone for 3 days. Acute on chronic combined CHF - off milrinone, still receiving IV lasix CAD - [facility] on 10/14/2021 with two vessel with heavily calcified, long stenosis involving the LAD and OM/LCx ETOH misuse Tobacco abuse with likely COPD Acute respiratory failure with hypoxia - cor pulmonale from CHF, needs 1L/min at rest and 3L/min with exertion FEN - Cardiac diet PPX - Eliquis FULL CODE Dispo - inpatient History of Present Illness History of Present Illness 10/24: Seen cinnamon chair. After albumin x1 and cutting his furosemide and Toprol-XL in half his blood pressures been systolic in the 100s. Plan for cardiac intervention in the next 2 weeks going home with [employer] oxygen prescription for concentrator will check his blood pressure daily weigh himself daily 10/23: Seen sitting in chair 2 L nasal cannula still was low blood pressures but is asymptomatic able to ambulate. Discussed with cardiology his Toprol-XL was cut in half still on furosemide. Not able to tolerate Entresto due to his low blood pressure. Plan was for discharge with home health was already approved for home oxygen will discuss with cardiology given his low blood pressure though asymptomatic he may be able to safely discharge and return to the hospital for selective angiography for LAD lesion. 10/22: Seen on 2-1/2 L nasal cannula oxygen at rest. Transition to p.o. Lasix from IV Lasix. Has a slight dry cough today is intermittent blood pressure still low systolic 71 diastolic 51. On telemetry is in rate controlled A. fib in the 70s. He is asking for home oxygen concentrator. 10/21: Seen on 1 L/min nasal cannula at rest. Systolic blood pressure in the low 100s after holding Entresto for the last day. Still rate controlled atrial fibrillation in the 60s. 10/20: Patient seen and evaluated. Some significant hypotension today, BP 80/60 mmHg. Rate controlled A. fib with occasional PVCs on telemetry. He denies chest pain or dizziness, but he is resting comfortably in bed. Will decrease Entresto to daily and continue to monitor blood pressure overnight. Still breathing on 1 L nasal cannula. Had 6-minute walk today and requires 1 L at rest and 3 L with exertion. 10/19: Patient seen resting comfortably at bedside. He is currently requiring low-dose oxygen, 1 L nasal cannula. He is to have LifeVest placed today, will likely discharge home tomorrow with home health. He remains inpatient for f urther monitoring of his blood pressure respiration, with hopes to wean oxygen altogether. 10/18: Afebrile, breathing on room air. Blood pressure marginal. Off milrinone gtt. work with PT/OT. Monitor blood pressure overnight and will discharge tomorrow home with home health. 10/17: Afebrile. Patient currently breathing on 1 L nasal cannula. His Lasix has been increased to 40 twice daily and he continues on milrinone gtt. Will have patient work with PT/OT. Recommend elevation of his legs to help offload fluid, "toes above nose". 10/16: Patient evaluated bedside. Denies chest pain. Left heart cath yesterday showed two-vessel coronary artery disease, and elevated right and left-sided filling pressures consistent with acute on chronic systolic heart failure. He was recommended optimization of medical therapy for acute on chronic systolic heart failure. Continue milrinone gtt and Lasix. 10/15: Patient seen and evaluated. He denies chest pain. Breathing comfortably on 2 L. He is scheduled for heart cath today at 1 PM. 10/14: Patient notes some improvement in his bilateral leg swelling. Denies any shortness of breath. Remains on milrinone gtt and IV Lasix. Cardiology has plan for heart cath tomorrow. 10/13: Afebrile, breathing on room air. Had left thoracentesis yesterday with 1.3 L off. Pleural fluid analysis pending. Lasix decreased to 20 IV daily due to soft blood pressure. We will continue diuresis as blood pressure allows. Kidney function still hovering around CKD 3a/3b. On milrinone gtt. Cardiology to c onsider left heart cath tomorrow. States he had a bowel movement today finally. He is on Eliquis for new diagnosis of A. fib. 10/12: Patient resting comfortably in bed, afebrile. Patient had successful ultrasound guided thoracentesis yesterday with removal of 1.3 liters of fluid. Heparin gtt has been stopped, initiated on Eliquis. Per cardiology, will add Aldactone and Entresto when blood pressure more adequate. Plans for outpatient left heart cath. Hemoglobin A1c 5.7, will stop blood checks. On CIWA protocol, has not required any IV Ativan. Hemoccult positive, GI is following. Will continue to follow cardiology and pulmonology recommendations. 10/11: Afebrile. CRP 23.7, procalcitonin 0.10. Will discontinue antibiotics. He is having a thoracentesis today. Lasix held this morning due to some hypotension. His echocardiogram showed EF 20-25%. Cardiology following. He was initiated on heart failure medications prior to discharge. 10/10: Patient seen and evaluated with at bedside. He denies any shortness of breath at rest or laying on his back, but does admit to some dyspnea on exertion. Answered and 's questions to the best of my abilities. Echocardiogram pending, and nurse initiating heparin drip. Will order abdominal ultrasound to evaluate likely cirrhosis. Will order CRP to rule out any pneumonia; if not elevated will discontinue empiric antibiotics. For his likely history of BPH we will initiate Flomax daily. Patient also concerned about bilateral earwax impaction. Will schedule daily Debrox in hopes that impacted earwax will express its way out. Discussed with RN. Vitals/I&O Vitals/I&O: Vital Signs Date Time Temp Pulse Resp B/P (MAP) Pulse Ox O2 Delivery O2 Flow Rate FiO2 10/24/21 08:00 Nasal Cannula 1.0 10/24/21 07:55 90 103/72 10/24/21 07:00 98.2 17 99 98.2 I & O 10/23/21 10/23/21 10/24/21 15:00 23:00 07:00 Intake Total 300 ml 400 ml Output Total 750 ml 100 ml 1250 ml Balance -450 ml 300 ml -1250 ml Physical Exam General: No acute distress Heart: Other (Irregular irregular) Lungs: Clear Abdomen: Normal bowel sounds Extremities: No cyanosis, Other (4+ bilateral LA pitting edema) Skin: No breakdown Labs Labs: Laboratory Tests Test 10/24/21 04:30 White Blood Count 4.7 x10^3/uL (4.0-11.0) Red Blood Count 3.57 x10^6/uL (4.30-5.70) Hemoglobin 11.6 g/dL (13.0-17.5) Hematocrit 35.0 % (39.0-53.0) Mean Corpuscular Volume 98 fL (79-100) Mean Corpuscular Hemoglobin 32 pg (25-35) Mean Corpuscular Hemoglobin Concent 33 g/dL (31-37) Red Cell Distribution Width 15.1 % (11.5-14.5) Platelet Count 126 x10^3/uL (140-400) Sodium Level 139 mmol/L (136-145) Potassium Level 4.5 mmol/L (3.5-5.1) Chloride Level 101 mmol/L (98-107) Carbon Dioxide Level 31 mmol/L (21-32) Anion Gap 7 (6-14) Blood Urea Nitrogen 26 mg/dL (8-26) Creatinine 1.2 mg/dL (0.7-1.3) Estimated GFR (Cockcroft-Gault) 59.0 Glucose Level 92 mg/dL (70-99) Calcium Level 8.5 mg/dL (8.5-10.1) Magnesium Level 1.8 mg/dL (1.8-2.4) Assessment and Plan Assessmemt and Plan Problems Medical Problems: (1) Atrial fibrillation with rapid ventricular response Status: Acute Comment Review of Relevant I have reviewed the following items ganesh (where applicable) has been applied. Medications: Current Medications Medications (Trade) Dose Ordered Sig/Alicja Route PRN Reason Start Time Stop Time Status Last Admin Dose Admin Metoprolol Succinate (Toprol Xl) 12.5 mg DAILY PO 10/24/21 09:00 10/24/21 07:55 Furosemide (Lasix) 20 mg DAILY PO 10/24/21 09:00 10/24/21 07:55 Sodium Chloride 500 ml @ 500 mls/hr 1X ONCE IV 10/23/21 14:00 10/23/21 14:59 DC 10/23/21 14:00 Albumin Human 500 ml @ 125 mls/hr 1X ONCE IV 10/23/21 18:15 10/23/21 22:14 DC 10/23/21 18:19 Empaglifozin (Jardiance) 10 mg DAILY PO 10/24/21 10:00 10/24/21 10:15 Justifications for Admission Other Justification Afib RVR MARIANO SHAW MD October 24, 2021 10:36
--- NOTE | 2021-10-24 10:43 | PDOC3 ---
Discharge Summary Visit Information Date of Admission: Oct 09, 2021 Date of Discharge: October 24, 2021 Admitting Diagnosis: Afib with RVR Final Diagnosis Problems Medical Problems: (1) Atrial fibrillation with rapid ventricular response Status: Acute Brief Hospital Course Allergies Allergies Coded Allergies Type Severity Reaction Last Updated Verified No Known Drug Allergies 01/24/20 No Vital Signs Vital Signs Date Time Temp Pulse Resp B/P (MAP) Pulse Ox O2 Delivery O2 Flow Rate FiO2 10/24/21 08:00 Nasal Cannula 1.0 10/24/21 07:55 90 103/72 10/24/21 07:00 98.2 17 99 98.2 Lab Results Laboratory Tests Test 10/24/21 04:30 White Blood Count 4.7 x10^3/uL (4.0-11.0) Red Blood Count 3.57 x10^6/uL (4.30-5.70) Hemoglobin 11.6 g/dL (13.0-17.5) Hematocrit 35.0 % (39.0-53.0) Mean Corpuscular Volume 98 fL (79-100) Mean Corpuscular Hemoglobin 32 pg (25-35) Mean Corpuscular Hemoglobin Concent 33 g/dL (31-37) Red Cell Distribution Width 15.1 % (11.5-14.5) Platelet Count 126 x10^3/uL (140-400) Sodium Level 139 mmol/L (136-145) Potassium Level 4.5 mmol/L (3.5-5.1) Chloride Level 101 mmol/L (98-107) Carbon Dioxide Level 31 mmol/L (21-32) Anion Gap 7 (6-14) Blood Urea Nitrogen 26 mg/dL (8-26) Creatinine 1.2 mg/dL (0.7-1.3) Estimated GFR (Cockcroft-Gault) 59.0 Glucose Level 92 mg/dL (70-99) Calcium Level 8.5 mg/dL (8.5-10.1) Magnesium Level 1.8 mg/dL (1.8-2.4) Laboratory Tests Test 10/24/21 04:30 White Blood Count 4.7 x10^3/uL (4.0-11.0) Red Blood Count 3.57 x10^6/uL (4.30-5.70) Hemoglobin 11.6 g/dL (13.0-17.5) Hematocrit 35.0 % (39.0-53.0) Mean Corpuscular Volume 98 fL (79-100) Mean Corpuscular Hemoglobin 32 pg (25-35) Mean Corpuscular Hemoglobin Concent 33 g/dL (31-37) Red Cell Distribution Width 15.1 % (11.5-14.5) Platelet Count 126 x10^3/uL (140-400) Sodium Level 139 mmol/L (136-145) Potassium Level 4.5 mmol/L (3.5-5.1) Chloride Level 101 mmol/L (98-107) Carbon Dioxide Level 31 mmol/L (21-32) Anion Gap 7 (6-14) Blood Urea Nitrogen 26 mg/dL (8-26) Creatinine 1.2 mg/dL (0.7-1.3) Estimated GFR (Cockcroft-Gault) 59.0 Glucose Level 92 mg/dL (70-99) Calcium Level 8.5 mg/dL (8.5-10.1) Magnesium Level 1.8 mg/dL (1.8-2.4) Brief Hospital Course Mr Marley is a 76-year-old male with no known prior past medical history who has been a smoker for 60 years and continues to smoke cigarettes. He was brought into the hospital with complaint of bloating and abdominal distention. He was noted to be in atrial fibrillation with rapid ventricular response. The patient was seen by Cardiology. He also underwent occult stool screening positive. The patient has a history of heavy alcoholism, 1 to 3 Conner Zion's drinks daily and has been smoking for [address] abdomen and pelvis showed a small to moderate left pleural effusion. Ultimately was treated for alcohol withdrawal and newly diagnosed atrial fibrillation with RVR as well as severe combined CHF EF of 20-25 LifeVest placed and has plan for interval selective coronary angiography after he was stabilized for his acute CHF. He required a thoracentesis 1.3 L in the last. Was also seen by GI for blood in stool did not require any blood transfusion. Required milrinone for almost a week and ultimately after albumin x1 and cutting his furosemide and Toprol-XL in half his blood pressures been systolic in the 100s. Plan for cardiac intervention in the next 2 weeks going home with Life[employer] oxygen prescription for concentrator will check his blood pressure daily weigh himself daily Daily course: 10/23: Seen sitting in chair 2 L nasal cannula still was low blood pressures but is asymptomatic able to ambulate. Discussed with cardiology his Toprol-XL was cut in half still on furosemide. Not able to tolerate Entresto due to his low blood pressure. Plan was for discharge with home health was already approved for home oxygen will discuss with cardiology given his low blood pressure though asymptomatic he may be able to safely discharge and return to the hospital for selective angiography for LAD lesion. 10/22: Seen on 2-1/2 L nasal cannula oxygen at rest. Transition to p.o. Lasix from IV Lasix. Has a slight dry cough today is intermittent blood pressure still low systolic 71 diastolic 51. On telemetry is in rate controlled A. fib in the 70s. He is asking for home oxygen concentrator. 10/21: Seen on 1 L/min nasal cannula at rest. Systolic blood pressure in the low 100s after holding Entresto for the last day. Still rate controlled atrial fibrillation in the 60s. 10/20: Patient seen and evaluated. Some significant hypotension today, BP 80/60 mmHg. Rate controlled A. fib with occasional PVCs on telemetry. He denies chest pain or dizziness, but he is resting comfortably in bed. Will decrease Entresto to daily and continue to monitor blood pressure overnight. Still breathing on 1 L nasal cannula. Had 6-minute walk today and requires 1 L at rest and 3 L with exertion. 10/19: Patient seen resting comfortably at bedside. He is currently requiring low-dose oxygen, 1 L nasal cannula. He is to have LifeVest placed today, will likely discharge home tomorrow with home health. He remains inpatient for further monitoring of his blood pressure respiration, with hopes to wean oxygen altogether. 10/18: Afebrile, breathing on room air. Blood pressure marginal. Off milrinone gtt. work with PT/OT. Monitor blood pressure overnight and will discharge tomorrow home with home health. 10/17: Afebrile. Patient currently breathing on 1 L nasal cannula. His Lasix has been increased to 40 twice daily and he continues on milrinone gtt. Will have patient work with PT/OT. Recommend elevation of his legs to help offload fluid, "toes above nose". 10/16: Patient evaluated bedside. Denies chest pain. Left heart cath yesterday showed two-vessel coronary artery disease, and elevated right and left-sided filling pressures consistent with acute on chronic systolic heart failure. He was recommended optimization of medical therapy for acute on chronic systolic heart failure. Continue milrinone gtt and Lasix. 10/15: Patient seen and evaluated. He denies chest pain. Breathing comfortably on 2 L. He is scheduled for heart cath today at 1 PM. 10/14: Patient notes some improvement in his bilateral leg swelling. Denies any shortness of breath. Remains on milrinone gtt and IV Lasix. Cardiology has plan for heart cath tomorrow. 10/13: Afebrile, breathing on room air. Had left thoracentesis yesterday with 1.3 L off. Pleural fluid analysis pending. Lasix decreased to 20 IV daily due to soft blood pressure. We will continue diuresis as blood pressure allows. Kidney function still hovering around CKD 3a/3b. On milrinone gtt. Cardiology to consider left heart cath tomorrow. States he had a bowel movement today finally. He is on Eliquis for new diagnosis of A. fib. 10/12: Patient resting comfortably in bed, afebrile. Patient had successful ultrasound guided thoracentesis yesterday with removal of 1.3 liters of fluid. Heparin gtt has been stopped, initiated on Eliquis. Per cardiology, will add Aldactone and Entresto when blood pressure more adequate. Plans for outpatient left heart cath. Hemoglobin A1c 5.7, will stop blood checks. On CIWA protocol, has not required any IV Ativan. Hemoccult positive, GI is following. Will continue to follow cardiology and pulmonology recommendations. 10/11: Afebrile. CRP 23.7, procalcitonin 0.10. Will discontinue antibiotics. He is having a thoracentesis today. Lasix held this morning due to some hypotension. His echocardiogram showed EF 20-25%. Cardiology following. He was initiated on heart failure medications prior to discharge. 10/10: Patient seen and evaluated with at bedside. He denies any shortness of breath at rest or laying on his back, but does admit to some dyspnea on exertion. Answered and 's questions to the best of my abilities. Echocardiogram pending, and nurse initiating heparin drip. Will order abdominal ultrasound to evaluate likely cirrhosis. Will order CRP to rule out any pneumonia; if not elevated will discontinue empiric antibiotics. For his likely history of BPH we will initiate Flomax daily. Patient also concerned about bilateral earwax impaction. Will schedule daily Debrox in hopes that impacted earwax will express its way out. Discussed with RN. Consults: Cardiology, GI, Pulmonology Problem list: A. 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 LifeVest in place. Off milrinone for 1 week Acute on chronic combined CHF - off milrinone, still receiving lasix CAD - [facility] on 10/14/2021 with two vessel with heavily calcified, long stenosis involving the LAD and OM/LCx ETOH misuse Tobacco abuse with likely COPD Acute respiratory failure with hypoxia - cor pulmonale from CHF, needs 1L/min at rest and 3L/min with exertion Greater than 30 minutes spent on d/c home with home health Discharge Information Condition at Discharge: Improved Follow Up: Weeks (2) Disposition/Orders: D/C to Home w/ HH Scheduled Apixaban (Eliquis) 5 Mg Tablet, 5 MG PO BID for Atrial fibrillation for 30 Days, #60 Ref 5 Prescribed by: MARIANO SHAW MD on 10/21/21 1127 Aspirin (Aspirin Ec) 81 Mg Tablet.dr, 81 MG PO DAILYWBKFT for CHF for 30 Days, #30 Ref 11 Prescribed by: MARIANO SHAW MD on 10/21/21 1127 Atorvastatin Calcium (Atorvastatin Calcium) 40 Mg Tablet, 40 MG PO QHS for CHF for 30 Days, #30 Ref 5 Prescribed by: MARIANO SHAW MD on 10/21/21 1127 Empagliflozin (Jardiance) 10 Mg Tablet, 10 MG PO DAILY for CHF for 30 Days, #30 Ref 5 Prescribed by: MARIANO SHAW MD on 10/24/21 1034 Furosemide (Furosemide) 40 Mg Tablet, 0.5 TAB PO DAILY for CHF for 30 Days, #15 Ref 2 Prescribed by: MARIANO SHAW MD on 10/24/21 1019 Metoprolol Succinate (Metoprolol Succinate ( Xl )) 25 Mg Tab.er.24h, 12.5 MG PO DAILY for CHF/Afib for 30 Days, #15 Ref 5 Prescribed by: MARIANO SHAW MD on 10/24/21 1018 Potassium Chloride (Klor-Con 10) 10 Meq Tablet.er, 10 MEQ PO DAILYWBKFT for CHF for 30 Days, #30 Ref 2 Prescribed by: MARIANO SHAW MD on 10/21/21 1127 Tamsulosin Hcl (Flomax) 0.4 Mg Cap.er.24h, 0.4 MG PO DAILY for prostate, (Reported) Entered as Reported by: LYNNETTE WATERS on 01/04/20 1558 Last Action: Reviewed on 10/10/21 0748 by RM HURST Justicifation of Admission Dx: Justifications for Admission: Justification of Admission Dx: Yes MARIANO SHAW MD October 24, 2021 10:43
--- NOTE | 2021-10-24 10:55 | NUR ---
SS following up with discharge planning. SS reviewed pt chart and discussed with pt RN. Pt is currently requiring oxygen via nasal canula. COVID19 negative. PT/OT recommending home with assistance. Pt accepted on services with [facility], ; fax [phone]. Life Vest in place. Oxygen arranged through [facility], ; fax [phone]. Oxygen tank provided for home. Discharge orders faxed to [facility]. Pt's RN notified.
--- NOTE | 2021-10-24 11:26 | NUR ---
Discharge Note: KEREN BARRAGAN [address] Discharge instructions and discharge home medications reviewed with Home Care Nurse/Telephone and a copy given. All questions have been answered and understanding verbalized. The following instructions and handouts were given: Follow up and home oxygen Discontinued lines and drains: IV and monitoring tech removed Patient discharged to home with home health
== END 2021-10-24 11:39 | disposition home health service (06) | DRG 286 ==
LOC: ER 16:03 → 6 SOUTH 17:45
PROVIDERS: ADMIT Internal Medicine; ATTEND Internal Medicine
PROC: 0W9B3ZZ Drainage of Left Pleural Cavity, Percutaneous Approach (ICD-10-PCS; 2021-10-11)
PROC: 4A023N8 Measurement of Cardiac Sampling and Pressure, Bilateral, Percutaneous Approach (ICD-10-PCS; principal; 2021-10-15)
PROC: B2111ZZ Fluoroscopy of Multiple Coronary Arteries using Low Osmolar Contrast (ICD-10-PCS; 2021-10-15)
DX: I48.91 Unspecified atrial fibrillation (principal); N17.0 Acute kidney failure with tubular necrosis; I50.43 Acute on chronic combined systolic (congestive) and diastolic (congestive) heart failure; J96.01 Acute respiratory failure with hypoxia; J98.11 Atelectasis; R18.8 Other ascites; F10.239 Alcohol dependence with withdrawal, unspecified; I42.8 Other cardiomyopathies; D63.8 Anemia in other chronic diseases classified elsewhere; D69.6 Thrombocytopenia, unspecified; E66.9 Obesity, unspecified; E83.42 Hypomagnesemia; E88.09 Other disorders of plasma-protein metabolism, not elsewhere classified; F10.20 Alcohol dependence, uncomplicated; F17.210 Nicotine dependence, cigarettes, uncomplicated; I25.10 Atherosclerotic heart disease of native coronary artery without angina pectoris; I25.5 Ischemic cardiomyopathy; I27.29 Other secondary pulmonary hypertension; I49.3 Ventricular premature depolarization; J44.9 Chronic obstructive pulmonary disease, unspecified; K59.00 Constipation, unspecified; K70.9 Alcoholic liver disease, unspecified; K76.0 Fatty (change of) liver, not elsewhere classified; N18.31 Chronic kidney disease, stage 3a; N40.1 Benign prostatic hyperplasia with lower urinary tract symptoms; Z79.01 Long term (current) use of anticoagulants; K59.09 Other constipation
CPT/HCPCS: 93460; 96374; 96375; 99285; G0269; 32555; 36415; 71045; 74177; 76705; 80048; 80061; 80076; 82945; 82962; 83036; 83540; 83550; 83605; 83615; 83735; 83880; 83986; 84100; 84145; 84157; 84443; 84484; 85025; 85027; 85520; 85610; 85730; 86140; 87075; 87426; 88112; 88305; 89050; 93005; 93308; 94618; 99152; 99153; C1773; C1894; G0103; J0696; J1160; J1200; J1644; J1940; J2250; J2260; J3010; J3475; J3490; J7030; J7040; P9041; P9045; Q9956; Q9967; 97116-GP; 97530-GO; 97535-GO; G0378